=== PATIENT | male | born 1930 | race Caucasian/White ===

== ENCOUNTER → 2017-01-17 | Outpatient (REF) | payer MEDICARE, OTHER ==
[~2017-01-17] MED LIST: /FENO48TA OR; ADVIL PO; MULTIVIT PO; OMEP20TA7 OR; PROS5TAB OR; SIMV40TA2 OR; hyomax PO
[2017-01-17 13:28] LABS: MEAN CORPUSCULAR HEMOGLOBIN 34.1 pg (27.0-33.0); MEAN CORPUSCULAR HGB CONC 34.4 g/dl (32.0-36.5); MEAN CORPUSCULAR VOLUME 99.2 fl (80.0-96.0); RED CELL DISTRIBUTION WIDTH 13.1 % (11.5-14.5)
[2017-01-17 13:47] LABS: ALBUMIN 3.3 GM/DL (3.2-5.2); ALBUMIN/GLOBULIN RATIO 1.18 (1.00-1.93); ALKALINE PHOSPHATASE 68 U/L (45-117); ALT/SGPT 25 U/L (12-78); ANION GAP 9 MEQ/L (8-16); AST/SGOT 17 U/L (15-37); BILIRUBIN,TOTAL 0.8 MG/DL (0.2-1.0); BLOOD UREA NITROGEN 12 MG/DL (7-18); CALCIUM LEVEL 8.2 MG/DL (8.8-10.2); CARBON DIOXIDE LEVEL 30 MEQ/L (21-32); CHLORIDE LEVEL 103 MEQ/L (98-107); CHOLESTEROL LEVEL 155 MG/DL (<200); CREATININE FOR GFR 0.88 MG/DL (0.70-1.30); GLOMERULAR FILTRATION RATE > 60.0 (>35); GLUCOSE, FASTING 107 MG/DL (83-110); POTASSIUM SERUM 4.1 MEQ/L (3.5-5.1); SODIUM LEVEL 142 MEQ/L (136-145); TOTAL PROTEIN 6.1 GM/DL (6.4-8.2); TRIGLYCERIDES LEVEL 232 MG/DL (<150)
== END ==
LOC: M SFHCPLAZ 08:35
PROVIDERS: ATTEND Nurse Practitioner Family
DX: D51.9 Vitamin B12 deficiency anemia, unspecified (principal); E78.2 Mixed hyperlipidemia; R73.9 Hyperglycemia, unspecified; E11.9 Type 2 diabetes mellitus without complications; E55.9 Vitamin D deficiency, unspecified

== ENCOUNTER → 2017-02-07 | Outpatient (CLI) | payer MEDICARE, OTHER ==
--- NOTE | 2017-02-13 15:18 | RADONC ---
RADIATION ONCOLOGY DATE OF SERVICE: 02/07/2017 CHART NO: [id number] DIAGNOSIS: Prostate cancer. STAGE: Stage II B, [id number] ECOG PERFORMANCE STATUS: 0 Mr. 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 The patient presents today reporting that he is doing quite well with no complaints at this time related to his radiation therapy or disease. He has no urinary or bowel difficulties and no bone pain. The patient's review of systems noncontributory. He denies standard review of systems. PHYSICAL EXAMINATION: The patient is a well-developed, well-nourished male in no acute distress. HEENT exam is normocephalic, atraumatic. Extraocular movements are intact. There is no palpable cervical, supraclavicular, infraclavicular, axillary, or inguinal lymphadenopathy present. Lungs are clear to auscultation and percussion. Heart has a regular rate and rhythm. Abdomen is benign with no hepatosplenomegaly, masses, or tenderness. Rectal examination reveals a normal anal sphincter tone. His prostate is smooth with no evidence of nodularity. Skeletal examination reveals no tenderness to pressure or percussion of the bony skeleton. Extremities reveal no clubbing, cyanosis, or edema. Neurologic exam is grossly intact, as is the remainder of the physical examination. ASSESSMENT: The patient is clinically ADELE at this time and will be seen by us again in 1 year for further followup. He will also continue to be followed by his other physicians as well. cc: MD Jayjay Kemp MD
== END ==
LOC: M ONCR 14:05
PROVIDERS: ATTEND Radiology Radiation Oncology
DX: C61 Malignant neoplasm of prostate (principal)
CPT/HCPCS: 36415; 84153; G0463

== ENCOUNTER → 2017-07-19 | Outpatient (REF) | payer MEDICARE, OTHER ==
[2017-07-19 13:56] LABS: ALBUMIN 3.3 GM/DL (3.2-5.2); ALBUMIN/GLOBULIN RATIO 1.06 (1.00-1.93); ALKALINE PHOSPHATASE 66 U/L (45-117); ALT/SGPT 27 U/L (12-78); ANION GAP 9 MEQ/L (8-16); AST/SGOT 14 U/L (15-37); BILIRUBIN,TOTAL 0.9 MG/DL (0.2-1.0); BLOOD UREA NITROGEN 9 MG/DL (7-18); CALCIUM LEVEL 8.3 MG/DL (8.8-10.2); CARBON DIOXIDE LEVEL 28 MEQ/L (21-32); CHLORIDE LEVEL 105 MEQ/L (98-107); CREATININE FOR GFR 0.78 MG/DL (0.70-1.30); GLOMERULAR FILTRATION RATE > 60.0 (>35); GLUCOSE, FASTING 114 MG/DL (83-110); POTASSIUM SERUM 4.1 MEQ/L (3.5-5.1); SODIUM LEVEL 142 MEQ/L (136-145); TOTAL PROTEIN 6.4 GM/DL (6.4-8.2)
== END ==
LOC: M SFHCPLAZ 08:28
PROVIDERS: ATTEND Nurse Practitioner Family
DX: E78.2 Mixed hyperlipidemia (principal); E11.9 Type 2 diabetes mellitus without complications

== ENCOUNTER → 2017-08-16 | Outpatient (REF) | payer MEDICARE, OTHER | LOC: M SFHCPLAZ 17:21 | PROVIDERS: ATTEND Physician Assistant | DX: J02.9 Acute pharyngitis, unspecified (principal) ==

== ENCOUNTER → 2017-10-08 | Outpatient (REF) | payer MEDICARE, OTHER | LOC: M LABDRAWP 12:40 | PROVIDERS: ATTEND Radiology Radiation Oncology | DX: C61 Malignant neoplasm of prostate (principal); E11.9 Type 2 diabetes mellitus without complications; E78.2 Mixed hyperlipidemia ==

== ENCOUNTER → 2017-10-08 | Outpatient (REF) | payer MEDICARE, OTHER ==
[2017-10-08 13:35] LABS: ALBUMIN 3.4 GM/DL (3.2-5.2); ALKALINE PHOSPHATASE 64 U/L (45-117); ALT/SGPT 24 U/L (12-78); ANION GAP 10 MEQ/L (8-16); AST/SGOT 19 U/L (7-37); BILIRUBIN,TOTAL 0.6 MG/DL (0.2-1.0); BLOOD UREA NITROGEN 14 MG/DL (7-18); CALCIUM LEVEL 8.8 MG/DL (8.8-10.2); CARBON DIOXIDE LEVEL 28 MEQ/L (21-32); CHLORIDE LEVEL 103 MEQ/L (98-107); CREATININE FOR GFR 0.94 MG/DL (0.70-1.30); GLOMERULAR FILTRATION RATE > 60.0 (>35); GLUCOSE, FASTING 108 MG/DL (83-110); POTASSIUM SERUM 4.2 MEQ/L (3.5-5.1); SODIUM LEVEL 141 MEQ/L (136-145); TOTAL PROTEIN 6.5 GM/DL (6.4-8.2)
== END ==
LOC: M SFHCPLAZ 10:05
PROVIDERS: ATTEND Family Medicine
DX: C61 Malignant neoplasm of prostate (principal); E11.9 Type 2 diabetes mellitus without complications; E78.2 Mixed hyperlipidemia

== ENCOUNTER → 2018-03-13 | Outpatient (REF) | payer MEDICARE, OTHER ==
[2018-03-13 12:36] LABS: TOTAL 25(OH) VITAMIN D 25.8 NG/ML (30.0-100.0)
[2018-03-13 12:52] LABS: ALBUMIN 3.7 GM/DL (3.2-5.2); ALBUMIN/GLOBULIN RATIO 1.09 (1.00-1.93); ALKALINE PHOSPHATASE 77 U/L (45-117); ALT/SGPT 25 U/L (12-78); ANION GAP 8 MEQ/L (8-16); AST/SGOT 15 U/L (7-37); BILIRUBIN,TOTAL 0.9 MG/DL (0.2-1.0); BLOOD UREA NITROGEN 16 MG/DL (7-18); CALCIUM LEVEL 8.8 MG/DL (8.8-10.2); CARBON DIOXIDE LEVEL 27 MEQ/L (21-32); CHLORIDE LEVEL 108 MEQ/L (98-107); CREATININE FOR GFR 0.91 MG/DL (0.70-1.30); GLOMERULAR FILTRATION RATE > 60.0 (>35); GLUCOSE, FASTING 95 MG/DL (70-100); POTASSIUM SERUM 4.7 MEQ/L (3.5-5.1); SODIUM LEVEL 143 MEQ/L (136-145); TOTAL PROTEIN 7.1 GM/DL (6.4-8.2)
== END ==
LOC: M SFHCPLAZ 10:00
DX: E55.9 Vitamin D deficiency, unspecified (principal); M48.061 Spinal stenosis, lumbar region without neurogenic claudication; X19.XXXA Contact with other heat and hot substances, initial encounter; Y92.9 Unspecified place or not applicable; Y93.9 Activity, unspecified
CPT/HCPCS: 80053

== ENCOUNTER → 2018-04-03 | Outpatient (CLI) | payer MEDICARE, OTHER | LOC: M ONCR 14:28 | DX: C61 Malignant neoplasm of prostate (principal) | CPT/HCPCS: 84153 ==

== ENCOUNTER → 2018-04-03 | Outpatient (CLI) | payer MEDICARE, BC, OTHER ==
[2018-04-03 14:26] LABS: PROSTATIC SPECIFIC AG MONITOR 0.03 NG/ML (< 4.0)
== END ==
LOC: M SMT 08:49
DX: C61 Malignant neoplasm of prostate (principal)

== ENCOUNTER → 2018-04-16 | Outpatient (CLI) | payer MEDICARE, BC, OTHER ==
[2018-04-16 13:14] LABS: HEMATOCRIT 40.2 % (42.0-52.0); HEMOGLOBIN 13.8 g/dl (13.5-17.5); MEAN CORPUSCULAR HEMOGLOBIN 33.6 pg (27.0-33.0); MEAN CORPUSCULAR HGB CONC 34.3 g/dl (32.0-36.5); MEAN CORPUSCULAR VOLUME 97.8 fl (80.0-96.0); PLATELET COUNT, AUTOMATED 200 10^3/uL (150-450); RED BLOOD COUNT 4.11 10^6/uL (4.30-6.10); RED CELL DISTRIBUTION WIDTH 13.2 % (11.5-14.5); WHITE BLOOD COUNT 7.4 10^3/uL (4.0-10.0)
[2018-04-16 13:39] LABS: VITAMIN B12 LEVEL 436 PG/ML (247-911)
[2018-04-16 13:53] LABS: ALBUMIN 3.4 GM/DL (3.2-5.2); ALBUMIN/GLOBULIN RATIO 1.06 (1.00-1.93); ALKALINE PHOSPHATASE 69 U/L (45-117); ALT/SGPT 25 U/L (12-78); ANION GAP 8 MEQ/L (8-16); AST/SGOT 15 U/L (7-37); BILIRUBIN,TOTAL 0.6 MG/DL (0.2-1.0); BLOOD UREA NITROGEN 17 MG/DL (7-18); CALCIUM LEVEL 8.8 MG/DL (8.8-10.2); CARBON DIOXIDE LEVEL 28 MEQ/L (21-32); CHLORIDE LEVEL 106 MEQ/L (98-107); CHOLESTEROL LEVEL 154 MG/DL (<200); CHOLESTEROL RISK RATIO 2.655 (<5); CREATININE FOR GFR 0.91 MG/DL (0.70-1.30); GLOMERULAR FILTRATION RATE > 60.0 (>35); GLUCOSE, FASTING 107 MG/DL (70-100); HDL CHOLESTEROL 58 MG/DL (>40); LDL CHOLESTEROL 40.8 MG/DL (<100); NON-HDL-C 96 MG/DL; POTASSIUM SERUM 4.3 MEQ/L (3.5-5.1); SODIUM LEVEL 142 MEQ/L (136-145); TOTAL PROTEIN 6.6 GM/DL (6.4-8.2); TRIGLYCERIDES LEVEL 276 MG/DL (<150)
== END ==
LOC: M SMT 08:55
DX: K22.70 Barrett's esophagus without dysplasia (principal); E78.2 Mixed hyperlipidemia; D51.9 Vitamin B12 deficiency anemia, unspecified
CPT/HCPCS: 82607

== ENCOUNTER → 2018-05-09 | Outpatient (CLI) | payer MEDICARE, BC, OTHER ==
[~2018-05-09] MED LIST changes: -/FENO48TA OR; -ADVIL PO; -MULTIVIT PO; -OMEP20TA7 OR; +PROHANCE 279.3MG/ML 15ML VIAL (A9576) As Ordered; +PROHANCE 279.3MG/ML 5ML VIAL (A9576) As Ordered; -PROS5TAB OR; -SIMV40TA2 OR; -hyomax PO
== END ==
LOC: M RAD 09:37
DX: M48.062 Spinal stenosis, lumbar region with neurogenic claudication (principal); M51.26 Other intervertebral disc displacement, lumbar region
CPT/HCPCS: A9576

== ENCOUNTER → 2018-07-22 | Outpatient (REF) | payer MEDICARE, OTHER | LOC: M LAB REF 07-23 11:05 | DX: L82.1 Other seborrheic keratosis (principal); C44.622 Squamous cell carcinoma of skin of right upper limb, including shoulder; D23.62 Other benign neoplasm of skin of left upper limb, including shoulder | CPT/HCPCS: 88305 ==

== ENCOUNTER → 2018-08-20 | Outpatient (REF) | payer MEDICARE, OTHER | LOC: M LAB REF 17:25 | DX: C44.622 Squamous cell carcinoma of skin of right upper limb, including shoulder (principal) | CPT/HCPCS: 88305 ==

== ENCOUNTER 2018-09-12 15:47 | Emergency (ER) | payer MEDICARE, OTHER ==
[2018-09-12 18:04] LABS: HEMATOCRIT 42.9 % (42.0-52.0); HEMOGLOBIN 14.7 g/dl (13.5-17.5); MEAN CORPUSCULAR HEMOGLOBIN 33.7 pg (27.0-33.0); MEAN CORPUSCULAR HGB CONC 34.3 g/dl (32.0-36.5); MEAN CORPUSCULAR VOLUME 98.4 fl (80.0-96.0); PLATELET COUNT, AUTOMATED 177 10^3/uL (150-450); RED BLOOD COUNT 4.36 10^6/uL (4.30-6.10); RED CELL DISTRIBUTION WIDTH 12.8 % (11.5-14.5); WHITE BLOOD COUNT 7.1 10^3/uL (4.0-10.0)
[2018-09-12 18:13] LABS: INR 0.89; PROTHROMBIN TIME 12.1 SECONDS (12.1-14.4)
[2018-09-12 18:23] LABS: ANION GAP 12 MEQ/L (8-16); BLOOD UREA NITROGEN 24 MG/DL (7-18); CALCIUM LEVEL 8.5 MG/DL (8.8-10.2); CARBON DIOXIDE LEVEL 24 MEQ/L (21-32); CHLORIDE LEVEL 106 MEQ/L (98-107); CREATININE FOR GFR 1.03 MG/DL (0.70-1.30); GLOMERULAR FILTRATION RATE > 60.0 (>35); GLUCOSE, FASTING 123 MG/DL (70-100); POTASSIUM SERUM 4.7 MEQ/L (3.5-5.1); SODIUM LEVEL 142 MEQ/L (136-145)
== END 2018-09-12 19:21 | disposition home or self-care (01) ==
LOC: M ED 15:47
DX: R29.6 Repeated falls (principal)
CPT/HCPCS: 70450

== ENCOUNTER 2018-09-23 22:19 | Emergency (ER) | payer MEDICARE, OTHER ==
[2018-09-23] MEDS: ACETAMINOPHEN TAB 650MG DOSE (2X325MG) PO (23:00)
== END 2018-09-24 01:21 | disposition home or self-care (01) ==
LOC: M ED 09-24 01:21
DX: S09.90XA Unspecified injury of head, initial encounter (principal); W19.XXXA Unspecified fall, initial encounter; Y92.099 Unspecified place in other non-institutional residence as the place of occurrence of the external cause; Y93.9 Activity, unspecified; Y99.9 Unspecified external cause status; F41.9 Anxiety disorder, unspecified; G43.909 Migraine, unspecified, not intractable, without status migrainosus; K21.9 Gastro-esophageal reflux disease without esophagitis; N40.0 Benign prostatic hyperplasia without lower urinary tract symptoms; G89.29 Other chronic pain; M54.9 Dorsalgia, unspecified; Z79.899 Other long term (current) drug therapy; Z88.0 Allergy status to penicillin
CPT/HCPCS: 70450

== ENCOUNTER → 2018-10-30 | Outpatient (REF) | payer MEDICARE, OTHER ==
[2018-10-30 17:54] LABS: ALBUMIN 3.4 GM/DL (3.2-5.2); ALBUMIN/GLOBULIN RATIO 1.06 (1.00-1.93); ALKALINE PHOSPHATASE 69 U/L (45-117); ALT/SGPT 21 U/L (12-78); ANION GAP 9 MEQ/L (8-16); AST/SGOT 19 U/L (7-37); BILIRUBIN,TOTAL 0.7 MG/DL (0.2-1.0); BLOOD UREA NITROGEN 13 MG/DL (7-18); CALCIUM LEVEL 8.6 MG/DL (8.8-10.2); CARBON DIOXIDE LEVEL 27 MEQ/L (21-32); CHLORIDE LEVEL 104 MEQ/L (98-107); CHOLESTEROL LEVEL 182 MG/DL (<200); CHOLESTEROL RISK RATIO 3.791 (<5); CREATININE FOR GFR 0.89 MG/DL (0.70-1.30); GLOMERULAR FILTRATION RATE > 60.0 (>35); GLUCOSE, FASTING 98 MG/DL (70-100); HDL CHOLESTEROL 48 MG/DL (>40); NON-HDL-C 134 MG/DL; POTASSIUM SERUM 4.3 MEQ/L (3.5-5.1); SODIUM LEVEL 140 MEQ/L (136-145); TOTAL PROTEIN 6.6 GM/DL (6.4-8.2); TRIGLYCERIDES LEVEL 439 MG/DL (<150)
[2018-10-30 18:01] LABS: HEMATOCRIT 39.5 % (42.0-52.0); HEMOGLOBIN 13.6 g/dl (13.5-17.5); MEAN CORPUSCULAR HEMOGLOBIN 33.2 pg (27.0-33.0); MEAN CORPUSCULAR HGB CONC 34.4 g/dl (32.0-36.5); MEAN CORPUSCULAR VOLUME 96.3 fl (80.0-96.0); PLATELET COUNT, AUTOMATED 222 10^3/uL (150-450); RED CELL DISTRIBUTION WIDTH 12.9 % (11.5-14.5); WHITE BLOOD COUNT 8.1 10^3/uL (4.0-10.0)
[2018-10-30 18:04] LABS: VITAMIN B12 LEVEL 447 PG/ML (247-911)
[2018-10-31 16:24] LABS: ESTIMATED AVERAGE GLUCOSE 114 MG/DL (60-110); HEMOGLOBIN A1c 5.6 %
== END ==
LOC: M SFHCPLAZ 14:52
DX: K22.70 Barrett's esophagus without dysplasia (principal); E78.2 Mixed hyperlipidemia; D51.9 Vitamin B12 deficiency anemia, unspecified
CPT/HCPCS: 82607

== ENCOUNTER → 2018-12-10 | Outpatient (REF) | payer MEDICARE, OTHER ==
[~2018-12-10] MED LIST changes: +/FENO48TA OR; +ADVIL PO; +MULTIVIT PO; +OMEP20TA7 OR; -PROHANCE 279.3MG/ML 15ML VIAL (A9576) As Ordered; -PROHANCE 279.3MG/ML 5ML VIAL (A9576) As Ordered; +PROS5TAB OR; +SIMV40TA2 OR; +hyomax PO
[2018-12-10 16:30] LABS: APPEARANCE, URINE HAZY (CLEAR); BACTERIA, URINE AUTO NEGATIVE (NEGATIVE); BILIRUBIN, URINE AUTO NEGATIVE (NEGATIVE); BLOOD, URINE BLOOD NEGATIVE (NEGATIVE); COLOR, URINE AMBER (YELLOW); GLUCOSE, URINE (UA) AUTO NEGATIVE (NEGATIVE); KETONE, URINE AUTO TRACE mg/dL (NEGATIVE); LEUKOCYTE ESTERASE, URINE AUTO NEGATIVE (NEGATIVE); MUCUS, URINE SMALL (NEGATIVE); NITRITE, URINE AUTO NEGATIVE (NEGATIVE); PROTEIN, URINE AUTO 1+ mg/dL (NEGATIVE); RBC, URINE AUTO 2 /HPF (0-3); SPECIFIC GRAVITY URINE AUTO 1.028 (1.002-1.035); SQUAMOUS EPITHELIAL CELL UR AU 0 /HPF (0-6); UROBILINOGEN, URINE AUTO 0.2 mg/dL (0.0-2.0); WBC, URINE AUTO 3 /HPF (0-3)
== END ==
LOC: M SFHCPLAZ 15:36
PROVIDERS: ATTEND Nurse Practitioner Family
DX: F03.91 Unspecified dementia, unspecified severity, with behavioral disturbance (principal)
CPT/HCPCS: 81001; 81002; G0463

== ENCOUNTER 2019-03-24 20:39 | Emergency (ER) | payer MEDICARE, BC, OTHER ==
[~2019-03-24] VITALS: Ht 167.6 cm; Wt 82.4 kg
[~2019-03-24 20:39] MED LIST changes: -/FENO48TA OR; -PROS5TAB OR; +PROS5TAB PO; +TRIC1TAB OR
[2019-03-24 21:29] LABS: BASO % 0.3 % (0.0-1.0); EOS % 0.3 % (0.0-3.0); HEMATOCRIT 38.8 % (42.0-52.0); HEMOGLOBIN 13.3 g/dl (13.5-17.5); MEAN CORPUSCULAR HEMOGLOBIN 32.8 pg (27.0-33.0); MEAN CORPUSCULAR HGB CONC 34.3 g/dl (32.0-36.5); MEAN CORPUSCULAR VOLUME 95.8 fl (80.0-96.0); MONO # 0.7 10^3/uL (0.0-0.8); MONO % 5.2 % (0.0-5.0); NEUTROPHILS # 10.7 10^3/uL (1.8-7.7); NEUTROPHILS % 85.7 % (36.0-66.0); PLATELET COUNT, AUTOMATED 163 10^3/uL (150-450); RED BLOOD COUNT 4.05 10^6/uL (4.30-6.10); WHITE BLOOD COUNT 12.4 10^3/uL (4.0-10.0)
[2019-03-24 21:40] LABS: BLOOD UREA NITROGEN 11 MG/DL (7-18); CALCIUM LEVEL 8.2 MG/DL (8.8-10.2); CARBON DIOXIDE LEVEL 25 MEQ/L (21-32); CHLORIDE LEVEL 104 MEQ/L (98-107); CREATININE FOR GFR 0.93 MG/DL (0.70-1.30); GLOMERULAR FILTRATION RATE > 60.0 (>35); GLUCOSE, FASTING 143 MG/DL (70-100); SODIUM LEVEL 139 MEQ/L (136-145)
[2019-03-24] MEDS ORDERED: IPRATROPIUM 0.5MG/ALBUTEROL 2.5MG INH SOL UD 3ML (DUONEB)(J7620) NEB ONE ×2 (22:30→23:15)
[2019-03-24 22:49] LABS: CK-MB VALUE MASS < 1.0 NG/ML (<3.6); CPK CREATINE PHOSPHOKINASE 107 U/L (39-308); FREE T4 1.05 NG/DL (0.76-1.46); MB/CK RELATIVE INDEX 0.93 (< OR =4); TROPONIN I < 0.02 NG/ML (< 0.10)
--- NOTE | 2019-03-24 23:01 | REPVR ---
EXAM: XR Chest, 2 Views EXAM DATE/TIME: 03/24/2019 10:05 PM CLINICAL HISTORY: 88 years old, male; Signs and symptoms; Cough and dyspnea; Additional info: Dyspnea/cough TECHNIQUE: Imaging protocol: XR of the chest, 2 views. COMPARISON: CR Chest, 2 view PA, Lat 10/08/2012 1:38 PM FINDINGS: Lungs: No interval infiltrates. Pleural space: Unremarkable. No pleural effusion. No pneumothorax. Heart/Mediastinum: The heart and mediastinum are unchanged. Vasculature: Tortuous thoracic aorta. Bones/joints: Unremarkable. IMPRESSION: Stable essentially negative chest since 10/08/2012. Electronically signed by: gK Fernández On 03/24/2019 23:01:22 PM
[2019-03-24] MEDS ORDERED: methylPREDNISolone INJ 125 MG/2 ML VIAL (J2930) IV ONE (23:15)
[2019-03-24 23:59] VITALS: O2SAT 94
[2019-03-25] VITALS: BP 123/67
[2019-03-25] MEDS ORDERED: PRED20TA PO (00:11)
[2019-03-25] MEDS ORDERED: AZIT-12 PO (00:12)
[2019-03-25] MEDS ORDERED: AZITHROMYCIN 250 MG TAB PO ONE (00:15)
[2019-03-25] MEDS ORDERED: ATOR40TA75 PO (01:33)
--- NOTE | 2019-03-25 07:24 | ECGEPIP ---
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
== END 2019-03-25 01:09 | disposition home or self-care (01) ==
LOC: M ED 20:39
DX: J40 Bronchitis, not specified as acute or chronic (principal); R53.1 Weakness; R26.9 Unspecified abnormalities of gait and mobility; E11.9 Type 2 diabetes mellitus without complications; E78.9 Disorder of lipoprotein metabolism, unspecified; G43.909 Migraine, unspecified, not intractable, without status migrainosus; K22.70 Barrett's esophagus without dysplasia; N40.0 Benign prostatic hyperplasia without lower urinary tract symptoms; F41.9 Anxiety disorder, unspecified; F32.9 Major depressive disorder, single episode, unspecified; Z87.09 Personal history of other diseases of the respiratory system; Z87.891 Personal history of nicotine dependence; Z88.0 Allergy status to penicillin; Z88.8 Allergy status to other drugs, medicaments and biological substances; Z79.899 Other long term (current) drug therapy
CPT/HCPCS: 36415; 71046; 80048; 81001; 82550; 82553; 84439; 84443; 84484; 85025; 93005; 93041; 94640; 94760; 96374; 99285; G0463; J2930

== ENCOUNTER → 2019-04-09 | Outpatient (CLI) | payer MEDICARE, BC, OTHER ==
[~2019-04-09] MED LIST changes: +ATOR40TA75 PO; +AZIT-12 PO; +PRED20TA PO
--- NOTE | 2019-04-10 07:10 | RADONC ---
RADIATION ONCOLOGY FOLLOWUP NOTE DATE: 04/09/2019 CHART #: [id number] DIAGNOSIS: Prostate cancer. STAGE: II B, [id number]. ECOG PERFORMANCE STATUS: 1. FOLLOWUP NOTE: Mr. 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 The patient presents today reporting that he is doing quite well with no complaints at this time related to his radiation therapy or disease. He is having no urinary bowel difficulties. No bone pain. REVIEW OF SYSTEMS: The patient's review of systems is positive for some physical limitations secondary to his age. Denies nausea, vomiting, fevers, chills, night sweats, diplopia, headaches, anxiety or depression, anorexia, weight loss, visual disturbances, chest pain, urinary or bowel difficulties, bone pain, or neurological problems. PHYSICAL EXAMINATION: The patient is a well-developed, well-nourished, 88-year-old male in no acute distress. HEENT exam is normocephalic, atraumatic. Extraocular movements are intact. There is no palpable cervical, supraclavicular, infraclavicular, axillary, or inguinal lymphadenopathy present. Lungs are clear to auscultation and percussion. Heart has a regular rate and rhythm. Abdomen is benign with no hepatosplenomegaly, masses, or tenderness. Breast examination reveals no masses or discharge bilaterally. Skeletal examination reveals no tenderness to pressure or percussion of the bony skeleton. Extremities reveal no clubbing, cyanosis, or edema. Neurologic exam is grossly intact, as is the remainder of the physical examination. ASSESSMENT: The patient is clinically ADELE at this time and will be seen by us again in 1 year for further followup.
== END ==
LOC: M ONCR 13:41
PROVIDERS: ATTEND Radiology Radiation Oncology
DX: C61 Malignant neoplasm of prostate (principal)
CPT/HCPCS: 36415; 84153; G0463

== ENCOUNTER → 2019-06-02 | Outpatient (REF) | payer MEDICARE, OTHER ==
[~2019-06-02] MED LIST changes: +ARIC1TAB2 PO; +ASPI81CH33 PO; +CVS2500C PO; +GNP1000T11 PO; +LEXA1TAB PO; +META0.522 PO; +NAME10TA PO
== END ==
LOC: M SFHCPLAZ 17:22
PROVIDERS: ATTEND Dermatology
DX: B07.9 Viral wart, unspecified (principal)

== ENCOUNTER → 2019-06-04 | Outpatient (CLI) | payer MEDICARE, BC, OTHER ==
--- NOTE | 2019-06-04 15:57 | REP ---
HISTORY: Right flank pain. COMPARISON: Abdominal series 10/04/2012. FINDINGS: KUB shows the intestinal gas pattern to be nonspecific. The organ silhouettes insofar as delineated are unremarkable. There is no evidence of free intraperitoneal air. IMPRESSION: Nonspecific. No significant change from the prior exam. Electronically Signed by Jason Faria DO 06/04/2019 04:22 P
== END ==
LOC: M SMT 14:30
PROVIDERS: ATTEND Nurse Practitioner Family
DX: R10.9 Unspecified abdominal pain (principal)
CPT/HCPCS: 74018; G0463

== ENCOUNTER 2019-06-12 12:06 | Emergency (ER) | payer MEDICARE, BC, OTHER ==
[~2019-06-12 12:06] MED LIST changes: -ARIC1TAB2 PO; -ASPI81CH33 PO; -CVS2500C PO; -GNP1000T11 PO; -LEXA1TAB PO; -META0.522 PO; -NAME10TA PO
--- NOTE | 2019-06-12 13:52 | REP ---
RIGHT RIB SERIES: Five views player. HISTORY: Right lateral chest wall injury after a fall. FINDINGS: PA chest radiograph shows no evidence of pneumothorax or hydrothorax. The thoracic aorta is rather tortuous and somewhat calcific. This is unchanged from comparison radiograph March 24, 2019 and October 08, 2012. There is no evidence of mediastinal hematoma. The pleural angles are sharp. Heart is not enlarged. Lung [place] are clear. Multiple views of the right rib cage demonstrate no visible rib fracture or bony destructive lesion. IMPRESSION: Negative right rib radiographs. Electronically Signed by George Levine MD 06/12/2019 02:21 P
[2019-06-12 14:58] VITALS: BP 144/81
== END 2019-06-12 15:00 | disposition home or self-care (01) ==
LOC: M ED 12:06 → EDBD 12:06 → M ED 15:00
DX: S20.211A Contusion of right front wall of thorax, initial encounter (principal); S51.802A Unspecified open wound of left forearm, initial encounter; W19.XXXA Unspecified fall, initial encounter; Y92.89 Other specified places as the place of occurrence of the external cause; Z79.899 Other long term (current) drug therapy; Z79.82 Long term (current) use of aspirin; Z88.0 Allergy status to penicillin; Z88.8 Allergy status to other drugs, medicaments and biological substances

== ENCOUNTER 2019-06-18 13:58 | Emergency (ER) | payer MEDICARE, BC, OTHER ==
[~2019-06-18] VITALS: Ht 167.6 cm; Wt 77.3 kg
[2019-06-18] MEDS ORDERED: NAME10TA PO (14:30)
[2019-06-18] MEDS ORDERED: ARIC1TAB2 PO (14:30)
[2019-06-18] MEDS ORDERED: ASPI81CH33 PO (14:30)
[2019-06-18] MEDS ORDERED: LEXA1TAB PO (14:30)
[2019-06-18] MEDS ORDERED: CVS2500C PO (14:30)
[2019-06-18] MEDS ORDERED: GNP1000T11 PO (14:30)
[2019-06-18] MEDS ORDERED: META0.522 PO (14:31)
[2019-06-18 15:32] VITALS: BP 139/63
--- NOTE | 2019-06-18 19:38 | REP ---
PELVIS AND RIGHT HIP: AP view of the pelvis and AP and frog leg views of the right hip are performed. I see no acute fracture or dislocation. There are mild degenerative changes of the hips and sacroiliac joints. There are degenerative changes of the lower lumbar spine. Metallic clips are seen in the midline of the inferior pelvis. IMPRESSION: Degenerative changes without fracture or dislocation. Electronically Signed by Frederick Calderon MD 06/19/2019 10:07 A
== END 2019-06-18 16:03 | disposition home or self-care (01) ==
LOC: EDBD 13:58 → M ED 13:58
DX: S70.01XA Contusion of right hip, initial encounter (principal); X58.XXXA Exposure to other specified factors, initial encounter; Y92.89 Other specified places as the place of occurrence of the external cause; Z91.81 History of falling; I51.9 Heart disease, unspecified; E78.5 Hyperlipidemia, unspecified; G43.909 Migraine, unspecified, not intractable, without status migrainosus; Z88.0 Allergy status to penicillin; Z88.8 Allergy status to other drugs, medicaments and biological substances; Z79.899 Other long term (current) drug therapy; Z79.82 Long term (current) use of aspirin

== ENCOUNTER → 2019-08-04 | Outpatient (CLI) | payer MEDICARE, BC, OTHER ==
[~2019-08-04] MED LIST changes: +ARIC1TAB2 PO; +ASPI81CH33 PO; +CVS2500C PO; +GNP1000T11 PO; +LEXA1TAB PO; +META0.522 PO; +NAME10TA PO
[2019-08-04 13:33] LABS: HEMATOCRIT 40.8 % (42.0-52.0); HEMOGLOBIN 13.9 g/dl (13.5-17.5); MEAN CORPUSCULAR HEMOGLOBIN 32.9 pg (27.0-33.0); MEAN CORPUSCULAR HGB CONC 34.1 g/dl (32.0-36.5); MEAN CORPUSCULAR VOLUME 96.7 fl (80.0-96.0); PLATELET COUNT, AUTOMATED 183 10^3/uL (150-450); RED BLOOD COUNT 4.22 10^6/uL (4.30-6.10); WHITE BLOOD COUNT 5.4 10^3/uL (4.0-10.0)
[2019-08-04 13:41] LABS: ALBUMIN 3.3 GM/DL (3.2-5.2); ALT/SGPT 20 U/L (12-78); BILIRUBIN,TOTAL 0.7 MG/DL (0.2-1.0); BLOOD UREA NITROGEN 16 MG/DL (7-18); CALCIUM LEVEL 9.2 MG/DL (8.8-10.2); CARBON DIOXIDE LEVEL 27 MEQ/L (21-32); CHLORIDE LEVEL 105 MEQ/L (98-107); CHOLESTEROL LEVEL 167 MG/DL (<200); CHOLESTEROL RISK RATIO 2.783 (<5); GLOMERULAR FILTRATION RATE > 60.0 (>35); GLUCOSE, FASTING 105 MG/DL (70-100); HDL CHOLESTEROL 60 MG/DL (>40); LDL CHOLESTEROL 71 MG/DL (<100); NON-HDL-C 107 MG/DL; POTASSIUM SERUM 4.2 MEQ/L (3.5-5.1); SODIUM LEVEL 141 MEQ/L (136-145); TOTAL PROTEIN 6.7 GM/DL (6.4-8.2); TRIGLYCERIDES LEVEL 180 MG/DL (<150)
[2019-08-04 13:49] LABS: VITAMIN B12 LEVEL 883 PG/ML (247-911)
[2019-08-04 13:54] LABS: HEMOGLOBIN A1c 5.7 %
== END ==
LOC: M SMT 09:53
PROVIDERS: ATTEND Nurse Practitioner Family
DX: Z00.00 Encounter for general adult medical examination without abnormal findings (principal); K22.70 Barrett's esophagus without dysplasia; E78.2 Mixed hyperlipidemia; R73.03 Prediabetes; D51.9 Vitamin B12 deficiency anemia, unspecified

== ENCOUNTER 2020-01-13 16:06 | Emergency (ER) | payer MEDICARE, BC, OTHER ==
[~2020-01-13] VITALS: Ht 167.6 cm; Wt 81.8 kg
[2020-01-13 16:58] LABS: BASO % 0.3 % (0.0-1.0); EOS # 0.1 10^3/uL (0.0-0.5); EOS % 0.6 % (0.0-3.0); HEMATOCRIT 38.7 % (42.0-52.0); HEMOGLOBIN 13.6 g/dl (13.5-17.5); LYMPH # 1.2 10^3/uL (1.5-5.0); LYMPH % 13.9 % (24.0-44.0); MEAN CORPUSCULAR HEMOGLOBIN 33.6 pg (27.0-33.0); MEAN CORPUSCULAR HGB CONC 35.1 g/dl (32.0-36.5); MEAN CORPUSCULAR VOLUME 95.6 fl (80.0-96.0); MONO # 0.6 10^3/uL (0.0-0.8); MONO % 7.4 % (0.0-5.0); NEUTROPHILS # 6.7 10^3/uL (1.5-8.5); NEUTROPHILS % 77.5 % (36.0-66.0); PLATELET COUNT, AUTOMATED 184 10^3/uL (150-450); RED BLOOD COUNT 4.05 10^6/uL (4.30-6.10); WHITE BLOOD COUNT 8.6 10^3/uL (4.0-10.0)
[2020-01-13 17:20] LABS: ALBUMIN 3.3 GM/DL (3.2-5.2); ALT/SGPT 29 U/L (12-78); BILIRUBIN,DIRECT 0.2 MG/DL (0.0-0.2); BLOOD UREA NITROGEN 11 MG/DL (7-18); CALCIUM LEVEL 8.7 MG/DL (8.8-10.2); CARBON DIOXIDE LEVEL 29 MEQ/L (21-32); CHLORIDE LEVEL 103 MEQ/L (98-107); CREATININE FOR GFR 0.92 MG/DL (0.70-1.30); GLOMERULAR FILTRATION RATE > 60.0 (>35); GLUCOSE, FASTING 113 MG/DL (70-100); LIPASE 80 U/L (73-393); POTASSIUM SERUM 3.9 MEQ/L (3.5-5.1); SODIUM LEVEL 137 MEQ/L (136-145); TOTAL PROTEIN 6.8 GM/DL (6.4-8.2)
--- NOTE | 2020-01-13 17:41 | REPVR ---
PROCEDURE INFORMATION: Exam: CT Chest Without Contrast Exam date and time: 01/13/2020 5:15 PM Age: 89 years old Clinical indication: Pain; Other: Back; Additional info: Trauma TECHNIQUE: Imaging protocol: Computed tomography of the chest without contrast. Radiation optimization: All CT scans at this facility use at least one of these dose optimization techniques: automated exposure control; mA and/or kV adjustment per patient size (includes targeted exams where dose is matched to clinical indication); or iterative reconstruction. COMPARISON: CR Ribs uni W-PA CHEST ONLY RIGHT 06/12/2019 12:46 PM FINDINGS: Lungs: Calcified granulomas superior segment right lower lobe and left lung base. Bibasilar atelectasis. Lungs otherwise clear. Pleural space: Unremarkable. No pneumothorax. No pleural effusion. Heart: There is severe atherosclerotic calcification of the coronary arteries. Aorta: Ectatic thoracic aorta. The aorta demonstrates mild atherosclerotic calcification. 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 maximally. There is no saccular component. Lymph nodes: Calcified mediastinal lymphadenopathy. 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 Bones/joints: The spine demonstrates mild degenerative changes. Osteoporosis. Soft tissues: Lipoma supraspinatus muscle measures 6.9 x 2.6 cm. Other findings: Minimal parenchymal scarring right apex. IMPRESSION: 1. 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 maximally. There is no saccular component. 2. Findings consistent with remote intrathoracic granulomatous infection. Electronically signed by: Felipe Denise On 01/13/2020 17:40:46 PM
--- NOTE | 2020-01-13 17:46 | REPVR ---
PROCEDURE INFORMATION: Exam: CT Abdomen And Pelvis Without Contrast Exam date and time: 01/13/2020 5:15 PM Age: 89 years old Clinical indication: Abdominal pain; Flank; Right; Additional info: R flank pain TECHNIQUE: Imaging protocol: Computed tomography of the abdomen and pelvis without contrast. Radiation optimization: All CT scans at this facility use at least one of these dose optimization techniques: automated exposure control; mA and/or kV adjustment per patient size (includes targeted exams where dose is matched to clinical indication); or iterative reconstruction. COMPARISON: CR Hip,AP,LAT to include Pelvis 06/18/2019 2:39 PM FINDINGS: Liver: Normal. No mass. 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 No gallbladder wall thickening or calculi demonstrated. Pancreas: Normal. No ductal dilation. Spleen: The spleen demonstrates punctate calcifications, consistent with remote granulomatous organism exposure. Adrenals: There is bilateral adrenal hyperplasia. Kidneys and ureters: Punctate nonobstructive renal calculi demonstrated bilaterally. No obstructive ureteral calculi demonstrated. Stomach and bowel: Mild diverticulosis is present in the distal left colon. No diverticulitis. Appendix: No evidence of appendicitis. Intraperitoneal space: Unremarkable. No free air. No significant fluid collection. Vasculature: The aorta demonstrates moderate atherosclerotic calcification. Lymph nodes: Unremarkable. No enlarged lymph nodes. Bladder: Diffuse thickening of the bladder wall likely related to incomplete distention. Clinical correlation to exclude post radiation changes or cystitis of other etiology as well as bladder carcinoma suggested. Reproductive: Fiducials demonstrated in the prostate gland. Bones/joints: Osteoporosis. Mild central spinal stenosis L2-L3, moderate to severe central spinal stenosis L3-L4, severe central spinal stenosis L4-L5 and L5-S1. Soft tissues: Unremarkable. IMPRESSION: 1. 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 No gallbladder wall thickening or calculi demonstrated. 2. There is bilateral adrenal hyperplasia. 3. Diffuse thickening of the bladder wall likely related to incomplete distention. Clinical correlation to exclude post radiation changes or cystitis of other etiology as well as bladder carcinoma suggested. 4. Mild diverticulosis is present in the distal left colon. No diverticulitis. 5. Punctate nonobstructive renal calculi demonstrated bilaterally. No obstructive ureteral calculi demonstrated. Electronically signed by: Felipe Denise On 01/13/2020 17:46:14 PM
[2020-01-13 19:42] VITALS: BP 174/109
--- NOTE | 2020-01-14 10:47 | ED PDOC ---
Post-Departure Follow-Up dr cedillo faxed formal report of ct chest for fu Umm Jacques MD Jan 14, 2020 10:47
== END 2020-01-13 19:43 | disposition home or self-care (01) ==
LOC: M ED 16:06 → EDBD 16:06 → M ED 19:43
DX: R07.81 Pleurodynia (principal); E78.5 Hyperlipidemia, unspecified; F03.90 Unspecified dementia, unspecified severity, without behavioral disturbance, psychotic disturbance, mood disturbance, and anxiety; M19.90 Unspecified osteoarthritis, unspecified site; N40.0 Benign prostatic hyperplasia without lower urinary tract symptoms; Z85.46 Personal history of malignant neoplasm of prostate; Z66 Do not resuscitate; Z87.891 Personal history of nicotine dependence; E27.8 Other specified disorders of adrenal gland; N20.0 Calculus of kidney; Z79.82 Long term (current) use of aspirin; Z79.899 Other long term (current) drug therapy; Z88.0 Allergy status to penicillin; Z88.8 Allergy status to other drugs, medicaments and biological substances

== ENCOUNTER 2020-01-15 05:58 | Emergency (ER) | payer MEDICARE, BC, OTHER ==
[2020-01-15] MEDS ORDERED: NS 500 ML IV ONE (06:30)
--- NOTE | 2020-01-15 07:16 | ECGEPIP ---
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 Order Number: [id number] Reading MD: Jes Nixon Measurements Intervals [place] Rate: 60 P: 35 NC: 183 QRS: -11 QRSD: 106 T: 3 QT: 412 QTc: 412 Interpretive Statements SINUS RHYTHM WITH SINUS ARRHYTHMIA LOW QRS VOLTAGE IN PRECORDIAL LEADS MODERATE VOLTAGE CRITERIA FOR LVH, CONSIDER NORMAL VARIANT DECREASED RATE 03/24/19 Electronically Signed on 01-15-2020 7:15:44 EST by Jes Nixon
[2020-01-15 07:20] LABS: BASO % 0.7 % (0.0-1.0); EOS # 0.2 10^3/uL (0.0-0.5); EOS % 2.8 % (0.0-3.0); HEMATOCRIT 40.1 % (42.0-52.0); HEMOGLOBIN 13.6 g/dl (13.5-17.5); LYMPH # 1.2 10^3/uL (1.5-5.0); LYMPH % 19.8 % (24.0-44.0); MEAN CORPUSCULAR HEMOGLOBIN 33.3 pg (27.0-33.0); MEAN CORPUSCULAR HGB CONC 33.9 g/dl (32.0-36.5); MONO # 0.4 10^3/uL (0.0-0.8); MONO % 7.1 % (0.0-5.0); NEUTROPHILS # 4.2 10^3/uL (1.5-8.5); NEUTROPHILS % 69.1 % (36.0-66.0); PLATELET COUNT, AUTOMATED 169 10^3/uL (150-450); RED BLOOD COUNT 4.09 10^6/uL (4.30-6.10); WHITE BLOOD COUNT 6.1 10^3/uL (4.0-10.0)
[2020-01-15 07:29] LABS: INR 1.01
[2020-01-15 07:30] LABS: PARTIAL THROMBOPLASTIN TIME 33.5 SECONDS (25.0-38.4)
[2020-01-15] MEDS ORDERED: ISOVUE-370 76% 100ML VIAL (Q9967) As Ordered ONE (07:38)
[2020-01-15] MEDS ORDERED: LIDOCAINE 5% (LIDODERM) PATCH TD ONE (07:45)
[2020-01-15 07:50] LABS: ALBUMIN 3.2 GM/DL (3.2-5.2); BILIRUBIN,DIRECT 0.2 MG/DL (0.0-0.2); BILIRUBIN,TOTAL 0.9 MG/DL (0.2-1.0); TOTAL PROTEIN 6.6 GM/DL (6.4-8.2)
--- NOTE | 2020-01-15 07:58 | REP ---
Right rib series: Four views including PA chest. History: Right posterior chest trauma. Comparison rib radiographs June 12, 2019. Findings: PA chest radiograph shows tortuosity and calcification in the thoracic aorta which is unchanged. Mediastinum is not widened compared to the prior study. Heart is not enlarged. There is no evidence of pneumothorax or hydrothorax. Multiple views of the right ribcage demonstrate intact right ribs without evidence of rib fracture or bony destructive lesion. There are mild degenerative changes in the thoracic spine. Impression: No visible rib fracture or bony destructive lesion. Electronically Signed by George Levine MD 01/15/2020 07:58 P
--- NOTE | 2020-01-15 08:27 | REPVR ---
PROCEDURE INFORMATION: Exam: CT Abdomen And Pelvis With Contrast Exam date and time: 01/15/2020 7:54 AM Age: 89 years old Clinical indication: Abdominal pain; Flank; Right; Additional info: Trauma right flank TECHNIQUE: Imaging protocol: Computed tomography of the abdomen and pelvis with intravenous contrast. Radiation optimization: All CT scans at this facility use at least one of these dose optimization techniques: automated exposure control; mA and/or kV adjustment per patient size (includes targeted exams where dose is matched to clinical indication); or iterative reconstruction. Contrast material: ISOVUE 370; Contrast volume: 100 ml; Contrast route: IV; COMPARISON: CT ABD PELVIS W/O CONTRAST 01/13/2020 5:09 PM FINDINGS: Lungs: Bibasilar dependent and linear atelectasis. Calcified granuloma in the left lower lobe. Liver: Indeterminate 4 mm low-attenuation left hepatic lobe lesion, too small to characterize. Gallbladder and bile ducts: Normal. No calcified stones. No ductal dilation. Pancreas: Normal. No ductal dilation. Spleen: Calcified granuloma in the spleen. Adrenals: Normal. No mass. Kidneys and ureters: Nonobstructive bilateral nephrolithiasis. No hydronephrosis. Stomach and bowel: Diverticulosis of the colon. No evidence of acute diverticulitis. Appendix: No evidence of appendicitis. Intraperitoneal space: Unremarkable. No free air. No significant fluid collection. Vasculature: Atherosclerotic disease of the coronary arteries. Atherosclerotic disease of the abdominal aorta. Lymph nodes: Unremarkable. No enlarged lymph nodes. Bladder: Unremarkable as visualized. Reproductive: Prostate brachytherapy seeds. Bones/joints: Age-indeterminate possibly acute fractures of the right anterolateral 10th and 11th ribs Severe multilevel degenerative disease and facet hypertrophy of the lumbar spine. Stenosis of the spinal canal and neural foramina at several levels. Soft tissues: Small fat containing umbilical hernia. Other findings: Coarsely calcified aortic valve leaflets. IMPRESSION: Age-indeterminate possibly acute fractures of the right anterolateral 10th and 11th ribs Electronically signed by: Max Larkin On 01/15/2020 08:27:11 AM
[2020-01-15] MEDS ORDERED: LIDO5DIS41 TD ×2 (08:48→10:26)
[2020-01-15 08:57] VITALS: BP 139/64
[2020-01-15 09:10] LABS: APPEARANCE, URINE CLEAR (CLEAR); BACTERIA, URINE AUTO NEGATIVE (NEGATIVE); BILIRUBIN, URINE AUTO NEGATIVE (NEGATIVE); BLOOD, URINE BLOOD NEGATIVE (NEGATIVE); COLOR, URINE YELLOW (YELLOW); GLUCOSE, URINE (UA) AUTO NEGATIVE (NEGATIVE); KETONE, URINE AUTO NEGATIVE (NEGATIVE); LEUKOCYTE ESTERASE, URINE AUTO NEGATIVE (NEGATIVE); NITRITE, URINE AUTO NEGATIVE (NEGATIVE); PROTEIN, URINE AUTO NEGATIVE (NEGATIVE); RBC, URINE AUTO 2 /HPF (0-3); SQUAMOUS EPITHELIAL CELL UR AU 0 /HPF (0-6); UROBILINOGEN, URINE AUTO 0.2 mg/dL (0.0-2.0); WBC, URINE AUTO 1 /HPF (0-3)
[2020-01-15] MEDS ORDERED: **NOTE PATIENT COMMENT** MISC XX SCH (21:00)
== END 2020-01-15 09:39 | disposition home or self-care (01) ==
LOC: M ED 05:58
DX: S22.41XA Multiple fractures of ribs, right side, initial encounter for closed fracture (principal); S20.211A Contusion of right front wall of thorax, initial encounter; W18.39XA Other fall on same level, initial encounter; Y92.128 Other place in nursing home as the place of occurrence of the external cause; E11.9 Type 2 diabetes mellitus without complications; F03.90 Unspecified dementia, unspecified severity, without behavioral disturbance, psychotic disturbance, mood disturbance, and anxiety; F33.9 Major depressive disorder, recurrent, unspecified; F41.9 Anxiety disorder, unspecified; E78.00 Pure hypercholesterolemia, unspecified; K21.9 Gastro-esophageal reflux disease without esophagitis; Z79.899 Other long term (current) drug therapy; Z79.82 Long term (current) use of aspirin; Z88.0 Allergy status to penicillin; Z88.8 Allergy status to other drugs, medicaments and biological substances
CPT/HCPCS: 71101; 74177; 80047; 80076; 81001; 82150; 83605; 83690; 85025; 85610; 85730; 86850; 86900; 86901; 93005; 93041; 94760; 96360; 99285; Q9967

== ENCOUNTER 2020-03-19 12:44 | Emergency (ER) | payer MEDICARE, BC, OTHER ==
[~2020-03-19] VITALS: Ht 167.6 cm; Wt 81.8 kg
[~2020-03-19 12:44] MED LIST changes: +LIDO5DIS41 TD
[2020-03-19 12:56] VITALS: BP 164/87
[2020-03-19] MEDS ORDERED: BOOSTRIX/ADACEL VACCINE (DIPHTH/PERTUSS/ACELL/TETANUS) 0.5ML SYR IM ONE (13:00)
--- NOTE | 2020-03-19 13:35 | REP ---
CT study of the cervical spine without contrast: History: Injury in a fall. Comparison CT study of the cervical spine is from September 12, 2018. Technique: Helical scanning is acquired and overlapping 2 mm high resolution axial images were generated and reviewed at bone and soft tissue window settings. Coronal and sagittal multiplanar re-formations images are generated. CT findings: There is no evidence of cervical spine element fracture. No skull base fracture is seen. Cervical vertebral body heights are preserved. Alignment is normal. Facet joints are normally aligned bilaterally at each cervical level on multiplanar re-formations images. There is no evidence of intraspinal or paraspinal hematoma. No extra vertebral abnormality is seen. There are mild to moderate degenerative disc and osteoarthritic facet changes again noted. Degenerative disc disease changes are most pronounced at C5-6 and C6-7. Right maxillary sinus is completely opacified question mucocele. Impression: Degenerative spondylosis changes stable from September 12, 2018. Complete opacification right maxillary sinus noted incidentally, question mucocele. Otherwise negative CT study of the cervical spine without contrast. No fracture seen. Electronically Signed by George Leivne MD 03/19/2020 01:25 P
--- NOTE | 2020-03-19 15:23 | REP ---
CT BRAIN WITHOUT CONTRAST: HISTORY: Injury in a fall. Comparison CT study is from September 23, 2018. CT FINDINGS: Preliminary digital lime burner radiograph shows skin sue over the occiput on the left. The bony calvarium is intact. No skull fracture is seen. No skull base fracture is noted. There is vascular calcification in the distal internal carotid arteries. There is complete opacification in the visualized portion of the right maxillary sinus. This is a new finding compared to prior study. Question mucocele. No intraorbital abnormality is appreciated. On soft tissue window settings, lateral, third, fourth ventricles are normal in size and position. Scattered small vessel atherosclerotic changes are seen in the periventricular white matter bilaterally. There is no evidence of intracranial hemorrhage, new extra-axial fluid collection, mass or midline shift. IMPRESSION: Vascular calcification generalized atrophy and small vessel changes. No acute intracranial abnormality. No skull fracture or intracranial injury seen. Electronically Signed by George Levine MD 03/19/2020 03:53 P
--- NOTE | 2020-03-22 11:45 | ED PDOC ---
Post-Departure Follow-Up fran briceno faxed formal report of ct c spine fo rfu Umm Jacques MD March 22, 2020 11:45
== END 2020-03-19 14:33 | disposition home or self-care (01) ==
LOC: M ED 12:44 → EDBD 12:44 → M ED 14:33
DX: S01.01XA Laceration without foreign body of scalp, initial encounter (principal); S09.90XA Unspecified injury of head, initial encounter; W06.XXXA Fall from bed, initial encounter; Y92.003 Bedroom of unspecified non-institutional (private) residence as the place of occurrence of the external cause; M47.812 Spondylosis without myelopathy or radiculopathy, cervical region; E11.9 Type 2 diabetes mellitus without complications; I10 Essential (primary) hypertension; F03.90 Unspecified dementia, unspecified severity, without behavioral disturbance, psychotic disturbance, mood disturbance, and anxiety; K21.9 Gastro-esophageal reflux disease without esophagitis; Z88.0 Allergy status to penicillin; Z79.899 Other long term (current) drug therapy

== ENCOUNTER 2020-03-27 05:56 | Emergency (ER) | payer MEDICARE, BC, OTHER ==
[~2020-03-27] VITALS: Ht 167.6 cm; Wt 180.0 kg
[2020-03-27] MEDS ORDERED: TETANUS/DIPHTHERIA TOX ADSORB ADULT 0.5ML SYR/VIAL (90714) IM ONE (06:45)
[2020-03-27 07:32] VITALS: BP 146/84
--- NOTE | 2020-03-29 10:13 | REP ---
REASON: Pain after fall. COMPARISON: 03/10/2009 Partial syndesmophyte formation is again seen bilaterally at every level, increased somewhat from the prior exam. There is an unchanged mild levoconvex lumbar curve. Vertebral body height and alignment is unchanged. There is advanced disc space narrowing at every level posteriorly and universally at L1-2 with endplate sclerosis, all increased somewhat from the prior exam. Air densities are seen in the L4-5 and L5-S1 disc spaces, consistent with vacuum phenomenon from degenerative disc disease. There are degenerative changes seen involving the facet joints bilaterally. No oblique views were obtained on this limited exam. IMPRESSION: Chronic changes as described above, possibly slightly advanced compared to the latest prior, 03/10/2009. Preliminary report was given by Dr. Alicea at the time the examination was performed. Electronically Signed by Jason Faria DO 03/29/2020 11:53 A
== END 2020-03-27 07:35 | disposition home or self-care (01) ==
LOC: EDBD 05:56 → M ED 05:56
DX: S50.311A Abrasion of right elbow, initial encounter (principal); W01.118A Fall on same level from slipping, tripping and stumbling with subsequent striking against other sharp object, initial encounter; Y92.018 Other place in single-family (private) house as the place of occurrence of the external cause; M51.9 Unspecified thoracic, thoracolumbar and lumbosacral intervertebral disc disorder; E78.5 Hyperlipidemia, unspecified; F03.90 Unspecified dementia, unspecified severity, without behavioral disturbance, psychotic disturbance, mood disturbance, and anxiety; K21.9 Gastro-esophageal reflux disease without esophagitis; M19.90 Unspecified osteoarthritis, unspecified site; Z79.899 Other long term (current) drug therapy; Z79.82 Long term (current) use of aspirin; Z88.0 Allergy status to penicillin; Z88.8 Allergy status to other drugs, medicaments and biological substances

== ENCOUNTER → 2020-08-16 | Outpatient (REF) | payer MEDICARE, OTHER | LOC: M LAB REF 19:11 | PROVIDERS: ATTEND Dermatology | DX: L82.1 Other seborrheic keratosis (principal) ==

== ENCOUNTER → 2020-09-29 | Outpatient (REF) | payer MEDICARE, OTHER ==
[2020-09-29 13:49] LABS: HEMATOCRIT 42.1 % (42.0-52.0); HEMOGLOBIN 13.8 g/dl (13.5-17.5); MEAN CORPUSCULAR HEMOGLOBIN 32.4 pg (27.0-33.0); MEAN CORPUSCULAR HGB CONC 32.8 g/dl (32.0-36.5); MEAN CORPUSCULAR VOLUME 98.8 fl (80.0-96.0); PLATELET COUNT, AUTOMATED 206 10^3/uL (150-450); RED BLOOD COUNT 4.26 10^6/uL (4.30-6.10); WHITE BLOOD COUNT 7.2 10^3/uL (4.0-10.0)
[2020-09-29 14:32] LABS: ALBUMIN 3.3 GM/DL (3.2-5.2); ALT/SGPT 29 U/L (12-78); BILIRUBIN,TOTAL 0.6 MG/DL (0.2-1.0); BLOOD UREA NITROGEN 18 MG/DL (7-18); CALCIUM LEVEL 8.7 MG/DL (8.8-10.2); CARBON DIOXIDE LEVEL 30 MEQ/L (21-32); CHLORIDE LEVEL 105 MEQ/L (98-107); CHOLESTEROL LEVEL 177 MG/DL (<200); CREATININE FOR GFR 1.08 MG/DL (0.70-1.30); FOLATE 21.1 NG/ML (>5.4); FREE T4 0.95 NG/DL (0.76-1.46); GLOMERULAR FILTRATION RATE > 60.0 (>35); GLUCOSE, FASTING 103 MG/DL (70-100); HDL CHOLESTEROL 56 MG/DL (>40); NON-HDL-C 121 MG/DL; POTASSIUM SERUM 4.3 MEQ/L (3.5-5.1); SODIUM LEVEL 141 MEQ/L (136-145); TRIGLYCERIDES LEVEL 443 MG/DL (<150); VITAMIN B12 LEVEL 914 PG/ML (247-911)
== END ==
LOC: M SFHCPLAZ 10:11
PROVIDERS: ATTEND Nurse Practitioner Adult Health
DX: K22.70 Barrett's esophagus without dysplasia (principal); D51.9 Vitamin B12 deficiency anemia, unspecified; R73.03 Prediabetes; F03.90 Unspecified dementia, unspecified severity, without behavioral disturbance, psychotic disturbance, mood disturbance, and anxiety; E78.2 Mixed hyperlipidemia
CPT/HCPCS: 36415; 80053; 80061; 82607; 82746; 83036; 84439; 84443; 85027; G0463

== ENCOUNTER 2021-01-12 20:53 | Emergency (ER) | payer MEDICARE, BC, OTHER ==
[~2021-01-12] VITALS: Ht 162.6 cm; Wt 81.8 kg
--- NOTE | 2021-01-12 21:52 | REPVR ---
PROCEDURE INFORMATION: Exam: XR Thoracic Spine Exam date and time: 01/12/2021 9:48 PM Age: 89 years old Clinical indication: Other: Trauma TECHNIQUE: Imaging protocol: XR of the thoracic spine. Views: 3 views. COMPARISON: No relevant prior studies available. FINDINGS: Bones/joints: The spine demonstrates mild degenerative changes. Shallow dextroscoliosis at the thoracolumbar junction. Soft tissues: Unremarkable. IMPRESSION: No acute findings. Electronically signed by: Felipe Denise On 01/12/2021 21:53:09 PM
--- NOTE | 2021-01-12 22:01 | REPVR ---
PROCEDURE INFORMATION: Exam: CT Cervical Spine Without Contrast Exam date and time: 01/12/2021 9:54 PM Age: 89 years old Clinical indication: Injury or trauma; Fall; Blunt trauma TECHNIQUE: Imaging protocol: Computed tomography images of the cervical spine without contrast. Radiation optimization: All CT scans at this facility use at least one of these dose optimization techniques: automated exposure control; mA and/or kV adjustment per patient size (includes targeted exams where dose is matched to clinical indication); or iterative reconstruction. COMPARISON: CT Spine,cervical w/o contrast 03/19/2020 1:07 PM FINDINGS: Bones/joints: Minimal anterior subluxation of C4 on C5 likely degenerative. Discs/Spinal canal/Neural foramina: There are degenerative changes demonstrated in the atlantoaxial joint at C1-C2 with osteophytes and joint space narrowing. The transverse ligament is unremarkable. Disc space narrowing at C5-C6 and C6-C7 with small intervertebral osteophytes. Moderate foraminal narrowing on the right at C3, moderate to severe foraminal narrowing on the left at C4 severe bilateral foraminal narrowing at C5 and moderate to severe bilateral foraminal narrowing at C6 secondary to uncinate joint hypertrophic changes. Lungs: Lung apices are normal. Soft tissues: See "Discs/Spinal canal/Neural foramina" finding. IMPRESSION: Degenerative spondylosis. No acute findings. Electronically signed by: Felipe Denise On 01/12/2021 22:02:20 PM
[2021-01-12 22:29] VITALS: BP 151/78
== END 2021-01-12 22:43 | disposition home or self-care (01) ==
LOC: M ED 20:53
DX: S29.012A Strain of muscle and tendon of back wall of thorax, initial encounter (principal); S23.3XXA Sprain of ligaments of thoracic spine, initial encounter; W01.0XXA Fall on same level from slipping, tripping and stumbling without subsequent striking against object, initial encounter; Y92.9 Unspecified place or not applicable; Y93.9 Activity, unspecified; Y99.9 Unspecified external cause status; C61 Malignant neoplasm of prostate; Z79.899 Other long term (current) drug therapy; Z88.0 Allergy status to penicillin; Z88.8 Allergy status to other drugs, medicaments and biological substances

== ENCOUNTER → 2021-03-30 | Outpatient (REF) | payer MEDICARE, OTHER ==
[2021-03-30 13:36] LABS: ALBUMIN 3.3 GM/DL (3.2-5.2); ALT/SGPT 31 U/L (12-78); BILIRUBIN,TOTAL 0.8 MG/DL (0.2-1.0); BLOOD UREA NITROGEN 17 MG/DL (7-18); CALCIUM LEVEL 8.8 MG/DL (8.8-10.2); CARBON DIOXIDE LEVEL 30 MEQ/L (21-32); CHLORIDE LEVEL 104 MEQ/L (98-107); CHOLESTEROL LEVEL 198 MG/DL (<200); CHOLESTEROL RISK RATIO 3.473 (<5); CREATININE FOR GFR 0.95 MG/DL (0.70-1.30); GLOMERULAR FILTRATION RATE > 60.0 (>35); GLUCOSE, FASTING 139 MG/DL (70-100); HDL CHOLESTEROL 57 MG/DL (>40); NON-HDL-C 141 MG/DL; POTASSIUM SERUM 4.2 MEQ/L (3.5-5.1); SODIUM LEVEL 139 MEQ/L (136-145); TRIGLYCERIDES LEVEL 513 MG/DL (<150)
[2021-03-30 13:41] LABS: HEMOGLOBIN A1c 5.9 %
== END ==
LOC: M SFHCPLAZ 11:30
PROVIDERS: ATTEND Nurse Practitioner Adult Health
DX: R73.03 Prediabetes (principal); E78.2 Mixed hyperlipidemia
CPT/HCPCS: 36415; 80053; 80061; 83036; G0463

== ENCOUNTER 2021-05-03 17:20 | Emergency (ER) | payer MEDICARE, BC, OTHER ==
[~2021-05-03] VITALS: Ht 167.6 cm; Wt 81.8 kg
--- NOTE | 2021-05-03 18:19 | REPVR ---
PROCEDURE INFORMATION: Exam: CT Head Without Contrast Exam date and time: 05/03/2021 5:54 PM Age: 89 years old Clinical indication: Injury or trauma; Fall; Blunt trauma (contusions or hematomas); Consciousness not specified TECHNIQUE: Imaging protocol: Computed tomography of the head without contrast. Radiation optimization: All CT scans at this facility use at least one of these dose optimization techniques: automated exposure control; mA and/or kV adjustment per patient size (includes targeted exams where dose is matched to clinical indication); or iterative reconstruction. COMPARISON: 1. CT Head without contrast 03/19/2020 1:[address] Head without contrast 09/23/2018 11:11 PM FINDINGS: Brain: There is moderate diffuse cerebellar atrophy. Marked atrophic changes demonstrated in the frontal lobes with symmetric increase in the size of the extra-axial spaces, a stable finding. Notably, the finding can also be demonstrated with balanced subdural hygromas in the appropriate clinical setting. Clinical correlation suggested. There is moderate parenchymal volume loss. White matter changes are demonstrated in the subcortical, centrum semiovale and periventricular white matter consistent with chronic age related small vessel ischemic changes. Cerebral ventricles: The degree of ventricular dilatation is normal for age and/or degree of atrophy present. Paranasal sinuses: Redemonstration of complete opacification of the right maxillary sinus with protrusion of soft tissue into the nasal cavity and destruction of the medial wall of the right maxillary sinus, stable in comparison to the prior study. Findings may indicate the presence of an antral choanal polyp or malignancy considering patient age. Opacified right ethmoid sinuses. Mastoid air cells: Visualized mastoid air cells are well aerated. Bones/joints: Unremarkable. No acute fracture. Soft tissues: Unremarkable. IMPRESSION: 1. Redemonstration of complete opacification of the right maxillary sinus with protrusion of soft tissue into the nasal cavity and destruction of the medial wall of the right maxillary sinus, stable in comparison to the prior study. Findings may indicate the presence of an antral choanal polyp or malignancy considering patient age. 2. There is moderate diffuse cerebellar atrophy. 3. Marked atrophic changes demonstrated in the frontal lobes with symmetric increase in the size of the extra-axial spaces, a stable finding. Balanced subdural hygromas to be excluded clinically. 4. There is moderate parenchymal volume loss. White matter changes are demonstrated in the subcortical, centrum semiovale and periventricular white matter consistent with chronic age related small vessel ischemic changes. 5. The degree of ventricular dilatation is normal for age and/or degree of atrophy present. 6. No acute intracranial findings. Electronically signed by: Felipe Denise On 05/03/2021 18:18:41 PM
--- NOTE | 2021-05-03 18:23 | REPVR ---
PROCEDURE INFORMATION: Exam: CT Cervical Spine Without Contrast Exam date and time: 05/03/2021 5:54 PM Age: 89 years old Clinical indication: Injury or trauma; Fall; Blunt trauma TECHNIQUE: Imaging protocol: Computed tomography images of the cervical spine without contrast. Radiation optimization: All CT scans at this facility use at least one of these dose optimization techniques: automated exposure control; mA and/or kV adjustment per patient size (includes targeted exams where dose is matched to clinical indication); or iterative reconstruction. COMPARISON: 1. CT Spine,cervical w/o contrast 01/12/2021 9:[address] Spine,cervical w/o contrast 03/19/2020 1:07 PM FINDINGS: Bones/joints: Stable minimal anterior subluxation of C4 on C5. Osteoporosis. Discs/Spinal canal/Neural foramina: There are degenerative changes demonstrated in the atlantoaxial joint at C1-C2 with osteophytes and joint space narrowing. The transverse ligament is mildly thickened. Stable disc space narrowing at C5-C6 and C6-C7 with small intervertebral osteophytes. Mild foraminal narrowing on the right and moderate foraminal narrowing on the left at C4, moderate to severe bilateral foraminal narrowing at C5, moderate bilateral foraminal narrowing at C6 secondary to osteophytic encroachment. Sinuses: Inflammatory changes demonstrated in the visualized right ethmoid sinuses as well as minimally in the right sphenoid sinus. Lungs: Pleuroparenchymal scarring both lung apices. Soft tissues: See "Discs/Spinal canal/Neural foramina" finding. IMPRESSION: 1. Degenerative spondylosis. Findings are stable in comparison to the prior study of 01/12/2021. 2. No acute findings. Electronically signed by: Felipe Denise On 05/03/2021 18:23:03 PM
[2021-05-03 19:26] VITALS: BP 159/88
--- NOTE | 2021-05-06 14:05 | ED PDOC ---
Post-Departure Follow-Up radiology report faxed to Jes Thomas MD May 06, 2021 14:05
== END 2021-05-03 19:28 | disposition home or self-care (01) ==
LOC: M ED 17:20 → EDBD 17:20 → M ED 19:28
DX: S00.03XA Contusion of scalp, initial encounter (principal); W19.XXXA Unspecified fall, initial encounter; Y92.009 Unspecified place in unspecified non-institutional (private) residence as the place of occurrence of the external cause; Y93.9 Activity, unspecified; Y99.9 Unspecified external cause status; M47.812 Spondylosis without myelopathy or radiculopathy, cervical region; F03.90 Unspecified dementia, unspecified severity, without behavioral disturbance, psychotic disturbance, mood disturbance, and anxiety; E78.5 Hyperlipidemia, unspecified; Z85.46 Personal history of malignant neoplasm of prostate; Z66 Do not resuscitate; K22.70 Barrett's esophagus without dysplasia; M48.061 Spinal stenosis, lumbar region without neurogenic claudication; J34.89 Other specified disorders of nose and nasal sinuses; Z79.82 Long term (current) use of aspirin; Z79.899 Other long term (current) drug therapy; Z88.0 Allergy status to penicillin; Z88.8 Allergy status to other drugs, medicaments and biological substances

== ENCOUNTER → 2021-05-17 | Outpatient (CLI) | payer MEDICARE, BC, OTHER ==
--- NOTE | 2021-05-17 13:30 | REP ---
INDICATION: CHRONIC SINUSITIS. COMPARISON: Comparison CT study May 03, 2021.. TECHNIQUE: Helical scanning is acquired and 2 mm axial images re-formatted. Coronal MPR images are generated and reviewed. FINDINGS: The right maxillary sinus is seen to be completely opacified. There is a periodontal radiolucency around 1 of the posterior maxillary molars on the right. There is bulging of the medial wall of the right maxillary sinus along its superior aspect. This bulges into the right nasal airway way. It abuts the septum which is deviated to the right at this level. The medial wall of the maxillary sinus at this level is eroded and attenuated. There is extensive opacification of the anterior ethmoid air cells on the right. Aeration is seen in the posterior ethmoid air cells. The left ethmoid sinus shows minimal mucosal thickening. There is mucosal thickening in the right sphenoid sinus. The left maxillary sinus is essentially clear with minimal mucosal thickening. The frontal sinuses are not well developed with right-sided frontal sinus air cells being opacified. No intraorbital mass is seen. Study is otherwise unremarkable. There is vascular calcification in the distal internal carotid arteries. There is some generalized volume loss intracranially. IMPRESSION: Complete opacification right maxillary sinus with bowing attenuation and erosion of the medial wall of the maxillary sinus protruding into the right nasal airway. Poly sinusitis changes. Differential possibilities include antral choanal polyp or malignancy. There is a periodontal radiolucency associated with 1 of the right maxillary molars as well. <Electronically signed by Rupert Levine > 05/17/21 [id number]
== END ==
LOC: M PLAIMG 11:21
PROVIDERS: ATTEND Otolaryngology
DX: J32.0 Chronic maxillary sinusitis (principal)

== ENCOUNTER 2021-06-22 00:17 | Emergency (ER) | payer MEDICARE, BC, OTHER ==
[~2021-06-22] VITALS: Ht 170.2 cm; Wt 81.8 kg
--- NOTE | 2021-06-22 01:18 | REPVR ---
PROCEDURE INFORMATION: Exam: CT Head Without Contrast Exam date and time: 06/22/2021 12:22 AM Age: 89 years old Clinical indication: Injury or trauma; Fall; Concussion/head injury TECHNIQUE: Imaging protocol: Computed tomography of the head without contrast. Radiation optimization: All CT scans at this facility use at least one of these dose optimization techniques: automated exposure control; mA and/or kV adjustment per patient size (includes targeted exams where dose is matched to clinical indication); or iterative reconstruction. COMPARISON: CT BRAIN LAB SINUSES 05/17/2021 11:[address] brain May 03, 2021. FINDINGS: There is a punctate rounded focus of slightly elevated density (44 Hounsfield units) (image 23, series 201) which is new compared to the prior exam of April 2021 (image 23, series 201), consistent with trace amount of acute intracranial hemorrhage. This is too small to further characterize but may be subarachnoid hemorrhage or a cortical hemorrhagic contusion. There may be a 2nd smaller punctate focus just posterosuperior to the right caudate nucleus head (image 18, series 201), also new compared to the prior study. No other evidence of acute intracranial hemorrhage is seen. Differential could include hemorrhagic neoplasia/metastatic disease if the patient has a history of malignancy. No other suspicious lesions are seen. If necessary, consider follow-up to confirm resolution. There is at least moderately severe parenchymal volume loss with prominence of extra-axial CSF attenuation spaces, greatest frontotemporal. This is similar to the prior exam. There is no midline shift or herniation. The ventricles are not dilated. No evidence of pneumocephalus. There is intracranial atherosclerosis. Mild periventricular and deep white matter regions of hypoattenuation again noted which may be related to microvascular ischemic change and or white matter disease. No CT findings are seen at the current time to suggest changes of acute territorial vascular infarction. Note is made however, that CT changes, may lag clinical findings in acute CVA. If clinically indicated, consideration could be given to MRI with diffusion weighted imaging, due to its greater sensitivity, for early detection of acute ischemic change. The entire occipital scalp is not included. No visible scalp hematoma is seen otherwise. No acute cranial vault fracture is seen. Again noted is heterogeneous slightly expansile complete opacification of the right maxillary sinus extending below the level of imaging. Soft tissue density extends into the right nasal cavity. There is loss of the medial wall of the right maxillary sinus. There are opacified right anterior ethmoid air cells. This may represent mucocele, however malignancy cannot be excluded. ENT consultation/follow-up is advised, if not already done. No fluid is seen within the visualized mastoid air cells. The visualized middle ear cavities are not opacified. Ocular postoperative changes are noted. IMPRESSION: There are suspected punctate foci of right upper frontal acute intracranial hemorrhage. These may be subarachnoid or cortical hemorrhagic contusions. Findings and differential and recommendations discussed above. No other acute intracranial hemorrhage is seen. There is no mass effect, midline shift or herniation. Parenchymal volume loss, intracranial atherosclerosis and white matter changes are similar to the prior study. No acute calvarial fracture. Again noted is a complex expansile soft tissue opacification of the visualized right maxillary sinus. Findings and recommendations discussed above. Other incidental findings discussed above. Electronically signed by: Ankur Jones On 06/22/2021 01:17:42 AM
[2021-06-22] MEDS ORDERED: NAME10TA PO (01:21)
[2021-06-22] MEDS ORDERED: FINA5TAB2 PO (01:21)
[2021-06-22] MEDS ORDERED: AQUAOIN12 TOP (01:21)
[2021-06-22] MEDS ORDERED: LOPE-27 PO (01:21)
[2021-06-22] MEDS ORDERED: DONE10TA90 PO (01:21)
[2021-06-22] MEDS ORDERED: CYAN100050 PO (01:21)
[2021-06-22] MEDS ORDERED: ACET-907 PO (01:21)
[2021-06-22] MEDS ORDERED: ASPI-161 PO (01:21)
[2021-06-22] MEDS ORDERED: OMEP-221 PO (01:21)
[2021-06-22] MEDS ORDERED: ATOR40TA75 PO (01:21)
[2021-06-22] MEDS ORDERED: COUG1LOZ8 MT (01:21)
[2021-06-22] MEDS ORDERED: LEXA1TAB PO (01:21)
[2021-06-22] MEDS ORDERED: TUMS500C PO (01:21)
[2021-06-22] MEDS ORDERED: GLUC500T53 PO (01:21)
[2021-06-22] MEDS ORDERED: BUSP-29 PO (01:21)
[2021-06-22] MEDS ORDERED: VITMTA PO (01:21)
--- NOTE | 2021-06-22 01:24 | REPVR ---
PROCEDURE INFORMATION: Exam: CT Cervical Spine Without Contrast Exam date and time: 06/22/2021 12:22 AM Age: 89 years old Clinical indication: Neck pain; Additional info: Fall TECHNIQUE: Imaging protocol: Computed tomography images of the cervical spine without contrast. Radiation optimization: All CT scans at this facility use at least one of these dose optimization techniques: automated exposure control; mA and/or kV adjustment per patient size (includes targeted exams where dose is matched to clinical indication); or iterative reconstruction. COMPARISON: CT Spine,cervical w/o contrast 05/03/2021 5:52 PM FINDINGS: Cervical vertebral body heights, posterior cervical alignment and prevertebral soft tissues are within normal limits. The atlantodental interval is maintained. The facet joints are not subluxed or dislocated. No acute fracture of the cervical spine is seen. There is some calcification along the nuchal ligament, similar to the prior exam which may be related to old injury or dystrophic soft tissue calcification. Degenerative changes of the cervical spine are noted with mild to moderate disc space loss, bony sclerosis, anterior osteophytes, posterior bony ridging and facet arthropathy. Degenerative changes appear similar to the prior exam. If there are neurologic symptoms, consider further evaluation by MRI. Pleural thickening and parenchymal scarring again noted at the visualized lung apices. Vascular calcifications noted. IMPRESSION: No acute fracture or malalignment of the cervical spine. Other findings discussed above. Electronically signed by: Ankur Jones On 06/22/2021 01:23:58 AM
[2021-06-22] MEDS ORDERED: HOME MED LIST COMPLETE! XX SCH (01:25)
[2021-06-22 02:45] VITALS: BP 144/93
== END 2021-06-22 02:50 | disposition left against medical advice (07) ==
LOC: M ED 00:17
DX: S06.330A Contusion and laceration of cerebrum, unspecified, without loss of consciousness, initial encounter (principal); X58.XXXA Exposure to other specified factors, initial encounter; Y92.099 Unspecified place in other non-institutional residence as the place of occurrence of the external cause; Y93.89 Activity, other specified; Y99.9 Unspecified external cause status; R93.0 Abnormal findings on diagnostic imaging of skull and head, not elsewhere classified; Z53.9 Procedure and treatment not carried out, unspecified reason; E11.9 Type 2 diabetes mellitus without complications; Z79.82 Long term (current) use of aspirin; Z79.84 Long term (current) use of oral hypoglycemic drugs; Z88.0 Allergy status to penicillin; Z88.8 Allergy status to other drugs, medicaments and biological substances

== ENCOUNTER 2021-06-22 09:27 | Emergency (ER) | payer MEDICARE, BC, OTHER ==
[~2021-06-22] VITALS: Ht 167.6 cm; Wt 81.8 kg
[~2021-06-22 09:27] MED LIST changes: +ACET-907 PO; +AQUAOIN12 TOP; +ASPI-161 PO; +BUSP-29 PO; +COUG1LOZ8 MT; +CYAN100050 PO; +DONE10TA90 PO; +FINA5TAB2 PO; +GLUC500T53 PO; +LOPE-27 PO; +OMEP-221 PO; +TUMS500C PO; +VITMTA PO
--- NOTE | 2021-06-22 10:17 | REP ---
INDICATION: trauma CT yesterday. COMPARISON: The latest which was obtained same day at 12:30 a.m. multiple older exams were also reviewed at this time. TECHNIQUE: 5 x 5 mm contiguous helical scanning through the head was utilized from vertex to skull base. 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 They may have increased minimally compared to the 09/23/2018 exam. The tiny punctate focus of increased brain parenchymal density seen in the right frontal lobe on the latest prior exam is again identified but has not increased in size possibly minimally decreased with slice selection taken into consideration. The brain parenchyma is otherwise unchanged when compared to multiple priors. The ventricles and sulci are unchanged. The posterior fossa is unchanged. The skull is unchanged. The marked right maxillary sinus opacification with suspected medial wall bony erosion has remained stable in appearance since the 03/19/2020 exam IMPRESSION: Findings as described above. <Electronically signed by Jason Faria > 06/22/21 [id number]
--- NOTE | 2021-06-22 12:57 | REPVR ---
PROCEDURE INFORMATION: Exam: MR Head Without Contrast Exam date and time: 06/22/2021 12:06 PM Age: 89 years old Clinical indication: Headache TECHNIQUE: Imaging protocol: MR of the head without contrast. COMPARISON: CT Head without contrast 06/22/2021 9:44 AM FINDINGS: Brain: There is high signal abnormality within the umair and bilateral thalami. Differential diagnosis includes osmotic myelinolysis as well as other possibilities. There is high signal abnormality in the periventricular white matter and centrum semiovale, best seen on the flair images. These changes are nonspecific but consistent with chronic small vessel ischemic disease which is common in older patients. Foci of gliosis, chronic infarcts, and/or demyelination cannot be excluded. There is moderate cerebral atrophy. Cerebral ventricles: Normal. No ventriculomegaly. Bones/joints: Unremarkable. Paranasal sinuses: There is opacification of the right maxillary sinus. Mastoid air cells: Normal as visualized. No mastoid effusion. Orbital cavity: Unremarkable. Soft tissues: Unremarkable. IMPRESSION: 1. There is high signal abnormality within the umair and bilateral thalami. Differential diagnosis includes osmotic myelinolysis as well as other possibilities. Please correlate clinically. 2. There is high signal abnormality in the periventricular white matter and centrum semiovale, best seen on the flair images. These changes are nonspecific but consistent with chronic small vessel ischemic disease which is common in older patients. Foci of gliosis, chronic infarcts, and/or demyelination cannot be excluded. No acute infarct is identified. 3. There is moderate cerebral atrophy. Electronically signed by: Trell Burns On 06/22/2021 12:57:14 PM
[2021-06-22 14:22] VITALS: BP 133/73
--- NOTE | 2021-06-24 13:37 | ED PDOC ---
Post-Departure Follow-Up radiology report faxed to Jes Thomas MD Jun 24, 2021 13:37
== END 2021-06-22 14:23 | disposition home or self-care (01) ==
LOC: EDBD 09:27 → M ED 09:27
DX: I67.82 Cerebral ischemia (principal); G31.9 Degenerative disease of nervous system, unspecified; S06.330A Contusion and laceration of cerebrum, unspecified, without loss of consciousness, initial encounter; W01.190A Fall on same level from slipping, tripping and stumbling with subsequent striking against furniture, initial encounter; Y92.099 Unspecified place in other non-institutional residence as the place of occurrence of the external cause; Y93.89 Activity, other specified; Y99.9 Unspecified external cause status; F03.90 Unspecified dementia, unspecified severity, without behavioral disturbance, psychotic disturbance, mood disturbance, and anxiety; Z85.46 Personal history of malignant neoplasm of prostate; Z85.828 Personal history of other malignant neoplasm of skin; Z92.3 Personal history of irradiation; Z66 Do not resuscitate; R93.0 Abnormal findings on diagnostic imaging of skull and head, not elsewhere classified; Z79.82 Long term (current) use of aspirin; Z79.899 Other long term (current) drug therapy; Z88.0 Allergy status to penicillin; Z88.8 Allergy status to other drugs, medicaments and biological substances

== ENCOUNTER 2021-08-30 14:50 | Emergency (ER) | payer MEDICARE, BC, OTHER ==
--- NOTE | 2021-08-30 15:36 | REP ---
INDICATION: DYSPNEA/COUGH. COMPARISON: 01/15/2020 frontal view of the chest TECHNIQUE: Portable FINDINGS: The technique utilized in obtaining the radiograph has magnified the cardiac silhouette and accentuated the interstitial markings. Cardiomediastinal silhouette lung [place] appear stable. There is thoracic aortic tortuosity status quo. The heart is not enlarged. Lung [place] are clear and stable. No acute patchy parenchymal opacities or pleural effusions have developed. IMPRESSION: There is no acute cardiopulmonary disease. <Electronically signed by Jason Faria > 08/30/21 [id number]
[2021-08-30 15:54] LABS: BASO % 0.4 % (0.0-1.0); EOS # 0.1 10^3/uL (0.0-0.5); HEMATOCRIT 42.1 % (42.0-52.0); HEMOGLOBIN 14.4 g/dl (13.5-17.5); LYMPH # 1.3 10^3/uL (1.5-5.0); LYMPH % 16.4 % (24.0-44.0); MEAN CORPUSCULAR HEMOGLOBIN 33.6 pg (27.0-33.0); MEAN CORPUSCULAR HGB CONC 34.2 g/dl (32.0-36.5); MEAN CORPUSCULAR VOLUME 98.1 fl (80.0-96.0); MONO # 0.5 10^3/uL (0.0-0.8); MONO % 6.4 % (2.0-8.0); NEUTROPHILS # 5.9 10^3/uL (1.5-8.5); NEUTROPHILS % 75.4 % (36.0-66.0); PLATELET COUNT, AUTOMATED 184 10^3/uL (150-450); RED BLOOD COUNT 4.29 10^6/uL (4.30-6.10); WHITE BLOOD COUNT 7.9 10^3/uL (4.0-10.0)
[2021-08-30 15:57] LABS: VENOUS BASE EXCESS -1.5 (-2.0-2.0); VENOUS HCO3 23.1 MEQ/L (23.0-27.0); VENOUS O2 SATURATION 95.8 % (60.0-80.0); VENOUS PARTIAL PRESSURE CO2 38.9 mmHg (38.0-50.0); VENOUS PARTIAL PRESSURE O2 84.8 mmHg (30.0-50.0); VENOUS PH 7.392 UNITS (7.330-7.430); VENOUS STANDARD HCO3 23.2 MEQ/L; VENOUS TOTAL CO2 24.3 MEQ/L (24.0-28.0)
[2021-08-30 16:26] LABS: ALBUMIN 3.3 GM/DL (3.2-5.2); ALT/SGPT 27 U/L (12-78); BILIRUBIN,DIRECT 0.1 MG/DL (0.0-0.2); BILIRUBIN,TOTAL 0.5 MG/DL (0.2-1.0); BLOOD UREA NITROGEN 22 MG/DL (7-18); CALCIUM LEVEL 8.8 MG/DL (8.8-10.2); CARBON DIOXIDE LEVEL 26 MEQ/L (21-32); CHLORIDE LEVEL 109 MEQ/L (98-107); CK-MB VALUE MASS 1.2 NG/ML (<3.6); CPK CREATINE PHOSPHOKINASE 95 U/L (39-308); GLOMERULAR FILTRATION RATE > 60.0 (>35); GLUCOSE, FASTING 147 MG/DL (70-100); MB/CK RELATIVE INDEX 1.26 (< OR =4); NT-PRO BNP 173 PG/ML (<450); POTASSIUM SERUM 4.7 MEQ/L (3.5-5.1); SODIUM LEVEL 141 MEQ/L (136-145); THYROXINE (T4) 8.5 UG/DL (4.5-12.0); TOTAL PROTEIN 7.1 GM/DL (6.4-8.2); TROPONIN I < 0.02 NG/ML (< 0.10)
[2021-08-30 17:00] VITALS: BP 176/83
--- OUTSIDE RECORDS SUMMARY | 2021-08-30 17:00 | CCD | Continuity of Care Document ---
Author Author Estela ANGELES MD [facility] Organization Unknown Address [address] [place] [address] Phone [phone] Care Team Providers Care Auto Damage Insurance Appraiser Name Role Phone Jayjay Burnette M.D. AUTM [phone] Jani Davis DDS AUTM [phone] Na Collier R.N. AUTM [phone] Problems Description No Active Problems Social History Type Date Description Comments Sex Unknown ETOH Use Rarely Tobacco Use Start: Unknown No Recreational Drug Use Denies Drug Use Allergies, Adverse Reactions, Alerts Active Allergies Criticality Reaction | Severity Comments Date Penicillins Unable to assess criticality 08/10/2009 Potassium Unable to assess criticality 07/09/2018 Medications Active Medications SIG Qnty Indications Ordering Provide r Date Glucosamine/Chondroitin Capsules Unknown Tylenol Arthritis Pain 650mg Tablets ER Unknown Centrum Silver Tablets Unknown Vitamin B-12 1000mcg Tablets Unknown Finasteride 5mg Tablets daily Unknown Lexapro 10mg Tablets 1 by mouth every day 30tabs Unknown Aspir-[address] Unknown Aricept 10mg Tablets Unknown Namenda 10mg Tablets Unknown Tums 500mg Chewtabs Unknown Omeprazole 40mg Capsules DR 1 by mouth every day Unknown Atorvastatin Calcium 40mg Tablets 1 by mouth every night at bedtime Unknown Buspirone HCL 10mg Tablets Na Collier A.NMeekPMeek Loperamide HCL 2mg Capsules Jayjay Burnette M.D. Immunizations Description No Information Available Vital Signs Date Vital Result Comment 06/01/2021 1:16pm Height 64 inches 5'4" Weight 180.00 lb BMI (Body Mass Index) 30.9 kg/m2 [place] Body Weight 130 lb Weight 81.648 kg BSA (Body Surface Area) 1.87 m2 05/10/2021 10:48am Height 64 inches 5'4" Weight 180.00 lb BMI (Body Mass Index) 30.9 kg/m2 [place] Body Weight 130 lb Weight 81.648 kg BSA (Body Surface Area) 1.87 m2 Results Description No Information Available Procedures Date Code Description Status 06/01/2021 16113 Office/Outpatient Established Lo w MDM 20-29 Min Completed 05/10/2021 85872 Office/Outpatient New Moderate M DM 45-59 Minutes Completed 05/10/2021 85967 Endoscopy Nasal Diagnostic Compl eted Medical Devices Description No Information Available Encounters Type Date Location Provider Dx Diagnosis Office Visit 06/01/2021 1:15p [facility] Fabricio Angeles MD J32.0 Chronic maxillary sinusitis J31.0 Chronic rhinitis J34.2 Deviated nasal septum 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, unspeci fied Office Visit 05/10/2021 10:30a [facility] Fabricio Angeles MD J32.0 Chronic maxillary sinusitis J31.0 Chronic rhinitis J34.2 Deviated nasal septum Assessments Date Code Description Provider 06/01/2021 J32.0 Chronic maxillary sinusitis Fabricio Angeles MD 06/01/2021 J31.0 Chronic rhinitis Fabricio Angeles MD 06/01/2021 J34.2 Deviated nasal septum Fabricio zamarripa MD 06/01/2021 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, unspecified Fabricio Angeles MD 05/10/2021 J32.0 Chronic maxillary sinusitis Fabricio Angeles MD 05/10/2021 J31.0 Chronic rhinitis Fabricio Angeles MD 05/10/2021 J34.2 Deviated nasal septum Fabricio zamarripa MD Plan of Treatment Future Appointment(s):* 08/02/2021 1:15 pm - Fabricio Angeles MD at [facility] 06/01/2021 - Fabricio Angeles MD* J32.0 Chronic maxillary sinusitis* Follow up:* 2 m * J31.0 Chronic rhinitis * J34.2 Deviated nasal septum * 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
--- OUTSIDE RECORDS SUMMARY | 2021-08-30 17:00 | CCD ---
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 Ac tive confirmed 941311084 Problem Mixed hyperlipidemia E78.2 Active confirmed 459626746 Problem Unspecified dementia without behavioral disturbance F03.90 Active confirmed 43298418 Problem Vitamin B12 deficiency anemia, 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 Active confirmed 99611206 Problem Vitamin D deficiency, unspecified E55.9 Active con firmed 87686586 Problem 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 Active confirmed 81358 01 Problem History of prostate cancer Z85.46 Active confirmed 903433241 Problem Unspecified osteoarthritis, unspecified site M19.9 0 Active confirmed 506345492 Problem Spinal stenosis, lumbar region M48.06 Active confir med 81533510 Problem Full incontinence of feces R15.9 Active confirmed 57759713 Problem Prediabetes R73.03 Active confirmed 25285467 2 Problem Seborrheic keratoses L82.1 Active confirmed 432502816 Problem Xerosis cutis L85.3 Active confirmed 585159 00 Problem Dementia with behavioral disturbance, unspecifie d dementia type F03.91 Active confirmed 7882035760706 Problem History of nonmelanoma skin cancer Z85.828 Activ e confirmed 675292693 Problem Sebaceous hyperplasia of face L73.8 Active confirm ed 181469016 Problem Skin tag L91.8 Active confirmed 282098361 Problem Lentigines L81.4 Active confirmed 166026881 Problem 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 Act lidia confirmed 089148115 Problem Enlarged prostate without lower urinary tract symptoms N40.0 Active confirmed 252950364 Problem DM II (diabetes mellitus, type II), controlled E11 .9 Active confirmed 725269641 Problem Malignant neoplasm of prostate C61 Active confir med 669709257 Problem Low back pain M54.5 Active confirmed 576917 007 Problem Actinic keratoses L57.0 Active confirmed 40 6395070 Problem Physical deconditioning R53.81 Active confirmed 54991214487110 Problem Anxiety attack F41.0 Active confirmed 76663 5004 Problem Degenerative spondylolisthesis M43.10 Active confir med 0761275 ALLERGIES Allergen (clinical drug ingredient) Drug/Non Drug Allergy do cumented on EMR Reaction Allergy Type Onset Date Status penicillin V Penicillin V Potassium([facility] Code:[address]-24) Hives Drug Allergy Active ENCOUNTERS from 1932 to 2021-07-07 Encounter Location Date Provider Diagnosis [address] [phone] [place] [address] Jun, Na Servage Unspecified dementia without behavioral disturbance F03.90 ; DM II (diabetes mellitus, type II), controlled E11.9 and Spinal stenosis, lumbar region M48.06 IMMUNIZATIONS Vaccine Route Administration Date Status Influenza Pharmacy Given Unknown Aug 16, 2020 Adminis tered Influenza (High Dose 65 & up) Unknown Aug 17, 2017 Ad ministered Influenza (High Dose 65 & up) Unknown Aug 12, 2015 Ad ministered Influenza (High Dose 65 & up) Unknown Aug 17, 2014 Ad ministered Pneumococcal Adult 0.5mL Pneumovax 23 IM Intramuscular Oct 12 017 Administered Pneumococcal 0.5mL Prevnar 13 IM Intramuscular April 21, 2015 A dministered SOCIAL HISTORY Tobacco Use: Social History Observation Description Date Details (start date - stop date) Former Smoker Sex Assigned At : Social History Observation Description Sex Assigned At Unknown Education: Question Answer Notes Level of Education: Finished [employer] Audit Question Answer Notes Total Score: 0 Interpretation: Alcohol Education Drug and Alcohol Question Answer Notes Total Score: 0 Interpretation: No problems reported BMI Care Goal Follow-Up Question Answer Notes Above Normal BMI Follow-Up Dietary management educatio n, guidance, and counseling Tobacco Use: Question Answer Notes Are you a: former smoker How long has it been since you last smoked? > 10 years REASON FOR REFERRAL from 1932 to 2021-07-07 Reason pt [facility] at [facility] because he needs a higher level of care.p per [facility] Diagnosis 1 Unspecified dementia without behavioral disturbance (F03.90) Referral Organization [facility] Lawtey Referring Provider First Name Na Referring Provider Last Name Peeage Referring Provider Specialty Family Medicine Referred Provider Oscar Strong,Public Health Referred Provider Specialty Public Health or Welfare [facility] Priority Urgent General Notes Queenie Camarillo 07/06/2021 4:2 6:09 PM > referral faxed VITAL SIGNS No information MEDICATIONS Medication SIG (Take, Route, Frequency, Duration) Notes Start Da te End Date Status SM Fiber 400 MG 2 caps Orally twice daily for 30 days Active Omeprazole 40 MG 1 cap orally once daily at 12p for 30 Active May Have - as directed four wheeled wal ker with seat and brakes weight 174lbs, height 64 inches, diagnosis M48.061 for 99 days Apr, Active Aricept 10 MG 1 tablet Orally Once a day at 8p Active Aspercreme 10 % as directed Externally bid prn to knees and back Jan, Active Multivitamins otc w/minerals 1 tab(s) Orally once a day at 12p for 30 Days Active Walker - as directed _ Daily DX: M48.06 Active Lexapro 10 MG 2 tablets Orally Once a day Active Tylenol 325 MG 2 tabs Orally every 6 hrs as needed for pain or fever MDD=8 for 30 Days Active Aquaphor - arms and legs Externally Twice a day *MSAMKB* for 30 Days Active Metamucil 0.52 GM 2 capsules with 8 ounces of liquid Orally twice daily at 12p and 8p for 30 Days Active Finasteride 5 MG 1 tablet Orally Once a day at 12p for 30 Days Active Vitamin B-12 1000 MCG 1 tablet Orally Once a day at 12p for 30 Days Active Atorvastatin Calcium 40 mg 1 tablet Orally Once a day Active Loperamide HCl 2 MG 2 caps Orally as needed afte r 1st loose stool then 1 cap at time of each following loose stool for diarrhea MDD=6 for 30 Days Nov, Active Namenda 10 MG 1 tablet Orally Twice a day at 12p and 8p Active Glucosamine 500 MG 4 capsules Orally Once a day at 5p for 30 Days Active Escitalopram Oxalate 10 MG Take 2 tablet by mouth once a day for 30 Active Aspir-81 81 MG 1 tablet Orally Once a day at 12p for 30 Days Active Tums 500 MG 2tablet Orally Twice a day a s needed for indigestion MDD=4 *MSAMKB* for 30 Days Active [place] Cough Drops 5.8 MG 1 lozenge Mouth/Throat every 6 hrs as needed for cough MDD=4 *MSAMKB* for 30 Days Activ e busPIRone HCl 10 MG 1 tablet Orally 11 am and 5 pm for anxiety f or 30 days May, Active Glucosamine Sulfate 500 MG TAKE 4 CAPS (2000 MG) DAILY @5PM Active PROCEDURES No Information RESULTS No Results REASON FOR VISIT [facility]? MEDICAL (GENERAL) HISTORY Type Description Date Medical History DNR, DNI--MOLST on file 07/31 Medical History Hyperlipidemia Medical History BPH Medical History Arthritis hands, knees, hips, spine Medical History IFG/Metabolic Syndrome Medical History Colon Polyps 05/13 Medical History Aldrich''s esophagus: EGD 2013, no dyspl marychuy Medical History prostate ca: Prostate biopsy 11/16, 05/18, 10/19 benign (Dr. Rivera) 11/2011 1 out of 9 biopsies + for adenocarcinoma Rito 3 + 4 = 7. 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 Medical History Actinic keratoses Surgical History TRUS BX Surgical History Appendectomy 1954 Surgical History bilat IH Surgical History colonoscopy, repeat 3-5 years 05/13, 06/15 , 08/20, 09/25 Surgical History EGD 08/20, 09/25 Surgical History EGD - Aldrich's 04/2012, 09/25 Hospitalization History surgery related Goals Section No Information Health Concerns No Information MEDICAL EQUIPMENT No Information MENTAL STATUS No Information FUNCTIONAL STATUS No Information ASSESSMENTS Encounter Date Diagnosis Assessment Notes Treatment Notes Treatm ent Clinical Notes Jun, Unspecified dementia without behavioral disturbance (ICD-10 - F03.90) Jun, DM II (diabetes mellitus, type II), controlled ( ICD-10 - E11.9) Jun, Spinal stenosis, lumbar region (ICD-10 - M48.06) PLAN OF TREATMENT Medication Medication Name Sig Start Date Stop Date Lexapro 10 MG 2 tablets Orally Once a day busPIRone HCl 10 MG 1 tablet Orally 11 am and 5 pm for anxie ty for 30 days May, Referrals Referral Date Details pt lives at [facility] Needs a [facility] because he needs a higher level of care.p per [facility], [facility] Next Appt Details Provider Name:Na Filiberto Collier, 10:30:00 AM, [address] [facility], , [place], [address], Insurance Providers Payer Name Payer Address Payer Phone Insured Name Patient Relati onship to Insured Coverage Start Date Coverage End Date [facility] [address] [facility] [id number] Estela LAROSE MEDICARE Part A and B [address] [facility] [address] [phone] Estela CARMONA
--- OUTSIDE RECORDS SUMMARY | 2021-08-30 17:00 | CCD ---
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 Ac tive confirmed 659558793 Problem Mixed hyperlipidemia E78.2 Active confirmed 199097149 Problem Unspecified dementia without behavioral disturbance F03.90 Active confirmed 21588196 Problem Vitamin B12 deficiency anemia, 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 Active confirmed 95437349 Problem Vitamin D deficiency, unspecified E55.9 Active con firmed 76842523 Problem 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 Active confirmed 95121 01 Problem History of prostate cancer Z85.46 Active confirmed 804824283 Problem Unspecified osteoarthritis, unspecified site M19.9 0 Active confirmed 073095999 Problem Spinal stenosis, lumbar region M48.06 Active confir med 91447978 Problem Full incontinence of feces R15.9 Active confirmed 73753902 Problem Prediabetes R73.03 Active confirmed 45121899 2 Problem Seborrheic keratoses L82.1 Active confirmed 357164216 Problem Xerosis cutis L85.3 Active confirmed 280062 00 Problem Dementia with behavioral disturbance, unspecifie d dementia type F03.91 Active confirmed 5183990964537 Problem History of nonmelanoma skin cancer Z85.828 Activ e confirmed 010453133 Problem Sebaceous hyperplasia of face L73.8 Active confirm ed 056287430 Problem Skin tag L91.8 Active confirmed 214175698 Problem Lentigines L81.4 Active confirmed 012509173 Problem 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 Act lidia confirmed 460024771 Problem Enlarged prostate without lower urinary tract symptoms N40.0 Active confirmed 298570201 Problem DM II (diabetes mellitus, type II), controlled E11 .9 Active confirmed 308832102 Problem Malignant neoplasm of prostate C61 Active confir med 646408821 Problem Low back pain M54.5 Active confirmed 318109 007 Problem Actinic keratoses L57.0 Active confirmed 40 8189766 Problem Physical deconditioning R53.81 Active confirmed 17704716001439 Problem Anxiety attack F41.0 Active confirmed 55893 5004 Problem Degenerative spondylolisthesis M43.10 Active confir med 9690377 ALLERGIES Allergen (clinical drug ingredient) Drug/Non Drug Allergy do cumented on EMR Reaction Allergy Type Onset Date Status penicillin V Penicillin V Potassium([facility] Code:[address]-39) Hives Drug Allergy Active ENCOUNTERS from 1932 to 2021-08-17 Encounter Location Date Provider Diagnosis [place] [id number] [facility] [phone] [place] [address] 04 Aug, 2021 Na Collier Major depressive disorder, s barrett episode, unspecified F32.9 and Mixed hyperlipidemia E78.2 IMMUNIZATIONS Vaccine Route Administration Date Status Influenza [...] smoked? > 10 years REASON FOR REFERRAL No Information VITAL SIGNS No information MEDICATIONS Medication SIG (Take, Route, Frequency, Duration) Notes Start Da te End Date Status Omeprazole 40 MG 1 cap orally once daily at 12p for 30 Active May Have - as directed four wheeled mirza negron with seat and brakes weight 174lbs, height 64 inches, diagnosis M48.061 for 99 days Apr, Active Glucosamine Sulfate 500 MG TAKE 4 CAPS (2000 MG) DAILY @5PM Active Tums 500 MG 2tablet Orally Twice a day a s needed for indigestion MDD=4 *MSAMKB* for 30 Days Active Multivitamins otc w/minerals 1 tab(s) Orally once a day at 12p for 30 Days Active Finasteride 5 MG TAKE ONE TABLET BY MOUTH DAILY for 90 Active SM Fiber 400 MG 2 caps Orally twice daily for 30 days Active Aquaphor - arms and legs Externally Twice a day *MSAMKB* for 30 Days Active Aricept 10 MG 1 tablet Orally Once a day at 8p Active Metamucil 0.52 GM 2 capsules with 8 ounces of liquid Orally twice daily at 12p and 8p for 30 Days Active Tylenol 325 MG 2 tabs Orally every 6 hrs as needed for pain or fever MDD=8 for 30 Days Active [place] Cough Drops 5.8 MG 1 lozenge Mouth/Throat every 6 hrs as needed for cough MDD=4 *MSAMKB* for 30 Days Activ e Glucosamine 500 MG 4 capsules Orally Once a day at 5p for 30 Days Active Memantine HCl 10 MG TAKE ONE TABLET BY MOUTH 2 TIMES A DAY for 90 Active Walker - as directed _ Daily DX: M48.06 Active Escitalopram Oxalate 10 MG Take 2 tablet by mouth once a day for 30 Active Namenda 10 MG 1 tablet Orally Twice a day at 12p and 8p Active busPIRone HCl 10 MG 1 tablet Orally 11 am and 5 pm for anxiety f or 30 days May, Active Aspercreme 10 % as directed Externally bid prn to knees and back Jan, Active Aspir-81 81 MG 1 tablet Orally Once a day at 12p for 30 Days Active Atorvastatin Calcium 40 MG TAKE ONE TABLET BY MOUTH EVERY NIGHT for 9 0 Active Vitamin B-12 1000 MCG 1 tablet Orally Once a day at 12p for 30 Days Active Lexapro 10 MG 2 tablets Orally Once a day for 30 days Active Loperamide HCl 2 MG 2 caps Orally as needed afte r 1st loose stool then 1 cap at time of each following loose stool for diarrhea MDD=6 for 30 Days Nov, Active PROCEDURES No Information RESULTS No Results REASON FOR VISIT refill MEDICAL (GENERAL) HISTORY Type Description Date Medical [...] out of 9 biopsies + for adenocarcinoma Elora 3 + 4 = 7. Radiation tx [...] Notes Treatment Notes Treatm ent Clinical Notes Aug, Major depressive disorder, s barrett episode, unspecified (ICD-10 - F32.9) Aug, Mixed hyperlipidemia (ICD-10 - E78.2) PLAN OF TREATMENT Medication Medication Name Sig Start Date Stop Date Lexapro 10 MG 2 tablets Orally Once a day for 30 days Vitamin B-12 1000 MCG 1 tablet Orally Once a day at 12p for 30 D ays Finasteride 5 MG TAKE ONE TABLET BY MOUTH DAILY for 90 busPIRone HCl 10 MG 1 tablet Orally 11 am and 5 pm for anxie ty for 30 days May, Atorvastatin Calcium 40 MG TAKE ONE TABLET BY MOUTH EVERY NIGHT for 90 Memantine HCl 10 MG TAKE ONE TABLET BY MOUTH 2 TIMES A DAY for 9 0 Next Appt Details Provider Name:Na Collier, 10:30:00 AM, [address] [facility], , [place], [address], Insurance Providers Payer Name Payer Address Payer Phone Insured Name Patient Relati onship to Insured Coverage Start Date Coverage End Date [facility] [address] [facility] [id number] Estela LAROSE MEDICARE Part A and B [address] [facility] [address] [phone] Estela CARMONA self
--- OUTSIDE RECORDS SUMMARY | 2021-08-30 17:00 | CCD ---
Author Author [facility] Organization 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 Ac tive confirmed 612413692 Problem Mixed hyperlipidemia E78.2 Active confirmed 801553390 Problem Unspecified dementia without behavioral disturbance F03.90 Active confirmed 50119562 Problem Vitamin B12 deficiency anemia, 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 Active confirmed 58287093 Problem Vitamin D deficiency, unspecified E55.9 Active con firmed 78192590 Problem 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 Active confirmed 94496 01 Problem History of prostate cancer Z85.46 Active confirmed 179053544 Problem Unspecified osteoarthritis, unspecified site M19.9 0 Active confirmed 056431683 Problem Spinal stenosis, lumbar region M48.06 Active confir med 42477289 Problem Full incontinence of feces R15.9 Active confirmed 68618663 Problem Prediabetes R73.03 Active confirmed 60190781 2 Problem Seborrheic keratoses L82.1 Active confirmed 145630125 Problem Xerosis cutis L85.3 Active confirmed 524533 00 Problem Dementia with behavioral disturbance, unspecifie d dementia type F03.91 Active confirmed 7094389967425 Problem History of nonmelanoma skin cancer Z85.828 Activ e confirmed 374174503 Problem Sebaceous hyperplasia of face L73.8 Active confirm ed 373996449 Problem Skin tag L91.8 Active confirmed 983586297 Problem Lentigines L81.4 Active confirmed 477980500 Problem 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 Act lidia confirmed 677252581 Problem Enlarged prostate without lower urinary tract symptoms N40.0 Active confirmed 470894345 Problem DM II (diabetes mellitus, type II), controlled E11 .9 Active confirmed 021298833 Problem Malignant neoplasm of prostate C61 Active confir med 180023907 Problem Low back pain M54.5 Active confirmed 277209 007 Problem Actinic keratoses L57.0 Active confirmed 40 4300692 Problem Physical deconditioning R53.81 Active confirmed 06267089056076 Problem Anxiety attack F41.0 Active confirmed 02190 5004 Problem Degenerative spondylolisthesis M43.10 Active confir med 2207145 ALLERGIES Allergen (clinical drug ingredient) Drug/Non Drug Allergy do cumented on EMR Reaction Allergy Type Onset Date Status penicillin V Penicillin V Potassium([facility] Code:[address]-10) Hives Drug Allergy Active ENCOUNTERS from 1932 to 2021-07-19 Encounter Location Date Provider Diagnosis [place] [address] [facility] [phone] [place] [address] 07 Jul, 2021 Na Servage IMMUNIZATIONS Vaccine Route Administration Date Status Influenza [...] Orally Once a day at 8p Active Finasteride 5 MG TAKE ONE TABLET BY MOUTH DAILY for 90 Active Multivitamins otc w/minerals 1 tab(s) Orally once a day at 12p for 30 Days Active Aquaphor - arms and legs Externally Twice a day *MSAMKB* for 30 Days Active Lexapro 10 MG 2 tablets Orally Once a day Active Metamucil 0.52 GM 2 capsules with 8 ounces of liquid Orally twice daily at 12p and 8p for 30 Days Active Tylenol 325 MG 2 tabs Orally every 6 hrs as needed for pain or fever MDD=8 for 30 Days Active [place] Cough Drops 5.8 MG 1 lozenge Mouth/Throat every 6 hrs as needed for cough MDD=4 *MSAMKB* for 30 Days Activ e Aspercreme 10 % as directed Externally bid prn to knees and back Jan, Active Glucosamine 500 MG 4 capsules Orally Once a day at 5p for 30 Days Active Walker - as directed _ Daily DX: M48.06 Active Loperamide HCl 2 MG 2 caps [...] anxiety f or 30 days May, Active Escitalopram Oxalate 10 MG Take 2 tablet by mouth once a day for 30 Active Aspir-81 81 MG 1 tablet Orally Once a day at 12p for 30 Days Active Tums 500 MG 2tablet Orally Twice a day a s needed for indigestion MDD=4 *MSAMKB* for 30 Days Active Vitamin B-12 1000 MCG 1 tablet Orally Once a day at 12p for 30 Days Active Atorvastatin Calcium 40 mg 1 tablet Orally Once a day Active Glucosamine Sulfate 500 MG TAKE 4 [...] out of 9 biopsies + for adenocarcinoma Moneta 3 + 4 = 7. Radiation tx [...] No Information FUNCTIONAL STATUS No Information ASSESSMENTS No Information PLAN OF TREATMENT Medication Medication Name Sig Start Date Stop Date busPIRone HCl 10 MG 1 tablet Orally 11 am and 5 pm for anxie ty for 30 days May, Vitamin B-12 1000 MCG 1 tablet Orally Once a day at 12p for 30 D ays Lexapro 10 MG 2 tablets Orally Once a day Finasteride 5 MG TAKE ONE TABLET BY MOUTH DAILY for 90 Next Appt Details Provider Name:Na Collier, 10:30:00 AM, [address] [facility], , [place], [address], Insurance Providers Payer Name Payer Address Payer Phone Insured Name Patient Relati onship to Insured Coverage Start Date Coverage End Date MEDICARE Part A and B [address] [facility] [id number] [phone] Estela CARMONA [facility] [address] [facility] [id number] C Estela BATISTA
--- OUTSIDE RECORDS SUMMARY | 2021-08-30 17:00 | CCD ---
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 Ac tive confirmed 986225968 Problem Unspecified dementia without behavioral disturbance F03.90 Active confirmed 11230925 Problem Major depressive disorder, single episode, unspecified F32.9 Active confirmed 53122511 Problem Vitamin D deficiency, unspecified E55.9 Active con firmed 99113499 Problem Mixed hyperlipidemia E78.2 Active confirmed 827207586 Problem History of prostate cancer Z85.46 Active confirmed 028885983 Problem Dementia with behavioral disturbance, unspecifie d dementia type F03.91 Active confirmed 3931997394352 Problem Spinal stenosis, lumbar region M48.06 Active confir med 15013888 Problem Low back pain M54.5 Active confirmed 090626 007 Problem Prediabetes R73.03 Active confirmed 64512052 2 Problem Unspecified osteoarthritis, unspecified site M19.9 0 Active confirmed 252797808 Problem Xerosis cutis L85.3 Active confirmed 388996 00 Problem Full incontinence of feces R15.9 Active confirmed 10636542 Problem History of nonmelanoma skin cancer Z85.828 Activ e confirmed 456267062 Problem Seborrheic keratoses L82.1 Active confirmed 432262400 Problem 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 Active confirmed 75168 01 Problem Sebaceous hyperplasia of face L73.8 Active confirm ed 373608503 Problem Skin tag L91.8 Active confirmed 524872148 Problem Degenerative spondylolisthesis M43.10 Active confir med 1032825 Problem Malignant neoplasm of prostate C61 Active confir med 509511582 Problem 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 Act lidia confirmed 324618567 Problem Vitamin B12 deficiency anemia, 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 Active confirmed 16487543 Problem Enlarged prostate without lower urinary tract symptoms N40.0 Active confirmed 869084550 Problem Lentigines L81.4 Active confirmed 973075093 Problem Actinic keratoses L57.0 Active confirmed 40 9371307 Problem Physical deconditioning R53.81 Active confirmed 96258188451625 Problem Anxiety attack F41.0 Active confirmed 86243 5004 ALLERGIES Allergen (clinical drug ingredient) Drug/Non Drug Allergy do cumented on EMR Reaction Allergy Type Onset Date Status penicillin V Penicillin V Potassium([facility] [place]NOTE 2] Code:[address]-25) Hives Drug Allergy Active ENCOUNTERS from 1932 to 2021-06-28 Encounter Location Date Provider Diagnosis [place] [address] [facility] [phone] [place] [address] Jun, Na Servage 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 MRI head without contrast, on file at [facility] thank you, patient lives at [place] Diagnosis 1 Cerebrovascular small vessel disease (I67.9) Referral Organization [facility] Nichol Referring Provider First Name Na Referring Provider Last Name Amira Referring Provider Specialty Family Medicine Referred Provider Rolly Garcia Referred Provider Specialty Neurology Referral Priority Routine General Notes MarquiseSandraQueenie 06/28/2021 1:4 6:13 PM > referral faxed VITAL SIGNS No [...] indigestion MDD=4 *MSAMKB* for 30 Days Active [place] Cough Drops 5.8 MG 1 lozenge Mouth/Throat every 6 hrs as needed for cough MDD=4 *MSAMKB* for 30 Days Activ e busPIRone HCl 10 MG 1 tablet Orally 11 am and 5 pm for anxiety f or 30 days May, Active Glucosamine Sulfate 500 MG TAKE 4 CAPS (2000 MG) DAILY @5PM Active PROCEDURES No Information RESULTS No Results REASON FOR VISIT would like to speak to Na MEDICAL (GENERAL) HISTORY Type Description Date Medical [...] out of 9 biopsies + for adenocarcinoma [place] 3 + 4 = 7. Radiation tx [...] Treatment Notes Treatm ent Clinical Notes Jun, Cerebrovascular small vessel disease (ICD-10 - I 67.9) PLAN OF TREATMENT Medication Medication Name Sig Start Date Stop Date Lexapro 10 MG 2 tablets Orally Once a day busPIRone HCl 10 MG 1 tablet Orally 11 am and 5 pm for anxie ty for 30 days 14 May, 2021 Referrals Referral Date Details Patient seen in the emergenc y room 06/22/2021, referral for evaluation of cerebrovascular small vessel disease. MRI head without contrast, on file at [facility] thank you, patient lives at [facility], Rolly Garcia Next Appt Details Provider Name:Na Collier, 10:30:00 AM, [address] [facility], , [place], [address], Insurance Providers Payer Name Payer Address Payer Phone Insured Name Patient Relati onship to Insured Coverage Start Date Coverage End Date MEDICARE Part A and B [address] [facility] [address] [phone] Estela CARMONA [facility] [address] [facility] [id number] Estela LAROSE
--- OUTSIDE RECORDS SUMMARY | 2021-08-30 17:01 | CCD ---
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 Ac tive confirmed 415353656 Problem Mixed hyperlipidemia E78.2 Active confirmed 213391313 Problem Unspecified dementia without behavioral disturbance F03.90 Active confirmed 72955491 Problem Dementia with behavioral disturbance, unspecifie d dementia type F03.91 Active confirmed 5560154908715 Problem History of nonmelanoma skin cancer Z85.828 Activ e confirmed 885063046 Problem Low back pain M54.5 Active confirmed 557106 007 Problem Enlarged prostate without lower urinary tract symptoms N40.0 Active confirmed 151531343 Problem Unspecified osteoarthritis, unspecified site M19.9 0 Active confirmed 309175818 Problem Spinal stenosis, lumbar region M48.06 Active confir med 66541486 Problem Full incontinence of feces R15.9 Active confirmed 51253502 Problem Prediabetes R73.03 Active confirmed 44223603 2 Problem Seborrheic keratoses L82.1 Active confirmed 013208606 Problem Xerosis cutis L85.3 Active confirmed 738097 00 Problem History of prostate cancer Z85.46 Active confirmed 550540472 Problem 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 Active confirmed 98081 01 Problem Sebaceous hyperplasia of face L73.8 Active confirm ed 139188426 Problem Anxiety attack F41.0 Active confirmed 61060 5004 Problem Vitamin B12 deficiency anemia, 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 Active confirmed 73614280 Problem Degenerative spondylolisthesis M43.10 Active confir med 5229782 Problem Vitamin D deficiency, unspecified E55.9 Active con firmed 88756877 Problem Malignant neoplasm of prostate C61 Active confir med 921398640 Problem Skin tag L91.8 Active confirmed 098396866 Problem Lentigines L81.4 Active confirmed 953184487 Problem Actinic keratoses L57.0 Active confirmed 40 5935891 Problem Physical deconditioning R53.81 Active confirmed 27680154641167 ALLERGIES Allergen (clinical drug ingredient) Drug/Non Drug Allergy do cumented on EMR Reaction Allergy Type Onset Date Status penicillin V Penicillin V Potassium([facility] Code:[address]-19) Hives Drug Allergy Active ENCOUNTERS from 1932 to 2021-06-14 Encounter Location Date Provider Diagnosis [place] [address] [facility] [phone] [place] [address] Jun, Na Servage IMMUNIZATIONS Vaccine Route Administration Date [...] Notes Level of Education: Finished College [employer] nagement Audit Question Answer Notes Interpretation: Alcohol Education Total Score: 0 Drug and Alcohol Question Answer Notes Interpretation: No problems reported Total Score: 0 BMI Care Goal Follow-Up Question Answer Notes [...] indigestion MDD=4 *MSAMKB* for 30 Days Active [place] Cough Drops 5.8 MG 1 lozenge Mouth/Throat every 6 hrs as needed for cough MDD=4 *MSAMKB* for 30 Days Activ e busPIRone HCl 10 MG 1 tablet Orally 11 am and 5 pm for anxiety f or 30 days May, Active Glucosamine Sulfate 500 MG TAKE 4 CAPS (2000 MG) DAILY @5PM Active PROCEDURES No Information RESULTS No Results REASON FOR VISIT referral for oral sugery MEDICAL (GENERAL) HISTORY Type Description Date Medical [...] for anxie ty for 30 days May, Next Appt Details Provider Name:Na Collier, 10:30:00 AM, [address] [facility], , [place], [address], Insurance Providers Payer Name Payer Address Payer Phone Insured Name Patient Relati onship to Insured Coverage Start Date Coverage End Date MEDICARE Part A and B [address] [facility] [id number] Estela CARMONA [facility] [address] [facility] [id number] Estela LAROSE
--- OUTSIDE RECORDS SUMMARY | 2021-08-30 17:01 | CCD | Continuity of Care Document ---
Author Author Estela ANGELES MD [facility] Organization Unknown Address [address] [facility] [address] [place] [address] Phone [phone] Care Team Providers Care Salon Leader Name Role Phone Jayjay Burnette M.D. AUTM [phone] Problems Description No Active Problems Social History Type Date Description Comments Sex Unknown ETOH Use Rarely Tobacco Use Start: Unknown No Recreational Drug Use Denies Drug Use Allergies, Adverse Reactions, Alerts Active Allergies Reaction Severity Comments Date Penicillins 08/10/2009 Potassium 07/09/2018 Medications Active Medications SIG Qnty Indications [...] Unknown Buspirone HCL 10mg Tablets Na Collier A.N.P. Loperamide HCL 2mg Capsules Jayjay Burnette M.D. Immunizations Description No Information Available Vital Signs Date Vital Result Comment 06/01/2021 1:16pm Height 64 inches 5'4" Weight 180.00 lb BMI (Body Mass Index) 30.9 kg/m2 [place] Body Weight 130 lb Weight 81.648 kg BSA (Body Surface Area) 1.87 m2 05/10/2021 10:48am Height 64 inches 5'4" Weight 180.00 lb BMI (Body Mass Index) 30.9 kg/m2 [place] Body Weight 130 lb Weight 81.648 kg BSA (Body Surface Area) 1.87 m2 Results Description No Information Available Procedures Date Code Description Status 05/10/2021 20825 Office/Outpatient New Moderate M DM 45-59 Minutes Completed 05/10/2021 10488 Endoscopy Nasal Diagnostic Compl eted Medical Devices Description No Information Available Encounters Type Date Location Provider Dx Diagnosis Office Visit 05/10/2021 10:30a [facility] Fabricio Angeles MD J32.0 Chronic [...] septum Fabricio zamarripa MD Plan of Treatment No Information Available Functional Status Description No Information Available Mental Status Description No Information Available Referrals Description No Information Available
--- OUTSIDE RECORDS SUMMARY | 2021-08-30 17:01 | CCD ---
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 Ac tive confirmed 539037351 Problem Mixed hyperlipidemia E78.2 Active confirmed 218661780 Problem Unspecified dementia without behavioral disturbance F03.90 Active confirmed 06675351 Problem Dementia with behavioral disturbance, unspecifie d dementia type F03.91 Active confirmed 7728467884509 Problem History of nonmelanoma skin cancer Z85.828 Activ e confirmed 224924502 Problem Low back pain M54.5 Active confirmed 928968 007 Problem Enlarged prostate without lower urinary tract symptoms N40.0 Active confirmed 043500694 Problem Unspecified osteoarthritis, unspecified site M19.9 0 Active confirmed 157267099 Problem Spinal stenosis, lumbar region M48.06 Active confir med 18050100 Problem Full incontinence of feces R15.9 Active confirmed 82029914 Problem Prediabetes R73.03 Active confirmed 19711848 2 Problem Seborrheic keratoses L82.1 Active confirmed 719264734 Problem Xerosis cutis L85.3 Active confirmed 285835 00 Problem History of prostate cancer Z85.46 Active confirmed 564497488 Problem 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 Active confirmed 86096 01 Problem Sebaceous hyperplasia of face L73.8 Active confirm ed 514236919 Problem Anxiety attack F41.0 Active confirmed 03484 5004 Problem Vitamin B12 deficiency anemia, 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 Active confirmed 20048620 Problem Degenerative spondylolisthesis M43.10 Active confir med 9091790 Problem Vitamin D deficiency, unspecified E55.9 Active con firmed 78730287 Problem Malignant neoplasm of prostate C61 Active confir med 475367194 Problem Skin tag L91.8 Active confirmed 421246944 Problem Lentigines L81.4 Active confirmed 283739108 Problem Actinic keratoses L57.0 Active confirmed 40 6991173 Problem Physical deconditioning R53.81 Active confirmed 75490672563883 ALLERGIES Allergen (clinical drug ingredient) Drug/Non Drug Allergy do cumented on EMR Reaction Allergy Type Onset Date Status penicillin V Penicillin V Potassium([facility] Code:[address]-96) Hives Drug Allergy Active ENCOUNTERS from 1932 to 2021-06-23 Encounter Location Date Provider Diagnosis [place] [address] [facility] [phone] [place] [address] Jun, Na Servage IMMUNIZATIONS Vaccine Route Administration [...] Notes Level of Education: Finished College [email or web address] nagement Audit Question Answer Notes Total Score: [...] indigestion MDD=4 *MSAMKB* for 30 Days Active [place] Cough Drops 5.8 MG 1 lozenge Mouth/Throat every 6 hrs as needed for cough MDD=4 *MSAMKB* for 30 Days Activ e busPIRone HCl 10 MG 1 tablet Orally 11 am and 5 pm for anxiety f or 30 days May, Active Glucosamine Sulfate 500 MG TAKE 4 CAPS (2000 MG) DAILY @5PM Active PROCEDURES No Information RESULTS No Results REASON FOR VISIT subarachnoid hemmorragic stroke/ AMA MEDICAL (GENERAL) HISTORY Type Description Date Medical History DNR, DNI--MOLST on file 9/19 Medical History Hyperlipidemia Medical History BPH Medical History Arthritis hands, knees, hips, spine Medical History IFG/Metabolic Syndrome Medical History Colon Polyps 05/13 Medical History Aldrich''s esophagus: EGD 2013, no dyspl [place] Medical History prostate ca: Prostate biopsy 11/16, 05/18, 10/19 benign (Dr. 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 Radiation tx [...] Details Provider Name:Na Collier, 10:30:00 AM, [address] [facility], , [place], [address], Insurance Providers Payer Name Payer Address Payer Phone Insured Name Patient Relati onship to Insured Coverage Start Date Coverage End Date [facility] [address] [facility] [id number] Estela LAROSE MEDICARE Part A and B [address] [facility] [address] [phone] Estela CARMONA
--- OUTSIDE RECORDS SUMMARY | 2021-08-30 17:01 | CCD ---
Author Author [facility] Organization [facility] Address Unknown Phone Unavailable Care Team Providers Care Options Trader Name Role Phone Danica ANGELES MD Unavailable Unavailable Danica ANGELES MD Unavailable Unavailable Danica ANGELES MD Unavailable Unavailable Danica ANGELES MD Unavailable Unavailable Danica ANGELES MD Unavailable Unavailable Danica ANGELES MD Unavailable Unavailable Danica ANGELES MD Unavailable Unavailable Danica ANGELES MD Unavailable Unavailable Danica ANGELES MD Unavailable Unavailable Danica ANGELES MD Unavailable Unavailable Danica ANGELES MD Unavailable Unavailable Danica ANGELES MD Unavailable Unavailable Danica ANGELES MD Unavailable Unavailable Danica ANGELES MD Unavailable Unavailable Danica ANGELES MD Unavailable Unavailable Danica ANGELES MD Unavailable Unavailable Danica ANGELES MD Unavailable Unavailable ESTHER, C LOKI MD Unavailable Unavailable ESTHER, C LOKI MD Unavailable Unavailable ESTHER, C LOKI MD Unavailable Unavailable ESTHER, C LOKI MD Unavailable Unavailable ESTHER, C LOKI MD Unavailable Unavailable ESTHER, C LOKI MD Unavailable Unavailable ESTHER, C LOKI MD Unavailable Unavailable ESTHER, C LOKI MD Unavailable Unavailable ESTHER, C LOKI MD Unavailable Unavailable ESTHER, C LOKI MD Unavailable Unavailable ESTHER, C LOKI MD Unavailable Unavailable ESTHER, C LOKI MD Unavailable Unavailable ESTHER, C LOKI MD Unavailable Unavailable ESTHER, C LOKI MD Unavailable Unavailable ESTHER, C LOKI MD Unavailable Unavailable ESTHER, C LOKI MD Unavailable Unavailable ESTHER, C LOKI MD Unavailable Unavailable Re-disclosure Warning The records that you are about to access may contain information from federally-assisted alcohol or drug abuse programs. If such information is present, then the following federally mandated warning applies: This information has been disclosed to you from records protected by federal confidentiality rules (42 CFR part 2). The federal rules prohibit you from making any further disclosure of this information unless further disclosure is expressly permitted by the written consent of the person to whom it pertains or as otherwise permitted by 42 CFR part 2. A general authorization for the release of medical or other information is NOT sufficient for this purpose. The Federal rules restrict any use of the information to criminally investigate or prosecute any alcohol or drug abuse patient.The records that you are about to access may contain highly sensitive health information, the redisclosure of which is protected by Article 27-F of the [facility] Public Health law. If you continue you may have access to information: Regarding HIV / AIDS; Provided by facilities licensed or operated by the [facility] Office of Mental Health; or Provided by the [facility] Office for People With Developmental Disabilities. If such information is present, then the following [facility] mandated warning applies: This information has been disclosed to you from confidential records which are protected by state law. State law prohibits you from making any further disclosure of this information without the specific written consent of the person to whom it pertains, or as otherwise permitted by law. Any unauthorized further disclosure in violation of state law may result in a fine or mcfp sentence or both. A general authorization for the release of medical or other information is NOT sufficient authorization for further disc losure. Family History Family Member Name Family Member Gender Family Member Status Date o f Status Description Data Source(s) Unknown Unknown Problem MEDENT ([facility], ) Encounters Encounter Providers Location Date Indications Data Source(s ) Unknown [address] [facility] [address] 08/15/2021 12:00:00 AM EDT [facility]CW[facility] [place] [address] [facility] [address] 07/19/2021 12:00:00 AM EDT eCW1 ([facility]) [place] [address] [facility] [address] 07/05/2021 12:00:00 AM EDT eCW1 ([facility]) Unknown [address] [facility] [address] 06/23/2021 12:00:00 AM EDT eCW1 ([facility]) Unknown [address] [facility] [address] 06/22/2021 12:00:00 AM EDT [facility] [place] [address] [facility] [address] 06/14/2021 12:00:00 AM EDT eCW1 ([facility]) Outpatient Attender: LOKI Angeles/Lanie/Darien/Reind l 06/01/2021 01:15:00 PM EDT MEDENT ([facility] actjonna, ) [place] [address] [facility] [address] 05/25/2021 12:00:00 AM EDT [facility]CW1 [facility]) Outpatient Attender: LOKI Angeles/Lanie/Darien/Reind l 05/10/2021 10:30:00 AM EDT MEDENT ([facility] actice, ) [place] [address] [facility] [address] 05/02/2021 12:00:00 AM EDT eCW1 ([facility]) Unknown [address] [facility] [address] 04/18/2021 12:00:00 AM EDT eCW1 ([facility] [place] [address] [facility] [address] 04/07/2021 12:00:00 AM EDT [facility] [place] [address] [facility] [address] 04/05/2021 12:00:00 AM EDT [facility] Office Visit, Est Pt., Level 2 FC [address] [place] [address] 03/30/2021 12:00:00 AM EDT eCW1 ([facility]) [place] [address] [facility] [address] 03/01/2021 12:00:00 AM EDT [facility]CW[facility] [place] [address] [facility] [address] 02/01/2021 12:00:00 AM EDT eCW1 [facility] [address] [facility] [address] 01/20/2021 12:00:00 AM EST [facility]CW1 [facility] [place] [address] [facility] [address] 01/13/2021 12:00:00 AM EST [facility]CW1 [facility] [place] [address] [facility] [address] 11/24/2020 12:00:00 AM EST eCW1 ([facility]) [place] [address] [facility] [address] 11/03/2020 12:00:00 AM EST eCW1 ([facility]) Unknown [address] [facility] [address] 10/05/2020 12:00:00 AM EST [facility]CW1 [facility] [place] [address] [facility] [place] [address] 09/29/2020 12:00:00 AM EST eCW1 ([facility]) Unknown [address] [facility] [address] 09/03/2020 12:00:00 AM EDT eCW1 ([facility]) Office Visit, Est Pt., Level 4 PC [address] [place] [address] 08/16/2020 12:00:00 AM EDT eCW1 ([facility]) Immunizations Vaccine Date Status Description Data Source(s) COVID-19 VACCINE Pfizer 12/08/2020 12:00:00 AM EST completed [facility] Vaccine Series Complete: YESThis Data wa s Submitted to [facility] Via [employer]. COVID-19 VACCINE Pfizer 11/26/2020 12:00:00 AM EST completed [facility] Vaccine Series Complete: NOThis Data was Submitted to [facility] Via [employer]. INFLUENZA VACCINE QUADRIVALENT (65 YR UP)/MF59 C.1/PF 08/27/2020 12:00:00 AM EDT completed [facility] IIV3. This is one of two codes replacing CVX 15, which is being retired. 08/16/2020 12:06:00 PM EDT completed eCW1 ([facility]) IIV3. This is one of two codes replacing CVX 15, which is being retired. 08/16/2020 12:06:00 PM EDT completed eCW1 ([facility]) IIV3. This is one of two codes replacing CVX 15, which is being retired. 08/16/2020 12:06:00 PM EDT completed eCW1 ([facility]) IIV3. This is one of two codes replacing CVX 15, which is being retired. 08/16/2020 12:06:00 PM EDT completed eCW1 ([facility]) IIV3. This is one of two codes replacing CVX 15, which is being retired. 08/16/2020 12:06:00 PM EDT completed eCW1 ([facility]) IIV3. This is one of two codes replacing CVX 15, which is being retired. 08/16/2020 12:06:00 PM EDT completed eCW1 ([facility]) IIV3. This is one of two codes replacing CVX 15, which is being retired. 08/16/2020 12:06:00 PM EDT completed eCW1 ([facility]) IIV3. This is one of two codes replacing CVX 15, which is being retired. 08/16/2020 12:06:00 PM EDT completed eCW1 ([facility]) IIV3. This is one of two codes replacing CVX 15, which is being retired. 08/16/2020 12:06:00 PM EDT completed eCW1 ([facility]) IIV3. This is one of two codes replacing CVX 15, which is being retired. 08/16/2020 12:06:00 PM EDT completed eCW1 ([facility]) IIV3. This is one of two codes replacing CVX 15, which is being retired. 08/16/2020 12:06:00 PM EDT completed eCW1 ([facility]) IIV3. This is one of two codes replacing CVX 15, which is being retired. 08/16/2020 12:06:00 PM EDT completed eCW1 ([facility]) IIV3. This is one of two codes replacing CVX 15, which is being retired. 08/16/2020 12:06:00 PM EDT completed eCW1 ([facility]) IIV3. This is one of two codes replacing CVX 15, which is being retired. 08/16/2020 12:06:00 PM EDT completed eCW1 ([facility]) IIV3. This is one of two codes replacing CVX 15, which is being retired. 08/16/2020 12:06:00 PM EDT completed eCW1 ([facility]) IIV3. This is one of two codes replacing CVX 15, which is being retired. 08/16/2020 12:06:00 PM EDT completed eCW1 ([facility]) IIV3. This is one of two codes replacing CVX 15, which is being retired. 08/16/2020 12:06:00 PM EDT completed eCW1 ([facility]) IIV3. This is one of two codes replacing CVX 15, which is being retired. 08/16/2020 12:06:00 PM EDT completed eCW1 ([facility]) IIV3. This is one of two codes replacing CVX 15, which is being retired. 08/16/2020 12:06:00 PM EDT completed eCW1 ([facility]) IIV3. This is one of two codes replacing CVX 15, which is being retired. 08/16/2020 12:06:00 PM EDT completed eCW1 ([facility]) Medications Medication Brand Name Start Date Product Form Dose Route Admi nistrative Instructions Pharmacy Instructions Status Indications Reaction Description Data Source(s) 240 mcg/0.7 mL 08/24/2021 12:00:00 AM EDT syringe 0 INJECT DIRECTED INJECT DIRECTED SOLD: 08/24/2021 [facility] buspirone hydrochloride 10 MG Oral Tablet busPIRone HC l 10 MG busPIRone HCl 10 MG 05/25/2021 12:00:00 AM EDT 1.0 {tablet} activ e busPIRone HCl 10 MG eCW1 ([facility]) buspirone hydrochloride 10 MG Oral Tablet busPIRone HC l 10 MG busPIRone HCl 10 MG 05/25/2021 12:00:00 AM EDT 1.0 {tablet} activ e busPIRone HCl 10 MG eCW1 ([facility]) buspirone hydrochloride 10 MG Oral Tablet busPIRone HC l 10 MG busPIRone HCl 10 MG 05/25/2021 12:00:00 AM EDT 1.0 {tablet} activ e busPIRone HCl 10 MG eCW1 ([facility]) buspirone hydrochloride 10 MG Oral Tablet busPIRone HC l 10 MG busPIRone HCl 10 MG 05/25/2021 12:00:00 AM EDT 1.0 {tablet} activ e busPIRone HCl 10 MG eCW1 ([facility]) buspirone hydrochloride 10 MG Oral Tablet busPIRone HC l 10 MG busPIRone HCl 10 MG 05/25/2021 12:00:00 AM EDT 1.0 {tablet} activ e busPIRone HCl 10 MG eCW1 ([facility]) buspirone hydrochloride 10 MG Oral Tablet busPIRone HC l 10 MG busPIRone HCl 10 MG 05/25/2021 12:00:00 AM EDT 1.0 {tablet} activ e busPIRone HCl 10 MG eCW1 ([facility]) buspirone hydrochloride 10 MG Oral Tablet busPIRone HC l 10 MG busPIRone HCl 10 MG 05/25/2021 12:00:00 AM EDT 1.0 {tablet} activ e busPIRone HCl 10 MG eCW1 ([facility]) buspirone hydrochloride 10 MG Oral Tablet busPIRone HC l 10 MG busPIRone HCl 10 MG 05/04/2021 12:00:00 AM EDT 1.0 {tablet} activ e busPIRone HCl 10 MG eCW1 ([facility]) Insurance Providers Payer name Policy type / Coverage type Policy ID Covered libertarian ID Covered libertarian's relationship to mendez Policy Mendez Plan Information MEDICARE [id number] SP [id number] A MEDICARE [id number] SP [id number] A [id number] A [employer] [place] [place] [id number] SP [id number] [facility] [id number] SP [id number] [employer] [place] [place] [id number] SP [id number] [facility] [id number] SP [id number] [employer] [place] [place] UNAVAILABLE UNAVAILABLE [place] PPO 302/307 [id number] SP [id number] MEDICARE C [id number] S [id number] [facility] O [id number] S [id number] MEDICARE C [id number] S [id number] A [employer] [place] [place] [id number] SP [id number] [facility]-Medicare Part B [id number] ANSI-Commercial [id number] ANSI-Medicare Part B [id number] ANSI-Commercial [id number] ANSI-Medicare Part B [id number] ANSI-Commercial [id number] MEDICARE [id number] SP [id number] ANSI-Commercial [id number] ANSI-Medicare Part B [id number] ANSI-Commercial [id number]-[id number]-[id number] ANSI-Medicare Part B [id number] ANSI-Commercial btg4bgf7-fsyp-891b-[id number] vpt7fce6-mhpz-090t-ky79-xn380srqkh50 ANSI-Medicare Part B [id number] ANSI-Medicare Part B [id number] ANSI-Commercial [id number]-b9t9-9qnb-[id number]-w8i4-0rno-[id number] ANSI-Commercial [id number]-k556-1evg-81sc-871by4x4o212 [id number]-[id number]-02gn-[id number] ANSI-Medicare Part B [id number] ANSI-Commercial [id number]-[id number]-k3qf-208o-[id number] ANSI-Medicare Part B [id number]-[id number] ANSI-Medicare Part B [id number] ANSI-Commercial [id number]-[id number] [id number]-[id number] ANSI-Medicare Part B [id number]-[id number] ANSI-Commercial [id number]-[id number]-6b37-p7j5-[id number] 835zqs2p-073t-6k12-f5v5-[id number] ANSI-Medicare Part B [id number] ANSI-Commercial [id number]-[id number] [id number]-[id number] ANSI-Commercial [id number]-s8a4-[id number] [id number]-v3g2-w7vtk97i2292 ANSI-Medicare Part B [id number] ANSI-Medicare Part B [id number] ANSI-Commercial [id number]-r6z5-9i0y-ge9f-[id number] [id number]-r8i3-7h9f-ye0z-32qk3j748re6 ANSI-Medicare Part B [id number]-[id number]-i4mv9u8i22zg ANSI-Commercial [id number]-zci1-8q79-09jo-6g12s62518iv 3f4wk57v-dml0-9r93-22vc-[id number] ANSI-Medicare Part B [id number] e3i0t5u9-zw4s-30ez-[id number] ANSI-Commercial [id number]-n23i-7788-fjxl-606789z0dfco [id number]-u66t-6001-grps-681468z6jloa ANSI-Commercial s23f2gw5-7708-5670-ya44-f34y291a35v9 o73c7he1-0701-1615-vw30-c52i186g54h3 ANSI-Medicare Part B [id number] ANSI-Medicare Part B [id number]-0hbl-[id number] ANSI-Commercial 32p1ri4m-x11p-[id number]-n53e-7fu0-099g-6576ig908009 ANSI-Commercial [id number]-w140-50ej-h9t4-d8m56dw7v879 9u970a56-o586-13eh-p6k1-f3s67or1o173 ANSI-Medicare Part B [id number]-754o-9n5k-4h1l-id40fp7v3344 ANSI-Medicare Part B [id number] ANSI-Commercial [id number]-x70d-5t8z-g2ml-3kdvx2s1vqq2 h14s39at-c27b-6f7q-v5ej-7ldby5w0tku2 ANSI-Commercial 31ah0r48-9h2v-50vc-u3x4-[id number] 91vs1s36-0d9u-32pz-i8o0-ad771lq495li ANSI-Medicare Part B [id number] ANSI-Medicare Part B [id number] ANSI-Commercial f3gs6egq-9m9c-525w-iw6s-[id number] [id number]-5v3t-424z-wr7a-[id number] ANSI-Medicare Part B [id number]-[id number] ANSI-Commercial [id number] [id number] ANSI-Medicare Part B [id number] ANSI-Commercial ccmb4u76-[id number]-[id number]-[id number]-[id number] ANSI-Commercial [id number]-1s[id number] ANSI-Medicare Part B [id number]-[id number] ANSI-Medicare Part B [id number] ANSI-Commercial [id number]-l8gl-3ki2-q3l4-[id number]-8wt9-i0m7-[id number] [facility] Medigap Part B [id number] Self [id number] Medicare [facility] Medicare Primary [id number] Self 2 [id number] MEDICARE [id number] SP [id number] A [employer] [place] [id number] SP [id number] [employer] [place] [id number] SP [id number] [facility] [id number] SP [id number] [employer] [place] [place] [id number] SP [id number] MEDICARE [id number] SP [id number] A [facility] [id number] SP [id number] [facility] [id number] SP [id number] [employer] [place] [id number] SP [id number] [facility] [id number] SP [id number] MEDICARE [id number] SP [id number] [employer] [id number] SP [id number] [facility] [id number] SP [id number] MEDICARE [id number] SP [id number] A [employer] [place] [id number] SP [id number] Problems, Conditions, and Diagnoses Code Display Name Description Problem Type Effective Dates Data Source(s) E11.9 Type II diabetes mellitus well controlle d DM II (diabetes mellitus, type II), controlled Problem 07/06/2021 12:00:00 AM EDT eCW1 ([facility]) I67.9 [id number] Cerebrovascular small vessel disease Prob cathi 06/28/2021 12:00:00 AM EDT eCW1 ([facility]) 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 Problem 05/27/2021 12:00:00 AM EDT eCW1 ([facility]) F41.0 [id number] Anxiety attack Problem 05/25/2021 12:00:00 A M EDT eCW1 ([facility]) R53.81 [id number] Physical deconditioning Problem 12:00:00 AM EST eCW1 ([facility]) L57.0 [id number] Actinic keratoses Problem 08/16/2020 12:00:0 0 AM EDT eCW1 ([facility]) L81.4 [id number] Lentigines Problem 08/16/2020 12:00:00 AM ED T eCW1 ([facility]) L91.8 [id number] Skin tag Problem 08/16/2020 12:00:00 AM ED T eCW1 ([facility]) L73.8 [id number] Sebaceous hyperplasia of face Problem 08/16/2020 12:00:00 AM EDT eCW1 ([facility]) D18.01 [id number] Nicole angioma Problem 08/16/2020 12:00:00 A M EDT eCW1 ([facility]) Surgeries/Procedures Procedure Description Date Indications Data Source(s) OFFICE OUTPATIENT VISIT 15 MINUTES 06/01/2021 12:00:00 AM EDT [facility] ([facility], ) Endoscopy Nasal Diagnostic 05/10/2021 12:[facility] OFF[facility] OUTPATIENT NEW 45 MINUTES 05/10/2021 12:00:00 A M [facility] Results ID Date Data Source LIPID PANEL (CARDIAC RISK) 03/30/2021 12:00:00 AM EDT eCW1 ( [facility]) Name Value Range Interpretation Code Description Data Yanira rce(s) Supporting Document(s) Triglyceride [Mass/volume] in Serum or Plasma by calculation 513 <150 TRIGLYCERIDES LEVEL eCW1 ([facility]) 141 NON-HDL-C eCW1 ([facility]) Cholesterol in HDL [Moles/volume] in Serum or Plasma 57 >40 HDL CHOLESTEROL eCW1 ([facility]) Cholesterol [Moles/volume] in Serum or Plasma 198 <200 CHOLESTEROL LEVEL [facility] ([facility]) 3.473 <5 CHOLESTEROL RISK RATIO eCW1 ([facility]) ID Date Data Source [id number] 03/30/2021 12:00:00 AM EDT eCW1 ([facility]) Name Value Range Interpretation Code Description Data Yanira rce(s) Supporting Document(s) Hemoglobin A1c/Hemoglobin.total in Blood 5.9 HEMOGLOBIN A1c eCW1 ([facility]) ID Date Data Source Comprehensive Metabolic Profile (CMP) 03/30/2021 12:00:00 AM EDT eCW1 ([facility]) Name Value Range Interpretation Code Description Data Yanira rce(s) Supporting Document(s) 139 70-100 GLUCOSE, FASTING eCW1 ([facility]) 17 7-18 BLOOD UREA NITROGEN eCW1 ([facility]) 0.95 0.70-1.30 CREATININE FOR GFR eCW1 ([facility]) > 60.0 >35 GLOMERULAR FILTRATION RATE eCW 1 ([facility]) 30 21-32 CARBON DIOXIDE LEVEL eCW1 (Critical access hospital) 139 136-145 SODIUM LEVEL eCW1 ([facility]) 104 98-107 CHLORIDE LEVEL eCW1 ([facility]) 4.2 3.5-5.1 POTASSIUM SERUM eCW1 (Critical access hospital) 21 7-37 AST/SGOT eCW1 (Critical access hospital) 8.8 8.8-10.2 CALCIUM LEVEL eCW1 ([facility]) 89 45-117 ALKALINE PHOSPHATASE eCW1 (Critical access hospital) 31 12-78 ALT/SGPT eCW1 ([facility] hospital) 3.3 3.2-5.2 ALBUMIN eCW1 (Critical [facility] hospital) 0.8 0.2-1.0 BILIRUBIN,TOTAL eCW1 (Critical access hospital) 7.0 6.4-8.2 TOTAL PROTEIN eCW1 ([facility]) 0.9 ALBUMIN/GLOBULIN RATIO eCW1 ([facility]) ID Date Data Source VITAMIN B12 LEVEL 09/29/2020 12:00:00 AM EST eCW1 ([facility]) Name Value Range Interpretation Code Description Data Yanira rce(s) Supporting Document(s) [phone] VITAMIN B12 LEVEL eCW1 ([facility]) ID Date Data Source FREE T4 & TSH PANEL 09/29/2020 12:00:00 AM EST eCW1 ([facility]) Name Value Range Interpretation Code Description Data Yanira rce(s) Supporting Document(s) 0.95 0.76-1.46 eCW1 (Critical access hospital) 3.600 0.358-3.740 eCW1 ([facility]) ID Date Data Source FOLATE 09/29/2020 12:00:00 AM EST eCW1 ([facility]) Name Value Range Interpretation Code Description Data Yanira rce(s) Supporting Document(s) 21.1 >5.4 eCW1 (Critical access hospital) ID Date Data Source CBC - Complete Blood Count 09/29/2020 12:00:00 AM EST eCW1 ( [facility]) Name Value Range Interpretation Code Description Data Yanira rce(s) Supporting Document(s) 4.26 4.30-6.10 eCW1 (Critical access hospital) 7.2 4.0-10.0 eCW1 (Critical access hospital) 13.8 13.5-17.5 eCW1 (Critical access hospital) 32.8 32.0-36.5 eCW1 (Critical access hospital) 42.1 42.0-52.0 eCW1 (Critical access hospital) 98.8 80.0-96.0 eCW1 (Critical access hospital) 32.4 27.0-33.0 eCW1 (Critical access hospital) 206 150-450 eCW1 (Critical access hospital) 13.2 11.5-14.5 eCW1 (Critical access hospital) Procedure Social History Code Duration Value Status Description Data Source(s ) Smoking 05/25/2021 12:00:00 AM EDT Former Smoker completed Former Smoker eCW1 ([facility]) Smoking 05/25/2021 12:00:00 AM EDT Former Smoker completed Former Smoker eCW1 ([facility]) Smoking 05/25/2021 12:00:00 AM EDT Former Smoker completed Former Smoker eCW1 ([facility]) Smoking 05/25/2021 12:00:00 AM EDT Former Smoker completed Former Smoker eCW1 ([facility]) Smoking 05/25/2021 12:00:00 AM EDT Former Smoker completed Former Smoker eCW1 ([facility]) Smoking 05/25/2021 12:00:00 AM EDT Former Smoker completed Former Smoker eCW1 ([facility]) Smoking 05/25/2021 12:00:00 AM EDT Former Smoker completed Former Smoker eCW1 ([facility]) Smoking 03/30/2021 12:00:00 AM EDT Former Smoker completed Former Smoker eCW1 ([facility]) Smoking 03/30/2021 12:00:00 AM EDT Former Smoker completed Former Smoker eCW1 ([facility]) Smoking 03/30/2021 12:00:00 AM EDT Former Smoker completed Former Smoker eCW1 ([facility]) Smoking 03/30/2021 12:00:00 AM EDT Former Smoker completed Former Smoker eCW1 ([facility]) Smoking 03/30/2021 12:00:00 AM EDT Former Smoker completed Former Smoker eCW1 ([facility]) Smoking 01/20/2021 12:00:00 AM EST Former Smoker completed Former Smoker eCW1 ([facility]) Smoking 01/20/2021 12:00:00 AM EST Former Smoker completed Former Smoker eCW1 ([facility]) Smoking 01/20/2021 12:00:00 AM EST Former Smoker completed Former Smoker eCW1 ([facility]) Smoking 09/29/2020 12:00:00 AM EST Former Smoker completed Former Smoker eCW1 ([facility]) Smoking 09/29/2020 12:00:00 AM EST Former Smoker completed Former Smoker eCW1 ([facility]) Smoking 09/29/2020 12:00:00 AM EST Former Smoker completed Former Smoker eCW1 ([facility]) Smoking 09/29/2020 12:00:00 AM EST Former Smoker completed Former Smoker eCW1 ([facility]) Smoking 09/29/2020 12:00:00 AM EST Former Smoker completed Former Smoker eCW1 ([facility]) Smoking 08/16/2020 12:00:00 AM EDT Former Smoker completed Former Smoker eCW1 ([facility]) Smoking 08/16/2020 12:00:00 AM EDT Former Smoker completed Former Smoker eCW1 ([facility]) Vital Signs ID Date Data Source UNK Name Value Range Interpretation Code Description Data Source(s) Body weight 180.00 [lb_av] 180.00 [lb_av] MEDEN T ([facility]) Body mass index (BMI) [Ratio] 30.9 kg/m2 30.9 k g/m2 [facility] ([facility]) Body surface area Derived from formula 1.87 m2 1.87 m2 [facility] ([facility]) Body height 64 [in_i] 64 [in_i] [facility] ([facility]) 5'4" [place] body weight 130 [lb_av] 130 [lb_av] MEDEN T ([facility]) Body weight 81.648 kg 81.648 kg [facility] ([facility]) Body temperature 98 [degF] 98 [degF] eCW1 ([facility]) Body weight 186.6 [lb_av] 186.6 [lb_av] eCW1 ([facility]) Body height 64 [in_i] 64 [in_i] eCW1 ([facility]) Body mass index (BMI) [Ratio] 32.03 kg/m2 32.03 kg/m2 W1 ([facility]) Heart rate 69 /min 69 /min eCW1 (Critical access hospital) Respiratory rate 18 /min 18 /min eCW1 ([facility]) Systolic blood pressure 120 mm[Hg] 120 mm[Hg] e CW1 ([facility]) Diastolic blood pressure 80 mm[Hg] 80 mm[Hg] eCW1 ([facility]) [place] body weight 130 [lb_av] 130 [lb_av] MEDEN T ([facility]) Body surface area Derived from formula 1.87 m2 1.87 m2 [facility] ([facility]) Body weight 180.00 [lb_av] 180.00 [lb_av] MEDEN T ([facility]) Body mass index (BMI) [Ratio] 30.9 kg/m2 30.9 k g/m2 [facility] ([facility]) Body weight 81.648 kg 81.648 kg [facility] ([facility]) Body height 64 [in_i] 64 [in_i] [facility] ([facility]) 5'4" Body temperature 97.8 [degF] 97.8 [degF] eCW1 ( [facility]) Body weight 184.2 [lb_av] 184.2 [lb_av] eCW1 ([facility]) Body height 64 [in_i] 64 [in_i] eCW1 ([facility]) Body mass index (BMI) [Ratio] 31.61 kg/m2 31.61 kg/m2 W1 ([facility]) Heart rate 88 /min 88 /min eCW1 (Critical access hospital) Respiratory rate 18 /min 18 /min eCW1 ([facility]) Systolic blood pressure 120 mm[Hg] 120 mm[Hg] e CW1 ([facility]) Diastolic blood pressure 70 mm[Hg] 70 mm[Hg] eCW1 ([facility]) Body weight 186.4 [lb_av] 186.4 [lb_av] eCW1 ([facility]) Body height 64 [in_i] 64 [in_i] eCW1 ([facility]) Body mass index (BMI) [Ratio] 31.99 kg/m2 31.99 kg/m2 eCW1 ([facility]) Heart rate 86 /min 86 /min eCW1 (Critical access hospital) Respiratory rate 18 /min 18 /min eCW1 ([facility]) Body temperature 97.8 [degF] 97.8 [degF] eCW1 ( [facility]) Systolic blood pressure 130 mm[Hg] 130 mm[Hg] e CW1 ([facility]) Diastolic blood pressure 74 mm[Hg] 74 mm[Hg] eCW1 ([facility]) Body weight 186.6 [lb_av] 186.6 [lb_av] eCW1 ([facility]) Body height 64 [in_i] 64 [in_i] eCW1 ([facility]) Body mass index (BMI) [Ratio] 32.03 kg/m2 32.03 kg/m2 W1 ([facility]) Heart rate 88 /min 88 /min eCW1 (Critical access hospital) Respiratory rate 18 /min 18 /min eCW1 ([facility]) Body temperature 97.7 [degF] 97.7 [degF] eCW1 ( [facility]) Systolic blood pressure 110 mm[Hg] 110 mm[Hg] e CW1 ([facility]) Diastolic blood pressure 70 mm[Hg] 70 mm[Hg] eCW1 ([facility]) Body weight 189.8 [lb_av] 189.8 [lb_av] eCW1 ([facility]) Body height 64 [in_i] 64 [in_i] eCW1 ([facility]) Body mass index (BMI) [Ratio] 32.58 kg/m2 32.58 kg/m2 eCW1 ([facility]) Systolic blood pressure 124 mm[Hg] 124 mm[Hg] e CW1 ([facility]) Diastolic blood pressure 78 mm[Hg] 78 mm[Hg] eCW1 ([facility]) Patient Treatment Plan of Care Planned Activity Planned Date Details Description Data Source (s) buspirone hydrochloride 10 MG Oral Tablet 05/25/2021 12:00:00 AM ED T eCW1 ([facility]) buspirone hydrochloride 10 MG Oral Tablet 05/25/2021 12:00:00 AM ED T eCW1 ([facility]) buspirone hydrochloride 10 MG Oral Tablet 05/25/2021 12:00:00 AM ED T eCW1 ([facility]) buspirone hydrochloride 10 MG Oral Tablet 05/25/2021 12:00:00 AM ED T eCW1 ([facility]) buspirone hydrochloride 10 MG Oral Tablet 05/25/2021 12:00:00 AM ED T eCW1 ([facility]) buspirone hydrochloride 10 MG Oral Tablet 05/25/2021 12:00:00 AM ED T eCW1 ([facility]) buspirone hydrochloride 10 MG Oral Tablet 05/25/2021 12:00:00 AM ED T eCW1 ([facility]) buspirone hydrochloride 10 MG Oral Tablet 05/04/2021 12:00:00 AM ED T eCW1 ([facility])
--- NOTE | 2021-08-31 13:33 | ECGEPIP ---
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
== END 2021-08-30 17:38 | disposition home or self-care (01) ==
LOC: M ED 14:50 → EDBD 14:50 → M ED 17:38
DX: R06.02 Shortness of breath (principal); E11.9 Type 2 diabetes mellitus without complications; E78.5 Hyperlipidemia, unspecified; F03.90 Unspecified dementia, unspecified severity, without behavioral disturbance, psychotic disturbance, mood disturbance, and anxiety; K21.9 Gastro-esophageal reflux disease without esophagitis; F41.9 Anxiety disorder, unspecified; F32.9 Major depressive disorder, single episode, unspecified; Z87.01 Personal history of pneumonia (recurrent); Z79.82 Long term (current) use of aspirin; Z79.899 Other long term (current) drug therapy; Z88.0 Allergy status to penicillin; Z88.8 Allergy status to other drugs, medicaments and biological substances

== ENCOUNTER 2021-09-18 03:39 | Emergency (ER) | payer MEDICARE, BC, OTHER ==
[~2021-09-18] VITALS: Ht 167.6 cm; Wt 81.8 kg
--- OUTSIDE RECORDS SUMMARY | 2021-09-18 03:42 | CCD ---
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 Ac tive confirmed 598749935 Problem Mixed hyperlipidemia E78.2 Active confirmed 559591814 Problem Unspecified dementia without behavioral disturbance F03.90 Active confirmed 48696880 Problem Vitamin B12 deficiency anemia, 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 Active confirmed 23966165 Problem Vitamin D deficiency, unspecified E55.9 Active con firmed 76656192 Problem 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 Active confirmed 73765 01 Problem History of prostate cancer Z85.46 Active confirmed 254968778 Problem Unspecified osteoarthritis, unspecified site M19.9 0 Active confirmed 297189384 Problem Spinal stenosis, lumbar region M48.06 Active confir med 32134157 Problem Full incontinence of feces R15.9 Active confirmed 45056542 Problem Prediabetes R73.03 Active confirmed 04315724 2 Problem Seborrheic keratoses L82.1 Active confirmed 087218260 Problem Xerosis cutis L85.3 Active confirmed 903006 00 Problem Dementia with behavioral disturbance, unspecifie d dementia type F03.91 Active confirmed 3812819766860 Problem History of nonmelanoma skin cancer Z85.828 Activ e confirmed 697208527 Problem Sebaceous hyperplasia of face L73.8 Active confirm ed 532303146 Problem Skin tag L91.8 Active confirmed 433808277 Problem Lentigines L81.4 Active confirmed 190593769 Problem 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 Act lidia confirmed 052397777 Problem Enlarged prostate without lower urinary tract symptoms N40.0 Active confirmed 502496759 Problem DM II (diabetes mellitus, type II), controlled E11 .9 Active confirmed 419655690 Problem Malignant neoplasm of prostate C61 Active confir med 709780909 Problem Low back pain M54.5 Active confirmed 956203 007 Problem Actinic keratoses L57.0 Active confirmed 40 9537602 Problem Physical deconditioning R53.81 Active confirmed 70197302197820 Problem Anxiety attack F41.0 Active confirmed 06777 5004 Problem Degenerative spondylolisthesis M43.10 Active confir med 2728755 ALLERGIES Allergen (clinical drug ingredient) Drug/Non Drug Allergy do cumented on EMR Reaction Allergy Type Onset Date Status penicillin V Penicillin V Potassium([facility] Code:[address]-64) Hives Drug Allergy Active ENCOUNTERS from 1930 to 2021-08-31 Encounter Location Date Provider Diagnosis [address] [phone] [place] [address] Aug, Na Servage IMMUNIZATIONS Vaccine Route Administration Date [...] or fever MDD=8 for 30 Days Active [place] Cough Drops 5.8 MG 1 lozenge Mouth/Throat [...] Information RESULTS No Results REASON FOR VISIT update MEDICAL (GENERAL) HISTORY Type Description Date Medical [...] out of 9 biopsies + for adenocarcinoma [place] 3 + 4 = 7. Radiation tx [...] Details Provider Name:Na Collier, 10:30:00 AM, [address] [facility], , [place], [address], Insurance Providers Payer Name Payer Address Payer Phone Insured Name Patient Relati onship to Insured Coverage Start Date Coverage End Date [facility] [address] [facility] [id number] Estela LAROSE MEDICARE Part A and B [address] [facility] [phone] Estela CARMONA self
--- OUTSIDE RECORDS SUMMARY | 2021-09-18 03:42 | CCD ---
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 Ac tive confirmed 869160220 Problem Mixed hyperlipidemia E78.2 Active confirmed 552522218 Problem Unspecified dementia without behavioral disturbance F03.90 Active confirmed 65409969 Problem Vitamin B12 deficiency anemia, 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 Active confirmed 64278001 Problem Vitamin D deficiency, unspecified E55.9 Active con firmed 23374550 Problem 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 Active confirmed 97411 01 Problem History of prostate cancer Z85.46 Active confirmed 131717540 Problem Unspecified osteoarthritis, unspecified site M19.9 0 Active confirmed 234263455 Problem Spinal stenosis, lumbar region M48.06 Active confir med 31050683 Problem Full incontinence of feces R15.9 Active confirmed 11942162 Problem Prediabetes R73.03 Active confirmed 22709630 2 Problem Seborrheic keratoses L82.1 Active confirmed 687280357 Problem Xerosis cutis L85.3 Active confirmed 954801 00 Problem Dementia with behavioral disturbance, unspecifie d dementia type F03.91 Active confirmed 4121793355460 Problem History of nonmelanoma skin cancer Z85.828 Activ e confirmed 861500159 Problem Sebaceous hyperplasia of face L73.8 Active confirm ed 252929136 Problem Skin tag L91.8 Active confirmed 378114876 Problem Lentigines L81.4 Active confirmed 413989579 Problem 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 Act lidia confirmed 537548314 Problem Enlarged prostate without lower urinary tract symptoms N40.0 Active confirmed 128894604 Problem DM II (diabetes mellitus, type II), controlled E11 .9 Active confirmed 721199495 Problem Malignant neoplasm of prostate C61 Active confir med 069713934 Problem Low back pain M54.5 Active confirmed 194247 007 Problem Actinic keratoses L57.0 Active confirmed 40 6334148 Problem Physical deconditioning R53.81 Active confirmed 20512438443450 Problem Anxiety attack F41.0 Active confirmed 56930 5004 Problem Degenerative spondylolisthesis M43.10 Active confir med 9199152 ALLERGIES Allergen (clinical drug ingredient) Drug/Non Drug Allergy do cumented on EMR Reaction Allergy Type Onset Date Status penicillin V Penicillin V Potassium([facility] Code:[address]-61) Hives Drug Allergy Active ENCOUNTERS from 1930 to 2021-09-01 Encounter Location Date Provider Diagnosis [place] [id number] [facility] [phone] [place] [address] Aug, Na Servage IMMUNIZATIONS Vaccine Route Administration [...] or fever MDD=8 for 30 Days Active [place] Cough Drops 5.8 MG 1 lozenge [...] Information RESULTS No Results REASON FOR VISIT confusion MEDICAL (GENERAL) HISTORY Type Description Date Medical [...] out of 9 biopsies + for adenocarcinoma [place] 3 + 4 = 7. Radiation tx [...] Details Provider Name:Na Collier, 10:30:00 AM, [address] [facility], , [place], [address], Insurance Providers Payer Name Payer Address Payer Phone Insured Name Patient Relati onship to Insured Coverage Start Date Coverage End Date [facility] [address] [facility] [id number] Estela LAROSE MEDICARE Part A and B [address] [facility] [phone] Estela CARMONA self
--- OUTSIDE RECORDS SUMMARY | 2021-09-18 03:42 | CCD ---
Author Author [facility] Organization [facility] Address Unknown Phone Unavailable Care Team Providers Care Plate Roller Name Role Phone NO, PCP Unavailable Unavailable TURRIN, KARTHIKEYAN Unavailable Unavailable TURRIN, KARTHIKEYAN Unavailable Unavailable TURRIN, KARTHIKEYAN Unavailable Unavailable TURRIN, KARTHIKEYAN Unavailable Unavailable Treasure [facility] Unavailable Unavailable Treasure [facility] Unavailable Unavailable Treasure [facility] Unavailable Unavailable Treasure LANDAVERDE DAR[facility] Unavailable Unavailable Treasure LANDAVERDE DARCIE DPM PC Unavailable Unavailable Treasure LANDAVERDE DAR[facility] Unavailable Unavailable Treasure LANDAVERDE DARCIE [facility] Unavailable Unavailable Treasure LANDAVERDE DARCIE [facility] Unavailable Unavailable Treasure LANDAVERDE DARCIE [facility] Unavailable Unavailable Treasure LANDAVERDE DAR[facility] Unavailable Unavailable Treasure LANDA[facility]DE [facility] Unavailable Unavailable Treasure LANDAVERDE [facility] Unavailable Unavailable AKHIL, J DARCIE DPM [facility] Unavailable Unavailable AKHIL, J DARCIE D[facility] Unavailable Unavailable AKHIL, J DARCIE [facility] Unavailable Unavailable AKHIL, J DAR[facility] Unavailable Unavailable AKHIL, J DAR[facility] Unavailable Unavailable AKHIL, J D[facility] Unavailable Unavailable AKHIL, J DAR[facility] Unavailable Unavailable AKHIL, J D[facility] Unavailable Unavailable AKHIL, J [facility] Unavailable Unavailable AKHIL, J [facility] Unavailable Unavailable AHKIL, J D[facility] Unavailable Unavailable AKHIL, J [facility] Unavailable Unavailable AKHIL, [facility] Unavailable Unavailable AKHIL, [facility] Unavailable Unavailable AKHIL, [facility] Unavailable Unavailable AKHIL, [facility] Unavailable Unavailable Danica ANGELES MD Unavailable Unavailable [...] Unavailable Unavailable Danica ANGELES MD Unavailable Unavailable aDnica ANGELES MD Unavailable Unavailable Danica ANGELES MD [...] Unavailable Unavailable Danica ANGELES MD Unavailable Unavailable Re-disclosure Warning The records [...] is protected by Article 27-F of the [facility] Public Health law. If you continue you may have access to information: Regarding HIV / AIDS; Provided by facilities licensed or operated by the [facility] Office of Mental Health; or Provided by the [facility] Office for People With Developmental Disabilities. If such information is present, then the following [facility] mandated warning applies: This information has [...] law may result in a fine or skilled nursing sentence or both. A general authorization for the release of medical or other information is NOT sufficient authorization for further disc losure. Family History Family Member Name Family Member Gender Family Member Status Date o f Status Description Data Source(s) Unknown Unknown Problem MEDENT ([facility]) Encounters Encounter Providers Location Date Indications Data Source(s ) Emergency Attender: KARTHIKEYAN Owensant: PCP NO 08/31/2021 04:48:00 PM EDT - 08/31/2021 11:04:00 PM EDT [facility] Patient discharged. [place] [address] [facility] [address] 08/31/2021 12:00:00 AM EDT eCW1 ([facility]) [place] [address] [facility] [address] 08/30/2021 12:00:00 AM EDT eCW1 ([facility]) [place] [address] [facility] [address] 08/15/2021 12:00:00 AM EDT eCW1 ([facility]) [place] [address] [facility] [address] 07/19/2021 12:00:00 AM EDT eCW1 ([facility]) Outpatient Attender: DARCIE TRIPATHI 07/12/2021 07:47:00 AM EDT - 07/08/2021 07:47:00 AM EDT [facility] Patient discharged. [place] [address] [facility] [address] 07/05/2021 12:00:00 AM EDT eCW1 ([facility] [place] [address] [facility] [address] 06/23/2021 12:00:00 AM EDT eCW1 ([facility] [place] [address] [facility] [address] 06/22/2021 12:00:00 AM EDT eCW1 ([facility]) [place] [address] [facility] [address] 06/14/2021 12:00:00 AM EDT eCW1 ([facility]) Outpatient Attender: LOKI Angeles/Lanie/Darien/Borisd l 06/01/2021 01:15:00 PM EDT [facility] ([facility] [place] [address] [facility] [address] 05/25/2021 12:00:00 AM EDT eCW1 ([facility]) Outpatient Attender: LOKI Angeles/Lanie/Darien/Reind l 05/10/2021 10:30:00 AM EDT [facility] ([facility]) [place] [address] [facility] [address] 05/02/2021 12:00:00 AM EDT eCW1 ([facility] [place] [address] [facility] [address] 04/18/2021 12:00:00 AM EDT eCW1 ([facility]) [place] [address] [facility] [address] 04/07/2021 12:00:00 AM EDT eCW1 ([facility]) [place] [address] [facility] [address] 04/05/2021 12:00:00 AM EDT eCW1 ([facility]) Office Visit, Est Pt., Level 2 FC [address] [place] [address] 03/30/2021 12:00:00 AM EDT eCW1 ([facility]) [place] [address] [facility] [address] 03/01/2021 12:00:00 AM EDT eCW1 ([facility]) [place] [address] [facility] [address] 02/01/2021 12:00:00 AM EDT eCW1 ([facility]) Outpatient [address] [facility] [address] 01/20/2021 12:00:00 AM EST eCW1 ([facility]) [place] [address] [facility] [address] 01/13/2021 12:00:00 AM EST eCW1 ([facility]) [place] [address] [facility] [address] 11/24/2020 12:00:00 AM EST eCW1 ([facility]) [place] [address] [facility] [address] 11/03/2020 12:00:00 AM EST eCW1 ([facility]) [place] [address] [facility] [address] 10/05/2020 12:00:00 AM EST eCW1 ([facility]) Outpatient [address] [facility] [address] 09/29/2020 12:00:00 AM EST eCW1 ([facility]) [place] [address] [facility] [address] 09/03/2020 12:00:00 AM EDT eCW1 ([facility]) Office Visit, Est Pt., Level [address] [place] [address] 08/16/2020 12:00:00 AM EDT eCW1 ([facility]) Immunizations Vaccine Date Status Description Data Source(s) COVID-19 VACC, MRNA(PFIZER)/PF 09/14/2021 12:00:00 AM EDT completed [facility] COVID-19 VACCINE Pfizer 08/25/2021 12:00:00 AM EDT completed [facility] Vaccine Series Complete: YESThis Data wa s Submitted to [facility]. COVID-19 VACCINE Pfizer 12/08/2020 12:00:00 AM EST completed [facility] Vaccine Series Complete: YESThis Data wa s Submitted to [facility]. COVID-19 VACCINE Pfizer 11/26/2020 12:00:00 AM EST completed [facility] Vaccine Series Complete: NOThis Data was Submitted to [facility]. INFLUENZA VACCINE QUADRIVALENT 2019- (65 YR UP)/MF59 C.1/PF 08/27/2020 12:00:00 AM EDT completed [facility] IIV3. This is one of two codes replacing CVX 15, which is being retired. 08/16/2020 12:06:00 PM EDT completed eCW1 ([facility]) IIV3. This is one of two codes replacing CVX 15, which is being retired. 08/16/2020 12:06:00 PM EDT completed eCW1 ([facility]) IIV3. This is one of two codes replacing CVX 15, which is being retired. 08/16/2020 12:06:00 PM EDT completed eCW1 ([facility]) IIV3. This is one of two codes replacing CVX 15, which is being retired. 08/16/2020 12:06:00 PM EDT completed eCW1 ([facility]) IIV3. This is one of two codes replacing CVX 15, which is being retired. 08/16/2020 12:06:00 PM EDT completed eCW1 ([facility]) IIV3. This is one of two codes replacing CVX 15, which is being retired. 08/16/2020 12:06:00 PM EDT completed eCW1 ([facility]) IIV3. This is one of two codes replacing CVX 15, which is being retired. 08/16/2020 12:06:00 PM EDT completed eCW1 ([facility]) IIV3. This is one of two codes replacing CVX 15, which is being retired. 08/16/2020 12:06:00 PM EDT completed eCW1 ([facility]) IIV3. This is one of two codes replacing CVX 15, which is being retired. 08/16/2020 12:06:00 PM EDT completed eCW1 ([facility]) IIV3. This is one of two codes replacing CVX 15, which is being retired. 08/16/2020 12:06:00 PM EDT completed eCW1 ([facility]) IIV3. This is one of two codes replacing CVX 15, which is being retired. 08/16/2020 12:06:00 PM EDT completed eCW1 ([facility]) IIV3. This is one of two codes replacing CVX 15, which is being retired. 08/16/2020 12:06:00 PM EDT completed eCW1 ([facility]) IIV3. This is one of two codes replacing CVX 15, which is being retired. 08/16/2020 12:06:00 PM EDT completed eCW1 ([facility]) IIV3. This is one of two codes replacing CVX 15, which is being retired. 08/16/2020 12:06:00 PM EDT completed eCW1 ([facility]) IIV3. This is one of two codes replacing CVX 15, which is being retired. 08/16/2020 12:06:00 PM EDT completed eCW1 ([facility]) IIV3. This is one of two codes replacing CVX 15, which is being retired. 08/16/2020 12:06:00 PM EDT completed eCW1 ([facility]) IIV3. This is one of two codes replacing CVX 15, which is being retired. 08/16/2020 12:06:00 PM EDT completed eCW1 ([facility]) IIV3. This is one of two codes replacing CVX 15, which is being retired. 08/16/2020 12:06:00 PM EDT completed eCW1 ([facility]) IIV3. This is one of two codes replacing CVX 15, which is being retired. 08/16/2020 12:06:00 PM EDT completed eCW1 ([facility]) IIV3. This is one of two codes replacing CVX 15, which is being retired. 08/16/2020 12:06:00 PM EDT completed eCW1 ([facility]) IIV3. This is one of two codes replacing CVX 15, which is being retired. 08/16/2020 12:06:00 PM EDT completed eCW1 ([facility]) IIV3. This is one of two codes replacing CVX 15, which is being retired. 08/16/2020 12:06:00 PM EDT completed eCW1 ([facility]) Medications Medication Brand Name Start Date Product [...] activ e busPIRone HCl 10 MG eCW1 ([facility]) buspirone hydrochloride 10 MG Oral Tablet busPIRone HC l 10 MG busPIRone HCl 10 MG 05/25/2021 12:00:00 AM EDT 1.0 {tablet} activ e busPIRone HCl 10 MG eCW1 ([facility]) buspirone hydrochloride 10 MG Oral Tablet busPIRone HC l 10 MG busPIRone HCl 10 MG 05/25/2021 12:00:00 AM EDT 1.0 {tablet} activ e busPIRone HCl 10 MG eCW1 ([facility]) buspirone hydrochloride 10 MG Oral Tablet busPIRone HC l 10 MG busPIRone HCl 10 MG 05/25/2021 12:00:00 AM EDT 1.0 {tablet} activ e busPIRone HCl 10 MG eCW1 ([facility]) buspirone hydrochloride 10 MG Oral Tablet busPIRone HC l 10 MG busPIRone HCl 10 MG 05/25/2021 12:00:00 AM EDT 1.0 {tablet} activ e busPIRone HCl 10 MG eCW1 ([facility]) buspirone hydrochloride 10 MG Oral Tablet busPIRone HC l 10 MG busPIRone HCl 10 MG 05/25/2021 12:00:00 AM EDT 1.0 {tablet} activ e busPIRone HCl 10 MG eCW1 ([facility]) buspirone hydrochloride 10 MG Oral Tablet busPIRone HC l 10 MG busPIRone HCl 10 MG 05/25/2021 12:00:00 AM EDT 1.0 {tablet} activ e busPIRone HCl 10 MG eCW1 ([facility]) buspirone hydrochloride 10 MG Oral Tablet busPIRone HC l 10 MG busPIRone HCl 10 MG 05/25/2021 12:00:00 AM EDT 1.0 {tablet} activ e busPIRone HCl 10 MG eCW1 ([facility]) buspirone hydrochloride 10 MG Oral Tablet busPIRone HC l 10 MG busPIRone HCl 10 MG 05/25/2021 12:00:00 AM EDT 1.0 {tablet} activ e busPIRone HCl 10 MG eCW1 ([facility]) buspirone hydrochloride 10 MG Oral Tablet busPIRone HC l 10 MG busPIRone HCl 10 MG 05/04/2021 12:00:00 AM EDT 1.0 {tablet} activ e busPIRone HCl 10 MG eCW1 ([facility]) Insurance Providers Payer name Policy type / Coverage type Policy ID Covered democrat ID Covered democrat's relationship to dc Policy Dc Plan Information MEDICARE [id number] SP [id number] A MEDICARE [id number] SP [id number] A [id number] A [employer] [place] [id number] SP [id number] [facility] [id number] SP [id number] [employer] [place] [id number] SP [id number] MEDICARE PART A [facility] [id number] 18 [id number] [facility] EMPIRE PLAN [id number] 18 [id number] MEDICARE PART A [facility] [id number] 18 [id number] MEDICARE [id number] SP [id number] A [employer] [place] [id number] SP [id number] [facility] [id number] SP [id number] [employer] [place] UNAVAILABLE UNAVAILABLE [place] PPO 302/307 [id number] SP [id number] MEDICARE C [id number] S [id number] [facility] O [id number] S [id number] MEDICARE C [id number] S [id number] A [employer] [place] [id number] SP [id number] ANSI-Medicare Part B [id number] ANSI-Commercial [id number] ANSI-Medicare Part B [id number] ANSI-Commercial [id number]-e76e-[id number] [id number]-x8h5-11f6-s89y-[id number] ANSI-Medicare Part B [id number] ANSI-Commercial [id number]-[id number] MEDICARE [id number] SP [id number] ANSI-Commercial [id number]-s64u-3027-74hi-[id number] ANSI-Medicare Part B [id number]-[id number] ANSI-Commercial lb14h5qw-wlkt-112i-0039-[id number] tt48w4ff-ertx-473d-9829-k5p45978e0us ANSI-Medicare Part B [id number]-giv8-[id number] ANSI-Commercial qif8elw2-bavb-408u-zt98-ch988oyuzf17 htm7wjw5-nzwf-474t-ax20-zq741jzfyr53 ANSI-Medicare Part B [id number]-b6t2-5281-z9bi-tw7dy8l8iph8 ANSI-Medicare Part B [id number]-[id number] ANSI-Commercial 4wkk47b9-b5s5-3vbw-0634-c0p4033aa62t 8adc37z9-n0c5-3aan-8922-n5p1757rs65i ANSI-Commercial 0ye72fs7-b772-2guc-41td-592sw9g2c299 4tp83ez0-n270-1zje-09ko-222nr7b9e769 ANSI-Medicare Part B [id number] x60gu6e8-ou62-6z21-2z4v-[id number] ANSI-Commercial 542p7c53-z8ki-999v-dfb1-0b3404q56gw9 527j3j71-g3ew-765u-wpx6-4q0599t86uq8 ANSI-Medicare Part B [id number]-sh44xbsej6r9 5w9r9p19-t5g5-3777-1r4c-ot85uppuu1o8 ANSI-Medicare Part B [id number]-6v09-2c47-[id number] sg4bw01k-879z-5y24-4n34-e88cr339064e ANSI-Commercial 6s5557p8-7d52-62ml-oqb6-596w4564k72r 7h7080j0-6u59-03tk-csm9-015t6418i87d ANSI-Medicare Part B [id number]-01n5-6m8l-[id number] k7xx2b94-104p-55i2-6q2n-6if45g9r769u ANSI-Commercial 367xai7d-059n-2f83-m8c0-y979xf1545p0 978klk5w-962o-0i21-h4z2-l817tl1834f9 ANSI-Medicare Part B [id number]-t2w46d64as45 892d6u74-i0l8-09l7-1364-u1y18n18sn96 ANSI-Commercial m2o7vc25-6023-81df-5v98-27f377h03o16 l2p0au33-0452-16bd-1o49-40e043q59t01 ANSI-Commercial r5ca2616-9ju8-3h8a-v8t0-z9llb58u7697 j7st3667-2lj5-8p3e-e5i5-g4umd42s7390 ANSI-Medicare Part B [id number]-o506-317d-012j-6u3398wh00f2 ANSI-Medicare Part B [id number]-[id number] 6e806a3x-5ww3-5i59-616t-pc2420o4n280 ANSI-Commercial c341312v-m5j0-2e5a-xy8s-22mg2x292kv1 f182139l-d1y9-6l7w-fa5a-96gu5k624qw0 ANSI-Medicare Part B [id number]-w5dy1y5p26hw 6w8w5410-9n77-0pp8-6d5n-l8qs8q0c38gz ANSI-Commercial 9r4yw21o-ygv0-1i62-22yv-0r55q16955qh 9r4zx33k-npv6-1v95-60md-8o05r66583xq ANSI-Medicare Part B [id number]-su7m-84do-84d6-99sibo8782t7 u4i8e3a0-to3z-54hc-98a5-00goek9433c0 ANSI-Commercial 6016j083-l67w-5258-wxtn-145059l3atxg 9264n914-x90e-5296-vhmv-278503a8smcq ANSI-Commercial x44v0xz6-1942-7276-wf34-s96r242e71a7 j39p5dr4-7203-3008-pa36-f82x145b61c0 ANSI-Medicare Part B [id number]-ki4i-0oqx7044e1e9 [id number]-go5d-5rho9097t1v4 ANSI-Medicare Part B [id number]-3919f53yv294 fz8me023-m2w9-337l-8aow-9649b02rt633 ANSI-Commercial 27v9eq2v-o07o-7pl0-885b-5307co533465 94p1ef7l-w74c-3yt8-764b-1106hp745709 ANSI-Commercial 7r934m72-z479-11ic-x7s2-j9z60uq3j152 7w895k09-p168-44qp-f5l7-b2v45dy4r499 ANSI-Medicare Part B 61i2psws-194a-0x5u-9l1c-iw59wz0w7673 98z4nqpg-071w-4t7r-2e3x-gp83kb5t5292 ANSI-Medicare Part B [id number] 555uj697-4k19-68r4-7064-gb121f76q747 ANSI-Commercial r05z66vv-t00z-9q8r-l9gs-4szrg6z4pqh1 d13m31wi-k69f-3h8t-j9rn-2tmpv3s0bhi2 ANSI-Commercial 26kt8b74-0a2q-33ed-o2f9-vk174cp417bh 32jw0s61-2g8e-15am-o4l1-gi455wg777db ANSI-Medicare Part B [id number]-[id number]-it82-412v-4rj2-[id number] ANSI-Medicare Part B [id number]-[id number]-[id number] ANSI-Commercial p1sw7rec-9i9d-589g-ev2x-815533297i1c e0jn1txu-6m0u-208u-rz3d-499719508t0a ANSI-Medicare Part B [id number] 5trvb0hx-354y-[id number] ANSI-Commercial 85ul1141-8205-4p87-7nz2-vb1398ff8o22 60yd1276-0861-5a05-0cr0-vm4789ee3o15 ANSI-Medicare Part B [id number]-e493-56g2-[id number] ANSI-Commercial rnoo3e69-v993-302o-2i9w-4788882bd09h tbfg5b09-y041-647o-9u7b-1950995kx89r ANSI-Commercial 5xa0s8et-0il5-3767-5i94-2g03dqbalhp2 1jx6z8xm-8mu2-5070-6c17-4t65tqvgtky4 ANSI-Medicare Part B [id number] [id number]-5fr9-5z0q-872nwp89z506 ANSI-Medicare Part B [id number] ANSI-Commercial 3icp21m6-h7mn-6sj8-e8z8-o65314m29i9z 7uif03v9-o4vq-4pw4-g4f5-o70086k08p4n [facility] Part B [id number] Self [id number] Medicare [place] Medicare Primary [id number] Self [id number] MEDICARE [id number] SP [id number] A [employer] [place] [id number] SP [id number] [employer] [place] [place] [id number] SP [id number] [facility] [id number] SP [id number] [employer] [place] [id number] SP [id number] MEDICARE [id number] SP [id number] A [facility] [id number] SP [id number] [facility] [id number] SP [id number] [employer] [place] [place] [id number] SP [id number] 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 Diagnosis 08/31/2021 04:48:00 PM EDT [facility] E119 Type 2 diabetes mellitus without complic ations Type 2 diabetes mellitus without complications Diagnosis 08/31/2021 04:48:00 PM EDT [facility] F0280 Dementia in other diseases c lassified elsewhere without behavioral disturbance Dementia in other diseases classified el sewhere without behavioral disturbance Diagnosis 08/31/2021 04:48:00 PM EDT [facility] 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 Diagnosis 08/31/2021 04:48:00 PM EDT [facility] R410 Disorientation, unspecified Disorientation, unspecifie d Diagnosis 08/31/2021 04:48:00 PM EDT [facility] E11.9 Type II diabetes mellitus well controlle d DM II (diabetes mellitus, type II), controlled Problem 07/06/2021 12:00:00 AM EDT eCW1 ([facility]) I67.9 [id number] Cerebrovascular small vessel disease Prob cathi 06/28/2021 12:00:00 AM EDT eCW1 ([facility]) 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 Problem 05/27/2021 12:00:00 AM EDT eCW1 ([facility]) F41.0 [id number] Anxiety attack Problem 05/25/2021 12:00:00 A M EDT eCW1 ([facility]) R53.81 [id number] Physical deconditioning Problem 12:00:00 AM EST eCW1 ([facility]) L57.0 [id number] Actinic keratoses Problem 08/16/2020 12:00:0 0 AM EDT eCW1 ([facility]) L81.4 [id number] Lentigines Problem 08/16/2020 12:00:00 AM ED T eCW1 ([facility]) L91.8 081992346 Skin tag Problem 08/16/2020 12:00:00 AM ED T eCW1 ([facility]) L73.8 191066314 Sebaceous hyperplasia of face Problem 08/16/2020 12:00:00 AM EDT eCW1 ([facility]) 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 Problem 08/16/2020 12:00:00 A M EDT eCW1 ([facility]) Surgeries/Procedures Procedure Description Date Indications Data Source(s) OFFICE OUTPATIENT VISIT 15 MINUTES 06/01/2021 12:00:00 AM EDT [facility] ([facility], ) Endoscopy Nasal Diagnostic 05/10/2021 12:00:00 AM EDT [facility] ([facility], ) OFFICE OUTPATIENT NEW 45 MINUTES 05/10/2021 12:00:00 A M EDT [facility] ([facility] ) Results ID Date Data Source [id number] 09/01/2021 10:27:00 [place] [address] PHONE: [phone] FAX: [phone] Name ..............: MATHEW MERLOS Acct Number ...........................: [id number] ROOM. ............: [facility] MR Number ............................: [id number] Stay type.........: E/R Discharge Date...............:08/31/21 Admit Date .....: 08/31/21 Admit Phys .............................: NICHOLE CHURCH Date of ..: 1930 Family Phys ...........................: NO PCP Phone..............: [phone] Age.................................:89 Film# ...............:[id number] Sex.................................:M Unsigned transcriptions are preliminary reports [id number] COMPLETE:08/31/21 21:00 BIS [id number] Please See Scanned Results. Name Value Range Interpretation Code Description Data Yanira rce(s) Supporting Document(s) ID Date Data Source [id number] 08/31/2021 04:48:00 PM EDT [facility] 1 OrderSheet [facility] Emergency Department [address] [place] [address] Phone #: [phone] 08/31/2021 16:35 Patient: Estela CARMONA Sex: M : 1930 Age: 89yWEIGHT:81.6 kg (S) HEIGHT:66 inches (S) BMI:29.0ALLERGIES: Penicillin, PotassiumCHIEF COMPLAINT: confusionDIAGNOSIS: Normal Exam, DementiaLAB ORDERSOrder Description Priority Entered Acknowledged InitialedCBC w Diff STAT 17:05 08/31/2021 Ack'd: 17:18 17:24 [place] Karthikeyan Dickerson Ryan Tech, [facility] M.D.; [id number] STAT 17:05 08/31/2021 Ack'd: 17:18 17:24 [place] ED Karthikeyan Varela, Cindy Miranda M.D.; [id number] STAT 17:05 08/31/2021 Ack'd: 17:18 17:24 [place] ED Karthikeyan Varela Ryan Tech, Tiffany ER M.D.; [id number] STAT 17:05 08/31/2021 Ack'd: 17:18 17:24 [place] Karthikeyan Dickerson Ryan Tech, Tiffany ER M.D.; [id number] Reflex to UA 17:05 08/31/2021 Ack'd: 17:18 17:22 Luke,Karthikeyan Williamson Ryan Ryan M.D.;DIAGNOSTIC STUDY ORDERSOrder Description Priority Entered Acknowledged InitialedCT Head W/O Cont STAT 17:05 08/31/2021 Ack'd: 17:18 20:33 Luke,(Oxygen?(No)) Karthikeyan Varela Ryan Ryan M.D.; Reason for Study: Altered Mental StatusMEDICATION/IV/DRIP/FLUID ORDERSOrder Description Priority Entered Acknowledged InitialedGENERAL ORDERSOrder Description Priority Entered Acknowledged InitialedEKG 17:05 08/31/2021 17:07 Duc Karthikeyan Dickerson Tiffany ER M.D.; Tech1 2 OrderSheet [facility] Emergency Department [address] [place] [address] Phone #: ext- [phone] 08/31/2021 16:35 Patient: Estela CARMONA Sex: M : 1930 Age: 89y[Electronically signed by Dee Jasso R.N. (23:06 08/31/2021)][Electronically signed by Karthikeyan Varela M.D. (23:09 08/31/2021)][Electronically locked by Dee Jasso R.N. (23:06 08/31/2021)] Name Value Range Interpretation Code Description Data Yanira rce(s) Supporting Document(s) ID Date Data Source [id number] 08/31/2021 04:48:00 PM EDT [facility] 1 Medication Reconciliation Report [facility] Emergency Department [address] [place] [address] Phone #: ext- [phone] 08/31/2021 16:35 Patient: Estela CARMONA Sex: M : 1930 Age: 89yWeight: 81.6 kgHeight/Length: 66 in.BMI: 29.0ALLERGIES: Penicillin, PotassiumThe patient's Home Medications are listed below:CONTINUE TAKING THE FOLLOWING MEDICATIONS: Aspirin Oral Atorvastatin Calcium Oral Buspar busPIRone HCl Oral Donepezil HCl Oral Finasteride Oral Glucosa mine Complex Oral Lexapro Oral Metamucil Oral Namenda Oral Omeprazole Oral Vitamin B12 OralThe source(s) of the original Home Medication information:Not obtained.The following Medications were given to the patient in the Emergency Department: 2 Medication Reconciliation Report [facility] Emergency Department [address] [place] [address] Phone #: ext- [phone] 08/31/2021 16:35 Patient: Estela CARMONA Sex: M : 1930 Age: 89yNone.The following Medications were prescribed to the patient:None. Name Value Range Interpretation Code Description Data [facility](s) Supporting Document(s) ID Date Data Source [id number] 08/31/2021 04:48:00 PM EDT [place] [address] Medication Administration Record [facility] Emergency Department [address] [place] [address] Phone #: ext- [phone] 08/31/2021 16:35 Patient: Estela CARMONA Sex: M : 1930 Age: 89yWeight: 81.6 kgHeight/Length: 66 inBMI: 29ALLERGIES: Penicillin, PotassiumDate/Time Medication Administered Medication Ordered Name Value Range Interpretation Code Description Data Yanira [facility](s) Supporting Document(s) ID Date Data Source [id number] 08/31/2021 04:48:00 PM EDT [facility] 1 General Instructions [facility] Emergency Department [address] [place] [address] Phone #: ext- [phone] 08/31/2021 16:35 Patient: Estela CARMONA [facility]#: [id number] Sex: M : 1930 Age: 89yChronic late onset Alzheimer's disease. No behavioral disturbance.Normal exam upon presentation, while in the ED and at discharge.INSTRUCTIONSWarnings: Further evaluation is necessary. It is very important to follow up with a healthcare provider.GENERAL WARNINGS: Return or contact your physician immediately if your condition worsens orchanges unexpectedly, if not improving as expected, or if other problems arise. Specifically return if pain,vomiting, bleeding, breathing difficulty or fever greater than 102 degrees F and not controlled byacetaminophen.Your Current Medications: Your current home medications have been reviewed.CONTINUE TAKING THE FOLLOWING MEDICATIONS:Aspirin Oral.Atorvastatin Calcium Oral.Buspar*.busPIRone HCl Oral.Donepezil HCl Oral.Finasteride Oral.Glucosamine Complex Oral.Lexapro Oral.Metamucil Oral.Namenda Oral.Omeprazole Oral.Vitamin B12 Oral.Follow-up:Return to the emergency department as needed. Follow up with your healthcare provider in two dayseven if well. Call for an appointment. Reason for referral: evaluation and treatment. Summary of careprovided to family via paper.Understanding of the discharge instructions verbalized by family. Expected course of illness, dischargeinstructions, activity level, diet, follow- up appointment and risks and benefits of treatment reviewed withcaregiver and patient payable representative and understanding verbalized. Agrees to plan of care. ADDITIONAL INFORMATION 2 General Instructions [facility] Emergency Department [address] [place] [address] Phone #: ext- [phone] 08/31/2021 16:35 Patient: Estela CARMONA [facility]#: [id number] Sex: M : 1930 Age: 89yDementia and Caregiver SupportDementia is a long-term (chronic) condition that affects the brain It causes loss of memory andthinking functions. Some forms of dementia are from degeneration of the brain. They get worse withtime. Other forms stay the same for long periods of time. A person with dementia may h ave troublerecognizing familiar people and places, or knowing what day it is. The person's memory, judgment,and decision-making may also be affected. In severe cases, the person may not respond whensomeone talks to him or her.The most common form of dementia is Alzheimer disease (AD). Doctors don't fully understand whatcauses AD. It has no cure. But medicines can treat some of the symptoms.Some of the less common causes for dementia are curable. So it's important to have a completehealth assessment to look for conditions that can be treated.Home careThese tips can help you care for a person with AD at home: A responsible person must be with the person who has advanced AD at all times. He or she should not be left alone or unsupervised. In the case of advanced AD, keep all medicines in a secure place. They should be under the caregiver's control. A person with advanced AD should not be allowed to take his or her own medicines. This needs to be supervised by the caregiver.Here are w ays to help a person with dementia:ActivitiesKeep to a daily routine. Changes in routine can cause stress for someone with dementia. Make aschedule for common daily tasks. These include bathing, dressing, taking medicines, eating meals,going for walks, and going to bed.CommunicationWhen talking to a person with dementia, talk slowly and clearly. Use a gentle tone of voice. Chooseshort, simple words and sentences. Ask one question at a time. Don't interrupt, criticize, or argue. Becalm and supportive. Use friendly facial expressions. Use pointing and touching to help communicate.If the person has a loss of long-term memory, don't ask questions about past events. Instead, talkabout what is happening now.Behavioral tipsUse lists, signs, family photos, clocks, and calendars as memory aids. Label cabinets and drawers. 3 General Instructions [facility] Emergency Department [address] [place] [address] Phone #: ext- [phone] 08/31/2021 16:35 Patient: Estela CARMONA Sex: M : 1930 Age: 89yTry to distract, not confront, the person. When he or she becomes frustrated or upset, direct theperson's attention to eating or some other interesting activity. Windows can help the person know ifit's night or day and what season it is.Medical-legal tipsTalk with your doctor or is/it project manager about getting a power of finance attorney for healthcare and for financialdecisions. It's best to do this while the person can still sign legal documents and make his or her ownlegal decisions . Otherwise, you'll need a court order.Support for the caregiverAs the caregiver, you will need a lot of support for yourself. Caring for a person with dementia is afull-time job. It can drain your emotions and lead to frustration and anger toward the one you love. It iscommon to have feelings of grief over losing the relationship that you once had. As a caregiver tosomeone with dementia, you are at higher risk for depression, anxiety and stress.Here are some tips to help you cope with being a caregiver: Learn about dementia and Alzheimer disease so you know what to expect. Find out about the resources in your community, including adult day-care programs. Ask your healthcare provider for a referral to a social media sr strategy manager, if needed. Take care of yourself with a healthy diet, exercise, and plenty of rest. Ask for help. Share some of the caretaking duties with family and friends. Make personal time for yourself. This is essential! Consider hiring an in-home sitter or home health aide. Seek counseling or join a caregiver's support group. Don't isolate yourself or try to cope with this alone. In a support group, you can learn from others in a similar situation. Visit the Alzheimer's Association website (www.alz.org) for more information.Follow-up careFollow up with the person's healthcare provider, or as advised.When to seek medical adviceCall your healthcare provider right away if any of these occur: Frequent falls The person refuses to eat or drink 4 General Instructions [facility] Emergency Department [address] [place] [address] Phone #: ext- [phone] 08/31/2021 16:35 Patient: Estela CARMONA Sex: M : 1930 Age: 89y Headache or nausea that gets worse, or repeated vomiting after a fall Unexplained fever of 100.4 F (38.0 C) or higher, or as advisedCall 911Call 911 if any of these occur: Slurred speech, or trouble speaking, walking, or seeing Fainting spell or dizziness Seizure symptoms. These include staring spells, lip-smacking, twitching, or sudden changes in mental status. Violent behavior (call police) or behavior becomes too difficult to manage at home Increased drowsiness, or failure to respond normally [id number] [employer]. [address] [place] [address]. All rights reserved. This information is not intended as asubstitute for professional medical care. Always follow your healthcare professional's instructions. You have been given the following additional information: Dementia, Any Type, Caregiver Support(Electronically signed by Karthikeyan Varela M.D. 08/31/2021 23:09) Name Value Range Interpretation Code Description Data Yanira rce(s) Supporting Document(s) ID Date Data Source [id number] 08/31/2021 04:48:00 PM EDT [facility] 1 Clinical Report - Nurses [facility] Emergency Department [address] [place] [address] Phone #: ext- [phone] 08/31/2021 16:35 Patient: Estela CARMONA Sex: M : 1930 Age: 89yTRIAGEArrived by EMS. Historian: EMS, residential nurse, residential records and patient.Unaccompanied. ( pt brought in via EMS per EMS residential staff want patient evaluated due toincreased confusion. per [facility] staff pt "has not been acting himself", was seen at [facility] on 08/30and they did not find anything. pt with hx of dementia.).Triage time: 16:38 08/31/2021. Acuity: LEVEL 4.Chief Complaint: ALTERED MENTAL STATUS and CONFUSED.No acute distress.This started 3 - 4 months ago.Treatment COST ACCOUNTING ANALYST:None.SEPSIS SCREEN: SIRS SCREEN NEGATIVE. SEPSIS SCREEN NEGATIVE. No suspected or confirmedsigns of infection present. --16:48 08/31/21 [place] Butler16:38 08/31/21. BP: 145/74. MAP: 97. HR: 76. RR: 14. O2 saturation: 97%. Temp: 98.1 F. Pain level now:01/19. --16:48 08/31/21 [place] Butler.Weight: 81.6 kg stated. Height/Length: 66 inches Per Patient. BMI: 29. --16:38 08/31/21 [place] Butler.MedicationsVitamin B12 Oral. --16:42 08/31/21 [place] Butler Omeprazole Oral. --16:42 08/31/21 [place] Butler Finasteride Oral. --16:42 08/31/21 Port[place] Butler Lexapro Oral. --16:42 08/31/21 [place] Butler Glucosamine Complex Oral. --16:43 08/31/21 [place] Butler Aspirin Oral. --16:43 08/31/21 [place] Butler Namenda Oral. --16:43 08/31/21 Port[place] Butler Atorvastatin Calcium Oral. --16:43 08/31/21 Portillo Butler Donepezil HCl Oral. --16:43 08/31/21 Portillo Butler Metamucil Oral. --16:43 08/31/21 Port[place] Butler Buspar. --16:43 08/31/21 Portillo Butler busPIRone HCl Oral. --16:44 08/31/21 Portillo Butler.AllergiesPotassium. --16:41 08/31/21 Portillo ButlerPenicillin. --16:41 08/31/21 Portillo Butler. 2 Clinical Report - Nurses [facility] Emergency Department [address] [place] [address] Phone #: ext- [phone] 08/31/2021 16:35 [id number] Sex[facility] M : 1930 Age: 89yPROBLEMS:Hyperlipidemia.IFG/metabolic syndrome.Diabetes Mellitus.Bph.OA.Aldrich's esophagus.Dementia. --16:45 08/31/21 Portillo Butler.ADDITIONAL SURGERIES:Unk. --16:45 08/31/21 Portillo Butler.HistorySOCIAL HX: Former smoker. Occasional alcohol use. Drug use: assessment deferred. The patient wasoffered HIV testing but declined and hepatitis C testing but declined.Infectious disease exposure: No infectious dise ase exposure. The patient was not exposed to Coronavirus,MERS, SARS or tuberculosis.SELF HARM ASSESSMENT: Self harm assessment deferred. The patient answered "no" to thequestion(s) "Have you recently felt down, depressed, or hopeless?", "Do you have thoughts of harming orkilling yourself?", "Do you have a plan for harming or killing yourself?", "Have you recently had thoughtsabout harming or killing others?", "Do you have any dangerous items in your possession?", "Have younoticed less interest or pleasure in doing things?", "Are you here because you tried to hurt yourself?" and"Have you ever tried to hurt yourself before today?".ABUSE ASSESSMENT: Abuse assessment. Abuse denied. No suspicion of abuse. No report of abuse.NUTRITIONAL RISK ASSESSMENT: The nutritional risk assessment revealed no deficiencies.FUNCTIONAL ASSESSMENT: Functional assessment: no impairments noted.LEARNING NEEDS ASSESSMENT: The learning needs assessment revealed no barriers.FALL RISK ASSESSMENT: Fall risk assessment completed. No risk factors identified.SKIN INTEGRITY ASSESSMENT: Skin integrity risk assessment completed. No skin integrity riskidentified. --16:48 08/31/21 [place] Butler22:05 08/31/21.SOCIAL HX: The patient has not traveled outside the [place] --23:06 08/31/21 Dee Deleon R.N.AssessmentThe patient states feels the same. --16:48 08/31/21 Portillo Butler. 3 Clinical Report - Nurses [facility] Emergency Department [address] [place] [address] Phone #: ext- [phone] 08/31/2021 16:35 Patient: Estela CARMONA Sex: M : 1930 Age: 89y Interventions Identification band on patient. To treatment room. --16:48 08/31/21 Port[place] Butler.PHYSICAL ASSESSMENTGENERAL / NEURO / PSYCH: Alert. Appears anxious. The patient is awake and alert, appearscomfortable, has normal color for race and is cooperative. The patient is disoriented to person andsituation. Speech within normal limits. Patient appears well-nourished and neat and clean.HEENT: Pupils equal, round and reactive to light.RESPIRATORY: Respirations not labored. Breath sounds within normal limits.CVS: Normal sinus rhythm noted. Capillary refill less than 2 seconds.GI / : Abdomen soft and nontender. Bowel sounds within normal limits.SKIN: Skin is warm and dry. Normal skin turgor. --16:49 08/31/21 Port[place] Butler.NURSING PROGRESS NOTES17:07 08/31/21. BP: 134/68. HR: 67. RR: 18. O2 saturation: 97%. --17:07 08/31/21 [place] quality assurance monitor chassis,Cindy, ER Tech1 EKG time: (16:37 08/31/2021). EKG was performed by a tech and shown to the ED physician. --17:08 08/31/21 [place] quality assurance monitor chassis, Cindy, ER Tech1 Reassurance given. The patient is calm and resting quietly. GENERAL / NEURO / PSYCH: Patient is calm and cooperative. Affect appears normal. Alert. Decreased awareness disoriented to time. RESPIRATORY: No respiratory distress. CVS: Normal sinus rhythm noted. SKIN: Skin is warm and dry. Two patient identifiers checked. Call light placed in reach. Side rails up x 2. Bed placed in lowest position. Brakes of bed on. Patient waiting for lab results and disposition. --17:22 08/31/21 [place] Butler 18:09 08/31/21. BP: 120/78. HR: 62. RR: 16. O2 saturation: 97%. --18:10 08/31/21 [facility] SERVICE DESK MANAGERLinda 19:13 08/31/21. BP: 139/74. HR: 60. RR: 16. O2 saturation: 95%. --19:13 08/31/21 [facility] TECHLinda Reassurance given to the patient. The patient is resting quietly and has had no adverse reaction. Overall patient status is the same- he states feels the same. GENERAL / NEURO / PSYCH: Patient is calm and cooperative. Affect appears normal. Decreased awareness disoriented to time. RESPIRATORY: No respiratory distress. CVS: Normal sinus rhythm noted. SKIN: Skin is warm and dry. Two patient identifiers checked. Call light placed in reach. Side rails up x 2. Bed placed in lowest position. Brakes of bed on. Patient waiting for resu lts and disposition. --19:21 4 Clinical Report - Nurses [facility] Emergency Department [address] [place] [address] Phone #: ext- [phone] 08/31/2021 16:35 Patient: Estela CARMONA Sex: M : 1930 Age: 89y 08/31/21 LukePortillo 20:33 08/31/21. ( Med Neccessitiy faxed to [facility]. Awaiting transport. Nurse Hurtado at [facility] aware pt will be d/c.). --20:48 08/31/21 Dee Deleon R.N.DISPOSITION / DISCHARGE 20:03 08/31/21. BP: 147/79. HR: 57. RR: 16. O2 saturation: 97%. Temp: 98.4 F. Pain level now 12/22. --20:03 08/31/21 [facility] LELIA Linda Departure time: 22:59 08/31/2021. Condition at departure: stable. Learning barriers present. Ability to learn limited by dementia. Learning barriers note: written discharge instructions sent to [facility]. Spoke with NURSE Hurtado regarding findings of todays testing. The patient was discharged by the physician. He was discharged ([facility] He left via ambulance and ([facility]) and on a stretcher. --23:01 08/31/21 Dee Deleon R.N. ( 2011 [facility] accepted return trip d/c. 2114 per [facility] no ETA on transport. 2199 still awaiting transport. Pt dozing at intervals, resting quietly on stretcher.). --23:04 08/31/21 Dee Deleon R.N.Locked/Released at 08/31/2021 23:06 by Dee Deleon R.N. Name Value Range Interpretation Code Description Data Yanira rce(s) Supporting Document(s) ID Date Data Source [id number] 08/31/2021 04:48:00 PM EDT [facility] 1 Clinical Report - Physicians/Mid Levels [facility] Emergency Department [address] [place] [address] Phone #: ext- [phone] 08/31/2021 16:35 Patient: Estela CARMONA Sex: M : 1930 Age: 89y Time Seen: 16:38 08/31/2021; initial patient contact. Arrived- By ambulance. Historian- EMS personnel and residential nurse and records. Disposition decision: 19:55 08/31/2021.HISTORY OF PRESENT ILLNESS Chief Complaint: CONFUSION. The patient has been confused. This started today and is now gone. It has been intermittent and waxing/waning. The patient was not found unresponsive. prison resident. History of chronic dementia. No change in diabetic routine, alcohol recently, recent drug use or medication given prior to arrival. Dextro stick was not low prior to arrival. No weakness, numbness or recent fall. No difficulty walking. Usually has normal mobility. (pt is resident [facility] [place], has dementia and known maxillary sinus mass; per staff, was a little bit more confused yesterday and today, briefly; was sent to [facility] ER yesterday, Covid test done and sent back to [facility]; pt sent here today for 2nd opinion; maybe workup; not confused when EMS arrived yesterday and today; pt has no complaints in ER; pt is DNR/DNI per staff). Similar symptoms previously. Patient has had similar symptoms occasionally. Recent medical care: The patient was seen recently at another facility in the emergency department. ( [facility] ER yesterday).REVIEW OF SYSTEMSNo fever, headache, head injury, dizziness or chest pain. No difficulty breathing, cough, sputumproduction, blurred vision or sore throat. No abdominal pain, nausea, diarrhea, black stools or difficultywith urination. No skin rash, joint pain, bloody stools or back pain. All other systems reviewed and arenegative.PAST HISTORYSee nurses notes. Problems: Maxillary sinus mass. Hyperlipidemia. IFG/metabolic syndrome. Diabetes Mellitus. Bph. OA. Aldrich's esophagus. 2 Clinical Report - Physicians/Mid Levels [facility] Emergency Department [address] [place] [address] Phone #: ext- [phone] 08/31/2021 16:35 Patient: Estela CARMONA Sex: M : 1930 Age: 89y Dementia. Additional Surgeries: Unk. Medications: busPIRone HCl Oral. Buspar. Metamucil Oral. Donepezil HCl Oral. Atorvastatin Calcium Oral. Namenda Oral. Aspirin Oral. Glucosamine Complex Oral. Lexapro Oral. Finasteride Oral. Omeprazole Oral. Vitamin B12 Oral. Allergies: Penicillin. Potassium.SOCIAL HISTORYFormer smoker. Occasional alcohol use. No drug use. No recent travel. Resides in a residential.ADDITIONAL NOTESThe nursing notes have been reviewed with agreement regarding the chief complaint, HPI, ROS, PMH andpatient medications and allergies.PHYSICAL EXAMAppearance: Alert. No acute distress.Head: Head atraumatic.Eyes: Pupils equal, round and reactive to light.ENT: Normal ENT inspection. Airway intact. Moist mucous membranes. Pharynx normal.Neck: Normal inspection. Neck supple.CVS: Normal heart rate and rhythm. Heart sounds normal. Pulses normal.Respiratory: No respiratory distress. Painless inspiration. Breath sounds normal.Abdomen: Soft and nontender. No organomegaly.Back: Normal inspection.Skin: Skin warm and dry. Normal skin color. No rash. Normal skin turgor.Extremities: Extremities exhibit normal ROM. No lower extremity edema.Neuro: Alert. The patient is disoriented to time, person and place (pt has chronic dementia). Mood/affectnormal. Speech normal. Cranial nerves normal (as tested). No cerebellar findings. No motor deficit.No sensory deficit. Reflexes normal. 3 Clinical Report - Physicians/Mid Levels [facility] Emergency Department [address] [place] [address] Phone #: ext- [phone] 08/31/2021 16:35 Patient: Estela CARMONA Sex: M : 1930 Age: 89yLABS, X-RAYS, AND EKGEKG: No acute process. No acute ischemia. Normal EKG. Normal sinus rhythm. Rate: 63/min.Normal ST and T waves. Prior EKG unavailable. The study has been interpreted contemporaneously byme. The EKG appears to be a good tracing. Interpretation time: 16:47 08/31/2021.CT Head: ([facility] Call: [phone] Online chat: [email or web address] Name: FIOR CARMONA (Age): 1930 89 Gender: MDate of Exam: 08/31/2021 Physician: KARTHIKEYAN VARELA # of Images: [id number] As: CT HEAD WOCONFIDENTIALITY STATEMENTThis report is intended only for the use of the referring physician, and only in accordance with law, If youreceived this in error, call [phone] 1 of 1PROCEDURE INFORMATION:Exam: CT Head Without ContrastExam date and time: 08/31/2021 6:39 PMAge: 89 years oldClinical indication: Altered mental status/memory loss; Confusion or disorientationTECHNIQUE:Imaging protocol: Computed tomography of the head with out contrast.COMPARISON:No relevant prior studies available.FINDINGS:Brain: Age- appropriate volume loss.Periventricular white matter disease compatible with chronicsmall vessel ischemic change.No acute intra or extra-axial hemorrhage. No mass or midline shift.Low attenuation in the external capsules bilaterally.Old lacunar infarcts in the basal ganglia.Cerebral ventricles: No ventriculomegaly.Paranasal sinuses: Complete opacification of right maxillary and anterior and middle right ethmoidsinuses. Hypoplastic right frontal sinus.Mastoid air cells: Visualized mastoid air cells are well aerated.Bones/ joints: Unremarkable. No acute fracture.Soft tissues: Unremarkable.IMPRESSION:Acute right-sided sinusitis with a pattern consistent with obstruction at the ostiomeatal complex.No intracranial hemorrhage.Thank you for allowing us to participate in the care of your patient.Dictated and Authenticated by: Anay Escobar MD08/31/2021 7:11 PM Eastern Time ([facility])). Head CT performed without contrast. The study wasinterpreted by the radiologist.Laboratory Tests: Laboratory tests have been ordered, with results reviewed and considered in the 4 Clinical Report - Physicians/Mid Levels [facility] Emergency Department [address] [place] [address] Phone #: ext- [phone] 08/31/2021 16:35 Patient: Estela CARMONA Sex: M : 1930 Age: 89ymedical decision making process.CBC w Diff: (ERI: 08/31/2021 17:23) ( MsgRcvd 08/31/2021 17:47) Final results Test Result Flag Units (Reference) CBC W/AUTOMATED DIFF COMPLETE BLOOD COUNT WBC 7.2 10/uL (4.2 - 11.0) RBC 4.25 L 10/uL (4.50 - 6.30) HEMOGLOBIN 14.4 g/dL (14.0 - 16.0) HEMATOCRIT 41.6 % (41.0 - 51.0) MCV 97.9 H fL (80.0 - 94.0) MCH 33.9 pg (27.0 - 34.0) MCHC 34.6 g/dL (31.0 - 36.0) RDW 13.2 % (11.5 - 14.8) PLATELETS 205 10/uL (150 - 450) MPV 9.2 fL (7.4 - 10.4) NEUT 71.0 % (37.0 - 80.0) LYMPH 19.4 L % (25.0 - 40.0) MONO 6.3 % (3.0 - 8.0) EOS 2.4 % (0.0 - 7.0) BASO 0.6 % (0.0 - 2.0) %IG 0.3 H % (0.0 - 0.0) %NRBC 0.0 % (0.0 - 0.0) #NEUT 5.09 10/uL (2.00 - 6.90) #LYMPH 1.39 10/uL (0.60 - 3.40) #MONO 0.45 10/uL (0.00 - 0.90) #EOS 0.17 10/uL (0.00 - 0.70) #BASO 0.04 10/uL (0.00 - 0.20) #IG 0.02 10/uL (0.00 - 0.10) #NRBC 0.00 10/uL (0.00 - 0.00) MANUAL DIFF NOT INDICATED RBC MORPH NOT INDICATEDCMP: (ERI: 08/31/2021 17:23) ( MsgRcvd 08/31/2021 19:52) Final results Test Result Flag Units (Reference) COMPREHENSIVE METABOLIC PANEL COMPREHENSIVE METABOLIC PANEL SODIUM 141 mEq/L (134 - 153) POTASSIUM 4.0 mEq/L (3.6 - 5.0) CHLORIDE 103 mEq/L (98 - 107) CO2 26 MEQ/L (22 - 30) GLUCOSE 111 H MG/DL (70 - 99) BUN 16 MG/DL (7 - 21) CREATININE 1.0 MG/DL (0.7 - 1.5) BUN/CREAT 16 (8 - 27) TOTAL PROTEIN 6.8 G/DL (6.3 - 8.2) ALBUMIN 4.0 G/DL (3.9 - 5.0) GLOBULIN 2.8 GM/DL (2.4 - 3.2) A/G RATIO 1.4 (0.8 - 2.0) CALCIUM 9.0 MG/DL (8.4 - 10.2) TOTAL BILI <0.7 MG/DL (0.2 - 1.3) ALKALINE PHOS 92 U/L (38 - 126) SGOT/AST 19 U/L (5 - 40) SGPT/ALT 15 U/L (7 - 56) ANION GAP 12.0 mmol/L (8.0 - 16.0) AGE 89 yrs NON-AA GFR >60 mL/min AFR AMER GFR >60 mL/min 5 Clinical Report - Physicians/Mid Levels [facility] Emergency Department [address] [place] [address] Phone #: ext- [phone] 08/31/2021 16:35 Patient: Estela CARMONA Sex: M : 1930 Age: 89y Male GFR Interprentation 20-49 yrs >60 mL/min Normal 50-59 yrs >56 mL/min Normal 60-69 yrs >49 mL/min Normal 70- 79yrs >42 mL/min Normal 80 and above >35 mL/min Normal Female GFR Interpretation 20-39 yrs >60 mL/min Normal 40-49 yrs >58 mL/min Normal 50-59 yrs >51 mL/min Normal 60-69 yrs >45 mL/min Normal 70-79 yrs >39 mL/min Normal 80 and above >32 mL/min Normal Troponin-T: (ERI: 08/31/2021 17:23) ( MsgRcvd 08/31/2021 18:31) Final results Test Result Flag Units (Reference) TROPONIN T <0.01 NG/ML (0.00 - 0.10) TROPONIN T0.1 ng/ml Recommended as the clinical threshold value forTroponin T. TSH: (ERI: 08/31/2021 17:23) ( Mscvd 08/31/2021 18:47) Final results Test Result Flag Units (Reference) TSH 1.42 uIU/mL (0.47 - 5.01) UA REFLEX TO UA CULTURE: (ERI: 08/31/2021 17:15) ( GagRcvd 08/31/2021 19:13) Final results Test Result Flag Units (Reference) UA REFLEX TO UA CULTURE URINALYSIS SOURCE Clean Catch COLOR yellow (NORMAL: Yello CLARITY clear (NORMAL: Clear SPEC GRAVITY 1.025 (1.001 - 1.030 pH 5 (5 - 9) GLUCOSE NORM (NORMAL: Negat BILIRUBIN NEG (NORMAL: Negat KETONE NEG (NORMAL: Negat PROTEIN 15 (NORMAL: Negat NITRITE NEG (NORMAL: Negat BLOOD NEG (NORMAL: Negat LEUK EST NEG (NORMAL: Negat UROBILINOGEN NOR (less than 1.0 MICROSCOPIC See Below RBC 0 - 1 (NORMAL: NONE EPITHELIAL FEW (NORMAL: NONE MUCOUS 1+ (NORMAL: NONE CT Head W/O Cont: (ERI: 08/31/2021 17:05) ( [facility] 08/31/2021 19:20) In Progress CT HEAD W/O CONTRAST Reason(s): Altered Mental Status TRANSPORTATION: IV? O2? Oxygen?(No) Room: ED.PROGRESS AND PROCEDURESCourse of Care: 17:13 08/31/21. pt has no complaint in ER w nml exam, except for known dementia 19:45 08/31/21. CBC, troponin, TSH, UA nml; CT head w/o results in and the rt maxillary sinusitis seen is actually a known mass per [facility] report; will d/c after CMP 6 Clinical Report - Physicians/Mid Levels [facility] Emergency Department [address] [place] [address] Phone #: ext- [phone] 08/31/2021 16:35 Patient: Estela CARMONA [facility]#: [id number] Sex: M : 1930 Age: 89y 19:54 08/31/21. CMP nml; pt asymptomatic in ER; will d/c back to ID; d/c instructions given to ID staff. Caregiver counseled in person regarding the patient's stable condition, test results, diagnosis and need for follow-up. Caregiver agrees with plan of care. Disposition: Condition: good and stable. Discharge decision based on the following: patient's condition is stable; patient's condition is improved; patient is ambulatory; patient is active; patient drinking fluids; patient's exam is improved; no abnormal test results; improving condition on multiple repeat evaluations; social support is good; transportation is available; follow-up is available; clinical impression is consistent with outpatient treatment.CLINICAL IMPRESSION Chronic late onset Alzheimer's disease. No behavioral disturbance. Normal exam upon presentation, while in the ED and at discharge.INSTRUCTIONS Warnings: Further evaluation is necessary. It is very important to follow up with a healthcare provider. GENERAL WARNINGS: Return or contact your physician immediately if your condition worsens or changes unexpectedly, if not improving as expected, or if other problems arise. Specifically return if pain, vomiting, bleeding, breathing difficulty or fever greater than 102 degrees F and not controlled by acetaminophen. Your Current Medications: Your current home medications have been reviewed. CONTINUE TAKING THE FOLLOWING MEDICATIONS: Aspirin Oral. Atorvastatin Calcium Oral. Buspar*. busPIRone HCl Oral. Donepezil HCl Oral. Finasteride Oral. Glucosamine Complex Oral. Lexapro Oral. Metamucil Oral. Namenda Oral. Omeprazole Oral. Vitamin B12 Oral. Follow-up: Return to the emergency department as needed. Follow up with your healthcare provider in two days 7 Clinical Report - Physicians/Mid Levels [facility] Emergency Department [address] [place] [address] Phone #: ext- [phone] 08/31/2021 16:35 Patient: Estela CARMONA Sex: M : 1930 Age: 89y even if well. Call for an appointment. Reason for referral: evaluation and treatment. Summary of care provided to family via paper. Understanding of the discharge instructions verbalized by family. Expected course of illness, discharge instructions, activity level, diet, follow-up appointment and risks and benefits of treatment reviewed with caregiver and patient payable representative and understanding verbalized. Agrees to plan of care.(Electronically signed by Karthikeyan Varela M.D. 08/31/2021 23:09) Name Value Range Interpretation Code Description Data Yanira rce(s) Supporting Document(s) ID Date Data Source [id number] 08/31/2021 09:33:00 [place] [address] PHONE: [phone] FAX: [phone] Name .................. : MATHEW MERLOS Acct Number.................. : [id number] [facility] Number ................... : [id number] Stay type ............. : E/R Discharge Date......... ... : Admit Date ......... : 1 Admit Phys .................... : NICHOLE CHURCH Date of ....... : 1930 Family Phys ................... : NO PCP Phone .................. : [phone] Age ................................ : 89 Film# .................. .:[id number] Sex ................................. : M Unsigned transcriptions are preliminary reports and do not represent a medical or legal document CT HEAD W/O CONTRAST [id number] COMPLETE:08/31/21 19:20 [facility] [id number] Reason(s): Altered Mental Status CT BRAIN WITHOUT IV CONTRAST INDICATION: Altered mental status COMPARISON: None CONTRAST: None One or more of the following dose reduction techniques were utilized in effectively lowering the radiation dose for this examination: Automated Exposure Control, Adjustment of the mA and/or kV according to patient size, or Iterative Reconstruction. FINDINGS: The ventricles, cisterns, sulci are prominent consistent with moderate atrophy atrophy is more pronounced in the frontal lobes. Calderon white differentiation is intact. Bifrontal subdural hygromas. No extra-axial hemorrhage. No indication of acute or prior ischemic CVA. Patchy decreased density is seen in the periventricular and subcortical white matter which is nonspecific but most likely due to chronic small vessel ischemic change. No mass or mass effect. Calvarium and skull base are within normal limits. Right mastoid sinus is completely opacified. Mild mucosal thickening left maxillary sinus. Anterior right ethmoid air cells are completely opacified. No air-fluid levels. IMPRESSION: 1. Atrophy and chronic ischemic changes in the white matter. 2. Bifrontal subdural hygromas. No extra-axial hemorrhage. 3. Right maxillary and ethmoid sinusitis which could be acute or chronic. Preliminary report for this exam was provided by EDI. Page 1 of 2 [facility] [address] [place] [address] PHONE: [phone] FAX: [phone] Name .................. : [id number] ROOM. ................. : [place]-25 Number ................... : [id number] Stay type ............. : E/R Discharge Date......... ... : Admit Date ......... : 08/31/21 Admit Phys .................... : NICHOLE CHURCH Date of ....... : 1930 Family Phys ................... : NO PCP Phone .................. : [phone] Age ................................ : 89 Film# .................. .:[id number] Sex ................................. : M Unsigned transcriptions are preliminary reports and do not represent a medical or legal document CT HEAD W/O CONTRAST [id number] COMPLETE:08/31/21 19:20 [facility] [id number] Reason(s): Altered Mental Status Electronically Reviewed and Signed By Ha Diaz MD , 08/31/21 21:33, JWS Transcribe Initials: KRYSTIAN , Transcribe Date: 08/31/21 21:30, Dictation Date: Copy for: 010 EMERGENCY SRV Copy for: EMERGENCY DEPT via modem Copy for: 710 MED REC Page 2 of 2 Name Value Range Interpretation Code Description Data Yanira rce(s) Supporting Document(s) ID Date Data Source [id number] 08/31/2021 05:47:00 PM EDT [facility] Name Value Range Interpretation Code Description Data Yanira rce(s) Supporting Document(s) CBC W/AUTOMATED DIFF [facility] COMPLETE BLOOD COUNT Leukocytes [#/volume] in Blood by Automated count 7.2 10^3/uL 4.2 - 1 1.0 [facility] Erythrocytes [#/volume] in Blood by Automated count 4.25 10^6/uL 4. 50 - 6.30 L [facility] Hemoglobin [Mass/volume] in Blood 14.4 g/dL 14.0 - 16.0 [facility] Hematocrit [Volume Fraction] of Blood by Automated count 41.6 % 4 1.0 - 51.0 [facility] Erythrocyte mean corpuscular volume [Entitic volume] by Auto mated count 97.9 fL 80.0 - 94.0 H [facility] Erythrocyte mean corpuscular hemoglobin [Entitic mass] by Automated count 33.9 pg 27.0 - 34.0 [facility] Erythrocyte mean corpuscular hemoglobin concentration [Mass/volume] by Automated count 34.6 g/dL 31.0 - 36.0 [facility] Erythrocyte distribution width [Ratio] by Automated count 13.2 % 11.5 - 14.8 [facility] Platelets [#/volume] in Blood by Automated count 205 10^3/uL 150 - 45 0 [facility] Platelet mean volume [Entitic volume] in Blood by Automated count 9.2 fL 7.4 - 10.4 [facility] Neutrophils/100 leukocytes in Blood by Automated count 71.0 % 37. 0 - 80.0 [facility] Lymphocytes/100 leukocytes in Blood by Manual count 19.4 % 25.0 - 40.0 L [facility] Monocytes/100 leukocytes in Blood by Automated count 6.3 % 3.0 - 8.0 [facility] Eosinophils/100 leukocytes in Blood by Automated count 2.4 % 0.0 - 7.0 [facility] Basophils/100 leukocytes in Blood by Automated count 0.6 % 0.0 - 2.0 [facility] %IG 0.3 % 0.0 - 0.0 [facility] %NRBC 0.0 % 0.0 - 0.0 [facility] al Neutrophils [#/volume] in Blood by Automated count 5.09 10^3/uL 2.00 - 6.90 [facility] Lymphocytes [#/volume] in Blood by Automated count 1.39 10^3/uL 0.60 - 3.40 [facility] Monocytes [#/volume] in Blood by Automated count 0.45 10^3/uL 0.00 - 0.90 [facility] Eosinophils [#/volume] in Blood by Automated count 0.17 10^3/uL 0.00 - 0.70 [facility] Basophils [#/volume] in Blood by Automated count 0.04 10^3/uL 0.00 - 0.20 [facility] #IG 0.02 10^3/uL 0.00 - 0.10 [facility] ospital #NRBC 0.00 10^3/uL 0.00 - 0.00 [facility] ospital MANUAL DIFF NOT INDICATED [facility] RBC MORPH NOT INDICATED [facility] spital ID Date Data Source [id number] 08/31/2021 06:31:00 PM EDT [facility] Name Value Range Interpretation Code Description Data Yanira rce(s) Supporting Document(s) TROPONIN T <0.01 NG/ML 0.00 - 0.10 [facility] ospital TROPONIN T0.1 ng/ml Recommended as the c linical threshold value forTroponin T. ID Date Data Source [id number] 08/31/2021 06:47:00 PM EDT [facility] Name Value Range Interpretation Code Description Data Yanira rce(s) Supporting Document(s) Thyrotropin [Units/volume] in Serum or Plasma by Detec tion limit <= 0.05 mIU/L 1.42 uIU/mL 0.47 - 5.01 [facility] ID Date Data Source [id number] 08/31/2021 07:51:00 PM EDT [facility] Name Value Range Interpretation Code Description Data Yanira rce(s) Supporting Document(s) COMPREHENSIVE METABOLIC PANEL [facility] COMPREHENSIVE METABOLIC PANEL Sodium [Moles/volume] in Serum or Plasma 141 mEq/L 134 - 153 [facility] Potassium [Moles/volume] in Serum or Plasma 4.0 mEq/L 3.6 - 5.0 [facility] Chloride [Moles/volume] in Serum or Plasma 103 mEq/L 98 - 107 [facility] Carbon dioxide, total [Moles/volume] in Serum or Plasma 26 MEQ/L 22 - 30 [facility] Glucose [Mass/volume] in Serum or Plasma 111 MG/DL 70 - 99 H [facility] BUN 16 MG/DL 7 - 21 [facility] Creatinine [Mass/volume] in Serum or Plasma 1.0 MG/DL 0.7 - 1.5 [facility] BUN/CREAT 16 8 - 27 [facility] Protein [Mass/volume] in Serum or Plasma 6.8 G/DL 6.3 - 8.2 [facility] Albumin [Mass/volume] in Serum or Plasma 4.0 G/DL 3.9 - 5.0 [facility] Globulin [Mass/volume] in Serum by calculation 2.8 GM/DL 2.4 - 3.2 [facility] A/G RATIO 1.4 0.8 - 2.0 [facility] Calcium [Mass/volume] in Serum or Plasma 9.0 MG/DL 8.4 - 10.2 [facility] Bilirubin.total [Mass/volume] in Serum or Plasma <0.7 MG/DL 0.2 - 1.3 [facility] Alkaline phosphatase [Enzymatic activity/volume] in Serum or Plasma 92 U/L 38 - 126 [facility] Aspartate aminotransferase [Enzymatic activity/volume] in Serum or Plasma 19 U/L 5 - 40 [facility] Alanine aminotransferase [Enzymatic activity/volume] in Seru m or Plasma 15 U/L 7 - 56 [facility] Anion gap 3 in Serum or Plasma 12.0 mmol/L 8.0 - 16.0 [facility] AGE 89 yrs [facility] NON-AA GFR >60 mL/min [facility] ital AFR AMER GFR >60 mL/min [facility] spital Male GFR In terprentation 20-49 yrs >60 mL/min Normal 50-59 yrs >56 mL/min Normal 60-69 yrs >49 mL/min Normal 70-79yrs >42 mL/min Normal 80 and above >35 mL/min Normal Female GFR Interpretation 20-39 yrs >60 mL/min Normal 40-49 yrs >58 mL/min Normal 50-59 yrs >51 mL/min Normal 60-69 yrs >45 mL/min Normal 70-79 yrs >39 mL/min Normal 80 and above >32 mL/min Normal ID Date Data Source [id number] 08/31/2021 07:12:00 PM EDT [facility] Name Value Range Interpretation Code Description Data Yanira rce(s) Supporting Document(s) UA REFLEX TO UA CULTURE [facility] URINALYSIS SOURCE Clean Catch [facility] ital COLOR yellow NORMAL: Yellow [facility] CLARITY clear NORMAL: Clear [facility] Specific gravity of Urine by Test strip 1.025 1.001 - 1.030 [facility] pH 5 5 - 9 [facility] Glucose [Mass/volume] in Urine by Test strip NORM NORMAL: Negat [facility] Bilirubin.total [Presence] in Urine by Test strip NEG NORMAL: Negative [facility] Ketones [Presence] in Urine by Test strip NEG NORMAL: Negative [facility] Protein [Mass/volume] in Urine by Test strip 15 NORMAL: Negat [facility] Nitrite [Presence] in Urine by Test strip NEG NORMAL: Negative [facility] BLOOD NEG NORMAL: Negative [facility] Leukocyte esterase [Presence] in Urine by Test strip NEG ASHLEY L: Negative [facility] Urobilinogen [Mass/volume] in Urine by Test strip NOR less albin n 1.0 mg/dL [facility] MICROSCOPIC See Below [facility] Erythrocytes [#/volume] in Urine by Test strip 0 - 1 NORMAL: NON E SEEN [facility] EPITHELIAL FEW NORMAL: NONE SEEN [facility] Mucus [Presence] in Urine sediment by Light microscopy 1+ NOR MAL: NONE SEEN [facility] ID Date Data Source [id number] 08/30/2021 03:25:00 PM EDT [facility] Name Value Range Interpretation Code Description Data Yanira rce(s) Supporting Document(s) SARS-CoV-2 (COVID 19) NEGATIVE - SARS-CoV-2 (COVID19) [facility] This lab was ordered by [facility] a nd reported by [facility]. ID Date Data Source LIPID PANEL (CARDIAC RISK) 03/30/2021 12:00:00 AM EDT eCW1 ( [facility]) Name Value Range Interpretation Code Description Data Yanira rce(s) Supporting Document(s) Triglyceride [Mass/volume] in Serum or Plasma by calculation 513 <150 TRIGLYCERIDES LEVEL eCW1 ([facility]) 141 NON-HDL-C eCW1 ([facility]) Cholesterol in HDL [Moles/volume] in Serum or Plasma 57 >40 HDL CHOLESTEROL eCW1 ([facility]) Cholesterol [Moles/volume] in Serum or Plasma 198 <200 CHOLESTEROL LEVEL eCW1 ([facility]) 3.473 <5 CHOLESTEROL RISK RATIO eCW1 ([facility]) ID Date Data Source [id number] 03/30/2021 12:00:00 AM EDT eCW1 ([facility]) Name Value Range Interpretation Code Description Data Yanira rce(s) Supporting Document(s) Hemoglobin A1c/Hemoglobin.total in Blood 5.9 HEMOGLOBIN A1c eCW1 ([facility]) ID Date Data Source Comprehensive Metabolic Profile (CMP) 03/30/2021 12:00:00 AM EDT eCW1 ([facility]) Name Value Range Interpretation Code Description Data Yanira rce(s) Supporting Document(s) 139 70-100 GLUCOSE, FASTING eCW1 ([facility]) 17 7-18 BLOOD UREA NITROGEN eCW1 ([facility]) 0.95 0.70-1.30 CREATININE FOR GFR eCW1 ([facility]) > 60.0 >35 GLOMERULAR FILTRATION RATE eCW 1 ([facility]) 30 21-32 CARBON DIOXIDE LEVEL eCW1 ([facility]) 139 136-145 SODIUM LEVEL eCW1 ([facility] hospital) 104 98-107 CHLORIDE LEVEL eCW1 ([facility]) 4.2 3.5-5.1 POTASSIUM SERUM eCW1 ([facility]) 21 7-37 AST/SGOT eCW1 ([facility]) 8.8 8.8-10.2 CALCIUM LEVEL eCW1 ([facility]) 89 45-117 ALKALINE PHOSPHATASE eCW1 ([facility]) 31 12-78 ALT/SGPT eCW1 ([facility]) 3.3 3.2-5.2 ALBUMIN eCW1 ([facility]) 0.8 0.2-1.0 BILIRUBIN,TOTAL eCW1 ([facility]) 7.0 6.4-8.2 TOTAL PROTEIN eCW1 ([facility]) 0.9 ALBUMIN/GLOBULIN RATIO eCW1 ([facility]) ID Date Data Source VITAMIN B12 LEVEL 09/29/2020 12:00:00 AM EST eCW1 ([facility]) Name Value Range Interpretation Code Description Data Yanira rce(s) Supporting Document(s) [id number] VITAMIN B12 LEVEL eCW1 ([facility]) ID Date Data Source FREE T4 & TSH PANEL 09/29/2020 12:00:00 AM EST eCW1 ([facility]) Name Value Range Interpretation Code Description Data Yanira rce(s) Supporting Document(s) 0.95 0.76-1.46 eCW1 ([facility]) 3.600 0.358-3.740 eCW1 ([facility]) ID Date Data Source FOLATE 09/29/2020 12:00:00 AM EST eCW1 ([facility]) Name Value Range Interpretation Code Description Data Yanira rce(s) Supporting Document(s) 21.1 >5.4 eCW1 ([facility]) ID Date Data Source CBC - Complete Blood Count 09/29/2020 12:00:00 AM EST eCW1 ( [facility]) Name Value Range Interpretation Code Description Data Yanira rce(s) Supporting Document(s) 4.26 4.30-6.10 eCW1 ([facility]) 7.2 4.0-10.0 eCW1 ([facility]) 13.8 13.5-17.5 eCW1 ([facility]) 32.8 32.0-36.5 eCW1 ([facility]) 42.1 42.0-52.0 eCW1 ([facility]) 98.8 80.0-96.0 eCW1 ([facility]) 32.4 27.0-33.0 eCW1 ([facility]) 206 150-450 eCW1 ([facility]) 13.2 11.5-14.5 eCW1 ([facility]) Procedure Social History Code Duration Value Status Description Data Source(s ) Smoking 05/25/2021 12:00:00 AM EDT Former Smoker completed Former Smoker eCW1 ([facility]) Smoking 05/25/2021 12:00:00 AM EDT Former Smoker completed Former Smoker eCW1 ([facility]) Smoking 05/25/2021 12:00:00 AM EDT Former Smoker completed Former Smoker eCW1 ([facility]) Smoking 05/25/2021 12:00:00 AM EDT Former Smoker completed Former Smoker eCW1 ([facility]) Smoking 05/25/2021 12:00:00 AM EDT Former Smoker completed Former Smoker eCW1 ([facility]) Smoking 05/25/2021 12:00:00 AM EDT Former Smoker completed Former Smoker eCW1 ([facility]) Smoking 05/25/2021 12:00:00 AM EDT Former Smoker completed Former Smoker eCW1 ([facility]) Smoking 05/25/2021 12:00:00 AM EDT Former Smoker completed Former Smoker eCW1 ([facility]) Smoking 05/25/2021 12:00:00 AM EDT Former Smoker completed Former Smoker eCW1 ([facility]) Smoking 03/30/2021 12:00:00 AM EDT Former Smoker completed Former Smoker eCW1 ([facility]) Smoking 03/30/2021 12:00:00 AM EDT Former Smoker completed Former Smoker eCW1 ([facility]) Smoking 03/30/2021 12:00:00 AM EDT Former Smoker completed Former Smoker eCW1 ([facility]) Smoking 03/30/2021 12:00:00 AM EDT Former Smoker completed Former Smoker eCW1 ([facility]) Smoking 03/30/2021 12:00:00 AM EDT Former Smoker completed Former Smoker eCW1 ([facility]) Smoking 01/20/2021 12:00:00 AM EST Former Smoker completed Former Smoker eCW1 ([facility]) Smoking 01/20/2021 12:00:00 AM EST Former Smoker completed Former Smoker eCW1 ([facility]) Smoking 01/20/2021 12:00:00 AM EST Former Smoker completed Former Smoker eCW1 ([facility]) Smoking 09/29/2020 12:00:00 AM EST Former Smoker completed Former Smoker eCW1 ([facility]) Smoking 09/29/2020 12:00:00 AM EST Former Smoker completed Former Smoker eCW1 ([facility]) Smoking 09/29/2020 12:00:00 AM EST Former Smoker completed Former Smoker eCW1 ([facility]) Smoking 09/29/2020 12:00:00 AM EST Former Smoker completed Former Smoker eCW1 ([facility]) Smoking 09/29/2020 12:00:00 AM EST Former Smoker completed Former Smoker eCW1 ([facility]) Smoking 08/16/2020 12:00:00 AM EDT Former Smoker completed Former Smoker eCW1 ([facility]) Smoking 08/16/2020 12:00:00 AM EDT Former Smoker completed Former Smoker eCW1 ([facility]) Vital Signs ID Date Data Source UNK Name Value Range Interpretation Code Description Data Source(s) Body height 64 [in_i] 64 [in_i] [facility] ([facility]) 5'4" Body mass index (BMI) [Ratio] 30.9 kg/m2 30.9 k g/m2 [facility] ([facility]) Body weight 180.00 [lb_av] 180.00 [lb_av] MEDEN T ([facility]) [place] body weight 130 [lb_av] 130 [lb_av] MEDEN T ([facility]) Body weight 81.648 kg 81.648 kg [facility] ([facility]) Body surface area Derived from formula 1.87 m2 1.87 m2 [facility] ([facility]) Body temperature 98 [degF] 98 [degF] eCW1 ([facility]) Systolic blood pressure 120 mm[Hg] 120 mm[Hg] e CW1 ([facility]) Body weight 186.6 [lb_av] 186.6 [lb_av] eCW1 ([facility]) Body height 64 [in_i] 64 [in_i] eCW1 ([facility]) Diastolic blood pressure 80 mm[Hg] 80 mm[Hg] eCW1 ([facility]) Body mass index (BMI) [Ratio] 32.03 kg/m2 32.03 kg/m2 eCW1 ([facility]) Heart rate 69 /min 69 /min eCW1 ([facility]) Respiratory rate 18 /min 18 /min eCW1 ([facility]) Body weight 180.00 [lb_av] 180.00 [lb_av] MEDEN T ([facility], ) Body mass index (BMI) [Ratio] 30.9 kg/m2 30.9 k g/m2 [facility] ([facility]) Body surface area Derived from formula 1.87 m2 1.87 m2 [facility] ([facility]) Body weight 81.648 kg 81.648 kg [facility] ([facility]) [place] body weight 130 [lb_av] 130 [lb_av] MEDEN T ([facility]) Body height 64 [in_i] 64 [in_i] [facility] ([facility]) 5'4" Body weight 184.2 [lb_av] 184.2 [lb_av] eCW1 ([facility]) Body height 64 [in_i] 64 [in_i] eCW1 ([facility]) Body temperature 97.8 [degF] 97.8 [degF] eCW1 ( [facility]) Systolic blood pressure 120 mm[Hg] 120 mm[Hg] e CW1 ([facility]) Diastolic blood pressure 70 mm[Hg] 70 mm[Hg] eCW1 ([facility]) Body mass index (BMI) [Ratio] 31.61 kg/m2 31.61 kg/m2 eCW1 ([facility]) Heart rate 88 /min 88 /min eCW1 ([facility]) Respiratory rate 18 /min 18 /min eCW1 ([facility]) Body weight 186.4 [lb_av] 186.4 [lb_av] eCW1 ([facility]) Body height 64 [in_i] 64 [in_i] eCW1 ([facility]) Body mass index (BMI) [Ratio] 31.99 kg/m2 31.99 kg/m2 eCW1 ([facility]) Heart rate 86 /min 86 /min eCW1 ([facility]) Respiratory rate 18 /min 18 /min eCW1 ([facility]) Body temperature 97.8 [degF] 97.8 [degF] eCW1 ( [facility]) Systolic blood pressure 130 mm[Hg] 130 mm[Hg] e CW1 ([facility]) Diastolic blood pressure 74 mm[Hg] 74 mm[Hg] eCW1 ([facility]) Body weight 186.6 [lb_av] 186.6 [lb_av] eCW1 ([facility]) Body height 64 [in_i] 64 [in_i] eCW1 ([facility]) Body mass index (BMI) [Ratio] 32.03 kg/m2 32.03 kg/m2 eCW1 ([facility]) Heart rate 88 /min 88 /min eCW1 ([facility]) Respiratory rate 18 /min 18 /min eCW1 ([facility]) Body temperature 97.7 [degF] 97.7 [degF] eCW1 ( [facility]) Systolic blood pressure 110 mm[Hg] 110 mm[Hg] e CW1 ([facility]) Diastolic blood pressure 70 mm[Hg] 70 mm[Hg] eCW1 ([facility]) Body weight 189.8 [lb_av] 189.8 [lb_av] eCW1 ([facility]) Body height 64 [in_i] 64 [in_i] eCW1 ([facility]) Body mass index (BMI) [Ratio] 32.58 kg/m2 32.58 kg/m2 eCW1 ([facility]) Systolic blood pressure 124 mm[Hg] 124 mm[Hg] e CW1 ([facility]) Diastolic blood pressure 78 mm[Hg] 78 mm[Hg] eCW1 ([facility]) Patient Treatment Plan of Care Planned Activity Planned Date Details Description Data Source (s) buspirone hydrochloride 10 MG Oral Tablet 05/25/2021 12:00:00 AM ED T eCW1 ([facility]) buspirone hydrochloride 10 MG Oral Tablet 05/25/2021 12:00:00 AM ED T eCW1 ([facility]) buspirone hydrochloride 10 MG Oral Tablet 05/25/2021 12:00:00 AM ED T eCW1 ([facility]) buspirone hydrochloride 10 MG Oral Tablet 05/25/2021 12:00:00 AM ED T eCW1 ([facility]) buspirone hydrochloride 10 MG Oral Tablet 05/25/2021 12:00:00 AM ED T eCW1 ([facility]) buspirone hydrochloride 10 MG Oral Tablet 05/25/2021 12:00:00 AM ED T eCW1 ([facility]) buspirone hydrochloride 10 MG Oral Tablet 05/25/2021 12:00:00 AM ED T eCW1 ([facility]) buspirone hydrochloride 10 MG Oral Tablet 05/25/2021 12:00:00 AM ED T eCW1 ([facility]) buspirone hydrochloride 10 MG Oral Tablet 05/25/2021 12:00:00 AM ED T eCW1 ([facility]) buspirone hydrochloride 10 MG Oral Tablet 05/04/2021 12:00:00 AM ED T eCW1 ([facility])
[2021-09-18] MEDS ORDERED: ONDANSETRON 4MG/2ML VIAL IV ONE (06:30)
--- NOTE | 2021-09-18 06:33 | REPVR ---
PROCEDURE INFORMATION: Exam: CT Head Without Contrast Exam date and time: 09/18/2021 6:19 AM Age: 89 years old Clinical indication: Injury or trauma; Fall; Blunt trauma (contusions or hematomas) TECHNIQUE: Imaging protocol: Computed tomography of the head without contrast. Radiation optimization: All CT scans at this facility use at least one of these dose optimization techniques: automated exposure control; mA and/or kV adjustment per patient size (includes targeted exams where dose is matched to clinical indication); or iterative reconstruction. COMPARISON: 1. MRI-Brain without Contrast 2021-06-22 11:[address] Head without contrast 2021-06-22 09:44 FINDINGS: Brain: Moderate diffuse cerebral volume loss. Mild chronic cerebral white matter disease. No midline shift, mass, fluid collection, or evidence of acute hemorrhage. Prominence of the extra-axial subarachnoid spaces. Frontal lobe atrophy. Cerebral ventricles: No ventriculomegaly. Paranasal sinuses: Right paranasal sinus disease, evidence of right ostiomeatal unit dysfunction. Mastoid air cells: Visualized mastoid air cells are well aerated. Bones/joints: Unremarkable. No acute fracture. Soft tissues: Unremarkable. Nasal cavity: Question mucocele protruding into the right nasal passage or antral choanal polyp. IMPRESSION: 1. No acute intracranial abnormality. 2. Right paranasal sinus disease, evidence of right ostiomeatal unit dysfunction. Question mucocele protruding into the right nasal passage or antral choanal polyp. Electronically signed by: Pancho Gil On 09/18/2021 06:32:56 AM
--- NOTE | 2021-09-18 06:34 | REPVR ---
PROCEDURE INFORMATION: Exam: CT Cervical Spine Without Contrast Exam date and time: 09/18/2021 6:19 AM Age: 89 years old Clinical indication: Injury or trauma; Fall; Blunt trauma TECHNIQUE: Imaging protocol: Computed tomography images of the cervical spine without contrast. Radiation optimization: All CT scans at this facility use at least one of these dose optimization techniques: automated exposure control; mA and/or kV adjustment per patient size (includes targeted exams where dose is matched to clinical indication); or iterative reconstruction. COMPARISON: 1. CT Spine,cervical w/o contrast 2021-06-22 00:28 2. MRI-Brain without Contrast 2021-06-22 11:34 FINDINGS: Bones/joints: Normal spinal curvature, vertebral body heights, and alignment. No spinal fracture or acute subluxation. 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 Lungs: Lung apices are normal. Soft tissues: Nuchal ligament calcifications. IMPRESSION: No acute vertebral fracture/subluxation. Electronically signed by: Pancho Gil On 09/18/2021 06:34:25 AM
[2021-09-18 06:51] LABS: BASO % 0.2 % (0.0-1.0); EOS # 0.1 10^3/uL (0.0-0.5); EOS % 1.1 % (0.0-3.0); HEMATOCRIT 41.8 % (42.0-52.0); HEMOGLOBIN 14.1 g/dl (13.5-17.5); LYMPH # 1.4 10^3/uL (1.5-5.0); MEAN CORPUSCULAR HEMOGLOBIN 33.5 pg (27.0-33.0); MEAN CORPUSCULAR HGB CONC 33.7 g/dl (32.0-36.5); MEAN CORPUSCULAR VOLUME 99.3 fl (80.0-96.0); MONO # 0.5 10^3/uL (0.0-0.8); MONO % 5.7 % (2.0-8.0); NEUTROPHILS # 6.2 10^3/uL (1.5-8.5); NEUTROPHILS % 75.3 % (36.0-66.0); PLATELET COUNT, AUTOMATED 186 10^3/uL (150-450); RED BLOOD COUNT 4.21 10^6/uL (4.30-6.10); WHITE BLOOD COUNT 8.3 10^3/uL (4.0-10.0)
[2021-09-18 07:13] LABS: BLOOD UREA NITROGEN 16 MG/DL (7-18); CALCIUM LEVEL 8.4 MG/DL (8.8-10.2); CARBON DIOXIDE LEVEL 26 MEQ/L (21-32); CHLORIDE LEVEL 107 MEQ/L (98-107); GLOMERULAR FILTRATION RATE > 60.0 (>35); GLUCOSE, FASTING 142 MG/DL (70-100); POTASSIUM SERUM 4.5 MEQ/L (3.5-5.1); SODIUM LEVEL 141 MEQ/L (136-145)
[2021-09-18 07:19] LABS: RSV AMPLIFICATION NEGATIVE (NEGATIVE)
--- OUTSIDE RECORDS SUMMARY | 2021-09-18 07:42 | CCD ---
Author Author [facility] Organization [facility] Address Unknown Phone Unavailable Care Team Providers Care Featherer Name Role Phone NO, PCP Unavailable Unavailable [...] is protected by Article 27-F of the [facility] Public Health law. If you continue you may have access to information: Regarding HIV / AIDS; Provided by facilities licensed or operated by the [facility] Office of Mental Health; or Provided by the [facility] Office for People With Developmental Disabilities. If such information is present, then the following [facility] mandated warning applies: This information has [...] law may result in a fine or shelter sentence or both. A general authorization for the release of medical or other information is NOT sufficient authorization for further disc losure. Family History Family Member Name Family Member Gender Family Member Status Date o f Status Description Data Source(s) Unknown Unknown Problem MEDENT ([facility]) Encounters Encounter Providers Location Date Indications Data Source(s ) Emergency Attender: KARTHIKEYAN Owensant: PCP NO 08/31/2021 04:48:00 PM EDT - 08/31/2021 11:04:00 PM EDT [facility] Patient discharged. [place] [address] [facility] [address] 08/31/2021 12:00:00 AM EDT eCW1 ([facility]) [place] [address] [facility] [address] 08/30/2021 12:00:00 AM EDT eCW1 ([facility]) [place] [address] [facility] [address] 08/15/2021 12:00:00 AM EDT eCW1 ([facility]) [place] [address] [facility] [address] 07/19/2021 12:00:00 AM EDT eCW1 ([facility]) Outpatient Attender: DARCIE TRIPATHI 07/12/2021 07:47:00 AM EDT - 07/08/2021 07:47:00 AM EDT [facility] Patient discharged. [place] [address] [facility] [address] 07/05/2021 12:00:00 AM EDT eCW1 ([facility]) [place] [address] [facility] [address] 06/23/2021 12:00:00 AM EDT eCW1 ([facility]) [place] [address] [facility] [address] 06/22/2021 12:00:00 AM EDT eCW1 ([facility]) [place] [address] [facility] [address] 06/14/2021 12:00:00 AM EDT eCW1 ([facility]) Outpatient Attender: LOKI Angeles/Lanie/Darien/Borisd l 06/01/2021 01:15:00 PM EDT MED[facility] ([facility] [place] [address] [facility] [address] 05/25/2021 12:00:00 AM EDT eCW1 ([facility]) Outpatient Attender: LOKI Angeles/Lanie/Darien/Reind l 05/10/2021 10:30:00 AM EDT MEDENT ([facility]) [place] [address] [facility] [address] 05/02/2021 12:00:00 AM EDT eCW1 ([facility]) [place] [address] [facility] [address] 04/18/2021 12:00:00 AM EDT eCW1 ([facility]) [place] [address] [facility] [address] 04/07/2021 12:00:00 AM EDT eCW1 ([facility]) [place] [address] [facility] [address] 04/05/2021 12:00:00 AM EDT eCW1 ([facility]) Office Visit, Est Pt., Level 2 FC [address] [place] [address] 03/30/2021 12:00:00 AM EDT eCW1 ([facility]) Unknown [address] [facility] [address] 03/01/2021 12:00:00 AM EDT eCW1 ([facility]) [place] [address] [facility] [address] 02/01/2021 12:00:00 AM EDT eCW1 ([facility]) Outpatient [address] [facility] [address] 01/20/2021 12:00:00 AM EST eCW1 ([facility]) [place] [address] [facility] [address] 01/13/2021 12:00:00 AM EST eCW1 ([facility]) Unknown [address] [facility] [address] 11/24/2020 12:00:00 AM EST eCW1 ([facility]) Unknown [address] [facility] [address] 11/03/2020 12:00:00 AM EST eCW1 ([facility]) Unknown [address] [facility] [address] 10/05/2020 12:00:00 AM EST eCW1 ([facility]) Outpatient [address] [facility] [address] 09/29/2020 12:00:00 AM EST eCW1 ([facility]) Unknown [address] [facility] [address] 09/03/2020 12:00:00 AM EDT eCW1 ([facility]) Office Visit, Est Pt., Level 4 PC [address] [place] [address] 08/16/2020 12:00:00 AM EDT eCW1 ([facility]) Immunizations Vaccine Date Status Description Data Source(s) COVID-19 VACC, MRNA(PFIZER)/PF 09/14/2021 12:00:00 AM EDT completed [facility] COVID-19 VACCINE Pfizer 08/25/2021 12:00:00 AM EDT completed [facility] Vaccine Series Complete: YESThis Data wa s Submitted to [facility] Via [employer] COVID-19 VACCINE Pfizer 12/08/2020 12:00:00 AM EST completed [facility] Vaccine Series Complete: YESThis Data wa s Submitted to [facility] [employer] COVID-19 VACCINE Pfizer 11/26/2020 12:00:00 AM EST completed [facility] Vaccine Series Complete: NOThis Data was Submitted to [facility] Via [employer] INFLUENZA VACCINE QUADRIVALENT 2019- (65 YR UP)/MF59 C.1/PF 08/27/2020 12:00:00 AM EDT completed [facility] IIV3. This is one of two codes replacing CVX 15, which is being retired. 08/16/2020 12:06:00 PM EDT completed eCW1 ([facility]) IIV3. This is one of two codes replacing CVX 15, which is being retired. 08/16/2020 12:06:00 PM EDT completed eCW1 ([facility]) IIV3. This is one of two codes replacing CVX 15, which is being retired. 08/16/2020 12:06:00 PM EDT completed eCW1 ([facility]) IIV3. This is one of two codes replacing CVX 15, which is being retired. 08/16/2020 12:06:00 PM EDT completed eCW1 ([facility]) IIV3. This is one of two codes replacing CVX 15, which is being retired. 08/16/2020 12:06:00 PM EDT completed eCW1 ([facility]) IIV3. This is one of two codes replacing CVX 15, which is being retired. 08/16/2020 12:06:00 PM EDT completed eCW1 ([facility]) IIV3. This is one of two codes replacing CVX 15, which is being retired. 08/16/2020 12:06:00 PM EDT completed eCW1 ([facility]) IIV3. This is one of two codes replacing CVX 15, which is being retired. 08/16/2020 12:06:00 PM EDT completed eCW1 ([facility]) IIV3. This is one of two codes replacing CVX 15, which is being retired. 08/16/2020 12:06:00 PM EDT completed eCW1 ([facility]) IIV3. This is one of two codes replacing CVX 15, which is being retired. 08/16/2020 12:06:00 PM EDT completed eCW1 ([facility]) IIV3. This is one of two codes replacing CVX 15, which is being retired. 08/16/2020 12:06:00 PM EDT completed eCW1 ([facility]) IIV3. This is one of two codes replacing CVX 15, which is being retired. 08/16/2020 12:06:00 PM EDT completed eCW1 ([facility]) IIV3. This is one of two codes replacing CVX 15, which is being retired. 08/16/2020 12:06:00 PM EDT completed eCW1 ([facility]) IIV3. This is one of two codes replacing CVX 15, which is being retired. 08/16/2020 12:06:00 PM EDT completed eCW1 ([facility]) IIV3. This is one of two codes replacing CVX 15, which is being retired. 08/16/2020 12:06:00 PM EDT completed eCW1 ([facility]) IIV3. This is one of two codes replacing CVX 15, which is being retired. 08/16/2020 12:06:00 PM EDT completed eCW1 ([facility]) IIV3. This is one of two codes replacing CVX 15, which is being retired. 08/16/2020 12:06:00 PM EDT completed eCW1 ([facility]) IIV3. This is one of two codes replacing CVX 15, which is being retired. 08/16/2020 12:06:00 PM EDT completed eCW1 ([facility]) IIV3. This is one of two codes replacing CVX 15, which is being retired. 08/16/2020 12:06:00 PM EDT completed eCW1 ([facility]) IIV3. This is one of two codes replacing CVX 15, which is being retired. 08/16/2020 12:06:00 PM EDT completed eCW1 ([facility]) IIV3. This is one of two codes replacing CVX 15, which is being retired. 08/16/2020 12:06:00 PM EDT completed eCW1 ([facility]) IIV3. This is one of two codes replacing CVX 15, which is being retired. 08/16/2020 12:06:00 PM EDT completed eCW1 ([facility]) Medications Medication Brand Name Start Date Product [...] activ e busPIRone HCl 10 MG eCW1 ([facility]) buspirone hydrochloride 10 MG Oral Tablet busPIRone HC l 10 MG busPIRone HCl 10 MG 05/25/2021 12:00:00 AM EDT 1.0 {tablet} activ e busPIRone HCl 10 MG eCW1 ([facility]) buspirone hydrochloride 10 MG Oral Tablet busPIRone HC l 10 MG busPIRone HCl 10 MG 05/25/2021 12:00:00 AM EDT 1.0 {tablet} activ e busPIRone HCl 10 MG eCW1 ([facility]) buspirone hydrochloride 10 MG Oral Tablet busPIRone HC l 10 MG busPIRone HCl 10 MG 05/25/2021 12:00:00 AM EDT 1.0 {tablet} activ e busPIRone HCl 10 MG eCW1 ([facility]) buspirone hydrochloride 10 MG Oral Tablet busPIRone HC l 10 MG busPIRone HCl 10 MG 05/25/2021 12:00:00 AM EDT 1.0 {tablet} activ e busPIRone HCl 10 MG eCW1 ([facility]) buspirone hydrochloride 10 MG Oral Tablet busPIRone HC l 10 MG busPIRone HCl 10 MG 05/25/2021 12:00:00 AM EDT 1.0 {tablet} activ e busPIRone HCl 10 MG eCW1 ([facility]) buspirone hydrochloride 10 MG Oral Tablet busPIRone HC l 10 MG busPIRone HCl 10 MG 05/25/2021 12:00:00 AM EDT 1.0 {tablet} activ e busPIRone HCl 10 MG eCW1 ([facility]) buspirone hydrochloride 10 MG Oral Tablet busPIRone HC l 10 MG busPIRone HCl 10 MG 05/25/2021 12:00:00 AM EDT 1.0 {tablet} activ e busPIRone HCl 10 MG eCW1 ([facility]) buspirone hydrochloride 10 MG Oral Tablet busPIRone HC l 10 MG busPIRone HCl 10 MG 05/25/2021 12:00:00 AM EDT 1.0 {tablet} activ e busPIRone HCl 10 MG eCW1 ([facility]) buspirone hydrochloride 10 MG Oral Tablet busPIRone HC l 10 MG busPIRone HCl 10 MG 05/04/2021 12:00:00 AM EDT 1.0 {tablet} activ e busPIRone HCl 10 MG eCW1 ([facility]) Insurance Providers Payer name Policy type / Coverage type Policy ID Covered green party ID Covered green party's relationship to dc Policy Dc Plan Information MEDICARE [id number] SP [id number] A MEDICARE [id number] SP [id number] A [id number] A [employer] [place] [id number] SP [id number] [facility] [id number] SP [id number] [employer] [place] [id number] SP [id number] [facility] [id number] SP [id number] MEDICARE PART A [facility] [id number] 18 [id number] [facility] EMPIRE PLAN [id number] 18 [id number] MEDICARE PART A [facility] [id number] 18 [id number] MEDICARE [id number] SP [id number] A [employer] [place] [id number] SP [id number] [employer] [place] UNAVAILABLE UNAVAILABLE [place] PPO [id number] SP [id number] MEDICARE C [id number] S [id number] [facility] O [id number] S [id number] MEDICARE C [id number] S [id number] A [employer] [place] [id number] SP [id number] ANS-Medicare Part B [id number] ANSI-Commercial [id number] ANSI-Medicare Part B [id number] ANSI-Commercial [id number]-r7d4-99u3-z73n-[id number] [id number]-q3j3-22n0-f78q-[id number] ANSI-Medicare Part B [id number] ANSI-Commercial [id number]-[id number] [id number]-[id number] MEDICARE [id number] SP [id number] ANSI-Commercial [id number]-d63p-9223-57ow-[id number] a0g24r23-s32w-5802-40cl-[id number] ANSI-Medicare Part B [id number]-21na-[id number] ANSI-Commercial ki15q2yk-jklw-830b-7309-z5i87090l6qa iq27o2py-exuz-521b-8286-s0i18911i0ze ANSI-Medicare Part B [id number]-12t7-kon1-[id number] ANSI-Commercial wct4nun5-emyu-850k-tn06-fx341dmgne99 ynr0iyt1-srpq-249y-mg91-qh078usfiy65 ANSI-Medicare Part B [id number]-s9m4-9881-d8ep-yb9jj2v1vjv2 ANSI-Medicare Part B [id number]-[id number]-7l11-8890-a513-777u769l94sk ANSI-Commercial 4shl82p2-n8v9-1bee-1277-c3g3285dc41r 4kfv45v5-h2o9-2tcv-1099-p3h9890qm28y ANSI-Commercial 3zr80xb0-q173-1ijp-21fz-652cd9f6w010 5wg82ff3-j451-8vqc-72ws-502rg9v3v651 ANSI-Medicare Part B [id number] c09fy5f0-xl83-0r33-9h3m-5368x9940ef3 ANSI-Commercial 015p0s82-g9yp-274o-drk0-3r0393e87zv5 667a5q19-i9ij-386e-jwv3-4p1438z71nf4 ANSI-Medicare Part B [id number]-sr93rgdvn8d0 7d7a3s74-d3m1-4826-3n6g-yv41ackgy2z1 ANSI-Medicare Part B [id number]-9d63-8a14-[id number] xp3rd34o-505h-9z77-3t54-e93ty387562y ANSI-Commercial 6n3915c7-5q99-33yb-tdm7-874b1562f53s 1u5877c4-6b03-41vf-fmu0-275u0517x99d ANSI-Medicare Part B [id number]-95o1-0e2d-5fj64w7k377n g3yq5y48-335x-35q9-9p4p-2va73z3v253a ANSI-Commercial 459wzz2n-905g-1x08-n8t9-r345jg5931w5 401ypq5x-941q-2s65-p4p7-y828bh3713k2 ANSI-Medicare Part B [id number]-l9g7-19y1-3760-v6z51d55yc33 247x2t47-b6c3-24h9-8161-s0e07h54ik31 ANSI-Commercial c4h8vc14-9708-69zd-1a57-76v917l45i77 w3s7xr67-0448-17vx-5f58-86l661j02w26 ANSI-Commercial v3en8317-3bm5-5j2n-s0p9-l7mbz54e2974 e7nb8102-6my5-3c3s-m6l2-s9piu26k5922 ANSI-Medicare Part B [id number]-170u-4l0385px04j4 [id number]-y033-082u-773v-5p6225we28b3 ANSI-Medicare Part B [id number]-dx1847i4y855 5h200b4x-0nu7-2x27-680g-bh6524s8w560 ANSI-Commercial f534553d-x2v2-4n5n-dn6l-28ef2a007ii3 o330561n-h8b3-9s7o-sb8v-19zs4t073dc9 ANSI-Medicare Part B [id number]-u3rm1t7d20vm 8h3c9883-2f37-5yp1-8p5j-m0nn4f8z49uq ANSI-Commercial 7o5gj98a-rxq2-4i74-18iz-4q19z29816fs 5h8xz19l-dol7-0f36-27ro-9z82w15653ra ANSI-Medicare Part B [id number]-ri5i-18qs-55g1-12fqwe8855u4 i2o4m4k5-yi7c-32aa-51j1-68ypxf1965e3 ANSI-Commercial 9229m313-a33q-4739-dxxz-949709c2oxwh 6626n936-a90b-6022-egdp-826253i0vxki ANSI-Commercial e26y1yb2-8969-7567-rl44-q46w236i28q0 h84k2db8-0912-2701-ka38-s67k261n85j1 ANSI-Medicare Part B [id number]-he0m-5php3964k8t8 [id number]-ow8q-4yyw0827z6t5 ANSI-Medicare Part B [id number]-2ggr-1957b11ho844 lt2ma371-p4x9-713m-6jgg-4989u88mm703 ANSI-Commercial 71x1ip4b-g14o-4ci9-017j-6307ec371241 84t6uz6h-f58s-6xc4-859x-3987ab396990 ANSI-Commercial 1n152u49-m413-08jo-t6l3-k0g51xn2r277 6f081s47-q762-69uh-h5g0-b1o42hy8c822 ANSI-Medicare Part B [id number]-323d-9r2r-8s2l-eq79ck5z0258 41k1rhbv-478v-3l9d-3v1h-bk16ri7j8812 ANSI-Medicare Part B [id number]-[id number] 954yp972-6m33-26s8-4368-bj738n54t852 ANSI-Commercial h50e53xh-l58m-2y6a-r0ek-0wiqx6w7oro0 d95i69ge-r79z-2d3f-s0fl-2npee4z6ceq3 ANSI-Commercial 66fv2g13-5g7b-38yl-h3t5-yj383sk680rg 53uc0q17-0p7n-66hm-d7q4-vk580eb851qi ANSI-Medicare Part B [id number]-[id number]-on41-847e-0dy5-tn042862301m ANSI-Medicare Part B [id number]-[id number] 260q1p55-13v3-6lpy-rz98-48m517008f57 ANSI-Commercial k8cf0njo-7t4l-149u-fr6x-396046844b5c h9ux6rum-7n3y-392h-es9x-060515731s2r ANSI-Medicare Part B [id number]-[id number]-[id number] 4dnvx1nf-189l-6703-0c98-25a7k115x577 ANSI-Commercial 89jf0960-4904-5x75-5rt1-qs2439bb7o18 49mr2443-4617-3z98-2pi3-bp4051yn9s79 ANSI-Medicare Part B [id number]-[id number]-o744-83f7-a925-120761427ta0 ANSI-Commercial lpok9z54-r778-391b-3w4z-1372289cl75d qkoo2u85-v898-223m-3x2d-8079531kn50i ANSI-Commercial 4aj0i0se-0cb9-9829-4o99-3r83gdedzzp1 4jv8b6yp-1dy0-9176-7l19-5q01sohryjm1 ANSI-Medicare Part B [id number]-[id number]-9jh4-6f2e-915rcm66z641 ANSI-Medicare Part B [id number]-oht703945792 ANSI-Commercial 2akp61z1-h4ar-2wz1-l1x9-e81033e95r4h 3hio81i3-o6wb-6sy6-q7c4-z71431l32p5r [facility] Part B [id number] Self [id number] Medicare [place] Medicare Primary [id number] Self 2 [id number] MEDICARE [id number] SP [id number] A [facility] [place] [id number] SP [id number] [facility] [employer] [place] [id number] SP [id number] [facility] [id number] SP [id number] BCBS [place] [id number] SP [id number] MEDICARE [id number] SP [id number] A [facility] [id number] SP [id number] [facility] [id number] SP [id number] [facility] [place] [place] [id number] SP [id number] [facility] [id number] SP [id number] MEDICARE [id number] SP [id number] [facility] [place] [place] [id number] SP [id number] [facility] [id number] SP [id number] E[employer]IRE [employer] BLUE SHIELD -O/P [id number] 18 [id number] MEDICARE PART A -O/P [id number] Problems, Conditions, and Diagnoses Code Display Name Description Problem Type Effective Dates Data Source(s) G23313 Personal history of nicotine dependence Personal history of nicotine dependence Diagnosis 08/31/2021 04:48:00 PM EDT [facility] Z7982 intermission coordinator (current) use of aspirin intermission coordinator (cu rrent) use of aspirin Diagnosis 08/31/2021 04:48:00 PM EDT [facility] E119 Type 2 diabetes mellitus without complic ations Type 2 diabetes mellitus without complications Diagnosis 08/31/2021 04:48:00 PM EDT [facility] F0280 Dementia in other diseases c lassified elsewhere without behavioral disturbance Dementia in other diseases classified el sewhere without behavioral disturbance Diagnosis 08/31/2021 04:48:00 PM EDT [facility] 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 Diagnosis 08/31/2021 04:48:00 PM EDT [facility] R410 Disorientation, unspecified Disorientation, unspecifie d Diagnosis 08/31/2021 04:48:00 PM EDT [facility] E11.9 Type II diabetes mellitus well controlle d DM II (diabetes mellitus, type II), controlled Problem 07/06/2021 12:00:00 AM EDT eCW1 ([facility]) I67.9 [id number] Cerebrovascular small vessel disease Prob cathi 06/28/2021 12:00:00 AM EDT eCW1 ([facility]) 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 Problem 05/27/2021 12:00:00 AM EDT eCW1 ([facility]) F41.0 [id number] Anxiety attack Problem 05/25/2021 12:00:00 A M EDT eCW1 ([facility]) R53.81 [id number] Physical deconditioning Problem 12:00:00 AM EST eCW1 ([facility]) L57.0 918414686 Actinic keratoses Problem 08/16/2020 12:00:0 0 AM EDT eCW1 ([facility]) L81.4 523444357 Lentigines Problem 08/16/2020 12:00:00 AM ED T eCW1 ([facility]) L91.8 101737906 Skin tag Problem 08/16/2020 12:00:00 AM ED T eCW1 ([facility]) L73.8 175479109 Sebaceous hyperplasia of face Problem 08/16/2020 12:00:00 AM EDT eCW1 ([facility]) 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..........................: [id number] ROOM. ............: [facility] MR Number ............................: [id number] Stay type.........: E/R Discharge Date...............:08/31/21 Admit Date .....: 08/31/21 Admit Phys .............................: NICHOLE CHURCH Date of ..: 1930 Family Phys ...........................: NO PCP Phone..............: [phone] Age.................................:89 Film# ...............:[id number] Sex.................................:M Unsigned transcriptions are preliminary reports and [id number] [id number] COMPLETE:08/31/21 21:00 [id number] Please See Scanned Results. Name Value Range Interpretation Code Description Data Yanira rce(s) Supporting Document(s) ID Date Data Source [id number] 08/31/2021 04:48:00 PM EDT [facility] 1 OrderSheet [facility] Emergency Department [address] [place] [address] Phone #: ext- [phone] 08/31/2021 16:35 Patient: Estela CARMONA Sex: M : 1930 Age: 89yWEIGHT:81.6 kg (S) HEIGHT:66 inches (S) BMI:29.0ALLERGIES: Penicillin, PotassiumCHIEF COMPLAINT: confusionDIAGNOSIS: Normal Exam, DementiaLAB ORDERSOrder Description Priority Entered Acknowledged InitialedCBC w Diff STAT 17:05 08/31/2021 Ack'd: 17:18 17:24 [place] Karthikeyan Dickerson Ryan Tech, Tiffany ER M.D.; [id number] STAT 17:05 08/31/2021 Ack'd: 17:18 17:24 [place] ED Karthikeyan Varela, Cindy Miranda M.D.; [id number] STAT 17:05 08/31/2021 Ack'd: 17:18 17:24 [place] ED Karthikeyan Varela Ryan Tech, Tiffany ER M.D.; [id number] STAT 17:05 08/31/2021 Ack'd: 17:18 17:24 [place] Karthikeyan Dickerson Ryan Tech, Tiffany ER M.D.; [id number] Reflex to UA 17:05 08/31/2021 Ack'd: 17:18 [...] Dickerson Tiffany ER M.D.; Tech1 2 OrderSheet [facility] Emergency Department [address] [place] [address] Phone #: ext- [phone] 08/31/2021 16:35 Patient: Estela CARMONA Sex: M : 1930 Age: 89y[Electronically signed by Dee Jasso R.N. (23:06 08/31/2021)][Electronically signed by Karthikeyan Varela M.D. (23:09 08/31/2021)][Electronically locked by Dee Jasso R.N. (23:06 08/31/2021)] Name Value Range Interpretation Code Description Data Yanira rce(s) Supporting Document(s) ID Date Data Source [id number] 08/31/2021 04:48:00 PM EDT [facility] 1 Medication Reconciliation Report [facility] Emergency Department [address] [place] [address] Phone #: ext- [phone] 08/31/2021 16:35 Patient: [...] the Emergency Department: 2 Medication Reconciliation Report [facility] Emergency Department [address] [place] [address] Phone #: ext- [phone] 08/31/2021 16:35 Patient: Estela CARMONA Sex: M : 1930 Age: 89yNone.The following Medications were prescribed to the patient:None. Name Value Range Interpretation Code Description Data [facility](s) Supporting Document(s) ID Date Data Source [id number] 08/31/2021 04:48:00 PM EDT [place] [address] Medication Administration Record [facility] Emergency Department [address] [place] [address] Phone #: ext- [phone] 08/31/2021 16:35 Patient: Estela CARMONA Sex: M : 1930 Age: 89yWeight: 81.6 kgHeight/Length: 66 inBMI: 29ALLERGIES: Penicillin, PotassiumDate/Time Medication Administered Medication Ordered Name Value Range Interpretation Code Description Data Yanira [facility](s) Supporting Document(s) ID Date Data Source [id number] 08/31/2021 04:48:00 PM EDT [facility] 1 General Instructions [facility] Emergency Department [address] [place] [address] Phone #: ext- [phone] 08/31/2021 16:35 Patient: Estela CARMONA [facility]#: [id number] Sex: M : 1930 Age: 89yChronic late [...] benefits of treatment reviewed withcaregiver and patient technical service representative and understanding verbalized. Agrees to plan of care. ADDITIONAL INFORMATION 2 General Instructions [facility] Emergency Department [address] [place] [address] Phone #: ext- [phone] 08/31/2021 16:35 Patient: Estela CARMONA [facility]#: [id number] Sex: M : 1930 Age: 89yDementia and [...] Label cabinets and drawers. 3 General Instructions [facility] Emergency Department [address] [place] [address] Phone #: ext- [phone] 08/31/2021 16:35 Patient: Estela CARMONA Sex: M : 1930 Age: 89yTry to distract, not confront, the person. When he or she becomes frustrated or upset, direct theperson's attention to eating or some other interesting activity. Windows can help the person know ifit's night or day and what season it is.Medical-legal tipsTalk with your doctor or mines safety engineer about getting a power of criminal defense attorney for healthcare and for financialdecisions. It's [...] healthcare provider for a referral to a high school social science teacher, if needed. Take care of yourself with [...] to eat or drink 4 General Instructions [facility] Emergency Department [address] [place] [address] Phone #: ext- [phone] 08/31/2021 16:35 Patient: [...] Increased drowsiness, or failure to respond normally [id number] [employer]. [address] [place] [address]. All rights reserved. This information is not intended as asubstitute for professional medical care. Always follow your healthcare professional's instructions. You have been given the following additional information: Dementia, Any Type, Caregiver Support(Electronically signed by Karthikeyan Varela M.D. 08/31/2021 23:09) Name Value Range Interpretation Code Description Data Yanira rce(s) Supporting Document(s) ID Date Data Source [id number] 08/31/2021 04:48:00 PM EDT [facility] 1 Clinical Report - Nurses [facility] Emergency Department [address] [place] [address] Phone #: ext- [phone] 08/31/2021 16:35 Patient: Estela CARMONA Sex: M : 1930 Age: 89yTRIAGEArrived by EMS. Historian: EMS, fci nurse, fci records and patient.Unaccompanied. ( pt brought in via EMS per EMS fci staff want patient evaluated due toincreased confusion. per [facility] staff pt "has not been acting himself", was seen at [facility] on 08/30and they did not find anything. pt with hx of dementia.).Triage time: 16:38 08/31/2021. 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 SEPSIS SCREEN NEGATIVE. [...] Portillo Butler. 2 Clinical Report - Nurses [facility] Emergency Department [address] [place] [address] Phone #: ext- [phone] 08/31/2021 16:35 [id number] Sex[facility] M : 1930 Age: 89yPROBLEMS:Hyperlipidemia.IFG/metabolic syndrome.Diabetes [...] Portillo Butler. 3 Clinical Report - Nurses [facility] Emergency Department [address] [place] [address] Phone #: ext- [phone] 08/31/2021 16:35 Patient: [...] RR: 18. O2 saturation: 97%. --17:07 08/31/21 [place] buyer tobacco head,Cindy, ER Tech1 EKG time: (16:37 08/31/2021). EKG was performed by a tech and shown to the ED physician. --17:08 08/31/21 [place] buyer tobacco head, Cindy, ER Tech1 Reassurance given. The patient [...] RR: 16. O2 saturation: 97%. --18:10 08/31/21 [facility] JAVA ORACLE DEVELOPERLinda 19:13 08/31/21. BP: 139/74. HR: 60. RR: 16. O2 saturation: 95%. --19:13 08/31/21 [facility] TECHLinda Reassurance given to the patient. [...] disposition. --19:21 4 Clinical Report - Nurses [facility] Emergency Department [address] [place] [address] Phone #: ext- [phone] 08/31/2021 16:35 Patient: Estela CARMONA Sex: M : 1930 Age: 89y 08/31/21 LukePortillo 20:33 08/31/21. ( Med Neccessitiy faxed to [facility]. Awaiting transport. Nurse Hurtado at [facility] aware pt will be d/c.). --20:48 08/31/21 Dee Deleon R.N.DISPOSITION / DISCHARGE 20:03 08/31/21. BP: 147/79. HR: 57. RR: 16. O2 saturation: 97%. Temp: 98.4 F. Pain level now 12/22. --20:03 08/31/21 [facility] LELIA Linda Departure time: 22:59 08/31/2021. Condition at departure: stable. Learning barriers present. Ability to learn limited by dementia. Learning barriers note: written discharge instructions sent to [facility]. Spoke with NURSE Hurtado regarding findings of todays testing. The patient was discharged by the physician. He was discharged ([facility] He left via ambulance and ([facility] BLS) and on a stretcher. --23:01 08/31/21 Dee Deleon R.N. ( 2011 [facility] accepted return trip d/c. 2114 per [facility] no ETA on transport. 2199 still awaiting transport. Pt dozing at intervals, resting quietly on stretcher.). --23:04 08/31/21 Dee Deleon R.N.Locked/Released at 08/31/2021 23:06 by Dee Deleon R.N. Name Value Range Interpretation Code Description Data Yanira rce(s) Supporting Document(s) ID Date Data Source [id number] 08/31/2021 04:48:00 PM EDT [facility] 1 Clinical Report - Physicians/Mid Levels [facility] Emergency Department [address] [place] [address] Phone #: ext- [phone] 08/31/2021 16:35 Patient: Estela CARMONA Sex: M : 1930 Age: 89y Time Seen: 16:38 08/31/2021; initial patient contact. Arrived- By ambulance. Historian- EMS personnel and fci nurse and records. Disposition decision: 19:55 08/31/2021.HISTORY OF PRESENT ILLNESS Chief Complaint: CONFUSION. The patient has been confused. This started today and is now gone. It has been intermittent and waxing/waning. The patient was not found unresponsive. retirement resident. History of chronic dementia. No change in diabetic routine, alcohol recently, recent drug use or medication given prior to arrival. Dextro stick was not low prior to arrival. No weakness, numbness or recent fall. No difficulty walking. Usually has normal mobility. ([facility] [place], has dementia and known maxillary sinus mass; per staff, was a little bit more confused yesterday and today, briefly; was sent to [facility] ER yesterday, [facility]; pt sent here today for 2nd opinion; maybe workup; not confused when EMS arrived yesterday and today; pt has no complaints in ER; pt is DNR/DNI per staff). Similar symptoms previously. Patient has had similar symptoms occasionally. Recent medical care: The patient was seen recently at another facility in the emergency department. ( [facility] ER yesterday).REVIEW OF SYSTEMSNo fever, headache, head [...] esophagus. 2 Clinical Report - Physicians/Mid Levels [facility] Emergency Department [address] [place] [address] Phone #: ext- [phone] 08/31/2021 16:35 Patient: [...] use. No recent travel. Resides in a fci.ADDITIONAL NOTESThe nursing notes have been reviewed with [...] normal. 3 Clinical Report - Physicians/Mid Levels [facility] Emergency Department [address] [place] [address] Phone #: ext- [phone] 08/31/2021 16:35 Patient: Estela CARMONA Sex: M : 1930 Age: 89yLABS, X-RAYS, AND EKGEKG: No acute process. No acute ischemia. Normal EKG. Normal sinus rhythm. Rate: 63/min.Normal ST and T waves. Prior EKG unavailable. The study has been interpreted contemporaneously byme. The EKG appears to be a good tracing. Interpretation time: 16:47 08/31/2021.CT Head: ([facility] Report Call: [phone] Online chat: [email or web address] Name: FIOR CARMONA (Age): 1930 89 Gender: MDate of Exam: 08/31/2021 Physician: KARTHIKEYAN VARELA # of Images: 171Ordered As: CT HEAD WOCONFIDENTIALITY STATEMENTThis report is intended only for the use of the referring physician, and only in accordance with law, If youreceived this in error, call [phone] 1 of 1PROCEDURE INFORMATION:Exam: CT Head Without [...] Anay Escobar MD08/31/2021 7:11 PM Eastern Time ([facility])). Head CT performed without contrast. The study wasinterpreted by the radiologist.Laboratory Tests: Laboratory tests have been ordered, with results reviewed and considered in the 4 Clinical Report - Physicians/Mid Levels [facility] Emergency Department [address] [place] [address] Phone #: ext- [phone] 08/31/2021 16:35 Patient: [...] mL/min 5 Clinical Report - Physicians/Mid Levels [facility] Emergency Department [address] [place] [address] Phone #: ext- [phone] 08/31/2021 16:35 Patient: [...] TO UA CULTURE: (ERI: 08/31/2021 17:15) ( NvgRcvd 08/31/2021 19:13) Final results Test Result Flag [...] Head W/O Cont: (ERI: 08/31/2021 17:05) ( [facility] 08/31/2021 19:20) In Progress CT HEAD W/O [...] CMP 6 Clinical Report - Physicians/Mid Levels [facility] Emergency Department [address] [place] [address] Phone #: ext- [phone] 08/31/2021 16:35 Patient: Estela CARMONA [facility]#: [id number] Sex: M : 1930 Age: 89y 19:54 08/31/21. CMP nml; pt asymptomatic in ER; [facility]; [facility]. Caregiver counseled in person regarding the [...] days 7 Clinical Report - Physicians/Mid Levels [facility] Emergency Department [address] [place] [address] Phone #: ext- [phone] 08/31/2021 16:35 Patient: [...] of treatment reviewed with caregiver and patient technical service representative and understanding verbalized. Agrees to plan of care.(Electronically signed by Karthikeyan Varela M.D. 08/31/2021 23:09) Name Value Range Interpretation Code Description Data Yanira rce(s) Supporting Document(s) ID Date Data Source [id number] 08/31/2021 09:33:00 [place] [address] PHONE: [phone] FAX: [phone] Name .................. : MATHEW MERLOS Acct Number.................. : [id number] [facility]... : [id number] Stay type ............. : E/R Discharge Date......... ... : Admit Date ......... : 1 Admit Phys .................... : NICHOLE CHURCH Date of ....... : 1930 Family Phys ................... : NO PCP Phone .................. : [phone] Age ................................ : 89 Film# .................. .:[id number] Sex ................................. : M Unsigned transcriptions are preliminary reports and do not represent a medical or legal document CT HEAD W/O CONTRAST [id number] COMPLETE:08/31/21 19:20 [facility] [place] [id number] Reason(s): Altered Mental Status CT BRAIN WITHOUT [...] provided by EDI. Page 1 of 2 [facility] [address] [place] [address] PHONE: [phone] FAX: [phone] Name .................. : [id number] ROOM. ................. : VT-25 Number ................... : [id number] Stay type ............. : E/R Discharge Date......... ... : Admit Date ......... : 08/31/21 Admit Phys .................... : NICHOLE CHURCH Date of ....... : 1930 Family Phys ................... : NO PCP Phone .................. : [phone] Age ................................ : 89 Film# .................. .:[id number] Sex ................................. : M Unsigned transcriptions are preliminary reports and do not represent a medical or legal document CT HEAD W/O CONTRAST [id number] COMPLETE:08/31/21 19:20 [facility] [place] [place] [id number] Reason(s): Altered Mental Status Electronically Reviewed and Signed By Ha Diaz MD , 08/31/21 21:33, JWS Transcribe Initials: KRYSTIAN , Transcribe Date: 08/31/21 21:30, Dictation Date: Copy for: 010 EMERGENCY SRV Copy for: EMERGENCY DEPT via modem Copy for: 710 MED REC Page 2 of 2 Name Value Range Interpretation Code Description Data Yanira rce(s) Supporting Document(s) ID Date Data Source [id number] 08/31/2021 05:47:00 PM EDT [facility] Name Value Range Interpretation Code Description Data Yanira rce(s) Supporting Document(s) CBC W/AUTOMATED DIFF [facility] COMPLETE BLOOD COUNT Leukocytes [#/volume] in Blood by Automated count 7.2 10^3/uL 4.2 - 1 1.0 [facility] Erythrocytes [#/volume] in Blood by Automated count 4.25 10^6/uL 4. 50 - 6.30 L [facility] Hemoglobin [Mass/volume] in Blood 14.4 g/dL 14.0 - 16.0 [facility] Hematocrit [Volume Fraction] of Blood by Automated count 41.6 % 4 1.0 - 51.0 [facility] Erythrocyte mean corpuscular volume [Entitic volume] by Auto mated count 97.9 fL 80.0 - 94.0 H [facility] Erythrocyte mean corpuscular hemoglobin [Entitic mass] by Automated count 33.9 pg 27.0 - 34.0 [facility] Erythrocyte mean corpuscular hemoglobin concentration [Mass/volume] by Automated count 34.6 g/dL 31.0 - 36.0 [facility] Erythrocyte distribution width [Ratio] by Automated count 13.2 % 11.5 - 14.8 [facility] Platelets [#/volume] in Blood by Automated count 205 10^3/uL 150 - 45 0 [facility] Platelet mean volume [Entitic volume] in Blood by Automated count 9.2 fL 7.4 - 10.4 [facility] Neutrophils/100 leukocytes in Blood by Automated count 71.0 % 37. 0 - 80.0 [facility] Lymphocytes/100 leukocytes in Blood by Manual count 19.4 % 25.0 - 40.0 L [facility] Monocytes/100 leukocytes in Blood by Automated count 6.3 % 3.0 - 8.0 [facility] Eosinophils/100 leukocytes in Blood by Automated count 2.4 % 0.0 - 7.0 [facility] Basophils/100 leukocytes in Blood by Automated count 0.6 % 0.0 - 2.0 [facility] %IG 0.3 % 0.0 - 0.0 H [facility] %NRBC 0.0 % 0.0 - 0.0 [facility] al Neutrophils [#/volume] in Blood by Automated count 5.09 10^3/uL 2.00 - 6.90 [facility] Lymphocytes [#/volume] in Blood by Automated count 1.39 10^3/uL 0.60 - 3.40 [facility] Monocytes [#/volume] in Blood by Automated count 0.45 10^3/uL 0.00 - 0.90 [facility] Eosinophils [#/volume] in Blood by Automated count 0.17 10^3/uL 0.00 - 0.70 [facility] Basophils [#/volume] in Blood by Automated count 0.04 10^3/uL 0.00 - 0.20 [facility] #IG 0.02 10^3/uL 0.00 - 0.10 [facility] H ospital #NRBC 0.00 10^3/uL 0.00 - 0.00 [facility] ospital MANUAL DIFF NOT INDICATED [facility] RBC MORPH NOT INDICATED [facility] spital ID Date Data Source [id number] 08/31/2021 06:31:00 PM EDT [facility] Name Value Range Interpretation Code Description Data Yanira rce(s) Supporting Document(s) TROPONIN T <0.01 NG/ML 0.00 - 0.10 [facility] ospital TROPONIN T0.1 ng/ml Recommended as the c linical threshold value forTroponin T. ID Date Data Source [id number] 08/31/2021 06:47:00 PM EDT [facility] Name Value Range Interpretation Code Description Data Yanira rce(s) Supporting Document(s) Thyrotropin [Units/volume] in Serum or Plasma by Detec tion limit <= 0.05 mIU/L 1.42 uIU/mL 0.47 - 5.01 [facility] ID Date Data Source [id number] 08/31/2021 07:51:00 PM EDT [facility] Name Value Range Interpretation Code Description Data Yanira rce(s) Supporting Document(s) COMPREHENSIVE METABOLIC PANEL [facility] COMPREHENSIVE METABOLIC PANEL Sodium [Moles/volume] in Serum or Plasma 141 mEq/L 134 - 153 [facility] Potassium [Moles/volume] in Serum or Plasma 4.0 mEq/L 3.6 - 5.0 [facility] Chloride [Moles/volume] in Serum or Plasma 103 mEq/L 98 - 107 [facility] Carbon dioxide, total [Moles/volume] in Serum or Plasma 26 MEQ/L 22 - 30 [facility] Glucose [Mass/volume] in Serum or Plasma 111 MG/DL 70 - 99 H [facility] BUN 16 MG/DL 7 - 21 [facility] Creatinine [Mass/volume] in Serum or Plasma 1.0 MG/DL 0.7 - 1.5 [facility] BUN/CREAT 16 8 - 27 [facility] Protein [Mass/volume] in Serum or Plasma 6.8 G/DL 6.3 - 8.2 [facility] Albumin [Mass/volume] in Serum or Plasma 4.0 G/DL 3.9 - 5.0 [facility] Globulin [Mass/volume] in Serum by calculation 2.8 GM/DL 2.4 - 3.2 [facility] A/G RATIO 1.4 0.8 - 2.0 [facility] Calcium [Mass/volume] in Serum or Plasma 9.0 MG/DL 8.4 - 10.2 [facility] Bilirubin.total [Mass/volume] in Serum or Plasma <0.7 MG/DL 0.2 - 1.3 [facility] Alkaline phosphatase [Enzymatic activity/volume] in Serum or Plasma 92 U/L 38 - 126 [facility] Aspartate aminotransferase [Enzymatic activity/volume] in Serum or Plasma 19 U/L 5 - 40 [facility] Alanine aminotransferase [Enzymatic activity/volume] in Seru m or Plasma 15 U/L 7 - 56 [facility] Anion gap 3 in Serum or Plasma 12.0 mmol/L 8.0 - 16.0 [facility] AGE 89 yrs [facility] NON-AA GFR >60 mL/min [facility] ital AFR AMER GFR >60 mL/min [facility] Ho spital Male GFR In terprentation [...] >32 mL/min Normal ID Date Data Source [id number] 08/31/2021 07:12:00 PM EDT [facility] Name Value Range Interpretation Code Description Data Yanira rce(s) Supporting Document(s) UA REFLEX TO UA CULTURE [facility] URINALYSIS SOURCE Clean Catch [facility] Hosp ital COLOR yellow NORMAL: Yellow [facility] ospital CLARITY clear NORMAL: Clear [facility] Ho spital Specific gravity of Urine by Test strip 1.025 1.001 - 1.030 [facility] pH 5 5 - 9 [facility] Glucose [Mass/volume] in Urine by Test strip NORM NORMAL: Negat [facility] Bilirubin.total [Presence] in Urine by Test strip NEG NORMAL: Negative [facility] Ketones [Presence] in Urine by Test strip NEG NORMAL: Negative [facility] Protein [Mass/volume] in Urine by Test strip 15 NORMAL: Negat [facility] Nitrite [Presence] in Urine by Test strip NEG NORMAL: Negative [facility] BLOOD NEG NORMAL: Negative [facility] Leukocyte esterase [Presence] in Urine by Test strip NEG ASHLEY L: Negative [facility] Urobilinogen [Mass/volume] in Urine by Test strip NOR less albin n 1.0 mg/dL [facility] MICROSCOPIC See Below [facility] Erythrocytes [#/volume] in Urine by Test strip 0 - 1 NORMAL: NON E SEEN [facility] EPITHELIAL FEW NORMAL: NONE SEEN [facility] Mucus [Presence] in Urine sediment by Light microscopy 1+ NOR MAL: NONE SEEN [facility] ID Date Data Source [id number] 08/30/2021 03:25:00 PM EDT [facility] Name Value Range Interpretation Code Description Data Yanira rce(s) Supporting Document(s) SARS-CoV-2 (COVID 19) NEGATIVE - SARS-CoV-2 (COVID19) [facility] This lab was ordered by [facility] a nd reported by [facility]. ID Date Data Source LIPID PANEL (CARDIAC RISK) 03/30/2021 12:00:00 AM EDT eCW1 ( [facility]) Name Value Range Interpretation Code Description Data Yanira rce(s) Supporting Document(s) Triglyceride [Mass/volume] in Serum or Plasma by calculation 513 <150 TRIGLYCERIDES LEVEL eCW1 ([facility]) 141 NON-HDL-C eCW1 ([facility]) Cholesterol in HDL [Moles/volume] in Serum or Plasma 57 >40 HDL CHOLESTEROL eCW1 ([facility]) Cholesterol [Moles/volume] in Serum or Plasma 198 <200 CHOLESTEROL LEVEL eCW1 ([facility]) 3.473 <5 CHOLESTEROL RISK RATIO eCW1 ([facility]) ID Date Data Source [id number] 03/30/2021 12:00:00 AM EDT eCW1 ([facility]) Name Value Range Interpretation Code Description Data Yanira rce(s) Supporting Document(s) Hemoglobin A1c/Hemoglobin.total in Blood 5.9 HEMOGLOBIN A1c eCW1 ([facility]) ID Date Data Source Comprehensive Metabolic Profile (CMP) 03/30/2021 12:00:00 AM EDT eCW1 ([facility]) Name Value Range Interpretation Code Description Data Yanira rce(s) Supporting Document(s) 139 70-100 GLUCOSE, FASTING eCW1 ([facility]) 17 7-18 BLOOD UREA NITROGEN eCW1 ([facility]) 0.95 0.70-1.30 CREATININE FOR GFR eCW1 ([facility]) > 60.0 >35 GLOMERULAR FILTRATION RATE eCW 1 ([facility]) 30 21-32 CARBON DIOXIDE LEVEL eCW1 ([facility]) 139 136-145 SODIUM LEVEL eCW1 ([facility]) 104 98-107 CHLORIDE LEVEL eCW1 ([facility]) 4.2 3.5-5.1 POTASSIUM SERUM eCW1 ([facility]) 21 7-37 AST/SGOT eCW1 ([facility]) 8.8 8.8-10.2 CALCIUM LEVEL eCW1 ([facility]) 89 45-117 ALKALINE PHOSPHATASE eCW1 ([facility]) 31 12-78 ALT/SGPT eCW1 ([facility]) 3.3 3.2-5.2 ALBUMIN eCW1 ([facility]) 0.8 0.2-1.0 BILIRUBIN,TOTAL eCW1 ([facility]) 7.0 6.4-8.2 TOTAL PROTEIN eCW1 ([facility]) 0.9 ALBUMIN/GLOBULIN RATIO eCW1 ([facility]) ID Date Data Source VITAMIN B12 LEVEL 09/29/2020 12:00:00 AM EST eCW1 ([facility]) Name Value Range Interpretation Code Description Data Yanira rce(s) Supporting Document(s) [id number] VITAMIN B12 LEVEL eCW1 ([facility]) ID Date Data Source FREE T4 & TSH PANEL 09/29/2020 12:00:00 AM EST eCW1 ([facility]) Name Value Range Interpretation Code Description Data Yanira rce(s) Supporting Document(s) 0.95 0.76-1.46 eCW1 ([facility]) 3.600 0.358-3.740 eCW1 ([facility]) ID Date Data Source FOLATE 09/29/2020 12:00:00 AM EST eCW1 ([facility]) Name Value Range Interpretation Code Description Data Yanira rce(s) Supporting Document(s) 21.1 >5.4 eCW1 ([facility]) ID Date Data Source CBC - Complete Blood Count 09/29/2020 12:00:00 AM EST eCW1 ( [facility]) Name Value Range Interpretation Code Description Data Yanira rce(s) Supporting Document(s) 4.26 4.30-6.10 eCW1 ([facility]) 7.2 4.0-10.0 eCW1 ([facility]) 13.8 13.5-17.5 eCW1 ([facility]) 32.8 32.0-36.5 eCW1 ([facility]) 42.1 42.0-52.0 eCW1 ([facility]) 98.8 80.0-96.0 eCW1 ([facility]) 32.4 27.0-33.0 eCW1 ([facility]) 206 150-450 eCW1 ([facility]) 13.2 11.5-14.5 eCW1 ([facility]) Procedure Social History Code Duration Value Status Description Data Source(s ) Smoking 05/25/2021 12:00:00 AM EDT Former Smoker completed Former Smoker eCW1 ([facility]) Smoking 05/25/2021 12:00:00 AM EDT Former Smoker completed Former Smoker eCW1 ([facility]) Smoking 05/25/2021 12:00:00 AM EDT Former Smoker completed Former Smoker eCW1 ([facility]) Smoking 05/25/2021 12:00:00 AM EDT Former Smoker completed Former Smoker eCW1 ([facility]) Smoking 05/25/2021 12:00:00 AM EDT Former Smoker completed Former Smoker eCW1 ([facility]) Smoking 05/25/2021 12:00:00 AM EDT Former Smoker completed Former Smoker eCW1 ([facility]) Smoking 05/25/2021 12:00:00 AM EDT Former Smoker completed Former Smoker eCW1 ([facility]) Smoking 05/25/2021 12:00:00 AM EDT Former Smoker completed Former Smoker eCW1 ([facility]) Smoking 05/25/2021 12:00:00 AM EDT Former Smoker completed Former Smoker eCW1 ([facility]) Smoking 03/30/2021 12:00:00 AM EDT Former Smoker completed Former Smoker eCW1 ([facility]) Smoking 03/30/2021 12:00:00 AM EDT Former Smoker completed Former Smoker eCW1 ([facility]) Smoking 03/30/2021 12:00:00 AM EDT Former Smoker completed Former Smoker eCW1 ([facility]) Smoking 03/30/2021 12:00:00 AM EDT Former Smoker completed Former Smoker eCW1 ([facility]) Smoking 03/30/2021 12:00:00 AM EDT Former Smoker completed Former Smoker eCW1 ([facility]) Smoking 01/20/2021 12:00:00 AM EST Former Smoker completed Former Smoker eCW1 ([facility]) Smoking 01/20/2021 12:00:00 AM EST Former Smoker completed Former Smoker eCW1 ([facility]) Smoking 01/20/2021 12:00:00 AM EST Former Smoker completed Former Smoker eCW1 ([facility]) Smoking 09/29/2020 12:00:00 AM EST Former Smoker completed Former Smoker eCW1 ([facility]) Smoking 09/29/2020 12:00:00 AM EST Former Smoker completed Former Smoker eCW1 ([facility]) Smoking 09/29/2020 12:00:00 AM EST Former Smoker completed Former Smoker eCW1 ([facility]) Smoking 09/29/2020 12:00:00 AM EST Former Smoker completed Former Smoker eCW1 ([facility]) Smoking 09/29/2020 12:00:00 AM EST Former Smoker completed Former Smoker eCW1 ([facility]) Smoking 08/16/2020 12:00:00 AM EDT Former Smoker completed Former Smoker eCW1 ([facility]) Smoking 08/16/2020 12:00:00 AM EDT Former Smoker completed Former Smoker eCW1 ([facility]) Vital Signs ID Date Data Source UNK Name Value Range Interpretation Code Description Data Source(s) Body weight 180.00 [lb_av] 180.00 [lb_av] CATHY T ([facility]) Body height 64 [in_i] 64 [in_i] [facility] ([facility]) 5'4" Malo body weight 130 [lb_av] 130 [lb_av] GOYOEN T ([facility]) Body surface area Derived from formula 1.87 m2 1.87 m2 [facility] ([facility]) Body mass index (BMI) [Ratio] 30.9 kg/m2 30.9 k g/m2 [facility] ([facility]) Body weight 81.648 kg 81.648 kg [facility] ([facility]) Body temperature 98 [degF] 98 [degF] eCW1 ([facility]) Body weight 186.6 [lb_av] 186.6 [lb_av] eCW1 ([facility]) Body height 64 [in_i] 64 [in_i] eCW1 ([facility]) Body mass index (BMI) [Ratio] 32.03 kg/m2 32.03 kg/m2 eCW1 ([facility]) Heart rate 69 /min 69 /min eCW1 (formerly [facility]) Respiratory rate 18 /min 18 /min eCW1 ([facility]) Systolic blood pressure 120 mm[Hg] 120 mm[Hg] e CW1 ([facility]) Diastolic blood pressure 80 mm[Hg] 80 mm[Hg] eCW1 ([facility]) Body mass index (BMI) [Ratio] 30.9 kg/m2 30.9 k g/m2 [facility] ([facility]) Body weight 81.648 kg 81.648 kg [facility] ([facility]) Body weight 180.00 [lb_av] 180.00 [lb_av] MEDEN T ([facility]) Malo body weight 130 [lb_av] 130 [lb_av] MEDEN T ([facility]) Body surface area Derived from formula 1.87 m2 1.87 m2 [facility] ([facility]) Body height 64 [in_i] 64 [in_i] [facility] ([facility]) 5'4" Body temperature 97.8 [degF] 97.8 [degF] eCW1 ( [facility]) Body weight 184.2 [lb_av] 184.2 [lb_av] eCW1 ([facility]) Body height 64 [in_i] 64 [in_i] eCW1 ([facility]) Body mass index (BMI) [Ratio] 31.61 kg/m2 31.61 kg/m2 eCW1 ([facility]) Heart rate 88 /min 88 /min eCW1 (formerly [facility]) Respiratory rate 18 /min 18 /min eCW1 ([facility]) Systolic blood pressure 120 mm[Hg] 120 mm[Hg] e CW1 ([facility]) Diastolic blood pressure 70 mm[Hg] 70 mm[Hg] eCW1 ([facility]) Body weight 186.4 [lb_av] 186.4 [lb_av] eCW1 ([facility]) Body height 64 [in_i] 64 [in_i] eCW1 ([facility]) Body mass index (BMI) [Ratio] 31.99 kg/m2 31.99 kg/m2 eCW1 ([facility]) Heart rate 86 /min 86 /min eCW1 (formerly [facility]) Respiratory rate 18 /min 18 /min eCW1 ([facility]) Body temperature 97.8 [degF] 97.8 [degF] eCW1 ( [facility]) Systolic blood pressure 130 mm[Hg] 130 mm[Hg] e CW1 ([facility]) Diastolic blood pressure 74 mm[Hg] 74 mm[Hg] eCW1 ([facility]) Body weight 186.6 [lb_av] 186.6 [lb_av] eCW1 ([facility]) Body height 64 [in_i] 64 [in_i] eCW1 ([facility]) Body mass index (BMI) [Ratio] 32.03 kg/m2 32.03 kg/m2 eCW1 ([facility]) Heart rate 88 /min 88 /min eCW1 (formerly [facility]) Respiratory rate 18 /min 18 /min eCW1 ([facility]) Body temperature 97.7 [degF] 97.7 [degF] eCW1 ( [facility]) Systolic blood pressure 110 mm[Hg] 110 mm[Hg] e CW1 ([facility]) Diastolic blood pressure 70 mm[Hg] 70 mm[Hg] eCW1 ([facility]) Body weight 189.8 [lb_av] 189.8 [lb_av] eCW1 ([facility]) Body height 64 [in_i] 64 [in_i] eCW1 ([facility]) Body mass index (BMI) [Ratio] 32.58 kg/m2 32.58 kg/m2 eCW1 ([facility]) Systolic blood pressure 124 mm[Hg] 124 mm[Hg] e CW1 ([facility]) Diastolic blood pressure 78 mm[Hg] 78 mm[Hg] eCW1 ([facility]) Patient Treatment Plan of Care Planned Activity Planned Date Details Description Data Source (s) buspirone hydrochloride 10 MG Oral Tablet 05/25/2021 12:00:00 AM ED T eCW1 ([facility]) buspirone hydrochloride 10 MG Oral Tablet 05/25/2021 12:00:00 AM ED T eCW1 ([facility]) buspirone hydrochloride 10 MG Oral Tablet 05/25/2021 12:00:00 AM ED T eCW1 ([facility]) buspirone hydrochloride 10 MG Oral Tablet 05/25/2021 12:00:00 AM ED T eCW1 ([facility]) buspirone hydrochloride 10 MG Oral Tablet 05/25/2021 12:00:00 AM ED T eCW1 ([facility]) buspirone hydrochloride 10 MG Oral Tablet 05/25/2021 12:00:00 AM ED T eCW1 ([facility]) buspirone hydrochloride 10 MG Oral Tablet 05/25/2021 12:00:00 AM ED T eCW1 ([facility]) buspirone hydrochloride 10 MG Oral Tablet 05/25/2021 12:00:00 AM ED T eCW1 ([facility]) buspirone hydrochloride 10 MG Oral Tablet 05/25/2021 12:00:00 AM ED T eCW1 ([facility]) buspirone hydrochloride 10 MG Oral Tablet 05/04/2021 12:00:00 AM ED T eCW1 ([facility])
[2021-09-18 08:29] VITALS: BP 151/93
--- NOTE | 2021-09-18 20:13 | ECGEPIP ---
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
== END 2021-09-18 08:31 | disposition home or self-care (01) ==
LOC: M ED 03:39
DX: S00.03XA Contusion of scalp, initial encounter (principal); R00.1 Bradycardia, unspecified; W19.XXXA Unspecified fall, initial encounter; Y92.099 Unspecified place in other non-institutional residence as the place of occurrence of the external cause; Y93.9 Activity, unspecified; Y99.9 Unspecified external cause status; F03.90 Unspecified dementia, unspecified severity, without behavioral disturbance, psychotic disturbance, mood disturbance, and anxiety; G43.909 Migraine, unspecified, not intractable, without status migrainosus; E78.00 Pure hypercholesterolemia, unspecified; Z87.01 Personal history of pneumonia (recurrent); K21.9 Gastro-esophageal reflux disease without esophagitis; K22.70 Barrett's esophagus without dysplasia; N40.0 Benign prostatic hyperplasia without lower urinary tract symptoms; E11.9 Type 2 diabetes mellitus without complications; M54.9 Dorsalgia, unspecified; F41.9 Anxiety disorder, unspecified; F32.9 Major depressive disorder, single episode, unspecified; J34.89 Other specified disorders of nose and nasal sinuses; Z79.82 Long term (current) use of aspirin; Z79.899 Other long term (current) drug therapy; Z88.0 Allergy status to penicillin; Z88.8 Allergy status to other drugs, medicaments and biological substances
CPT/HCPCS: 70450; 72125; 80048; 81001; 85025; 87631; 93005; 96374; 99284; J2405

== ENCOUNTER 2021-09-22 12:32 | Emergency (ER) | payer MEDICARE, BC, OTHER ==
[~2021-09-22] VITALS: Ht 172.7 cm; Wt 84.1 kg
[2021-09-22] MEDS ORDERED: FAMOTIDINE INJ 20MG/2ML VIAL (S0028 PER 1) IVP ONE (13:10)
[2021-09-22] MEDS ORDERED: NS 1,000 ML IV SCH (13:10)
[2021-09-22] MEDS ORDERED: GI COCKTAIL 50ML BTL(HYOSCYAMINE/MAALOX/LIDOCAINE VISCOUS)(1:3:1) PO ONE (13:10)
[2021-09-22] MEDS ORDERED: ONDANSETRON 4MG/2ML VIAL IV ONE (13:10)
--- NOTE | 2021-09-22 13:38 | REP ---
INDICATION: abd pain. COMPARISON: 01/15/2020 the latest prior a contrast-enhanced exam TECHNIQUE: Standard helical technique without intravenous or oral bowel preparatory contrast. FINDINGS: There is no significant change in appearance of the lung bases. Cholelithiasis has developed since the last exam paired gravel-like calculi are identified. The liver, spleen, pancreas, and adrenal glands do not appear to be significantly changed. Three tiny nonobstructing nephroliths are seen in the right kidney and 3 tiny nonobstructing nephroliths are seen in the left kidney. These cannot be compared to the prior exam since the prior exam was a contrast-enhanced exam. There is no evidence of obstructive uropathy. There are no ureterolith sore urinary bladder calcifications. There are bilateral pelvic phleboliths status quo. 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 There is no significant change in appearance of the bowel loops or the mesenteries. There is descending colon and sigmoid colon diverticulosis. There is no mass or adenopathy. There is no free fluid or free air. Bone window technique throughout the examination shows no evidence of an acute osseous abnormality. There are spinal degenerative changes and discogenic changes status quo. IMPRESSION: There is no evidence of acute disease. There is cholelithiasis and there are nonobstructing tiny nephroliths as described above. <Electronically signed by Jason Faria > 09/22/21 [id number]
[2021-09-22 13:57] LABS: BASO % 0.2 % (0.0-1.0); EOS % 0.5 % (0.0-3.0); HEMATOCRIT 41.5 % (42.0-52.0); HEMOGLOBIN 14.1 g/dl (13.5-17.5); LYMPH # 0.9 10^3/uL (1.5-5.0); LYMPH % 10.3 % (24.0-44.0); MEAN CORPUSCULAR HEMOGLOBIN 33.3 pg (27.0-33.0); MEAN CORPUSCULAR VOLUME 98.1 fl (80.0-96.0); MONO # 0.4 10^3/uL (0.0-0.8); MONO % 4.4 % (2.0-8.0); NEUTROPHILS % 84.1 % (36.0-66.0); PLATELET COUNT, AUTOMATED 164 10^3/uL (150-450); RED BLOOD COUNT 4.23 10^6/uL (4.30-6.10); WHITE BLOOD COUNT 8.3 10^3/uL (4.0-10.0)
--- OUTSIDE RECORDS SUMMARY | 2021-09-22 14:14 | CCD ---
Author Author [facility] Organization [facility] Address Unknown Phone Unavailable Care Team Providers Care Ict Analyst Name Role Phone NO, PCP Unavailable Unavailable [...] [facility] Unavailable Unavailable rTeasure [facility] Unavailable Unavailable AKHIL, [...] AK[facility]IL, [facility] Unavailable Unavailable AKHLI, [facility] Unavailable Unavailable AKHIL, [...] is protected by Article 27-F of the [facility] Public Health law. If you continue you may have access to information: Regarding HIV / AIDS; Provided by facilities licensed or operated by the [facility] Office of Mental Health; or Provided by the [facility] Office for People With Developmental Disabilities. If such information is present, then the following [facility] mandated warning applies: This information has been [...] Description Data Source(s) Unknown Unknown Problem MEDENT ([facility]) Encounters Encounter Providers Location Date Indications Data Source(s ) Emergency Attender: KARTHIKEYAN Owensant: PCP NO 08/31/2021 04:48:00 PM EDT - 08/31/2021 11:04:00 PM EDT [facility] Patient discharged. [place] [address] [facility] [address] 08/31/2021 12:00:00 AM EDT eCW1 (Critical access hospital) Unknown [address] [facility] [address] 08/30/2021 12:00:00 AM EDT eCW1 (Critical access hospital) Unknown [address] [facility] [address] 08/15/2021 12:00:00 AM EDT eCW1 ([facility]) Unknown [address] [facility] [address] 07/19/2021 12:00:00 AM EDT eCW1 ([facility]) Outpatient Attender: DARCIE TRIPATHI 07/12/2021 07:47:00 AM EDT - 07/08/2021 07:47:00 AM EDT [facility] Patient discharged. Unknown [address] [facility] [address] 07/05/2021 12:00:00 AM EDT eCW1 ([facility]) Unknown [address] [facility] [address] 06/23/2021 12:00:00 AM EDT eCW1 ([facility]) Unknown [address] [facility] [address] 06/22/2021 12:00:00 AM EDT eCW1 ([facility]) Unknown [address] [facility] [address] 06/14/2021 12:00:00 AM EDT eCW1 ([facility]) Outpatient Attender: LOKI Angeles/Lanie/Darien/Borisd l 06/01/2021 01:15:00 PM EDT MED[facility] ([facility] [place] [address] [facility] [address] 05/25/2021 12:00:00 AM EDT eCW1 ([facility]) Outpatient Attender: LOKI Angeles/Lanie/Darien/Reind l 05/10/2021 10:30:00 AM EDT MEDENT ([facility]) [place] [address] [facility] [address] 05/02/2021 12:00:00 AM EDT eCW1 ([facility]) Unknown [address] [facility] [address] 04/18/2021 12:00:00 AM EDT eCW1 ([facility]) Unknown [address] [facility] [address] 04/07/2021 12:00:00 AM EDT eCW1 ([facility]) Unknown [address] [facility] [address] 04/05/2021 12:00:00 AM EDT eCW1 ([facility]) Office Visit, Est Pt., Level 2 FC [address] [place] [address] 03/30/2021 12:00:00 AM EDT eCW1 ([facility]) Unknown [address] [facility] [address] 03/01/2021 12:00:00 AM EDT eCW1 ([facility]) Unknown [address] [facility] [address] 02/01/2021 12:00:00 AM EDT eCW1 ([facility]) Outpatient [address] [facility] [address] 01/20/2021 12:00:00 AM EST eCW1 ([facility]) Unknown [address] [facility] [place] [address] 01/13/2021 12:00:00 AM EST eCW1 ([facility]) Unknown [address] [facility] [address] 11/24/2020 12:00:00 AM EST eCW1 ([facility]) Unknown [address] [facility] [place] [address] 11/03/2020 12:00:00 AM EST eCW1 ([facility]) Unknown [address] [facility] [place] [address] 10/05/2020 12:00:00 AM EST eCW1 ([facility]) Outpatient [address] [facility] [address] 09/29/2020 12:00:00 AM EST eCW1 (Critical access hospital) Unknown [address] [facility] [address] 09/03/2020 12:00:00 AM EDT eCW1 (Critical access hospital) Office Visit, Est Pt., Level 4 PC [address] [place] [address] 08/16/2020 12:00:00 AM EDT eCW1 ([facility]) Immunizations Vaccine Date Status Description Data Source(s) COVID-19 VACC, MRNA(PFIZER)/PF 09/14/2021 12:00:00 AM EDT completed [facility] COVID-19 VACCINE Pfizer 08/25/2021 12:00:00 AM EDT completed [facility] Vaccine Series Complete: YESThis Data wa s Submitted to [facility] Via [employer] COVID-19 VACCINE Pfizer 12/08/2020 12:00:00 AM EST completed [facility] Vaccine Series Complete: YESThis Data wa s Submitted to [facility] [employer] COVID-19 VACCINE Pfizer 11/26/2020 12:00:00 AM EST completed [facility] Vaccine Series Complete: NOThis Data was Submitted to [facility] [employer] INFLUENZA VACCINE QUADRIVALENT 2019- (65 YR UP)/MF59 C.1/PF 08/27/2020 12:00:00 AM EDT completed [facility] IIV3. This is one of two codes replacing CVX 15, which is being retired. 08/16/2020 12:06:00 PM EDT completed eCW1 ([facility]) IIV3. This is one of two codes replacing CVX 15, which is being retired. 08/16/2020 12:06:00 PM EDT completed eCW1 ([facility]) IIV3. This is one of two codes replacing CVX 15, which is being retired. 08/16/2020 12:06:00 PM EDT completed eCW1 ([facility]) IIV3. This is one of two codes replacing CVX 15, which is being retired. 08/16/2020 12:06:00 PM EDT completed eCW1 ([facility]) IIV3. This is one of two codes replacing CVX 15, which is being retired. 08/16/2020 12:06:00 PM EDT completed eCW1 ([facility]) IIV3. This is one of two codes replacing CVX 15, which is being retired. 08/16/2020 12:06:00 PM EDT completed eCW1 ([facility]) IIV3. This is one of two codes replacing CVX 15, which is being retired. 08/16/2020 12:06:00 PM EDT completed eCW1 ([facility]) IIV3. This is one of two codes replacing CVX 15, which is being retired. 08/16/2020 12:06:00 PM EDT completed eCW1 ([facility]) IIV3. This is one of two codes replacing CVX 15, which is being retired. 08/16/2020 12:06:00 PM EDT completed eCW1 ([facility]) IIV3. This is one of two codes replacing CVX 15, which is being retired. 08/16/2020 12:06:00 PM EDT completed eCW1 ([facility]) IIV3. This is one of two codes replacing CVX 15, which is being retired. 08/16/2020 12:06:00 PM EDT completed eCW1 ([facility]) IIV3. This is one of two codes replacing CVX 15, which is being retired. 08/16/2020 12:06:00 PM EDT completed eCW1 ([facility]) IIV3. This is one of two codes replacing CVX 15, which is being retired. 08/16/2020 12:06:00 PM EDT completed eCW1 ([facility]) IIV3. This is one of two codes replacing CVX 15, which is being retired. 08/16/2020 12:06:00 PM EDT completed eCW1 ([facility]) IIV3. This is one of two codes replacing CVX 15, which is being retired. 08/16/2020 12:06:00 PM EDT completed eCW1 ([facility]) IIV3. This is one of two codes replacing CVX 15, which is being retired. 08/16/2020 12:06:00 PM EDT completed eCW1 ([facility]) IIV3. This is one of two codes replacing CVX 15, which is being retired. 08/16/2020 12:06:00 PM EDT completed eCW1 ([facility]) IIV3. This is one of two codes replacing CVX 15, which is being retired. 08/16/2020 12:06:00 PM EDT completed eCW1 ([facility]) IIV3. This is one of two codes replacing CVX 15, which is being retired. 08/16/2020 12:06:00 PM EDT completed eCW1 ([facility]) IIV3. This is one of two codes replacing CVX 15, which is being retired. 08/16/2020 12:06:00 PM EDT completed eCW1 ([facility]) IIV3. This is one of two codes replacing CVX 15, which is being retired. 08/16/2020 12:06:00 PM EDT completed eCW1 ([facility]) IIV3. This is one of two codes replacing CVX 15, which is being retired. 08/16/2020 12:06:00 PM EDT completed eCW1 ([facility]) Medications Medication Brand Name Start Date Product [...] activ e busPIRone HCl 10 MG eCW1 ([facility]) buspirone hydrochloride 10 MG Oral Tablet busPIRone HC l 10 MG busPIRone HCl 10 MG 05/25/2021 12:00:00 AM EDT 1.0 {tablet} activ e busPIRone HCl 10 MG eCW1 ([facility]) buspirone hydrochloride 10 MG Oral Tablet busPIRone HC l 10 MG busPIRone HCl 10 MG 05/25/2021 12:00:00 AM EDT 1.0 {tablet} activ e busPIRone HCl 10 MG eCW1 ([facility]) buspirone hydrochloride 10 MG Oral Tablet busPIRone HC l 10 MG busPIRone HCl 10 MG 05/25/2021 12:00:00 AM EDT 1.0 {tablet} activ e busPIRone HCl 10 MG eCW1 ([facility]) buspirone hydrochloride 10 MG Oral Tablet busPIRone HC l 10 MG busPIRone HCl 10 MG 05/25/2021 12:00:00 AM EDT 1.0 {tablet} activ e busPIRone HCl 10 MG eCW1 ([facility]) buspirone hydrochloride 10 MG Oral Tablet busPIRone HC l 10 MG busPIRone HCl 10 MG 05/25/2021 12:00:00 AM EDT 1.0 {tablet} activ e busPIRone HCl 10 MG eCW1 ([facility]) buspirone hydrochloride 10 MG Oral Tablet busPIRone HC l 10 MG busPIRone HCl 10 MG 05/25/2021 12:00:00 AM EDT 1.0 {tablet} activ e busPIRone HCl 10 MG eCW1 ([facility]) buspirone hydrochloride 10 MG Oral Tablet busPIRone HC l 10 MG busPIRone HCl 10 MG 05/25/2021 12:00:00 AM EDT 1.0 {tablet} activ e busPIRone HCl 10 MG eCW1 ([facility]) buspirone hydrochloride 10 MG Oral Tablet busPIRone HC l 10 MG busPIRone HCl 10 MG 05/25/2021 12:00:00 AM EDT 1.0 {tablet} activ e busPIRone HCl 10 MG eCW1 ([facility]) buspirone hydrochloride 10 MG Oral Tablet busPIRone HC l 10 MG busPIRone HCl 10 MG 05/04/2021 12:00:00 AM EDT 1.0 {tablet} activ e busPIRone HCl 10 MG eCW1 ([facility]) Insurance Providers Payer name Policy type / Coverage type Policy ID Covered green party ID Covered green party's relationship to dc Policy Dc Plan Information MEDICARE [id number] SP [id number] A MEDICARE [id number] SP [id number] A [id number] A [employer] [place] [id number] SP [id number] [facility] [id number] SP [id number] [employer] [place] [id number] SP [id number] [facility] [id number] SP [id number] MEDICARE PART A [facility] [id number] 18 [id number] [facility] E[facility] PLAN [id number] 18 [id number] MEDICARE PART A [facility] [id number] 18 [id number] MEDICARE [id number] SP [id number] A [employer] [place] [id number] SP [id number] [employer] [place] UNAVAILABLE UNAVAILABLE [place] PPO [id number] SP [id number] MEDICARE C [id number] S [id number] [facility] O [id number] S [id number] MEDICARE C [id number] S [id number] A [employer] [place] [id number] SP [id number] ANS-Medicare Part B [id number] ANSI-Commercial [id number] ANSI-Medicare Part B [id number] ANSI-Commercial [id number]-[id number] [id number]-p4c4-82n5-x25y-[id number] ANSI-Medicare Part B [id number] ANSI-Commercial [id number] MEDICARE [id number] SP [id number] ANSI-Commercial [id number]-d41x-0600-26vt-[id number] ANSI-Medicare Part B [id number] ANSI-Commercial be50d2gj-dmqk-167p-7813-[id number] xk82i5gw-ujhn-522j-7678-[id number] ANSI-Medicare Part B [id number] ANSI-Commercial vzi6xeb0-ufhu-727h-ct19-ih098efpgk79 nfw2tio2-hfkn-618p-ld85-qm060ncvhw86 ANSI-Medicare Part B [id number]-a4tq-dr9cn5k3jkq3 ANSI-Medicare Part B [id number]-[id number] ANSI-Commercial 5oyt24n6-y9k0-3jpx-4828-b9i0295vl80n 9ivh93d7-p8z7-6xbs-6096-f5a1019du08d ANSI-Commercial 4hl23jv0-o121-9jbn-64wl-606zi8l6q089 7nk32gf3-d250-4mcx-97jj-987hg1z6a848 ANSI-Medicare Part B [id number]-na78-9g79-0u3z-[id number] ANSI-Commercial 601b5q87-q7ke-320c-pvp0-0p2207c16mb8 800s6i33-a0dt-468p-kwl8-9z4872j70pc0 ANSI-Medicare Part B [id number]-sx94gcmda4p6 4m4j9k57-x0o6-9230-1x6z-om47wqjqr0n0 ANSI-Medicare Part B [id number]-324e-2p24-1a36-[id number] ANSI-Commercial 6y3418m8-8x04-29zq-aod8-004h8918n78l 6a1229c3-5y18-64iw-eog2-523f7943w91q ANSI-Medicare Part B [id number]-5gl22g3c850z j8ow4f27-409s-16t8-0x1m-8kw85i6k871y ANSI-Commercial 982wru2m-134h-7v91-s3h3-r218pq1099i6 416pbo2g-278r-3k11-g1d4-x230ju3171a8 ANSI-Medicare Part B [id number]-[id number] 891y1q91-c6l8-47s4-0297-x6f08a31ve70 ANSI-Commercial x8w4sn87-1304-10pz-7j97-20l886u83s50 m4s3in42-7577-08rp-9s37-00i562y78e71 ANSI-Commercial y0nn2265-1ux3-9a5g-p6r1-z5mvj94l0917 m7ed7456-2zh8-6y2x-e5e6-x3xuf33j9354 ANSI-Medicare Part B [id number]-[id number]-333w-9j0320fl89z4 ANSI-Medicare Part B [id number]-ut7933f3p388 5t106i5b-7sb2-7v67-616n-ll5875z8a593 ANSI-Commercial b878389k-f8z9-2i6e-xf1b-02sg9x047bs0 d344166b-q0r7-9j4y-gd4l-74lb4l825ww9 ANSI-Medicare Part B [id number]-w8us3n8x04sw 0s0t0584-7i34-2hd5-0e1z-q4wh6x4j16uk ANSI-Commercial 2g1pv25l-wmc3-7f78-46bh-3x28a74423av 6y6sv49b-syp7-6i53-87en-3l20j01426og ANSI-Medicare Part B [id number]-zr9t-91aw-34e4-80mqfd4702h4 r2i6g0q6-oh2o-22ob-40t8-95nntx7535j9 ANSI-Commercial 5204g164-q78t-4484-rezc-441174y9bxuv 6252n172-x62p-5522-akci-262710v3yasm ANSI-Commercial a27c8hu1-0878-4182-jk39-o59x776x15e3 j07f1gm1-2400-3038-sc79-f41d623g38x1 ANSI-Medicare Part B [id number]-jq7o-[id number] [id number]-is5d-6rmt4323w6n1 ANSI-Medicare Part B [id number]-8iay-[id number] [id number]-q8g1-909a-2npa-7362y75po441 ANSI-Commercial 64x5mo1c-j55e-5aj6-357e-8283sq582599 35r3ts5x-k77c-2oh2-221m-0114pk751598 ANSI-Commercial 3y386k67-g532-32kj-q4g4-b5x99gm3t854 1j856a11-j777-06ov-f3u1-a4k18qy9n712 ANSI-Medicare Part B [id number]-759x-5e6e-4m4c-lx60sn2q4859 43b5vdgl-378s-3p5z-4k8c-ni48zn4p5102 ANSI-Medicare Part B [id number]-lm765r59i896 ANSI-Commercial d35u77ux-h12b-9f6c-h6oe-9ppnv3k1vdl6 l24h18wb-w94d-0a6j-n3eu-6sytn9d4tqo3 ANSI-Commercial 65yl2u37-9n0s-47wr-d9y8-qp964ur580sh 96vk2k03-9v8p-02qm-d4z1-gq109is449un ANSI-Medicare Part B [id number]-xo50-771k-0na8-[id number] ANSI-Medicare Part B [id number]-[id number]-[id number] ANSI-Commercial k8wv4oyg-5w9p-882b-kq9h-351361748e5o b3wd0ftg-8z6g-794b-uj3s-276739158u4e ANSI-Medicare Part B [id number]-[id number]-311n-[id number] ANSI-Commercial [id number]-tl0915jw5y90 86mz8353-7475-9h75-6iy9-gv7346zm9q62 ANSI-Medicare Part B [id number]-[id number]-l895-29s9-[id number] ANSI-Commercial lcrr1f59-c162-901k-7s7c-3752441zp00t askg4p54-d108-406t-7e0k-5701366kj01s ANSI-Commercial 8vw5z6ij-0vq6-3963-7r01-2w11gdftmdh2 9nw4c3dn-0er5-5043-7l39-4v77jwoxpgv1 ANSI-Medicare Part B [id number] [id number]-2xk4-7y4l-[id number] ANSI-Medicare Part B [id number] ANSI-Commercial 3yfm72b9-w4mu-1qn5-y3a8-s94931s46m0l 4ulm33l9-q2pt-2ga2-m1c9-e43037z20v3n [facility] Part B [id number] Self [id number] Medicare [place] Medicare Primary [id number] Self 2 [id number] MEDICARE [id number] SP [id number] A [facility] [place] [id number] SP [id number] [facility] [employer] [place] [id number] SP [id number] [facility] [id number] SP [id number] [employer] [place] [id number] SP [id number] MEDICARE [id number] SP [id number] A [facility] [id number] SP [id number] [facility] [id number] SP [id number] [facility] [employer] [place] [id number] SP [id number] [facility] [id number] SP [id number] MEDICARE [id number] SP [id number] [facility] [employer] [place] [id number] SP [id number] [facility] [id number] SP [id number] E[employer]IRE [employer] BLUE SHIELD -O/P [id number] 18 [id number] MEDICARE PART A -O/P [id number] 18 [id number] Problems, Conditions, and Diagnoses Code Display Name Description Problem Type Effective Dates Data Source(s) C57627 Personal history of nicotine dependence Personal history of nicotine dependence Diagnosis 08/31/2021 04:48:00 PM EDT [facility] 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 Diagnosis 08/31/2021 04:48:00 PM EDT [facility] E119 Type 2 diabetes mellitus without complic ations Type 2 diabetes mellitus without complications Diagnosis 08/31/2021 04:48:00 PM EDT [facility] F0280 Dementia in other diseases c lassified elsewhere without behavioral disturbance Dementia in other diseases classified el sewhere without behavioral disturbance Diagnosis 08/31/2021 04:48:00 PM EDT [facility] 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 Diagnosis 08/31/2021 04:48:00 PM EDT [facility] R410 Disorientation, unspecified Disorientation, unspecifie d Diagnosis 08/31/2021 04:48:00 PM EDT [facility] E11.9 Type II diabetes mellitus well controlle d DM II (diabetes mellitus, type II), controlled Problem 07/06/2021 12:00:00 AM EDT eCW1 ([facility]) I67.9 [id number] Cerebrovascular small vessel disease Prob cathi 06/28/2021 12:00:00 AM EDT eCW1 ([facility]) 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 Problem 05/27/2021 12:00:00 AM EDT eCW1 ([facility]) F41.0 [id number] Anxiety attack Problem 05/25/2021 12:00:00 A M EDT eCW1 ([facility]) R53.81 [id number] Physical deconditioning Problem 12:00:00 AM EST eCW1 ([facility]) L57.0 [id number] Actinic keratoses Problem 08/16/2020 12:00:0 0 AM EDT eCW1 ([facility]) L81.4 [id number] Lentigines Problem 08/16/2020 12:00:00 AM ED T eCW1 ([facility]) L91.8 [id number] Skin tag Problem 08/16/2020 12:00:00 AM ED T eCW1 ([facility]) L73.8 [id number] Sebaceous hyperplasia of face Problem 08/16/2020 12:00:00 AM EDT eCW1 ([facility]) D18.01 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 Problem 08/16/2020 12:00:00 A M EDT eCW1 ([facility]ly [facility]) Surgeries/Procedures Procedure Description Date Indications Data Source(s) OFFICE OUTPATIENT VISIT 15 MINUTES 06/01/2021 12:00:00 AM EDT [facility] ([facility], ) Endoscopy Nasal Diagnostic 05/10/2021 12:00:00 AM EDT [facility] ([facility], ) OFFICE OUTPATIENT NEW 45 MINUTES 05/10/2021 12:00:00 A M EDT [facility] ([facility], ) Results ID Date Data Source [id number] 09/18/2021 06:28:00 AM EST [facility] Name Value Range Interpretation Code Description Data Yanira rce(s) Supporting Document(s) SARS coronavirus 2 RNA [Presence] in Res piratory specimen by FABIAN with probe detection NEGATIVE [facility] This lab was ordered by [facility] a nd reported by [facility]. ID Date Data Source [id number] 09/01/2021 10:27:00 PM EDT [facility] [address] [place] [address] PHONE: [phone] FAX: [phone] Name ..............: MATHEW MERLOS Acct Number ...........................: [id number] ROOM. ............: [address] Number ............................: [id number] Stay type.........: E/R Discharge Date...............:08/31/21 Admit Date .....: 08/31/21 Admit Phys .............................: NICHOLE CHURCH Date of ..: 1930 Family Phys ...........................: NO PCP Phone..............: [phone] Age.................................:89 Film# ...............:[id number] Sex.................................:M Unsigned transcriptions are preliminary reports and do not represent a medical or legal document [facility]LY [facility] [id number] COMPLETE:08/31/21 21:00 BIS [id number] Please See Scanned Results. Name Value Range Interpretation Code Description Data Yanira rce(s) Supporting Document(s) ID Date Data Source [id number] 08/31/2021 04:48:00 PM EDT [facility] 1 OrderSheet [facility] Emergency Department [address] [place] [address] Phone #: ext- [phone] 08/31/2021 16:35 Patient: Estela CARMONA Sex: M : 1930 Age: 89yWEIGHT:81.6 kg (S) HEIGHT:66 inches (S) BMI:29.0ALLERGIES: Penicillin, PotassiumCHIEF COMPLAINT: confusionDIAGNOSIS: Normal Exam, DementiaLAB ORDERSOrder Description Priority Entered Acknowledged InitialedCBC w Diff STAT 17:05 08/31/2021 Ack'd: 17:18 17:24 [place] ED Karthikeyan Varela Ryan Tech, Tiffany ER M.D.; [id number] STAT 17:05 08/31/2021 Ack'd: 17:18 17:24 [place] ED Karthikeyan Varela Ryan Tech, Tiffany ER M.D.; [id number] STAT 17:05 08/31/2021 Ack'd: 17:18 17:24 [facility] ED Karthikeyan Varela Ryan Tech, Tiffany ER M.D.; [id number] STAT 17:05 08/31/2021 Ack'd: 17:18 17:24 [place] ED Karthikeyan Varela Ryan Tech, Tiffany ER M.D.; [id number] Reflex to UA 17:05 08/31/2021 Ack'd: 17:18 17:22 Benjamin Butler Riccardo Hinkley, Ryan Ryan M.D.;DIAGNOSTIC STUDY ORDERSOrder Description Priority Entered Acknowledged InitialedCT Head W/O Cont STAT 17:05 08/31/2021 Ack'd: 17:18 20:33 Luke(Oxygen?(No)) Karthikeyan Varela Ryan Ryan M.D.; Reason for Study: Altered Mental StatusMEDICATION/IV/DRIP/FLUID ORDERSOrder Description Priority Entered Acknowledged InitialedGENERAL ORDERSOrder Description Priority Entered Acknowledged InitialedEKG 17:05 08/31/2021 17:07 Duc ED Karthikeyan Varela Tiffany ER M.D.; Tech1 2 OrderSheet [facility] Emergency Department [address] [place] [address] Phone #: ext- [phone] 08/31/2021 16:35 Patient: Estela CARMONA GAURANG Sex: M : 1930 Age: 89y[Electronically signed by Dee Jasso R.N. (23:06 08/31/2021)][Electronically signed by Karthikeyan Varela M.D. (23:09 08/31/2021)][Electronically locked by Dee Jasso R.N. (23:06 08/31/2021)] Name Value Range Interpretation Code Description Data Yanira rce(s) Supporting Document(s) ID Date Data Source [id number] 08/31/2021 04:48:00 PM EDT [facility] 1 Medication Reconciliation Report [facility] Emergency Department [address] [place] [address] Phone #: ext- [phone] 08/31/2021 16:35 Patient: [...] the Emergency Department: 2 Medication Reconciliation Report [facility] Emergency Department [address] [place] [address] Phone #: ext- [phone] 08/31/2021 16:35 Patient: Estela CARMONA Sex: M : 1930 Age: 89yNone.The following Medications were prescribed to the patient:None. Name Value Range Interpretation Code Description Data Yanira rce(s) Supporting Document(s) ID Date Data Source [id number] 08/31/2021 04:48:00 PM EDT [facility] 1 Medication Administration Record [facility] Emergency Department [address] [place] [address] Phone #: ext- [phone] 08/31/2021 16:35 Patient: Estela CARMONA Sex: M : 1930 Age: 89yWeight: 81.6 kgHeight/Length: 66 inBMI: 29ALLERGIES: Penicillin, PotassiumDate/Time Medication Administered Medication Ordered Name Value Range Interpretation Code Description Data Yanira rce(s) Supporting Document(s) ID Date Data Source [id number] 08/31/2021 04:48:00 PM EDT [facility] 1 General Instructions [facility] Emergency Department [address] [place] [address] Phone #: ext- [phone] 08/31/2021 16:35 Patient: Estela CARMONA [facility]#: [id number] Sex: M : 1930 Age: 89yChronic late [...] benefits of treatment reviewed withcaregiver and patient client representative and understanding verbalized. Agrees to plan of care. ADDITIONAL INFORMATION 2 General Instructions [facility] Emergency Department [address] [place] [address] Phone #: ext- [phone] 08/31/2021 16:35 [id number] Sex: [facility] : 1930 Age: 89yDementia and [...] Label cabinets and drawers. 3 General Instructions [facility] Emergency Department [address] [place] [address] Phone #: ext- [phone] 08/31/2021 16:35 Patient: Estela CARMONA Sex: M : 1930 Age: 89yTry to distract, not confront, the person. When he or she becomes frustrated or upset, direct theperson's attention to eating or some other interesting activity. Windows can help the person know ifit's night or day and what season it is.Medical-legal tipsTalk with your doctor or hand dry cleaner about getting a power of radioactive waste disposal dispatcher for healthcare and for financialdecisions. It's best [...] provider for a referral to a social security benefits interviewer, if needed. Take care of yourself with [...] to eat or drink 4 General Instructions [facility] Emergency Department [address] [place] [address] Phone #: ext- [phone] 08/31/2021 16:35 Patient: Estela CARMONA Sex: M : 1930 Age: 89y Headache or nausea that gets worse, or repeated vomiting after a fall Unexplained fever of 100.4 F (38.0 C) or higher, or as advisedCall 911Call [phone] if any of these occur: Slurred speech, or trouble speaking, walking, or seeing Fainting spell or dizziness Seizure symptoms. These include staring spells, lip-smacking, twitching, or sudden changes in mental status. Violent behavior (call police) or behavior becomes too difficult to manage at home Increased drowsiness, or failure to respond normally [employer]. [address] [place] [address]. All rights reserved. This information is not intended as asubstitute for professional medical care. Always follow your healthcare professional's instructions. You have been given the following additional information: Dementia, Any Type, Caregiver Support(Electronically signed by Karthikeyan Varela M.D. 08/31/2021 23:09) Name Value Range Interpretation Code Description Data Yanira rce(s) Supporting Document(s) ID Date Data Source [id number] 08/31/2021 04:48:00 PM EDT [facility] 1 Clinical Report - Nurses [facility] Emergency Department [address] [place] [address] Phone #: ext- [phone] 08/31/2021 16:35 Patient: Estela CARMONA Sex: M : 1930 Age: 89yTRIAGEArrived by EMS. Historian: EMS, skilled nursing nurse, skilled nursing records and patient.Unaccompanied. ( pt brought in via EMS per EMS skilled nursing staff want patient evaluated due toincreased confusion. per [facility] home staff pt "has not been acting himself", was seen at [facility] on 08/30and they did not find anything. pt with hx of dementia.).Triage time: 16:38 08/31/2021. Acuity: LEVEL 4.Chief Complaint: ALTERED MENTAL STATUS and CONFUSED.No acute distress.This started 3 - 4 months ago.Treatment TREE CLIMBER:None.SEPSIS SCREEN: SIRS SCREEN NEGATIVE. SEPSIS SCREEN NEGATIVE. [...] Portillo Butler. 2 Clinical Report - Nurses [facility] Emergency Department [address] [place] [address] Phone #: ext- [phone] 08/31/2021 16:35 Patient: Estela CARMONA Sex: M : 1930 Age: 89yPROBLEMS:Hyperlipidemia.IFG/metabolic syndrome.Diabetes [...] traveled outside the [place] --23:06 08/31/21 Dee Deleno R.N.AssessmentThe patient states feels the same. --16:48 08/31/21 Portillo Butler. 3 Clinical Report - Nurses [facility] Emergency Department [address] [place] [address] Phone #: ext- [phone] 08/31/2021 16:35 Patient: Estela CARMONA Sex: M [...] RR: 18. O2 saturation: 97%. --17:07 08/31/21 [facility] Tech,Cindy, Tech1 EKG time: (16:37 08/31/2021). EKG was performed by a tech and shown to the ED physician. --17:08 08/31/21 [facility] Tech, Cindy, Tech1 Reassurance given. The patient is calm [...] RR: 16. O2 saturation: 97%. --18:10 08/31/21 [facility] ADMINISTRATORLinda ROWELL 19:13 08/31/21. BP: 139/74. HR: 60. RR: 16. O2 saturation: 95%. --19:13 08/31/21 [facility] Linda ROWELL Reassurance given to the patient. The patient [...] disposition. --19:21 4 Clinical Report - Nurses [facility] Emergency Department [address] [place] [address] Phone #: ext- [phone] 08/31/2021 16:35 Patient: Estela CARMONA Sex: M : 1930 Age: 89y 08/31/21 Portillo Butler 20:33 08/31/21. ( Med Neccessitiy faxed to [facility]. Awaiting transport. Nurse Hurtado at [facility] aware pt will be d/c.). --20:48 08/31/21 Dee Deleon R.N.DISPOSITION / DISCHARGE 20:03 08/31/21. BP: 147/79. HR: 57. RR: 16. O2 saturation: 97%. Temp: 98.4 F. Pain level now 12/22. --20:03 08/31/21 [facility] LELIA Linda Departure time: 22:59 08/31/2021. Condition at departure: stable. Learning barriers present. Ability to learn limited by dementia. Learning barriers note: written discharge instructions sent to [facility]. Spoke with NURSE Hurtado regarding findings of todays testing. The patient was discharged by the physician. He was discharged ([facility] He left via ambulance and ([facility]) and on a stretcher. --23:01 08/31/21 Dee Deleon R.N. ( 2012 [facility] accepted return trip d/c. 2114 per [facility] no ETA on transport. 2199 still awaiting transport. Pt dozing at intervals, resting quietly on stretcher.). --23:04 08/31/21 Dee Deleon R.N.Locked/Released at 08/31/2021 23:06 by Dee Deleon R.N. Name Value Range Interpretation Code Description Data Yanira rce(s) Supporting Document(s) ID Date Data Source [id number] 08/31/2021 04:48:00 PM EDT [facility] 1 Clinical Report - Physicians/Mid Levels [facility] Emergency Department [address] [place] [address] Phone #: ext- [phone] 08/31/2021 16:35 Patient: Estela CARMONA Sex: M : 1930 Age: 89y Time Seen: 16:38 08/31/2021; initial patient contact. Arrived- By ambulance. Historian- EMS personnel and skilled nursing nurse and records. Disposition decision: 19:55 08/31/2021.HISTORY OF PRESENT ILLNESS Chief Complaint: CONFUSION. The patient has been confused. This started today and is now gone. It has been intermittent and waxing/waning. The patient was not found unresponsive. long term resident. History of chronic dementia. No change in diabetic routine, alcohol recently, recent drug use or medication given prior to arrival. Dextro stick was not low prior to arrival. No weakness, numbness or recent fall. No difficulty walking. Usually has normal mobility. (pt is resident [facility] [place], has dementia and known maxillary sinus mass; per staff, was a little bit more confused yesterday and today, briefly; was sent to [facility] ER yesterday, Covid test done and sent back to [facility]; pt sent here today for 2nd opinion; maybe workup; not confused when EMS arrived yesterday and today; pt has no complaints in ER; pt is DNR/DNI per staff). Similar symptoms previously. Patient has had similar symptoms occasionally. Recent medical care: The patient was seen recently at another facility in the emergency department. ( [facility] ER yesterday).REVIEW OF SYSTEMSNo fever, headache, head [...] esophagus. 2 Clinical Report - Physicians/Mid Levels [facility] Emergency Department [address] [place] [address] Phone #: ext- [phone] 08/31/2021 16:35 Patient: Estlea CARMONA Sex: M : 1930 Age: 89y Dementia. Additional Surgeries: Unk. Medications: busPIRone HCl Oral. Buspar. Metamucil Oral. Donepezil HCl Oral. Atorvastatin Calcium Oral. Namenda Oral. Aspirin Oral. Glucosamine Complex Oral. Lexapro Oral. Finasteride Oral. Omeprazole Oral. Vitamin B12 Oral. Allergies: Penicillin. Potassium.SOCIAL HISTORYFormer smoker. Occasional alcohol use. No drug use. No recent travel. Resides in a skilled nursing.ADDITIONAL NOTESThe nursing notes have been reviewed with [...] normal. 3 Clinical Report - Physicians/Mid Levels [facility] Emergency Department [address] [place] [address] Phone #: ext- [phone] 08/31/2021 16:35 Patient: Estela CARMONA Sex: M : 1930 Age: 89yLABS, X-RAYS, AND EKGEKG: No acute process. No acute ischemia. Normal EKG. Normal sinus rhythm. Rate: 63/min.Normal ST and T waves. Prior EKG unavailable. The study has been interpreted contemporaneously byme. The EKG appears to be a good tracing. Interpretation time: 16:47 08/31/2021.CT Head: ([facility] Call: [phone] Online chat: [email or web address] Name: FIOR CARMONA (Age): 1930 89 Gender: MDate of Exam: 08/31/2021 Physician: KARTHIKEYAN VARELA # of Images: 171Ordered As: CT HEAD WOCONFIDENTIALITY STATEMENTThis report is intended only for the use of the referring physician, and only in accordance with law, If youreceived this in error, call [phone] 1 of 1PROCEDURE INFORMATION:Exam: CT Head Without [...] Anay Escobar MD08/31/2021 7:11 PM Eastern Time ([facility])). Head CT performed without contrast. The study wasinterpreted by the radiologist.Laboratory Tests: Laboratory tests have been ordered, with results reviewed and considered in the 4 Clinical Report - Physicians/Mid Levels [facility] Emergency Department [address] [place] [address] Phone #: ext- [phone] 08/31/2021 16:35 Patient: [...] mL/min 5 Clinical Report - Physicians/Mid Levels [facility] Emergency Department [address] [place] [address] Phone #: ext- [phone] 08/31/2021 16:35 Patient: [...] forTroponin T. TSH: (ERI: 08/31/2021 17:23) ( [facility] 08/31[facility] 18:47) Final results Test Result Flag Units (Reference) TSH 1.42 uIU/mL (0.47 - 5.01) UA REFLEX TO UA CULTURE: (ERI: 08/31/2021 17:15) ( [facility] 08/31/2021 19:13) Final results Test Result Flag [...] Head W/O Cont: (ERI: 08/31/2021 17:05) ( [facility] 08/31/2021 19:20) In Progress CT HEAD W/O [...] CMP 6 Clinical Report - Physicians/Mid Levels [facility] Emergency Department [address] [place] [address] Phone #: ext- [phone] 08/31/2021 16:35 [id number] Sex: M : 1930 Age: 89y 19:54 08/31/21. CMP nml; pt asymptomatic in ER; will d/c back to [facility]; d/c instructions given to [facility] staff. Caregiver counseled in person regarding the [...] in two days 7 Clinical Report - Physicians/[facility] Emergency Department [address] [place] [address] Phone #: ext- [phone] 08/31/2021 16:35 Patient: [...] of treatment reviewed with caregiver and patient client representative and understanding verbalized. Agrees to plan of care.(Electronically signed by Karthikeyan Varela M.D. 08/31/2021 23:09) Name Value Range Interpretation Code Description Data Yanira rce(s) Supporting Document(s) ID Date Data Source [id number] 08/31/2021 09:33:00 [place] [address] PHONE: [phone] FAX: [phone] Name .................. : MATHEW MERLOS Acct Number.................. : [id number] ROOM. ................. : VT-25 Number ................... : [id number] Stay type ............. : E/R Discharge Date......... ... : Admit Date ......... : 1 Admit Phys .................... : NICHOLE CHURCH Date of ....... : 1930 Family Phys ................... : NO PCP Phone .................. : [phone] Age ................................ : 89 Film# .................. .:[id number] Sex ................................. : M Unsigned transcriptions are preliminary reports and do not represent a medical or legal document CT HEAD W/O CONTRAST [id number] COMPLETE:08/31/21 19:20 [facility] [address] Reason(s): Altered Mental Status CT BRAIN WITHOUT [...] report for this exam was provided by [employer]. Page 1 of 2 [facility] [address] [place] [id number] PHONE: [phone] FAX: [phone] Name .................. : MATHEW MERLOS Acct Number.................. : [id number] ROOM. ................. : [id number] MR Number ................... : [id number] Stay type ............. : E/R Discharge Date......... ... : Admit Date ......... : 08/31/21 Admit Phys .................... : TURRIN RANJIT Date of ....... : 1930 Family Phys ................... : NO PCP Phone .................. : [phone] Age ................................ : 89 Film# .................. .:[id number] Sex ................................. : M Unsigned transcriptions are preliminary reports and do not represent a medical or legal document CT HEAD W/O CONTRAST [id number] COMPLETE:08/31/21 19:20 [facility] [address] Reason(s): Altered Mental Status Electronically Reviewed and Signed By Gaurang Diaz MD , 08/31/21 21:33, JWS Transcribe Initials: KRYSTIAN , Transcribe Date: 08/31/21 21:30, Dictation Date: Copy for: 010 EMERGENCY SRV Copy for: EMERGENCY DEPT via modem Copy for: 710 MED REC Page 2 of 2 Name Value Range Interpretation Code Description Data Yanira rce(s) Supporting Document(s) ID Date Data Source [id number] 08/31/2021 05:47:00 PM EDT [facility] Name Value Range Interpretation Code Description Data Yanira rce(s) Supporting Document(s) CBC W/AUTOMATED DIFF [facility] COMPLETE BLOOD COUNT Leukocytes [#/volume] in Blood by Automated count 7.2 10^3/uL 4.2 - 1 1.0 [facility] Erythrocytes [#/volume] in Blood by Automated count 4.25 10^6/uL 4. 50 - 6.30 L [facility] Hemoglobin [Mass/volume] in Blood 14.4 g/dL 14.0 - 16.0 [facility] Hematocrit [Volume Fraction] of Blood by Automated count 41.6 % 4 1.0 - 51.0 [facility] Erythrocyte mean corpuscular volume [Entitic volume] by Auto mated count 97.9 fL 80.0 - 94.0 H [facility] Erythrocyte mean corpuscular hemoglobin [Entitic mass] by Automated count 33.9 pg 27.0 - 34.0 [facility] Erythrocyte mean corpuscular hemoglobin concentration [Mass/volume] by Automated count 34.6 g/dL 31.0 - 36.0 [facility] Erythrocyte distribution width [Ratio] by Automated count 13.2 % 11.5 - 14.8 [facility] Platelets [#/volume] in Blood by Automated count 205 10^3/uL 150 - 45 0 [facility] Platelet mean volume [Entitic volume] in Blood by Automated count 9.2 fL 7.4 - 10.4 [facility] Neutrophils/100 leukocytes in Blood by Automated count 71.0 % 37. 0 - 80.0 [facility] Lymphocytes/100 leukocytes in Blood by Manual count 19.4 % 25.0 - 40.0 L [facility] Monocytes/100 leukocytes in Blood by Automated count 6.3 % 3.0 - 8.0 [facility] Eosinophils/100 leukocytes in Blood by Automated count 2.4 % 0.0 - 7.0 [facility] Basophils/100 leukocytes in Blood by Automated count 0.6 % 0.0 - 2.0 [facility] %IG 0.3 % 0.0 - 0.[address] [facility] %NRBC 0.0 % 0.0 - 0.0 [facility] Neutrophils [#/volume] in Blood by Automated count 5.09 10^3/uL 2.00 - 6.90 [facility] Lymphocytes [#/volume] in Blood by Automated count 1.39 10^3/uL 0.60 - 3.40 [facility] Monocytes [#/volume] in Blood by Automated count 0.45 10^3/uL 0.00 - 0.90 [facility] Eosinophils [#/volume] in Blood by Automated count 0.17 10^3/uL 0.00 - 0.70 [facility] Basophils [#/volume] in Blood by Automated count 0.04 10^3/uL 0.00 - 0.20 [facility] #IG 0.02 10^3/uL 0.00 - 0.10 [facility] ospital #NRBC 0.00 10^3/uL 0.00 - 0.00 [facility] osp[facility] MANUAL DIFF NOT INDICATED [facility] RBC MORPH NOT INDICATED [facility] spital ID Date Data Source [id number] 08/31/2021 06:31:00 PM EDT [facility] Name Value Range Interpretation Code Description Data Yanira rce(s) Supporting Document(s) TROPONIN T <0.01 NG/ML 0.00 - 0.10 [facility] ospital TROPONIN T0.1 ng/ml Recommended as the c linical threshold value forTroponin T. ID Date Data Source [id number] 08/31/2021 06:47:[address] [facility] Value Range Interpretation Code Description Data Yanira rce(s) Supporting Document(s) Thyrotropin [Units/volume] in Serum or Plasma by Detec tion limit <= 0.05 mIU/L 1.42 uIU/mL 0.47 - 5.01 [facility] ID Date Data Source [id number] 08/31/2021 07:51:00 PM EDT [facility] Name Value Range Interpretation Code Description Data Yanira rce(s) Supporting Document(s) COMPREHENSIVE METABOLIC PANEL [facility] COMPREHENSIVE METABOLIC PANEL Sodium [Moles/volume] in Serum or Plasma 141 mEq/L 134 - 153 [facility] Potassium [Moles/volume] in Serum or Plasma 4.0 mEq/L 3.6 - 5.0 [facility] Chloride [Moles/volume] in Serum or Plasma 103 mEq/L 98 - 107 [facility] Carbon dioxide, total [Moles/volume] in Serum or Plasma 26 MEQ/L 22 - 30 [facility] Glucose [Mass/volume] in Serum or Plasma 111 MG/DL 70 - 99 H [facility] BUN 16 MG/DL 7 - 21 [facility] al Creatinine [Mass/volume] in Serum or Plasma 1.0 MG/DL 0.7 - 1.5 [facility] BUN/CREAT 16 8 - 27 [facility] Protein [Mass/volume] in Serum or Plasma 6.8 G/DL 6.3 - 8.2 [facility] Albumin [Mass/volume] in Serum or Plasma 4.0 G/DL 3.9 - 5.0 [facility] Globulin [Mass/volume] in Serum by calculation 2.8 GM/DL 2.4 - 3.2 [facility] A/G RATIO 1.4 0.8 - 2.0 [facility] Calcium [Mass/volume] in Serum or Plasma 9.0 MG/DL 8.4 - 10.2 [facility] Bilirubin.total [Mass/volume] in Serum or Plasma <0.7 MG/DL 0.2 - 1.3 [facility] Alkaline phosphatase [Enzymatic activity/volume] in Serum or Plasma 92 U/L 38 - 126 [facility] Aspartate aminotransferase [Enzymatic activity/volume] in Serum or Plasma 19 U/L 5 - 40 [facility] Alanine aminotransferase [Enzymatic activity/volume] in Seru m or Plasma 15 U/L 7 - 56 [facility] Anion gap 3 in Serum or Plasma 12.0 mmol/L 8.0 - 16.0 [facility] AGE 89 yrs [facility] al NON-AA GFR >60 mL/min [facility] ital AFR AMER GFR >60 mL/min [facility] Ho spital Male GFR In terprentation 20-49 [...] >32 mL/min Normal ID Date Data Source [id number] 08/31/2021 07:12:00 PM EDT [facility] Name Value Range Interpretation Code Description Data Yanira rce(s) Supporting Document(s) UA REFLEX TO UA CULTURE [facility] URINALYSIS SOURCE Clean Catch [facility] ital COLOR yellow NORMAL: Yellow [facility]spital CLARITY clear NORMAL: Clear [facility] spital Specific gravity of Urine by Test strip 1.025 1.001 - 1.030 [facility] pH 5 5 - [facility] Glucose [Mass/volume] in Urine by Test strip NORM NORMAL: Negat [facility] Bilirubin.total [Presence] in Urine by Test strip NEG NORMAL: Negative [facility] Ketones [Presence] in Urine by Test strip NEG NORMAL: Negative [facility] Protein [Mass/volume] in Urine by Test strip 15 NORMAL: Negat [facility] Nitrite [Presence] in Urine by Test strip NEG NORMAL: Negative [facility] BLOOD NEG NORMAL: Negative [facility] Leukocyte esterase [Presence] in Urine by Test strip NEG ASHLEY L: Negative [facility] Urobilinogen [Mass/volume] in Urine by Test strip NOR less albin n 1.0 mg/dL [facility] MICROSCOPIC See Below [facility] ital Erythrocytes [#/volume] in Urine by Test strip 0 - 1 NORMAL: NON E SEEN [facility] EPITHELIAL FEW NORMAL: NONE SEEN [facility] Mucus [Presence] in Urine sediment by Light microscopy 1+ NOR MAL: NONE SEEN [facility] ID Date Data Source [id number] 08/30/2021 03:25:00 PM EDT [facility] Name Value Range Interpretation Code Description Data Yanira rce(s) Supporting Document(s) SARS-CoV-2 (COVID 19) NEGATIVE - SARS-CoV-2 (COVID19) [facility] This lab was ordered by [facility] a nd reported by [facility]. ID Date Data Source LIPID PANEL (CARDIAC RISK) 03/30/2021 12:00:00 AM EDT eCW1 ( [facility]) Name Value Range Interpretation Code Description Data Yanira rce(s) Supporting Document(s) Triglyceride [Mass/volume] in Serum or Plasma by calculation 513 <150 TRIGLYCERIDES LEVEL eCW1 ([facility]) 141 NON-HDL-C eCW1 ([facility]) Cholesterol in HDL [Moles/volume] in Serum or Plasma 57 >40 HDL CHOLESTEROL eCW1 ([facility]) Cholesterol [Moles/volume] in Serum or Plasma 198 <200 CHOLESTEROL LEVEL eCW1 ([facility]) 3.473 <5 CHOLESTEROL RISK RATIO eCW1 ([facility]) ID Date Data Source [id number] 03/30/2021 12:00:00 AM EDT eCW1 ([facility]) Name Value Range Interpretation Code Description Data Yanira rce(s) Supporting Document(s) Hemoglobin A1c/Hemoglobin.total in Blood 5.9 HEMOGLOBIN A1c eCW1 ([facility]) ID Date Data Source Comprehensive Metabolic Profile (CMP) 03/30/2021 12:00:00 AM EDT eCW1 ([facility]) Name Value Range Interpretation Code Description Data Yanira rce(s) Supporting Document(s) 139 70-100 GLUCOSE, FASTING eCW1 ([facility]) 17 7-18 BLOOD UREA NITROGEN eCW1 ([facility]) 0.95 0.70-1.30 CREATININE FOR GFR eCW1 ([facility]) > 60.0 >35 GLOMERULAR FILTRATION RATE eCW 1 ([facility]) 30 21-32 CARBON DIOXIDE LEVEL eCW1 ([facility]) 139 136-145 SODIUM LEVEL eCW1 ([facility]) 104 98-107 CHLORIDE LEVEL eCW1 ([facility]) 4.2 3.5-5.1 POTASSIUM SERUM eCW1 ([facility]) 21 7-37 AST/SGOT eCW1 ([facility]) 8.8 8.8-10.2 CALCIUM LEVEL eCW1 ([facility]) 89 45-117 ALKALINE PHOSPHATASE eCW1 ([facility]) 31 12-78 ALT/SGPT eCW1 ([facility]) 3.3 3.2-5.2 ALBUMIN eCW1 ([facility]) 0.8 0.2-1.0 BILIRUBIN,TOTAL eCW1 ([facility]) 7.0 6.4-8.2 TOTAL PROTEIN eCW1 ([facility]) 0.9 ALBUMIN/GLOBULIN RATIO eCW1 ([facility]) ID Date Data Source VITAMIN B12 LEVEL 09/29/2020 12:00:00 AM EST eCW1 ([facility]) Name Value Range Interpretation Code Description Data Yanira rce(s) Supporting Document(s) [id number] VITAMIN B12 LEVEL eCW1 ([facility]) ID Date Data Source FREE T4 & TSH PANEL 09/29/2020 12:00:00 AM EST eCW1 ([facility]) Name Value Range Interpretation Code Description Data Yanira rce(s) Supporting Document(s) 0.95 0.76-1.46 eCW1 ([facility]) 3.600 0.358-3.740 eCW1 ([facility]) ID Date Data Source FOLATE 09/29/2020 12:00:00 AM EST eCW1 ([facility]) Name Value Range Interpretation Code Description Data Yanira rce(s) Supporting Document(s) 21.1 >5.4 eCW1 ([facility]) ID Date Data Source CBC - Complete Blood Count 09/29/2020 12:00:00 AM EST eCW1 ( [facility]) Name Value Range Interpretation Code Description Data Yanira rce(s) Supporting Document(s) 4.26 4.30-6.10 eCW1 ([facility]) 7.2 4.0-10.0 eCW1 ([facility]) 13.8 13.5-17.5 eCW1 ([facility]) 32.8 32.0-36.5 eCW1 ([facility]) 42.1 42.0-52.0 eCW1 ([facility]) 98.8 80.0-96.0 eCW1 ([facility]) 32.4 27.0-33.0 eCW1 ([facility]) 206 150-450 eCW1 ([facility]) 13.2 11.5-14.5 eCW1 ([facility]) Procedure Social History Code Duration Value Status Description Data Source(s ) Smoking 05/25/2021 12:00:00 AM EDT Former Smoker completed Former Smoker eCW1 ([facility]) Smoking 05/25/2021 12:00:00 AM EDT Former Smoker completed Former Smoker eCW1 ([facility]) Smoking 05/25/2021 12:00:00 AM EDT Former Smoker completed Former Smoker eCW1 ([facility]) Smoking 05/25/2021 12:00:00 AM EDT Former Smoker completed Former Smoker eCW1 ([facility]) Smoking 05/25/2021 12:00:00 AM EDT Former Smoker completed Former Smoker eCW1 ([facility]) Smoking 05/25/2021 12:00:00 AM EDT Former Smoker completed Former Smoker eCW1 ([facility]) Smoking 05/25/2021 12:00:00 AM EDT Former Smoker completed Former Smoker eCW1 ([facility]) Smoking 05/25/2021 12:00:00 AM EDT Former Smoker completed Former Smoker eCW1 ([facility]) Smoking 05/25/2021 12:00:00 AM EDT Former Smoker completed Former Smoker eCW1 ([facility]) Smoking 03/30/2021 12:00:00 AM EDT Former Smoker completed Former Smoker eCW1 ([facility]) Smoking 03/30/2021 12:00:00 AM EDT Former Smoker completed Former Smoker eCW1 ([facility]) Smoking 03/30/2021 12:00:00 AM EDT Former Smoker completed Former Smoker eCW1 ([facility]) Smoking 03/30/2021 12:00:00 AM EDT Former Smoker completed Former Smoker eCW1 ([facility]) Smoking 03/30/2021 12:00:00 AM EDT Former Smoker completed Former Smoker eCW1 ([facility]) Smoking 01/20/2021 12:00:00 AM EST Former Smoker completed Former Smoker eCW1 ([facility]) Smoking 01/20/2021 12:00:00 AM EST Former Smoker completed Former Smoker eCW1 ([facility]) Smoking 01/20/2021 12:00:00 AM EST Former Smoker completed Former Smoker eCW1 ([facility]) Smoking 09/29/2020 12:00:00 AM EST Former Smoker completed Former Smoker eCW1 ([facility]) Smoking 09/29/2020 12:00:00 AM EST Former Smoker completed Former Smoker eCW1 ([facility]) Smoking 09/29/2020 12:00:00 AM EST Former Smoker completed Former Smoker eCW1 ([facility]) Smoking 09/29/2020 12:00:00 AM EST Former Smoker completed Former Smoker eCW1 ([facility]) Smoking 09/29/2020 12:00:00 AM EST Former Smoker completed Former Smoker eCW1 ([facility]) Smoking 08/16/2020 12:00:00 AM EDT Former Smoker completed Former Smoker eCW1 ([facility]) Smoking 08/16/2020 12:00:00 AM EDT Former Smoker completed Former Smoker eCW1 ([facility]) Vital Signs ID Date Data Source UNK Name Value Range Interpretation Code Description Data Source(s) Body height 64 [in_i] 64 [in_i] MEDEVELIN ([facility], ) 5'4" [place] body weight 130 [lb_av] 130 [lb_av] MEDEN T ([facility], ) Body weight 81.648 kg 81.648 kg MEDENT ([facility]) Body surface area Derived from formula 1.87 m2 1.87 m2 MEDENT ([facility]) Body mass index (BMI) [Ratio] 30.9 kg/m2 30.9 k g/m2 [facility] ([facility]) Body weight 180.00 [lb_av] 180.00 [lb_av] MEDEN T ([facility]) Body weight 186.6 [lb_av] 186.6 [lb_av] eCW1 ([facility]) Body height 64 [in_i] 64 [in_i] eCW1 ([facility]) Body mass index (BMI) [Ratio] 32.03 kg/m2 32.03 kg/m2 W1 ([facility]) Body temperature 98 [degF] 98 [degF] eCW1 ([facility]) Systolic blood pressure 120 mm[Hg] 120 mm[Hg] e CW1 ([facility]) Diastolic blood pressure 80 mm[Hg] 80 mm[Hg] eCW1 ([facility]) Heart rate 69 /min 69 /min eCW1 ([facility]) Respiratory rate 18 /min 18 /min eCW1 ([facility]) Body weight 180.00 [lb_av] 180.00 [lb_av] MEDEN T ([facility]) Body mass index (BMI) [Ratio] 30.9 kg/m2 30.9 k g/m2 [facility] ([facility]) [place] body weight 130 [lb_av] 130 [lb_av] MEDEN T ([facility]) Body weight 81.648 kg 81.648 kg [facility] ([facility]) Body surface area Derived from formula 1.87 m2 1.87 m2 [facility] ([facility]) Body height 64 [in_i] 64 [in_i] [facility] ([facility]) 5'4" Body weight 184.2 [lb_av] 184.2 [lb_av] eCW1 ([facility]) Body height 64 [in_i] 64 [in_i] eCW1 ([facility]) Body mass index (BMI) [Ratio] 31.61 kg/m2 31.61 kg/m2 eCW1 ([facility]) Heart rate 88 /min 88 /min eCW1 ([facility]) Body temperature 97.8 [degF] 97.8 [degF] eCW1 ( [facility]) Respiratory rate 18 /min 18 /min eCW1 ([facility]) Systolic blood pressure 120 mm[Hg] 120 mm[Hg] e CW1 ([facility]) Diastolic blood pressure 70 mm[Hg] 70 mm[Hg] eCW1 ([facility]) Body weight 186.4 [lb_av] 186.4 [lb_av] eCW1 ([facility]) Body height 64 [in_i] 64 [in_i] eCW1 ([facility]) Body mass index (BMI) [Ratio] 31.99 kg/m2 31.99 kg/m2 eCW1 ([facility]) Heart rate 86 /min 86 /min eCW1 ([facility]) Respiratory rate 18 /min 18 /min eCW1 ([facility]) Body temperature 97.8 [degF] 97.8 [degF] eCW1 ( [facility]) Systolic blood pressure 130 mm[Hg] 130 mm[Hg] e CW1 ([facility]) Diastolic blood pressure 74 mm[Hg] 74 mm[Hg] eCW1 ([facility]) Body weight 186.6 [lb_av] 186.6 [lb_av] eCW1 ([facility]) Body height 64 [in_i] 64 [in_i] eCW1 ([facility]) Body mass index (BMI) [Ratio] 32.03 kg/m2 32.03 kg/m2 eCW1 ([facility]) Heart rate 88 /min 88 /min eCW1 ([facility]) Respiratory rate 18 /min 18 /min eCW1 ([facility]) Body temperature 97.7 [degF] 97.7 [degF] eCW1 ( [facility]) Systolic blood pressure 110 mm[Hg] 110 mm[Hg] e CW1 ([facility]) Diastolic blood pressure 70 mm[Hg] 70 mm[Hg] eCW1 ([facility]) Body weight 189.8 [lb_av] 189.8 [lb_av] eCW1 ([facility]) Body height 64 [in_i] 64 [in_i] eCW1 ([facility]) Body mass index (BMI) [Ratio] 32.58 kg/m2 32.58 kg/m2 eCW1 ([facility]) Systolic blood pressure 124 mm[Hg] 124 mm[Hg] e CW1 ([facility]) Diastolic blood pressure 78 mm[Hg] 78 mm[Hg] eCW1 ([facility]) Patient Treatment Plan of Care Planned Activity Planned Date Details Description Data Source (s) buspirone hydrochloride 10 MG Oral Tablet 05/25/2021 12:00:00 AM ED T eCW1 ([facility]) buspirone hydrochloride 10 MG Oral Tablet 05/25/2021 12:00:00 AM ED T eCW1 ([facility]) buspirone hydrochloride 10 MG Oral Tablet 05/25/2021 12:00:00 AM ED T eCW1 ([facility]) buspirone hydrochloride 10 MG Oral Tablet 05/25/2021 12:00:00 AM ED T eCW1 ([facility]) buspirone hydrochloride 10 MG Oral Tablet 05/25/2021 12:00:00 AM ED T eCW1 ([facility]) buspirone hydrochloride 10 MG Oral Tablet 05/25/2021 12:00:00 AM ED T eCW1 ([facility]) buspirone hydrochloride 10 MG Oral Tablet 05/25/2021 12:00:00 AM ED T eCW1 ([facility]) buspirone hydrochloride 10 MG Oral Tablet 05/25/2021 12:00:00 AM ED T eCW1 ([facility]) buspirone hydrochloride 10 MG Oral Tablet 05/25/2021 12:00:00 AM ED T eCW1 ([facility]) buspirone hydrochloride 10 MG Oral Tablet 05/04/2021 12:00:00 AM ED T eCW1 ([facility])
[2021-09-22 14:38] LABS: CK-MB VALUE MASS < 1.0 NG/ML (<3.6); CPK CREATINE PHOSPHOKINASE 69 U/L (39-308); MB/CK RELATIVE INDEX 1.45 (< OR =4); TROPONIN I < 0.02 NG/ML (< 0.10)
[2021-09-22 14:57] LABS: ALT/SGPT 28 U/L (12-78); AMYLASE 47 U/L (25-115); BILIRUBIN,DIRECT 0.2 MG/DL (0.0-0.2); BILIRUBIN,TOTAL 0.9 MG/DL (0.2-1.0); BLOOD UREA NITROGEN 13 MG/DL (7-18); CALCIUM LEVEL 8.8 MG/DL (8.8-10.2); CARBON DIOXIDE LEVEL 29 MEQ/L (21-32); CHLORIDE LEVEL 107 MEQ/L (98-107); GLOMERULAR FILTRATION RATE > 60.0 (>35); GLUCOSE, FASTING 147 MG/DL (70-100); LIPASE 160 U/L (73-393); POTASSIUM SERUM 3.9 MEQ/L (3.5-5.1); SODIUM LEVEL 140 MEQ/L (136-145); TOTAL PROTEIN 7.3 GM/DL (6.4-8.2)
[2021-09-22] MEDS ORDERED: ZOFR4TAB16 PO (15:05)
[2021-09-22 15:45] VITALS: BP 135/80
--- NOTE | 2021-09-23 07:50 | ECGEPIP ---
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
== END 2021-09-22 15:56 | disposition home or self-care (01) ==
LOC: EDBD 12:32 → M ED 12:32
DX: B34.9 Viral infection, unspecified (principal); R11.0 Nausea; I44.0 Atrioventricular block, first degree; N20.0 Calculus of kidney; I51.9 Heart disease, unspecified; I10 Essential (primary) hypertension; K21.9 Gastro-esophageal reflux disease without esophagitis; Z79.82 Long term (current) use of aspirin; Z79.899 Other long term (current) drug therapy; Z88.0 Allergy status to penicillin; Z88.8 Allergy status to other drugs, medicaments and biological substances
CPT/HCPCS: 74176; 80048; 80076; 82150; 82550; 82553; 83690; 84484; 85025; 93005; 93041; 96361; 96374; 96375; 99284; J2405

== ENCOUNTER 2021-10-11 02:04 | Emergency (ER) | payer MEDICARE, BC, OTHER ==
[~2021-10-11] VITALS: Ht 170.2 cm; Wt 81.8 kg
[~2021-10-11 02:04] MED LIST changes: -OMEP-221 PO; +OMEP40CA5 PO; +ZOFR4TAB16 PO
[2021-10-11 05:08] VITALS: BP 136/80
[2021-10-12] MEDS ORDERED: META0.52 PO (10:52)
[2021-10-12] MEDS ORDERED: MULT400T10 PO (10:52)
[2021-12-04] MEDS ORDERED: MILK400S12 PO (16:24)
== END 2021-10-11 05:09 | disposition home or self-care (01) ==
LOC: M ED 02:04
DX: Z04.3 Encounter for examination and observation following other accident (principal); W01.0XXA Fall on same level from slipping, tripping and stumbling without subsequent striking against object, initial encounter; Y92.009 Unspecified place in unspecified non-institutional (private) residence as the place of occurrence of the external cause; Z86.79 Personal history of other diseases of the circulatory system; E78.5 Hyperlipidemia, unspecified; K21.9 Gastro-esophageal reflux disease without esophagitis; F03.90 Unspecified dementia, unspecified severity, without behavioral disturbance, psychotic disturbance, mood disturbance, and anxiety; F32.A Depression, unspecified; N40.0 Benign prostatic hyperplasia without lower urinary tract symptoms; Z88.0 Allergy status to penicillin; Z79.82 Long term (current) use of aspirin; Z79.899 Other long term (current) drug therapy

== ENCOUNTER 2021-10-12 07:17 | Inpatient (IN) | payer MEDICARE, BC, OTHER ==
[~2021-10-12] VITALS: Ht 170.2 cm; Wt 81.8 kg
[~2021-10-12 07:17] MED LIST changes: +OMEP-221 PO; -OMEP40CA5 PO
[2021-10-12 08:14] LABS: BASO % 0.5 % (0.0-1.0); EOS # 0.1 10^3/uL (0.0-0.5); EOS % 0.9 % (0.0-3.0); HEMATOCRIT 39.5 % (42.0-52.0); HEMOGLOBIN 13.6 g/dl (13.5-17.5); LYMPH % 13.1 % (24.0-44.0); MEAN CORPUSCULAR HEMOGLOBIN 33.7 pg (27.0-33.0); MEAN CORPUSCULAR HGB CONC 34.4 g/dl (32.0-36.5); MONO # 0.5 10^3/uL (0.0-0.8); MONO % 6.4 % (2.0-8.0); NEUTROPHILS # 5.8 10^3/uL (1.5-8.5); NEUTROPHILS % 78.6 % (36.0-66.0); PLATELET COUNT, AUTOMATED 162 10^3/uL (150-450); RED BLOOD COUNT 4.03 10^6/uL (4.30-6.10); WHITE BLOOD COUNT 7.4 10^3/uL (4.0-10.0)
--- NOTE | 2021-10-12 08:24 | REP ---
INDICATION: trauma COMPARISON: 10/11/2021 TECHNIQUE: Axial noncontrast images from the skull base to the thoracic inlet with coronal reformations. This CT examination was performed using the following dose reduction techniques: Automated exposure control, adjustment of mA and/or kv according to the patient's size, and use of iterative reconstruction technique. FINDINGS: Stable atrophy with periventricular leukomalacia and microvascular ischemic changes are appreciated. The ventricles and sulci are symmetric. Calderon-white differentiation is maintained. There is no evidence for acute intracranial hemorrhage, mass/mass effect, pathology or infarction. No extra-axial fluid collection. Calvarium is intact. Mucosal changes involving right maxillary and ethmoid sinuses consistent with sinusitis.. IMPRESSION: Atrophy and microvascular ischemic changes. No acute intracranial hemorrhage, infarction, or mass/mass effect. <Electronically signed by Victorino Alicea > 10/12/21 [id number]
--- NOTE | 2021-10-12 08:27 | REP ---
INDICATION: trauma COMPARISON: 10/11/2021 TECHNIQUE: Axial noncontrast images from the skull base to the thoracic inlet with coronal and sagittal re-formations This CT examination was performed using the following dose reduction techniques: Automated exposure control, adjustment of mA and/or kv according to the patient's size, and use of iterative reconstruction technique. FINDINGS: Stable osteopenia and moderate multilevel degenerative changes primarily involving C6-7 and C5-6. Spinal canal is patent. Posterior elements and spinous processes are intact. There is no evidence for acute fracture/compression injury or subluxation. Paravertebral soft tissues within normal limits. IMPRESSION: Age-related changes. No evidence for acute pathology or trauma/injury. <Electronically signed by Victorino Alicea > 10/12/21 [id number]
[2021-10-12 08:38] LABS: ALT/SGPT 30 U/L (12-78); BLOOD UREA NITROGEN 12 MG/DL (7-18); CARBON DIOXIDE LEVEL 25 MEQ/L (21-32); CHLORIDE LEVEL 105 MEQ/L (98-107); CREATININE FOR GFR 0.92 MG/DL (0.70-1.30); GLOMERULAR FILTRATION RATE > 60.0 (>35); GLUCOSE, FASTING 138 MG/DL (70-100); POTASSIUM SERUM 4.2 MEQ/L (3.5-5.1); SODIUM LEVEL 139 MEQ/L (136-145); TOTAL PROTEIN 6.5 GM/DL (6.4-8.2)
--- OUTSIDE RECORDS SUMMARY | 2021-10-12 08:48 | CCD ---
Author Author [facility] Organization [facility] Address Unknown Phone Unavailable Care Team Providers Care Suction Roller Name Role Phone NO, PCP Unavailable Unavailable TURRIN, KARTHIKEYAN Unavailable Unavailable TURRIN, KARTHIKEYAN Unavailable Unavailable TURRIN, KARTHIKEYAN Unavailable Unavailable TURRIN, KARTHIKEYAN Unavailable Unavailable Treasure LANDAVERDE DARCIE [facility] Unavailable Unavailable Treasure LANDAVEDRE DARCIE [facility] Unavailable Unavailable Treasure LANDAVERDE DARCIE [facility] Unavailable Unavailable Treasure LANDAVERDE DARCIE DPM [facility] Unavailable Unavailable Treasure LANDAVERDE DARCIE DPM PC Unavailable Unavailable Treasure LANDAVERDE DARCIE DPM PC Unavailable Unavailable Treasure LANDAVERDE DARCIE DPM PC Unavailable Unavailable Treasure LANDAVERED DARCIE DPM PC Unavailable Unavailable Treasure LANDAVERDE [...] Unavailable Unavailable Danica ANGELES MD Unavailable Unavailable Dancia ANGELES MD Unavailable Unavailable Danica ANGELES MD [...] is protected by Article 27-F of the [facility] Public Health law. If you continue you may have access to information: Regarding HIV / AIDS; Provided by facilities licensed or operated by the [facility] Office of Mental Health; or Provided by the [facility] Office for People With Developmental Disabilities. If such information is present, then the following [facility] mandated warning applies: This information has [...] law may result in a fine or senior living sentence or both. A general authorization for the release of medical or other information is NOT sufficient authorization for further disc losure. Family History Family Member Name Family Member Gender Family Member Status Date o f Status Description Data Source(s) Unknown Unknown Problem MEDENT ([facility], ) Encounters Encounter Providers Location Date Indications Data Source(s ) Outpatient Attender: DARCIE LANDAVERDE DPM 10/04/2021 08:55:00 AM EST - 09/30/2021 08:55:00 AM EST [facility] Patient discharged. [place] [address] [facility] [place] [address] 09/28/2021 12:00:00 AM EST eCW1 ([facility]) Unknown [address] [facility] [place] [address] 09/22/2021 12:00:00 AM EST eCW1 ([facility]) Unknown [address] [facility] [address] 09/21/2021 12:00:00 AM EST eCW1 ([facility]) Emergency Attender: KARTHIKEYAN Grey: PCP FRANSISCO 08/31/2021 04:48:00 PM EDT - 08/31/2021 11:04:00 PM EDT [facility] Patient discharged. Unknown [address] [facility] [address] 08/31/2021 12:00:00 AM EDT eCW1 ([facility]) Unknown [address] [facility] [address] 08/30/2021 12:00:00 AM EDT [facility]CW1 ([facility]) [place] [address] [facility] [address] 08/15/2021 12:00:00 AM EDT eCW1 ([facility]) Unknown [address] [facility] [address] 07/19/2021 12:00:00 AM EDT eCW1 ([facility]) Outpatient Attender: DARCIE TRIPATHI 07/12/2021 07:47:00 AM EDT - 07/08/2021 07:47:00 AM EDT [facility] Patient discharged. Unknown [address] [facility] [address] 07/05/2021 12:00:00 AM EDT eCW1 ([facility]) Unknown [address] [facility] [address] 06/23/2021 12:00:00 AM EDT eCW1 ([facility]) Unknown [address] [facility] [address] 06/22/2021 12:00:00 AM EDT eCW1 ([facility]) Unknown [address] [facility] [address] 06/14/2021 12:00:00 AM EDT eCW1 ([facility]) Outpatient Attender: LOKI Angeles/Proctor/Darien/Reind l 06/01/2021 01:15:00 PM EDT MEDENT ([facility]) Outpatient [address] [facility] [address] 05/25/2021 12:00:00 AM EDT eCW1 ([facility]) Outpatient Attender: LOKI Angeles/Lanie/Darien/Reind yahaira 05/10/2021 10:30:00 AM EDT MEDENT ([facility]) Unknown [address] [facility] [address] 05/02/2021 12:00:00 AM EDT eCW1 ([facility]) Unknown [address] [facility] [address] 04/18/2021 12:00:00 AM EDT eCW1 ([facility]) Unknown [address] [facility] [address] 04/07/2021 12:00:00 AM EDT eCW1 ([facility]) Unknown [address] [facility] [address] 04/05/2021 12:00:00 AM EDT eCW1 ([facility]) Office Visit, Est Pt., Level 2 FC [address] [place] [address] 03/30/2021 12:00:00 AM EDT eCW1 ([facility]) Unknown [address] [facility] [address] 03/01/2021 12:00:00 AM EDT eCW1 ([facility]) Unknown [address] [facility] [address] 02/01/2021 12:00:00 AM EDT eCW1 ([facility]) Outpatient [address] [facility] [address] 01/20/2021 12:00:00 AM EST eCW1 ([facility]) Unknown [address] [facility] [address] 01/13/2021 12:00:00 AM EST eCW1 ([facility]) Unknown [address] [facility] [address] 11/24/2020 12:00:00 AM EST eCW1 ([facility]) Unknown [address] [facility] [address] 11/03/2020 12:00:00 AM EST eCW1 ([facility]) Unknown [address] [facility] [address] 10/05/2020 12:00:00 AM EST eCW1 ([facility]) Outpatient [address] [facility] [address] 09/29/2020 12:00:00 AM EST eCW1 ([facility]) Unknown [address] [facility] [address] 09/03/2020 12:00:00 AM EDT eCW1 ([facility]) Office Visit, Est Pt., Level 4 PC [address] [place] [address] 08/16/2020 12:00:00 AM EDT eCW1 ([facility]) Immunizations Vaccine Date Status Description Data Source(s) COVID-19 VACC, MRNA(PFIZER)/PF 09/14/2021 12:00:00 AM EDT completed [facility] IIV3. This is one of two codes replacing CVX 15, which is being retired. 08/30/2021 10:58:00 AM EDT completed eCW1 ([facility]) Pfizer #3 dose COVID-19 (given elsewhere) SARSCOV2 VAC 30MCG/0.3ML IM 08/25/2021 11:00:00 AM EDT completed eCW1 ([facility]) COVID-19 VACCINE Pfizer 08/25/2021 12:00:00 AM EDT completed [facility] Vaccine Series Complete: YESThis Data wa s Submitted to [facility] Via [employer]. Pfizer #2 dose COVID-19 (given elsewhere) SARSCOV2 VAC 30MCG/0.3ML IM 12/08/2020 10:59:00 AM EST completed eCW1 ([facility]) COVID-19 VACCINE Pfizer 12/08/2020 12:00:00 AM EST completed [facility] Vaccine Series Complete: YESThis Data wa s Submitted to [facility] Via [employer]. COVID-19 VACCINE Pfizer 11/26/2020 12:00:00 AM EST completed [facility] Vaccine Series Complete: NOThis Data was Submitted to [facility] Via [employer]. Pfizer #1 dose COVID-19 (given elsewhere) SARSCOV2 VAC 30MCG/0.3ML IM 11/17/2020 10:59:00 AM EST completed eCW1 ([facility]) INFLUENZA VACCINE QUADRIVALENT 2019- (65 YR UP)/MF59 C.1/PF 08/27/2020 12:00:00 AM EDT completed [facility] IIV3. This is one of two codes replacing CVX 15, which is being retired. 08/16/2020 12:06:00 PM EDT completed eCW1 ([facility]) IIV3. This is one of two codes replacing CVX 15, which is being retired. 08/16/2020 12:06:00 PM EDT completed eCW1 ([facility]) IIV3. This is one of two codes replacing CVX 15, which is being retired. 08/16/2020 12:06:00 PM EDT completed eCW1 ([facility]) IIV3. This is one of two codes replacing CVX 15, which is being retired. 08/16/2020 12:06:00 PM EDT completed eCW1 ([facility]) IIV3. This is one of two codes replacing CVX 15, which is being retired. 08/16/2020 12:06:00 PM EDT completed eCW1 ([facility]) IIV3. This is one of two codes replacing CVX 15, which is being retired. 08/16/2020 12:06:00 PM EDT completed eCW1 ([facility]) IIV3. This is one of two codes replacing CVX 15, which is being retired. 08/16/2020 12:06:00 PM EDT completed eCW1 ([facility]) IIV3. This is one of two codes replacing CVX 15, which is being retired. 08/16/2020 12:06:00 PM EDT completed eCW1 ([facility]) IIV3. This is one of two codes replacing CVX 15, which is being retired. 08/16/2020 12:06:00 PM EDT completed eCW1 ([facility]) IIV3. This is one of two codes replacing CVX 15, which is being retired. 08/16/2020 12:06:00 PM EDT completed eCW1 ([facility]) IIV3. This is one of two codes replacing CVX 15, which is being retired. 08/16/2020 12:06:00 PM EDT completed eCW1 ([facility]) IIV3. This is one of two codes replacing CVX 15, which is being retired. 08/16/2020 12:06:00 PM EDT completed eCW1 ([facility]) IIV3. This is one of two codes replacing CVX 15, which is being retired. 08/16/2020 12:06:00 PM EDT completed eCW1 ([facility]) IIV3. This is one of two codes replacing CVX 15, which is being retired. 08/16/2020 12:06:00 PM EDT completed eCW1 ([facility]) IIV3. This is one of two codes replacing CVX 15, which is being retired. 08/16/2020 12:06:00 PM EDT completed eCW1 ([facility]) IIV3. This is one of two codes replacing CVX 15, which is being retired. 08/16/2020 12:06:00 PM EDT completed eCW1 ([facility]) IIV3. This is one of two codes replacing CVX 15, which is being retired. 08/16/2020 12:06:00 PM EDT completed eCW1 ([facility]) IIV3. This is one of two codes replacing CVX 15, which is being retired. 08/16/2020 12:06:00 PM EDT completed eCW1 ([facility]) IIV3. This is one of two codes replacing CVX 15, which is being retired. 08/16/2020 12:06:00 PM EDT completed eCW1 ([facility]) IIV3. This is one of two codes replacing CVX 15, which is being retired. 08/16/2020 12:06:00 PM EDT completed eCW1 ([facility]) IIV3. This is one of two codes replacing CVX 15, which is being retired. 08/16/2020 12:06:00 PM EDT completed eCW1 ([facility]) IIV3. This is one of two codes replacing CVX 15, which is being retired. 08/16/2020 12:06:00 PM EDT completed eCW1 ([facility]) IIV3. This is one of two codes replacing CVX 15, which is being retired. 08/16/2020 12:06:00 PM EDT completed eCW1 ([facility]) IIV3. This is one of two codes replacing CVX 15, which is being retired. 08/16/2020 12:06:00 PM EDT completed eCW1 ([facility]) IIV3. This is one of two codes replacing CVX 15, which is being retired. 08/16/2020 12:06:00 PM EDT completed eCW1 ([facility]) Medications Medication Brand Name Start Date Product Form Dose Route Admi nistrative Instructions Pharmacy Instructions Status Indications Reaction Description Data Source(s) doxycycline hyclate 100 MG Oral Tablet Doxycycline Hyc late 100 MG Doxycycline Hyclate 100 MG 09/28/2021 12:00:00 AM EST 1.0 {tablet} active Doxycycline Hyclate 100 MG eCW1 ([facility]) 240 mcg/0.7 mL 08/24/2021 12:00:00 AM EDT syringe 0 INJECT DIRECTED INJECT DIRECTED SOLD: 08/24/2021 [facility] buspirone hydrochloride 10 MG Oral Tablet busPIRone HC l 10 MG busPIRone HCl 10 MG 05/25/2021 12:00:00 AM EDT 1.0 {tablet} activ e busPIRone HCl 10 MG eCW1 ([facility]) buspirone hydrochloride 10 MG Oral Tablet busPIRone HC l 10 MG busPIRone HCl 10 MG 05/25/2021 12:00:00 AM EDT 1.0 {tablet} activ e busPIRone HCl 10 MG eCW1 ([facility]) buspirone hydrochloride 10 MG Oral Tablet busPIRone HC l 10 MG busPIRone HCl 10 MG 05/25/2021 12:00:00 AM EDT 1.0 {tablet} activ e busPIRone HCl 10 MG eCW1 ([facility]) buspirone hydrochloride 10 MG Oral Tablet busPIRone HC l 10 MG busPIRone HCl 10 MG 05/25/2021 12:00:00 AM EDT 1.0 {tablet} activ e busPIRone HCl 10 MG eCW1 ([facility]) buspirone hydrochloride 10 MG Oral Tablet busPIRone HC l 10 MG busPIRone HCl 10 MG 05/25/2021 12:00:00 AM EDT 1.0 {tablet} activ e busPIRone HCl 10 MG eCW1 ([facility]) buspirone hydrochloride 10 MG Oral Tablet busPIRone HC l 10 MG busPIRone HCl 10 MG 05/25/2021 12:00:00 AM EDT 1.0 {tablet} activ e busPIRone HCl 10 MG eCW1 ([facility]) buspirone hydrochloride 10 MG Oral Tablet busPIRone HC l 10 MG busPIRone HCl 10 MG 05/25/2021 12:00:00 AM EDT 1.0 {tablet} activ e busPIRone HCl 10 MG eCW1 ([facility]) buspirone hydrochloride 10 MG Oral Tablet busPIRone HC l 10 MG busPIRone HCl 10 MG 05/25/2021 12:00:00 AM EDT 1.0 {tablet} activ e busPIRone HCl 10 MG eCW1 ([facility]) buspirone hydrochloride 10 MG Oral Tablet busPIRone HC l 10 MG busPIRone HCl 10 MG 05/25/2021 12:00:00 AM EDT 1.0 {tablet} activ e busPIRone HCl 10 MG eCW1 ([facility]) buspirone hydrochloride 10 MG Oral Tablet busPIRone HC l 10 MG busPIRone HCl 10 MG 05/25/2021 12:00:00 AM EDT 1.0 {tablet} activ e busPIRone HCl 10 MG eCW1 ([facility]) buspirone hydrochloride 10 MG Oral Tablet busPIRone HC l 10 MG busPIRone HCl 10 MG 05/25/2021 12:00:00 AM EDT 1.0 {tablet} activ e busPIRone HCl 10 MG eCW1 ([facility]) buspirone hydrochloride 10 MG Oral Tablet busPIRone HC l 10 MG busPIRone HCl 10 MG 05/04/2021 12:00:00 AM EDT 1.0 {tablet} activ e busPIRone HCl 10 MG eCW1 ([facility]) Insurance Providers Payer name Policy type / Coverage type Policy ID Covered libertarian ID Covered libertarian's relationship to dc Policy Dc Plan Information MEDICARE [id number] SP [id number] A MEDICARE [id number] SP [id number] A [id number] A [employer] [place] [id number] SP [id number] [facility] [id number] SP [id number] [employer] [place] [id number] SP [id number] [facility] E[facility]IRE -[facility] [id number] 18 [id number] EMPIRE BLUE CROSS BLUE SHIELD -O/P [id number] 18 [id number] MEDICARE PART A -O/P [id number] 18 [id number] [facility] [id number] SP [id number] MEDICARE PART A [facility] [id number] 18 [id number] MEDICARE [id number] SP [id number] A BCBS E[place]IRE [place] DIV [id number] SP [id number] BCBS [place] UNAVAILABLE UNAVAILABLE [place] PPO [id number] SP [id number] MEDICARE C [id number] S [id number] [facility] O [id number] S [id number] MEDICARE C [id number] S [id number] A BCBS EMPIRAlpa FROST DIV [id number] SP [id number] ANSI-Medicare Part B [id number] ANSI-Commercial [id number] ANSI-Medicare Part B [id number] ANSI-Commercial [id number] ANSI-Medicare Part B [id number] ANSI-Commercial [id number] MEDICARE [id number] SP [id number] ANSI-Commercial [id number] ANSI-Medicare Part B [id number] ANSI-Commercial [id number]-oxgb-[id number] ANSI-Medicare Part B [id number] ANSI-Commercial [id number]-vqer-324j-do14-[id number] bym5gsz3-ixnv-271h-zu12-fe786qvuyb40 ANSI-Medicare Part B [id number] ANSI-Medicare Part B [id number] ANSI-Commercial [id number] ANSI-Commercial [id number]-60lu-[id number]-[id number]-04fk-[id number] ANSI-Medicare Part B [id number] ANSI-Commercial [id number]-[id number]-383r-[id number] ANSI-Medicare Part B [id number]-wv68ksvka7j7 ANSI-Medicare Part B [id number] ANSI-Commercial [id number]-[id number]-[id number] ANSI-Medicare Part B [id number]-[id number] ANSI-Commercial 172vez3m-308p-1z45-v5j6-[id number] 447dej7p-192i-7e79-f0w6-[id number] ANSI-Medicare Part B [id number] ANSI-Commercial [id number]-[id number] [id number]-[id number] ANSI-Commercial [id number]-g8k8-[id number] [id number]-j0r2-w4dga68o5883 ANSI-Medicare Part B [id number] ANSI-Medicare Part B [id number] ANSI-Commercial [id number]-e4p7-3y5c-ca0s-[id number] [id number]-o8i3-7w8d-sw8g-21tj4t076av0 ANSI-Medicare Part B [id number]-[id number] ANSI-Commercial [id number]-ilr2-4t66-03lu-[id number]-kmo1-3h95-57yt-4s58a78577cw ANSI-Medicare Part B [id number]-bw4q-13cg-[id number] ANSI-Commercial [id number]-e16k-6970-qels-746914d5snwp [id number]-w24p-5874-cbwy-634192h2fxso ANSI-Commercial [id number]-dp18-[id number] u34f2mz4-2618-0701-qd65-j35j634d47j5 ANSI-Medicare Part B [id number] ANSI-Medicare Part B [id number] ANSI-Commercial [id number]-g28y-[id number] [id number]-p04s-3tk2-717w-6953zl970081 ANSI-Commercial [id number]-[id number]-a3e0-q2n03rl1v910 [id number]-a768-07iy-r7y1-d4s18vq0m955 ANSI-Medicare Part B [id number]-[id number]-4b5z-la46zl0f4616 ANSI-Medicare Part B [id number] ANSI-Commercial q30r09as-h51t-4j2h-k7lf-8ixwc5h9xsu6 g98b30jl-k10g-6v9b-w5bf-8femi3p4sux7 ANSI-Commercial 04hr8v31-1r2n-96tj-y7k2-cl830zi982bw 69rq1z15-2w4t-17xy-t3t3-fh389fk123an ANSI-Medicare Part B [id number] ANSI-Medicare Part B [id number] ANSI-Commercial i4gp5nqq-2g0f-293x-hg2l-[id number] u8ll0ndi-1h5v-121z-dv4s-707742483n8w ANSI-Medicare Part B [id number]-[id number] ANSI-Commercial [id number]-jn2200cl4z96 31dk2353-3441-1k15-1cz5-dj7139di3l16 ANSI-Medicare Part B [id number]-m880-82t5-[id number] ANSI-Commercial yoqv1u79-f659-634i-6j5w-4681262tj70u fzcu3a35-e225-682z-2v6o-[id number] ANSI-Commercial [id number]-8fo5-6950-2p26-6g18dgcdway0 4xz8e0dv-4iw5-0150-7a40-2w34angklac2 ANSI-Medicare Part B [id number]-[id number] [facility] [id number] ANSI-Commercial [id number] [facility] Part B [id number] Self [id number] Medicare [place]/[facility] Medicare Primary [id number] Self [id number] MEDICARE [id number] SP [id number] A [employer] [place] [id number] SP [id number] [employer] [place] [id number] SP [id number] [facility] [id number] SP [id number] [employer] [place] [id number] SP [id number] MEDICARE [id number] SP [id number] A [facility] [id number] SP [id number] [facility] [id number] SP [id number] [employer] [place] [id number] SP [id number] [facility] [id number] SP [id number] MEDICARE [id number] SP [id number] [employer] [place] [id number] SP [id number] [facility] [id number] SP [id number] MEDICARE PART A [facility] [id number] 18 [id number] [facility] [employer] PLAN [id number] Problems, Conditions, and Diagnoses Code Display Name Description Problem Type Effective Dates Data Source(s) M2010 Hallux valgus (acquired), unspecified fo ot Hallux valgus (acquired), unspecified foot Diagnosis 09/30/2021 08:55:00 AM [facility] M2041 Other hammer toe(s) (acquired), right fo ot Other hammer toe(s) (acquired), right foot Diagnosis 09/30/2021 08:55:00 AM [facility] R2681 Unsteadiness on feet Unsteadiness on feet Diagnosis 09/30/2021 08:55:00 AM [facility] [id number] Pain in left foot Pain in left foot Diagnosis 09/30/2021 08:55:00 AM [facility] L84 Corns and callosities Corns and callosities Diagnosis 09/30/2021 08:55:00 AM [facility] B351 Tinea unguium Tinea unguium Diagnosis 09/30/2021 08:55:00 AM [facility] 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, bilateral legs Unspecified atherosclerosis of [place] ar teries of extremities, bilateral legs Diagnosis 09/30/2021 08:55:00 AM [facility] G42408 Personal history of nicotine dependence Personal history of nicotine dependence Diagnosis [facility] [employer] (current) use of aspirin [employer] (cu rrent) use of aspirin Diagnosis [facility] Type 2 diabetes mellitus without complic ations Type 2 diabetes mellitus without complications Diagnosis 08/31/2021 04:48:00 PM EDT [facility] F0280 Dementia in other diseases c lassified elsewhere without behavioral disturbance Dementia in other diseases classified el sewhere without behavioral disturbance Diagnosis 08/31/2021 04:48:00 PM [facility] 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 Diagnosis 08/31/2021 04:48:00 PM [facility] R410 Disorientation, unspecified Disorientation, unspecifie d Diagnosis 08/31/2021 04:48:00 PM [facility] E11.9 Type II diabetes mellitus well controlle d DM II (diabetes mellitus, type II), controlled Problem 07/06/2021 12:00:00 AM EDT eCW1 ([facility]) 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 [id number] Cerebrovascular small vessel disease Prob cathi 06/28/2021 12:00:00 AM EDT eCW1 ([facility]) 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 Problem 05/27/2021 12:00:00 AM EDT eCW1 ([facility]) F41.0 [id number] Anxiety attack Problem 05/25/2021 12:00:00 A M EDT eCW1 ([facility]) R53.81 [id number] Physical deconditioning Problem 12:00:00 AM EST eCW1 ([facility]) L57.0 126920036 Actinic keratoses Problem 08/16/2020 12:00:0 0 AM EDT eCW1 ([facility]) L81.4 [id number] Lentigines Problem 08/16/2020 12:00:00 AM ED T eCW1 ([facility]) L91.8 [id number] Skin tag Problem 08/16/2020 12:00:00 AM ED T eCW1 ([facility]) L73.8 982945302 Sebaceous hyperplasia of face Problem 08/16/2020 12:00:00 AM EDT eCW1 ([facility]) D18.01 9744002 Nicole angioma Problem 08/16/2020 12:00:00 A M EDT eCW1 ([facility]) Surgeries/Procedures Procedure Description Date Indications Data Source(s) Pare Hyperkeratotic Lesion, 2-4 09/30/2021 12:00:00 AM EST [facility] ([facility]) Debridement Nails Any Method 1-5 09/30/2021 12:00:00 A M EST [facility] ([facility]) Pare Hyperkeratotic Lesion, 2-4 07/08/2021 12:00:00 AM EDT [facility] ([facility]) Debridement Nails Any Method 1-5 07/08/2021 12:00:00 A M EDT [facility] ([facility]) OFFICE OUTPATIENT VISIT 15 MINUTES 06/01/2021 12:00:00 AM EDT [facility] ([facility] ) Endoscopy Nasal Diagnostic 05/10/2021 12:00:00 AM [facility] OFF[facility] OUTPATIENT NEW 45 MINUTES 05/10/2021 12:00:00 A M EDT [facility] Results ID Date Data Source [id number] 09/18/2021 06:28:00 AM EST [facility] Name Value Range Interpretation Code Description Data Yanira rce(s) Supporting Document(s) SARS coronavirus 2 RNA [Presence] in Res piratory specimen by FABIAN with probe detection NEGATIVE [facility] This lab was ordered by [facility] a nd reported by [facility]. ID Date Data Source [id number] 09/01/2021 10:27:00 PM EDT [facility] [address] [place] [address] PHONE: [phone] FAX: [phone] Name ..............: MATHEW MERLOS Acct Number ...........................: [id number] ROOM. ............: VT-25 Number ............................: [id number] Stay type.........: E/R Discharge Date...............:08/31/21 Admit Date .....: 08/31/21 Admit Phys .............................: NICHOLE CHURCH Date of ..: 1930 Family Phys ...........................: NO PCP Phone..............: [phone] Age.................................:89 Film# ...............:[id number] Sex.................................:M Unsigned transcriptions are preliminary reports and do not represent a medical or legal document EKG [id number] COMPLETE:08/31/21 21:00 BIS [id number] Please See Scanned Results. Name Value Range Interpretation Code Description Data Yanira rce(s) Supporting Document(s) ID Date Data Source [id number] 08/31/2021 04:48:00 PM EDT [facility] 1 OrderSheet [facility] Emergency Department [address] [place] [address] Phone #: ext- [phone] 08/31/2021 16:35 Patient: Estela CARMONA Sex: M : 1930 Age: 89yWEIGHT:81.6 kg (S) HEIGHT:66 inches (S) BMI:29.0ALLERGIES: Penicillin, PotassiumCHIEF COMPLAINT: confusionDIAGNOSIS: Normal Exam, DementiaLAB ORDERSOrder Description Priority Entered Acknowledged [facility]ed[facility] 17:05 08/31/2021 Ack'd: 17:18 17:24 [facility] Karthikeyan Varela Ryan Tech, Tiffany ER M.D.; [id number] STAT 17:05 08/31/2021 Ack'd: 17:18 17:24 [facility] Karthikeyan Varela Ryan Tech, Tiffany ER M.D.; [id number] STAT 17:05 08/31/2021 Ack'd: 17:18 17:24 [facility] Karthikeyan Varela Ryan Tech, Tiffany ER M.D.; [id number] STAT 17:05 08/31/2021 Ack'd: 17:18 17:24 [facility] Karthikeyan Varela Ryan Tech, Tiffany ER M.D.; [id number] Reflex to UA 17:05 08/31/2021 Ack'd: 17:18 17:22 Luke,Culture Karthikeyan Varela Ryan Ryan M.D.;DIAGNOSTIC STUDY ORDERSOrder Description Priority Entered Acknowledged InitialedCT Head W/O Cont STAT 17:05 08/31/2021 Ack'd: 17:18 20:33 Luke,(Oxygen?(No)) Karthikeyan Varela Ryan Ryan M.D.; Reason for Study: Altered Mental StatusMEDICATION/IV/DRIP/FLUID ORDERSOrder Description Priority Entered Acknowledged InitialedGENERAL ORDERSOrder Description Priority Entered Acknowledged InitialedEKG 17:05 08/31/2021 17:07 [facility] Karthikeyan Varela Tiffany ER M.D.; Tech1 2 OrderSheet [facility] Emergency Department [address] [place] [address] Phone #: ext- [phone] 08/31/2021 16:35 Patient: Estela CARMONA Sex: M : 1930 Age: 89y[Electronically signed by Dee Jasso R.N. (23:06 08/31/2021)][Electronically signed by Karthikeyan Varela M.D. (23:09 08/31/2021)][Electronically locked by Dee Jasso R.N. (23:06 08/31/2021)] Name Value Range Interpretation Code Description Data Yanira rce(s) Supporting Document(s) ID Date Data Source [id number] 08/31/2021 04:48:00 PM EDT [facility] 1 Medication Reconciliation Report [facility] Emergency Department [address] [place] [address] Phone #: ext- [phone] 08/31/2021 16:35 Patient: [...] the Emergency Department: 2 Medication Reconciliation Report [facility] Emergency Department [address] [place] [address] Phone #: ext- [phone] 08/31/2021 16:35 Patient: Estela CARMONA Sex: M : 1930 Age: 89yNone.The following Medications were prescribed to the patient:None. Name Value Range Interpretation Code Description Data Yanira rce(s) Supporting Document(s) ID Date Data Source [id number] 08/31/2021 04:48:00 PM EDT [facility] 1 Medication Administration Record [facility] Emergency Department [address] [place] [address] Phone #: ext- [phone] 08/31/2021 16:35 Patient: Estela CARMONA Sex: M : 1930 Age: 89yWeight: 81.6 kgHeight/Length: 66 inBMI: 29ALLERGIES: Penicillin, PotassiumDate/Time Medication Administered Medication Ordered Name Value Range Interpretation Code Description Data Yanira rce(s) Supporting Document(s) ID Date Data Source [id number] 08/31/2021 04:48:00 PM EDT [facility] 1 General Instructions [facility] Emergency Department [address] [place] [address] Phone #: ext- [phone] 08/31/2021 16:35 Patient: Estela CARMONA Sex: M : 1930 Age: 89yChronic late [...] benefits of treatment reviewed withcaregiver and patient loss control representative and understanding verbalized. Agrees to plan of care. ADDITIONAL INFORMATION 2 General Instructions [facility] Emergency Department [address] [place] [address] Phone #: ext- [phone] 08/31/2021 16:35 [facility]: [id number] Sex: M : 1930 Age: 89yDementia and [...] Label cabinets and drawers. 3 General Instructions [facility] Emergency Department [address] [place] [address] Phone #: ext- [phone] 08/31/2021 16:35 Patient: Estela CARMONA Sex: M : 1930 Age: 89yTry to distract, not confront, the person. When he or she becomes frustrated or upset, direct theperson's attention to eating or some other interesting activity. Windows can help the person know ifit's night or day and what season it is.Medical-legal tipsTalk with your doctor or ui developer about getting a power of criminal attorney for healthcare and for financialdecisions. It's [...] healthcare provider for a referral to a administrator social welfare, if needed. Take care of yourself with [...] to eat or drink 4 General Instructions [facility] Emergency Department [address] [place] [address] Phone #: ext- [phone] 08/31/2021 16:35 Patient: Estela CARMONA Sex: M : 1930 Age: 89y Headache or nausea that gets worse, or repeated vomiting after a fall Unexplained fever of 100.4 F (38.0 C) or higher, or as advisedCall 911Cnys 911 if any of these occur: Slurred speech, or trouble speaking, walking, or seeing Fainting spell or dizziness Seizure symptoms. These include staring spells, lip-smacking, twitching, or sudden changes in mental status. Violent behavior (call police) or behavior becomes too difficult to manage at home Increased drowsiness, or failure to respond normally [id number] [employer]. [address] [place] [address]. All rights reserved. This information is not intended as asubstitute for professional medical care. Always follow your healthcare professional's instructions. You have been given the following additional information: Dementia, Any Type, Caregiver Support(Electronically signed by Karthikeyan Varela M.D. 08/31/2021 23:09) Name Value Range Interpretation Code Description Data Yanira rce(s) Supporting Document(s) ID Date Data Source [id number] 08/31/2021 04:48:00 PM EDT [facility] 1 Clinical Report - Nurses [facility] Emergency Department [address] [place] [address] Phone #: ext- [phone] 08/31/2021 16:35 Patient: Estela CARMONA Sex: M : 1930 Age: 89yTRIAGEArrived by EMS. Historian: EMS, halfway nurse, halfway records and patient.Unaccompanied. ( pt brought in via EMS per EMS halfway staff want patient evaluated due toincreased confusion. per [facility] home staff pt "has not been acting himself", was seen at [facility] on 08/30and they did not find anything. pt with hx of dementia.).Triage time: 16:38 08/31/2021. Acuity: LEVEL 4.Chief Complaint: ALTERED MENTAL STATUS and CONFUSED.No acute distress.This started 3 - 4 months ago.Treatment SPECIAL WEAPONS AND TACTICS OFFICER:None.SEPSIS SCREEN: SIRS SCREEN NEGATIVE. SEPSIS SCREEN NEGATIVE. [...] Portillo Butler. 2 Clinical Report - Nurses [facility] Emergency Department [address] [place] [address] Phone #: ext- [phone] 08/31/2021 16:35 Patient: Estela CARMONA [facility]#: [id number] Sex: M : 1930 Age: 89yPROBLEMS:Hyperlipidemia.IFG/metabolic syndrome.Diabetes [...] Portillo Butler. 3 Clinical Report - Nurses [facility] Emergency Department [address] [place], [place] [address] Phone #: ext- [phone] 08/31/2021 16:35 Patient: Estela CARMONA Sex: M [...] RR: 18. O2 saturation: 97%. --17:07 08/31/21 [facility] EKG time: (16:37 08/31/2021). EKG was performed by a tech and shown to the ED physician. --17:08 08/31/21 [facility] Tech, Cindy, Tech1 Reassurance given. The [...] RR: 16. O2 saturation: 97%. --18:10 08/31/21 Linda Gonzalez ED 19:13 08/31/21. BP: 139/74. HR: 60. RR: 16. O2 saturation: 95%. --19:13 08/31/21 Linda Gonzalez ED Reassurance given to the patient. The patient [...] disposition. --19:21 4 Clinical Report - Nurses [facility] Emergency Department [address] [place] [address] Phone #: ext- [phone] 08/31/2021 16:35 Patient: Estela CARMONA Sex: M : 1930 Age: 89y 08/31/21 Portillo Butler 20:33 08/31/21. ( Med Neccessitiy faxed to [facility]. Awaiting transport. Nurse Genesis at [facility] aware pt will be d/c.). --20:48 08/31/21 Dee Deleon R.N.DISPOSITION / DISCHARGE 20:03 08/31/21. BP: 147/79. HR: 57. RR: 16. O2 saturation: 97%. Temp: 98.4 F. Pain level now 12/22. --20:03 08/31/21 [facility] Linda ROWELL Departure time: 22:59 08/31/2021. Condition at departure: stable. Learning barriers present. Ability to learn limited by dementia. Learning barriers note: written discharge instructions sent to [facility]. Spoke with NURSE Genesis regarding findings of todays testing. The patient was discharged by the physician. He was discharged ([facility]). He left via ambulance and ([facility]) and on a stretcher. --23:01 08/31/21 Dee Deleon R.N. ( 2011 [facility] accepted return trip d/c. 2114 per [facility] no ETA on transport. 2199 still awaiting transport. Pt dozing at intervals, resting quietly on stretcher.). --23:04 08/31/21 Dee Deleon R.N.Locked/Released at 08/31/2021 23:06 by Dee Deleon R.N. Name Value Range Interpretation Code Description Data Yanira rce(s) Supporting Document(s) ID Date Data Source [id number] 08/31/2021 04:48:00 PM EDT [facility] 1 Clinical Report - Physicians/Mid Levels [facility] Emergency Department [address] [place] [address] Phone #: ext- [phone] 08/31/2021 16:35 Patient: [facility]MON[id number] Sex: M : 1930 Age: 89y Time Seen: 16:38 08/31/2021; initial patient contact. Arrived- By ambulance. Historian- EMS personnel and halfway nurse and records. Disposition decision: 19:55 08/31/2021.HISTORY OF PRESENT ILLNESS Chief Complaint: CONFUSION. The patient has been confused. This started today and is now gone. It has been intermittent and waxing/waning. The patient was not found unresponsive. custodial resident. History of chronic dementia. No change in diabetic routine, alcohol recently, recent drug use or medication given prior to arrival. Dextro stick was not low prior to arrival. No weakness, numbness or recent fall. No difficulty walking. Usually has normal mobility. (pt is resident of [facility] in [place], has dementia and known maxillary sinus mass; per staff, was a little bit more confused yesterday and today, briefly; was sent to [facility] ER yesterday, Covid test done and sent back to [place]; pt sent here today for 2nd opinion; maybe workup; not confused when EMS arrived yesterday and today; pt has no complaints in ER; pt is DNR/DNI per staff). Similar symptoms previously. Patient has had similar symptoms occasionally. Recent medical care: The patient was seen recently at another facility in the emergency department. ( [facility] ER yesterday).REVIEW OF SYSTEMSNo fever, headache, [...] esophagus. 2 Clinical Report - Physicians/Mid Levels [facility] Emergency Department [address] [place] [address] Phone #: ext- [phone] 08/31/2021 16:35 Patient: Estela CARMONA Sex: M : 1930 Age: 89y Dementia. Additional Surgeries: Unk. Medications: busPIRone HCl Oral. Buspar. Metamucil Oral. Donepezil HCl Oral. Atorvastatin Calcium Oral. Namenda Oral. Aspirin Oral. Glucosamine Complex Oral. Lexapro Oral. Finasteride Oral. Omeprazole Oral. Vitamin B12 Oral. Allergies: Penicillin. Potassium.SOCIAL HISTORYFormer smoker. Occasional alcohol use. No drug use. No recent travel. Resides in a halfway.ADDITIONAL NOTESThe nursing notes have been reviewed with [...] normal. 3 Clinical Report - Physicians/Mid Levels [facility] Emergency Department [address] [place] [address] Phone #: ext- [phone] 08/31/2021 16:35 Patient: Estela CARMONA Sex: M : 1930 Age: 89yLABS, X-RAYS, AND EKGEKG: No acute process. No acute ischemia. Normal EKG. Normal sinus rhythm. Rate: 63/min.Normal ST and T waves. Prior EKG unavailable. The study has been interpreted contemporaneously byme. The EKG appears to be a good tracing. Interpretation time: 16:47 08/31/2021.CT Head: ([facility] Call: [phone] Online chat: [email or web address] Name: FIOR CARMONA (Age): 1930 89 Gender: MDate of Exam: 08/31/2021 Physician: KARTHIKEYAN VARELA # of Images: 171Ordered As: CT HEAD WOCONFIDENTIALITY STATEMENTThis report is intended only for the use of the referring physician, and only in accordance with law, If youreceived this in error, call [phone] 1 of 1PROCEDURE INFORMATION:Exam: CT Head Without [...] Anay Escobar MD08/31/2021 7:11 PM Eastern Time ([facility])). Head CT performed without contrast. The study wasinterpreted by the radiologist.Laboratory Tests: Laboratory tests have been ordered, with results reviewed and considered in the 4 Clinical Report - Physicians/Mid Levels [facility] Emergency Department [address] [place] [address] Phone #: ext- [phone] 08/31/2021 16:35 Patient: Estela CARMONA Sex: M [...] mL/min 5 Clinical Report - Physicians/Mid Levels [facility] Emergency Department [address] [place] [address] Phone #: ext- [phone] 08/31/2021 16:35 Patient: [...] 80 and above >32 mL/min Normal Troponin-T: (REI: 08/31/2021 17:23) ( MsgRcvd 08/31/2021 18:31) Final results Test Result Flag Units (Reference) TROPONIN T <0.01 NG/ML (0.00 - 0.10) TROPONIN T0.1 ng/ml Recommended as the clinical threshold value forTroponin T. TSH: (ERI: 08/31/2021 17:23) ( MsgRcvd 08/31/2021 18:47) Final results Test Result Flag Units (Reference) TSH 1.42 uIU/mL (0.47 - 5.01) UA REFLEX TO UA CULTURE: (ERI: 08/31/2021 17:15) ( MsgRcvd 08/31/2021 19:13) Final results Test Result Flag [...] Head W/O Cont: (ERI: 08/31/2021 17:05) ( [facility] 08/31/2021 19:20) In Progress CT HEAD W/O CONTRAST Reason(s): Altered Mental Status TRANSPORTATION: IV? O2? Oxygen?(No) Room: ED.PROGRESS AND PROCEDURESCourse of Care: 17:13 08/31/21. pt has no complaint in ER w nml exam, except for known dementia 19:45 08/31/21. CBC, troponin, TSH, UA nml; CT head w/o results in and the rt maxillary sinusitis seen is actually a known mass per [place] report; will d/c after [facility] 6 Clinical Report - Physicians/Mid Levels [facility] Emergency Department [address] [place] [address] Phone #: ext- [phone] 08/31/2021 16:35 Patient: Estela [facility]MON[id number] Sex: M : 1930 Age: 89y 19:54 08/31/21. CMP nml; pt asymptomatic in ER; will d/c back to [place]; d/c instructions given to [facility] staff. Caregiver counseled in person regarding the [...] days 7 Clinical Report - Physicians/Mid Levels [facility] Emergency Department [address] [place] [address] Phone #: ext- [phone] 08/31/2021 16:35 Patient: [...] of treatment reviewed with caregiver and patient loss control representative and understanding verbalized. Agrees to plan of care.(Electronically signed by Karthikeyan Varela M.D. 08/31/2021 23:09) Name Value Range Interpretation Code Description Data Yanira rce(s) Supporting Document(s) ID Date Data Source [id number] 08/31/2021 09:33:00 [place] [address] PHONE: [phone] FAX: [phone] Name .................. : MATHEW MERLOS Acct Number.................. : [id number] ROOM. ................. : VT-25 MR Number ................... : [id number] Stay type ............. : E/R Discharge Date......... ... : Admit Date ......... : 1 Admit Phys .................... : NORBERTRIN RANJIT Date of ....... : 1930 Family Phys ................... : NO PCP Phone .................. : [phone] Age ................................ : 89 Film# .................. .:[id number] Sex ................................. : M Unsigned transcriptions are preliminary reports and do not represent a medical or legal document CT HEAD W/O CONTRAST [id number] COMPLETE:08/31/21 19:20 [facility] [address] Reason(s): Altered Mental Status CT BRAIN WITHOUT [...] provided by Toy. Page 1 of 2 [facility] [address] [place] [address] PHONE: [phone] FAX: [phone] Name .................. : MATHEW MERLOS Acct Number.................. : [id number] [facility]... : [id number] Stay type ............. : E/R Discharge Date......... ... : Admit Date ......... : 08/31/21 Admit Phys .................... : NICHOLE CHURCH Date of ....... : 1930 Family Phys ................... : NO PCP Phone .................. : [phone] Age ................................ : 89 Film# .................. .:[id number] Sex ................................. : M Unsigned transcriptions are preliminary reports and do not represent a medical or legal document CT HEAD W/O CONTRAST [id number] COMPLETE:08/31/21 19:20 [facility] [address] Reason(s): Altered Mental Status Electronically Reviewed and Signed By Ha Diaz MD , 08/31/21 21:33, DIANELYS Transcribe Initials: KRYSTIAN , Transcribe Date: 08/31/21 21:30, Dictation Date: Copy for: 010 EMERGENCY SRV Copy for: EMERGENCY DEPT via modem Copy for: 710 MED REC Page 2 of 2 Name Value Range Interpretation Code Description Data Yanira rce(s) Supporting Document(s) ID Date Data Source [id number] 08/31/2021 05:47:00 PM EDT [facility] Name Value Range Interpretation Code Description Data Yanira rce(s) Supporting Document(s) CBC W/AUTOMATED DIFF [facility] COMPLETE BLOOD COUNT Leukocytes [#/volume] in Blood by Automated count 7.2 10^3/uL 4.2 - 1 1.0 [facility] Erythrocytes [#/volume] in Blood by Automated count 4.25 10^6/uL 4. 50 - 6.30 L [facility] Hemoglobin [Mass/volume] in Blood 14.4 g/dL 14.0 - 16.0 [facility] Hematocrit [Volume Fraction] of Blood by Automated count 41.6 % 4 1.0 - 51.0 [facility] Erythrocyte mean corpuscular volume [Entitic volume] by Auto mated count 97.9 fL 80.0 - 94.0 H [facility] Erythrocyte mean corpuscular hemoglobin [Entitic mass] by Automated count 33.9 pg 27.0 - 34.0 [facility] Erythrocyte mean corpuscular hemoglobin concentration [Mass/volume] by Automated count 34.6 g/dL 31.0 - 36.0 [facility] Erythrocyte distribution width [Ratio] by Automated count 13.2 % 11.5 - 14.8 [facility] Platelets [#/volume] in Blood by Automated count 205 10^3/uL 150 - 45 0 [facility] Platelet mean volume [Entitic volume] in Blood by Automated count 9.2 fL 7.4 - 10.4 [facility] Neutrophils/100 leukocytes in Blood by Automated count 71.0 % 37. 0 - 80.0 [facility] Lymphocytes/100 leukocytes in Blood by Manual count 19.4 % 25.0 - 40.0 L [facility] Monocytes/100 leukocytes in Blood by Automated count 6.3 % 3.0 - 8.0 [facility] Eosinophils/100 leukocytes in Blood by Automated count 2.4 % 0.0 - 7.0 [facility] Basophils/100 leukocytes in Blood by Automated count 0.6 % 0.0 - 2.0 [facility] %IG 0.3 % 0.0 - 0.0 H [facility] al %NRBC 0.0 % 0.0 - 0.0 [facility] al Neutrophils [#/volume] in Blood by Automated count 5.09 10^3/uL 2.00 - 6.90 [facility] Lymphocytes [#/volume] in Blood by Automated count 1.39 10^3/uL 0.60 - 3.40 [facility] Monocytes [#/volume] in Blood by Automated count 0.45 10^3/uL 0.00 - 0.90 [facility] Eosinophils [#/volume] in Blood by Automated count 0.17 10^3/uL 0.00 - 0.70 [facility] Basophils [#/volume] in Blood by Automated count 0.04 10^3/uL 0.00 - 0.20 [facility] #IG 0.02 10^3/uL 0.00 - 0.10 [facility] #NRBC 0.00 10^3/uL 0.00 - 0.00 [facility] MANUAL DIFF NOT INDICATED [facility] RBC MORPH NOT INDICATED [facility] spital ID Date Data Source [id number] 08/31/2021 06:31:00 PM EDT [facility] Name Value Range Interpretation Code Description Data Yanira rce(s) Supporting Document(s) TROPONIN T <0.01 NG/ML 0.00 - 0.10 [facility] ospital TROPONIN T0.1 ng/ml Recommended as the c linical threshold value forTroponin T. ID Date Data Source [id number] 08/31/2021 06:47:00 PM EDT [facility] Name Value Range Interpretation Code Description Data Yanira rce(s) Supporting Document(s) Thyrotropin [Units/volume] in Serum or Plasma by Detec tion limit <= 0.05 mIU/L 1.42 uIU/mL 0.47 - 5.01 [facility] ID Date Data Source [id number] 08/31/2021 07:51:00 PM EDT [facility] Name Value Range Interpretation Code Description Data Yanira rce(s) Supporting Document(s) COMPREHENSIVE METABOLIC PANEL [facility] COMPREHENSIVE METABOLIC PANEL Sodium [Moles/volume] in Serum or Plasma 141 mEq/L 134 - 153 [facility] Potassium [Moles/volume] in Serum or Plasma 4.0 mEq/L 3.6 - 5.0 [facility] Chloride [Moles/volume] in Serum or Plasma 103 mEq/L 98 - 107 [facility] Carbon dioxide, total [Moles/volume] in Serum or Plasma 26 MEQ/L 22 - 30 [facility] Glucose [Mass/volume] in Serum or Plasma 111 MG/DL 70 - 99 H [facility] BUN 16 MG/DL 7 - 21 [facility] al Creatinine [Mass/volume] in Serum or Plasma 1.0 MG/DL 0.7 - 1.5 [facility] BUN/CREAT 16 8 - 27 [facility] Protein [Mass/volume] in Serum or Plasma 6.8 G/DL 6.3 - 8.2 [facility] Albumin [Mass/volume] in Serum or Plasma 4.0 G/DL 3.9 - 5.0 [facility] Globulin [Mass/volume] in Serum by calculation 2.8 GM/DL 2.4 - 3.2 [facility] A/G RATIO 1.4 0.8 - 2.0 [facility] Calcium [Mass/volume] in Serum or Plasma 9.0 MG/DL 8.4 - 10.2 [facility] Bilirubin.total [Mass/volume] in Serum or Plasma <0.7 MG/DL 0.2 - 1.3 [facility] Alkaline phosphatase [Enzymatic activity/volume] in Serum or Plasma 92 U/L 38 - 126 [facility] Aspartate aminotransferase [Enzymatic activity/volume] in Serum or Plasma 19 U/L 5 - 40 [facility] Alanine aminotransferase [Enzymatic activity/volume] in Seru m or Plasma 15 U/L 7 - 56 [facility] Anion gap 3 in Serum or Plasma 12.0 mmol/L 8.0 - 16.0 [facility] AGE 89 yrs [facility] al NON-AA GFR >60 mL/min [facility] ital AFR AMER GFR >60 mL/min [facility] Ho spital Male GFR In terprentation 20-49 [...] >32 mL/min Normal ID Date Data Source [id number] 08/31/2021 07:12:00 PM EDT [facility] Name Value Range Interpretation Code Description Data Yanira rce(s) Supporting Document(s) UA REFLEX TO UA CULTURE [facility] URINALYSIS SOURCE Clean Catch [facility] ital COLOR yellow NORMAL: Yellow [facility] H [facility] CLARITY clear NORMAL: Clear [facility] Specific gravity of Urine by Test strip 1.025 1.001 - 1.030 [facility] pH 5 5 - 9 [facility] al Glucose [Mass/volume] in Urine by Test strip NORM NORMAL: Negat [facility] Bilirubin.total [Presence] in Urine by Test strip NEG NORMAL: Negative [facility] Ketones [Presence] in Urine by Test strip NEG NORMAL: Negative [facility] Protein [Mass/volume] in Urine by Test strip 15 NORMAL: Negat [facility] Nitrite [Presence] in Urine by Test strip NEG NORMAL: Negative [facility] BLOOD NEG NORMAL: Negative [facility] Leukocyte esterase [Presence] in Urine by Test strip NEG ASHLEY L: Negative [facility] Urobilinogen [Mass/volume] in Urine by Test strip NOR less albin n 1.0 mg/dL [facility] MICROSCOPIC See Below [facility] Hosp ital Erythrocytes [#/volume] in Urine by Test strip 0 - 1 NORMAL: NON E SEEN [facility] EPITHELIAL FEW NORMAL: NONE SEEN [facility] Mucus [Presence] in Urine sediment by Light microscopy 1+ NOR MAL: NONE SEEN [facility] ID Date Data Source [id number] 08/30/2021 03:25:00 PM EDT [facility] Name Value Range Interpretation Code Description Data Yanira rce(s) Supporting Document(s) SARS-CoV-2 (COVID 19) NEGATIVE - SARS-CoV-2 (COVID19) [facility] This lab was ordered by [facility] a nd reported by [facility]. ID Date Data Source LIPID PANEL (CARDIAC RISK) 03/30/2021 12:00:00 AM EDT eCW1 ( [facility]) Name Value Range Interpretation Code Description Data Yanira rce(s) Supporting Document(s) Triglyceride [Mass/volume] in Serum or Plasma by calculation 513 <150 TRIGLYCERIDES LEVEL eCW1 ([facility]) 141 NON-HDL-C eCW1 ([facility]) Cholesterol in HDL [Moles/volume] in Serum or Plasma 57 >40 HDL CHOLESTEROL eCW1 ([facility]) Cholesterol [Moles/volume] in Serum or Plasma 198 <200 CHOLESTEROL LEVEL eCW1 ([facility]) 3.473 <5 CHOLESTEROL RISK RATIO eCW1 ([facility]ly [facility]) ID Date Data Source [id number] 03/30/2021 12:00:00 AM EDT eCW1 ([facility]) Name Value Range Interpretation Code Description Data Yanira rce(s) Supporting Document(s) Hemoglobin A1c/Hemoglobin.total in Blood 5.9 HEMOGLOBIN A1c eCW1 ([facility]) ID Date Data Source Comprehensive Metabolic Profile (CMP) 03/30/2021 12:00:00 AM EDT eCW1 ([facility]) Name Value Range Interpretation Code Description Data Yanira rce(s) Supporting Document(s) 139 70-100 GLUCOSE, FASTING eCW1 ([facility]) 17 7-18 BLOOD UREA NITROGEN eCW1 ([facility]) 0.95 0.70-1.30 CREATININE FOR GFR eCW1 ([facility]) > 60.0 >35 GLOMERULAR FILTRATION RATE eCW 1 ([facility]) 30 21-32 CARBON DIOXIDE LEVEL eCW1 ([facility]) 139 136-145 SODIUM LEVEL eCW1 ([facility]) 104 98-107 CHLORIDE LEVEL eCW1 ([facility]) 4.2 3.5-5.1 POTASSIUM SERUM eCW1 ([facility]) 21 7-37 AST/SGOT eCW1 ([facility]) 8.8 8.8-10.2 CALCIUM LEVEL eCW1 ([facility]) 89 45-117 ALKALINE PHOSPHATASE eCW1 ([facility]) 31 12-78 ALT/SGPT eCW1 ([facility]) 3.3 3.2-5.2 ALBUMIN eCW1 ([facility]) 0.8 0.2-1.0 BILIRUBIN,TOTAL eCW1 ([facility]) 7.0 6.4-8.2 TOTAL PROTEIN eCW1 ([facility]) 0.9 ALBUMIN/GLOBULIN RATIO eCW1 ([facility]) ID Date Data Source VITAMIN B12 LEVEL 09/29/2020 12:00:00 AM EST eCW1 ([facility]) Name Value Range Interpretation Code Description Data Yanira rce(s) Supporting Document(s) 525 421-147 VITAMIN B12 LEVEL eCW1 ([facility]) ID Date Data Source FREE T4 & TSH PANEL 09/29/2020 12:00:00 AM EST eCW1 ([facility]) Name Value Range Interpretation Code Description Data Yanira rce(s) Supporting Document(s) 0.95 0.76-1.46 eCW1 ([facility]) 3.600 0.358-3.740 eCW1 ([facility]) ID Date Data Source FOLATE 09/29/2020 12:00:00 AM EST eCW1 ([facility]) Name Value Range Interpretation Code Description Data Yanira rce(s) Supporting Document(s) 21.1 >5.4 eCW1 ([facility]) ID Date Data Source CBC - Complete Blood Count 09/29/2020 12:00:00 AM EST eCW1 ( [facility]) Name Value Range Interpretation Code Description Data Yanira rce(s) Supporting Document(s) 4.26 4.30-6.10 eCW1 ([facility]) 7.2 4.0-10.0 eCW1 ([facility]) 13.8 13.5-17.5 eCW1 ([facility]) 32.8 32.0-36.5 eCW1 ([facility]) 42.1 42.0-52.0 eCW1 ([facility]) 98.8 80.0-96.0 eCW1 ([facility]) 32.4 27.0-33.0 eCW1 ([facility]) 206 150-450 eCW1 ([facility]) 13.2 11.5-14.5 eCW1 ([facility]) Procedure Social History Code Duration Value Status Description Data Source(s ) Smoking 09/28/2021 12:00:00 AM EST Former Smoker completed Former Smoker eCW1 ([facility]) Smoking 09/12/2021 12:00:00 AM EDT Former Smoker completed Former Smoker eCW1 ([facility]) Smoking 09/12/2021 12:00:00 AM EDT Former Smoker completed Former Smoker eCW1 ([facility]) Smoking 05/25/2021 12:00:00 AM EDT Former Smoker completed Former Smoker eCW1 ([facility]) Smoking 05/25/2021 12:00:00 AM EDT Former Smoker completed Former Smoker eCW1 ([facility]) Smoking 05/25/2021 12:00:00 AM EDT Former Smoker completed Former Smoker eCW1 ([facility]) Smoking 05/25/2021 12:00:00 AM EDT Former Smoker completed Former Smoker eCW1 ([facility]) Smoking 05/25/2021 12:00:00 AM EDT Former Smoker completed Former Smoker eCW1 ([facility]) Smoking 05/25/2021 12:00:00 AM EDT Former Smoker completed Former Smoker eCW1 ([facility]) Smoking 05/25/2021 12:00:00 AM EDT Former Smoker completed Former Smoker eCW1 ([facility]) Smoking 05/25/2021 12:00:00 AM EDT Former Smoker completed Former Smoker eCW1 ([facility]) Smoking 05/25/2021 12:00:00 AM EDT Former Smoker completed Former Smoker eCW1 ([facility]) Smoking 03/30/2021 12:00:00 AM EDT Former Smoker completed Former Smoker eCW1 ([facility]) Smoking 03/30/2021 12:00:00 AM EDT Former Smoker completed Former Smoker eCW1 ([facility]) Smoking 03/30/2021 12:00:00 AM EDT Former Smoker completed Former Smoker eCW1 ([facility]) Smoking 03/30/2021 12:00:00 AM EDT Former Smoker completed Former Smoker eCW1 ([facility]) Smoking 03/30/2021 12:00:00 AM EDT Former Smoker completed Former Smoker eCW1 ([facility]) Smoking 01/20/2021 12:00:00 AM EST Former Smoker completed Former Smoker eCW1 ([facility]) Smoking 01/20/2021 12:00:00 AM EST Former Smoker completed Former Smoker eCW1 ([facility]) Smoking 01/20/2021 12:00:00 AM EST Former Smoker completed Former Smoker eCW1 ([facility]) Smoking 09/29/2020 12:00:00 AM EST Former Smoker completed Former Smoker eCW1 ([facility]) Smoking 09/29/2020 12:00:00 AM EST Former Smoker completed Former Smoker eCW1 ([facility]) Smoking 09/29/2020 12:00:00 AM EST Former Smoker completed Former Smoker eCW1 ([facility]) Smoking 09/29/2020 12:00:00 AM EST Former Smoker completed Former Smoker eCW1 ([facility]) Smoking 09/29/2020 12:00:00 AM EST Former Smoker completed Former Smoker eCW1 ([facility]) Smoking 08/16/2020 12:00:00 AM EDT Former Smoker completed Former Smoker eCW1 ([facility]) Smoking 08/16/2020 12:00:00 AM EDT Former Smoker completed Former Smoker eCW1 ([facility]) Vital Signs ID Date Data Source UNK Name Value Range Interpretation Code Description Data Source(s) Body weight 187 [lb_av] 187 [lb_av] eCW1 ([facility]) Body weight 84.82 kg 84.82 kg W1 ([facility]) Body height 64 [in_i] 64 [in_i] eCW1 ([facility]) Body mass index (BMI) [Ratio] 32.09 kg/m2 32.09 kg/m2 eCW1 ([facility]) Heart rate 80 /min 80 /min eCW1 ([facility]) Respiratory rate 18 /min 18 /min eCW1 ([facility] Body temperature 98 [degF] 98 [degF] eCW1 ([facility]) Systolic blood pressure 112 mm[Hg] 112 mm[Hg] e CW1 ([facility]) Diastolic blood pressure 70 mm[Hg] 70 mm[Hg] eCW1 ([facility]) Body height 64 [in_i] 64 [in_i] [facility] ([facility], ) 5'4" Body weight 180.00 [lb_av] 180.00 [lb_av] MEDEN T ([facility], ) Body mass index (BMI) [Ratio] 30.9 kg/m2 30.9 k g/m2 [facility] ([facility], ) [place] body weight 130 [lb_av] 130 [lb_av] MEDEN T ([facility], ) Body weight 81.648 kg 81.648 kg [facility] ([facility], ) Body surface area Derived from formula 1.87 m2 1.87 m2 [facility] ([facility]) Body weight 186.6 [lb_av] 186.6 [lb_av] eCW1 ([facility]) Body height 64 [in_i] 64 [in_i] eCW1 ([facility]) Body mass index (BMI) [Ratio] 32.03 kg/m2 32.03 kg/m2 eCW1 ([facility]) Heart rate 69 /min 69 /min eCW1 ([facility]) Respiratory rate 18 /min 18 /min eCW1 ([facility] Body temperature 98 [degF] 98 [degF] eCW1 ([facility]) Systolic blood pressure 120 mm[Hg] 120 mm[Hg] e CW1 ([facility]) Diastolic blood pressure 80 mm[Hg] 80 mm[Hg] eCW1 ([facility]) Body weight 180.00 [lb_av] 180.00 [lb_av] MEDEN T ([facility]) Body mass index (BMI) [Ratio] 30.9 kg/m2 30.9 k g/m2 [facility] ([facility]) [place] body weight 130 [lb_av] 130 [lb_av] MEDEN T ([facility]) Body weight 81.648 kg 81.648 kg [facility] ([facility]) Body surface area Derived from formula 1.87 m2 1.87 m2 [facility] ([facility]) Body height 64 [in_i] 64 [in_i] [facility] ([facility]) 5'4" Body weight 184.2 [lb_av] 184.2 [lb_av] eCW1 ([facility]) Body height 64 [in_i] 64 [in_i] eCW1 ([facility]) Body mass index (BMI) [Ratio] 31.61 kg/m2 31.61 kg/m2 eCW1 ([facility]) Heart rate 88 /min 88 /min eCW1 ([facility]) Respiratory rate 18 /min 18 /min eCW1 ([facility]) Body temperature 97.8 [degF] 97.8 [degF] eCW1 ( [facility]) Systolic blood pressure 120 mm[Hg] 120 mm[Hg] e CW1 ([facility]) Diastolic blood pressure 70 mm[Hg] 70 mm[Hg] eCW1 ([facility]) Body weight 186.4 [lb_av] 186.4 [lb_av] eCW1 ([facility]) Body height 64 [in_i] 64 [in_i] eCW1 ([facility]) Body mass index (BMI) [Ratio] 31.99 kg/m2 31.99 kg/m2 eCW1 ([facility]) Heart rate 86 /min 86 /min eCW1 ([facility]) Respiratory rate 18 /min 18 /min eCW1 ([facility]) Body temperature 97.8 [degF] 97.8 [degF] eCW1 ( [facility]) Systolic blood pressure 130 mm[Hg] 130 mm[Hg] e CW1 ([facility]) Diastolic blood pressure 74 mm[Hg] 74 mm[Hg] eCW1 ([facility]) Body weight 186.6 [lb_av] 186.6 [lb_av] eCW1 ([facility]) Body height 64 [in_i] 64 [in_i] eCW1 ([facility]) Body mass index (BMI) [Ratio] 32.03 kg/m2 32.03 kg/m2 eCW1 ([facility]) Heart rate 88 /min 88 /min eCW1 ([facility]) Respiratory rate 18 /min 18 /min eCW1 ([facility]) Body temperature 97.7 [degF] 97.7 [degF] eCW1 ( [facility]) Systolic blood pressure 110 mm[Hg] 110 mm[Hg] e CW1 ([facility]) Diastolic blood pressure 70 mm[Hg] 70 mm[Hg] eCW1 ([facility]) Body weight 189.8 [lb_av] 189.8 [lb_av] eCW1 ([facility]) Body height 64 [in_i] 64 [in_i] eCW1 ([facility]) Body mass index (BMI) [Ratio] 32.58 kg/m2 32.58 kg/m2 eCW1 ([facility]) Systolic blood pressure 124 mm[Hg] 124 mm[Hg] e CW1 ([facility]) Diastolic blood pressure 78 mm[Hg] 78 mm[Hg] eCW1 ([facility]) Patient Treatment Plan of Care Planned Activity Planned Date Details Description Data Source (s) doxycycline hyclate 100 MG Oral Tablet 09/28/2021 12:00:00 AM EST eCW1 ([facility]) buspirone hydrochloride 10 MG Oral Tablet 05/25/2021 12:00:00 AM ED T eCW1 ([facility]) buspirone hydrochloride 10 MG Oral Tablet 05/25/2021 12:00:00 AM ED T eCW1 ([facility]) buspirone hydrochloride 10 MG Oral Tablet 05/25/2021 12:00:00 AM ED T eCW1 ([facility]) buspirone hydrochloride 10 MG Oral Tablet 05/25/2021 12:00:00 AM ED T eCW1 ([facility]) buspirone hydrochloride 10 MG Oral Tablet 05/25/2021 12:00:00 AM ED T eCW1 ([facility]) buspirone hydrochloride 10 MG Oral Tablet 05/25/2021 12:00:00 AM ED T eCW1 ([facility]) buspirone hydrochloride 10 MG Oral Tablet 05/25/2021 12:00:00 AM ED T eCW1 ([facility]) buspirone hydrochloride 10 MG Oral Tablet 05/25/2021 12:00:00 AM ED T eCW1 ([facility]) buspirone hydrochloride 10 MG Oral Tablet 05/25/2021 12:00:00 AM ED T eCW1 ([facility]) buspirone hydrochloride 10 MG Oral Tablet 05/25/2021 12:00:00 AM ED T eCW1 ([facility]) buspirone hydrochloride 10 MG Oral Tablet 05/25/2021 12:00:00 AM ED T eCW1 ([facility]) buspirone hydrochloride 10 MG Oral Tablet 05/04/2021 12:00:00 AM ED T eCW1 ([facility])
[2021-10-12 08:51] LABS: RSV AMPLIFICATION NEGATIVE (NEGATIVE)
[2021-10-12] MEDS: DIMETHICONE 2% OINTMENT(VANICREAM) 70GM TUBE TOP SCH ×2 (09:00→21:26)
--- NOTE | 2021-10-12 09:12 | ECGEPIP ---
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
[2021-10-12] MEDS ORDERED: ACETAMINOPHEN TAB 650MG DOSE (2X325MG) PO PRN (09:25)
--- OUTSIDE RECORDS SUMMARY | 2021-10-12 09:39 | CCD ---
Author Author [facility] Organization [facility] Address Unknown Phone Unavailable Care Team Providers Care Hide Or Skin Buffer Name Role Phone NO, PCP Unavailable Unavailable [...] is protected by Article 27-F of the [facility] Public Health law. If you continue you may have access to information: Regarding HIV / AIDS; Provided by facilities licensed or operated by the [facility] Office of Mental Health; or Provided by the [facility] Office for People With Developmental Disabilities. If such information is present, then the following [facility] mandated warning applies: This information has [...] Description Data Source(s) Unknown Unknown Problem MEDENT ([facility], ) Encounters Encounter Providers Location Date Indications Data Source(s ) Outpatient Attender: DARCIE LANDAVERDE DPM 10/04/2021 08:55:00 AM EST - 09/30/2021 08:55:00 AM EST [facility] Patient discharged[facility] [place] [address] [place] [address] 09/28/2021 12:00:00 AM EST eCW1 ([facility]) [place] [address] [address] 09/22/2021 12:00:00 AM EST eCW1 ([facility]) [place] [address] [place] [address] 09/21/2021 12:00:00 AM EST eCW1 ([facility]) Emergency Attender: KARTHIKEYAN Grey: PCP FRANSISCO 08/31/2021 04:48:00 PM EDT - 08/31/2021 11:04:00 PM EDT [facility] Patient discharged. [place] [address] [place] [address] 08/31/2021 12:00:00 AM EDT eCW1 ([facility]) [place] [address] [place] [address] 08/30/2021 12:00:00 AM EDT [facility] [place] [address] [place] [address] 08/15/2021 12:00:00 AM EDT eCW1 ([facility]) [place] [address] [address] 07/19/2021 12:00:00 AM EDT eCW1 ([facility]) Outpatient Attender: DARCIE TRIPTAHI 07/12/2021 07:47:00 AM EDT - 07/08/2021 07:47:00 AM EDT [facility] Patient discharged. [place] [address] [place] [address] 07/05/2021 12:00:00 AM EDT eCW1 ([facility]) [place] [address] [place] [address] 06/23/2021 12:00:00 AM EDT eCW1 ([facility]) [place] [address] [place] [address] 06/22/2021 12:00:00 AM EDT eCW1 ([facility]) [place] [address] [place] [address] 06/14/2021 12:00:00 AM EDT eCW1 ([facility]) Outpatient Attender: LOKI [place]/Reind l 06/01/2021 01:15:00 PM EDT MEDENT ([facility]) [place] [address] [address] 05/25/2021 12:00:00 AM EDT eCW1 ([facility]) Outpatient Attender: LOKI Angeles/Lanie/Darien/Reind yahaira 05/10/2021 10:30:00 AM EDT MEDENT ([facility]) [place] [address] [place] [address] 05/02/2021 12:00:00 AM EDT eCW1 ([facility]) [place] [address] [place] [address] 04/18/2021 12:00:00 AM EDT eCW1 ([facility]) [place] [address] [place] [address] 04/07/2021 12:00:00 AM EDT eCW1 ([facility]) [place] [address] [place] [address] 04/05/2021 12:00:00 AM EDT eCW1 ([facility]) Office Visit, Est Pt., Level 2 FC [address] [place] [address] 03/30/2021 12:00:00 AM EDT eCW1 ([facility]) Unknown [address] [place] [address] 03/01/2021 12:00:00 AM EDT eCW1 ([facility]) [place] [address] [place] [address] 02/01/2021 12:00:00 AM EDT eCW1 ([facility]) [place] [address] [place] [address] 01/20/2021 12:00:00 AM EST eCW1 ([facility]) [place] [address] [place] [address] 01/13/2021 12:00:00 AM EST eCW1 ([facility]) [place] [address] [place] [address] 11/24/2020 12:00:00 AM EST eCW1 ([facility]) [place] [address] [place] [address] 11/03/2020 12:00:00 AM EST eCW1 ([facility]) [place] [address] [place] [address] 10/05/2020 12:00:00 AM EST eCW1 ([facility]) [place] [address] [address] 09/29/2020 12:00:00 AM EST eCW1 ([facility]) [place] [address] [address] 09/03/2020 12:00:00 AM EDT eCW1 ([facility]) Office Visit, Est Pt., Level 4 PC [address] [place] [address] 08/16/2020 12:00:00 AM EDT eCW1 ([facility] to [facility]) Immunizations Vaccine Date Status Description Data Source(s) COVID-19 VACC, MRNA(PFIZER)/PF 09/14/2021 12:00:00 AM EDT completed [facility] IIV3. This is one of two codes replacing CVX 15, which is being retired. 08/30/2021 10:58:00 AM EDT completed eCW1 ([facility] to [facility]) Pfizer #3 dose COVID-19 (given elsewhere) SARSCOV2 VAC 30MCG/0.3ML IM 08/25/2021 11:00:00 AM EDT completed eCW1 ([facility]) COVID-19 VACCINE Pfizer 08/25/2021 12:00:00 AM EDT completed [facility] Vaccine Series Complete: YESThis Data wa s Submitted to [facility] Via [employer]. Pfizer #2 dose COVID-19 (given elsewhere) SARSCOV2 VAC 30MCG/0.3ML IM 12/08/2020 10:59:00 AM EST completed eCW1 ([facility]) COVID-19 VACCINE Pfizer 12/08/2020 12:00:00 AM EST completed [facility] Vaccine Series Complete: YESThis Data wa s Submitted to [facility] Via [employer]. COVID-19 VACCINE Pfizer 11/26/2020 12:00:00 AM EST completed [facility] Vaccine Series Complete: NOThis Data was Submitted to [facility] Via [employer]. Pfizer #1 dose COVID-19 (given elsewhere) SARSCOV2 VAC 30MCG/0.3ML IM 11/17/2020 10:59:00 AM EST completed eCW1 ([facility]) INFLUENZA VACCINE QUADRIVALENT 2019- (65 YR UP)/MF59 C.1/PF 08/27/2020 12:00:00 AM EDT completed [facility] IIV3. This is one of two codes replacing CVX 15, which is being retired. 08/16/2020 12:06:00 PM EDT completed eCW1 ([facility]) IIV3. This is one of two codes replacing CVX 15, which is being retired. 08/16/2020 12:06:00 PM EDT completed eCW1 ([facility]) IIV3. This is one of two codes replacing CVX 15, which is being retired. 08/16/2020 12:06:00 PM EDT completed eCW1 ([facility]) IIV3. This is one of two codes replacing CVX 15, which is being retired. 08/16/2020 12:06:00 PM EDT completed eCW1 ([facility]) IIV3. This is one of two codes replacing CVX 15, which is being retired. 08/16/2020 12:06:00 PM EDT completed eCW1 ([facility]) IIV3. This is one of two codes replacing CVX 15, which is being retired. 08/16/2020 12:06:00 PM EDT completed eCW1 ([facility]) IIV3. This is one of two codes replacing CVX 15, which is being retired. 08/16/2020 12:06:00 PM EDT completed eCW1 ([facility]) IIV3. This is one of two codes replacing CVX 15, which is being retired. 08/16/2020 12:06:00 PM EDT completed eCW1 ([facility]) IIV3. This is one of two codes replacing CVX 15, which is being retired. 08/16/2020 12:06:00 PM EDT completed eCW1 ([facility]) IIV3. This is one of two codes replacing CVX 15, which is being retired. 08/16/2020 12:06:00 PM EDT completed eCW1 ([facility]) IIV3. This is one of two codes replacing CVX 15, which is being retired. 08/16/2020 12:06:00 PM EDT completed eCW1 ([facility]) IIV3. This is one of two codes replacing CVX 15, which is being retired. 08/16/2020 12:06:00 PM EDT completed eCW1 ([facility]) IIV3. This is one of two codes replacing CVX 15, which is being retired. 08/16/2020 12:06:00 PM EDT completed eCW1 ([facility]) IIV3. This is one of two codes replacing CVX 15, which is being retired. 08/16/2020 12:06:00 PM EDT completed eCW1 ([facility]) IIV3. This is one of two codes replacing CVX 15, which is being retired. 08/16/2020 12:06:00 PM EDT completed eCW1 ([facility]) IIV3. This is one of two codes replacing CVX 15, which is being retired. 08/16/2020 12:06:00 PM EDT completed eCW1 ([facility]) IIV3. This is one of two codes replacing CVX 15, which is being retired. 08/16/2020 12:06:00 PM EDT completed eCW1 ([facility]) IIV3. This is one of two codes replacing CVX 15, which is being retired. 08/16/2020 12:06:00 PM EDT completed eCW1 ([facility] to [facility]) IIV3. This is one of two codes replacing CVX 15, which is being retired. 08/16/2020 12:06:00 PM EDT completed eCW1 ([facility]) IIV3. This is one of two codes replacing CVX 15, which is being retired. 08/16/2020 12:06:00 PM EDT completed eCW1 ([facility]) IIV3. This is one of two codes replacing CVX 15, which is being retired. 08/16/2020 12:06:00 PM EDT completed eCW1 ([facility] to [facility]) IIV3. This is one of two codes replacing CVX 15, which is being retired. 08/16/2020 12:06:00 PM EDT completed eCW1 ([facility] to [facility]) IIV3. This is one of two codes replacing CVX 15, which is being retired. 08/16/2020 12:06:00 PM EDT completed eCW1 ([facility] to [facility]) IIV3. This is one of two codes replacing CVX 15, which is being retired. 08/16/2020 12:06:00 PM EDT completed eCW1 ([facility]) IIV3. This is one of two codes replacing CVX 15, which is being retired. 08/16/2020 12:06:00 PM EDT completed eCW1 ([facility] to [facility]) Medications Medication Brand Name Start Date Product Form Dose Route Admi nistrative Instructions Pharmacy Instructions Status Indications Reaction Description Data Source(s) doxycycline hyclate 100 MG Oral Tablet Doxycycline Hyc late 100 MG Doxycycline Hyclate 100 MG 09/28/2021 12:00:00 AM EST 1.0 {tablet} active Doxycycline Hyclate 100 MG eCW1 ([facility]) 240 mcg/0.7 mL 08/24/2021 12:00:00 AM EDT syringe 0 INJECT DIRECTED INJECT DIRECTED SOLD: 08/24/2021 [facility] buspirone hydrochloride 10 MG Oral Tablet busPIRone HC l 10 MG busPIRone HCl 10 MG 05/25/2021 12:00:00 AM EDT 1.0 {tablet} activ e busPIRone HCl 10 MG eCW1 ([facility]) buspirone hydrochloride 10 MG Oral Tablet busPIRone HC l 10 MG busPIRone HCl 10 MG 05/25/2021 12:00:00 AM EDT 1.0 {tablet} activ e busPIRone HCl 10 MG eCW1 ([facility]) buspirone hydrochloride 10 MG Oral Tablet busPIRone HC l 10 MG busPIRone HCl 10 MG 05/25/2021 12:00:00 AM EDT 1.0 {tablet} activ e busPIRone HCl 10 MG eCW1 ([facility]) buspirone hydrochloride 10 MG Oral Tablet busPIRone HC l 10 MG busPIRone HCl 10 MG 05/25/2021 12:00:00 AM EDT 1.0 {tablet} activ e busPIRone HCl 10 MG eCW1 ([facility]) buspirone hydrochloride 10 MG Oral Tablet busPIRone HC l 10 MG busPIRone HCl 10 MG 05/25/2021 12:00:00 AM EDT 1.0 {tablet} activ e busPIRone HCl 10 MG eCW1 ([facility]) buspirone hydrochloride 10 MG Oral Tablet busPIRone HC l 10 MG busPIRone HCl 10 MG 05/25/2021 12:00:00 AM EDT 1.0 {tablet} activ e busPIRone HCl 10 MG eCW1 ([facility]) buspirone hydrochloride 10 MG Oral Tablet busPIRone HC l 10 MG busPIRone HCl 10 MG 05/25/2021 12:00:00 AM EDT 1.0 {tablet} activ e busPIRone HCl 10 MG eCW1 ([facility]) buspirone hydrochloride 10 MG Oral Tablet busPIRone HC l 10 MG busPIRone HCl 10 MG 05/25/2021 12:00:00 AM EDT 1.0 {tablet} activ e busPIRone HCl 10 MG eCW1 ([facility]) buspirone hydrochloride 10 MG Oral Tablet busPIRone HC l 10 MG busPIRone HCl 10 MG 05/25/2021 12:00:00 AM EDT 1.0 {tablet} activ e busPIRone HCl 10 MG eCW1 ([facility]) buspirone hydrochloride 10 MG Oral Tablet busPIRone HC l 10 MG busPIRone HCl 10 MG 05/25/2021 12:00:00 AM EDT 1.0 {tablet} activ e busPIRone HCl 10 MG eCW1 ([facility]) buspirone hydrochloride 10 MG Oral Tablet busPIRone HC l 10 MG busPIRone HCl 10 MG 05/25/2021 12:00:00 AM EDT 1.0 {tablet} activ e busPIRone HCl 10 MG eCW1 ([facility]) buspirone hydrochloride 10 MG Oral Tablet busPIRone HC l 10 MG busPIRone HCl 10 MG 05/04/2021 12:00:00 AM EDT 1.0 {tablet} activ e busPIRone HCl 10 MG eCW1 ([facility]) Insurance Providers Payer name Policy type / Coverage type Policy ID Covered alliance party ID Covered alliance party's relationship to dc Policy Dc Plan Information MEDICARE [id number] SP [id number] A MEDICARE [id number] SP [id number] A [id number] A [facility] [place] [id number] SP [id number] [facility] [id number] SP [id number] [facility] [place] DIV [id number] SP [id number] MEDICARE PART A [facility] [id number] 18 [id number] [facility] EMPIRE PLAN [id number] 18 [id number] [facility] EMPIRE -PHYSICIAN [id number] 18 [id number] EMPIRE BLUE CROSS BLUE SHIELD -O/P [id number] 18 [id number] MEDICARE PART A -O/P [id number] 18 [id number] MEDICARE PART A [facility] [id number] 18 [id number] [facility] [place] DIV [id number] SP [id number] [employer] [place] DIV UNAVAILABLE UNAVAILABLE [place] PPO 302/307 [id number] SP [id number] MEDICARE C [id number] S [id number] [facility] O [id number] S [id number] MEDICARE C [id number] S [id number] A [employer] [place] [id number] SP [id number] ANSI-Medicare Part B [id number] ANSI-Commercial [id number] ANSI-Medicare Part B [id number] ANSI-Commercial [id number]-[id number]-[id number]-r11t-[id number] ANSI-Medicare Part B [id number] ANSI-Commercial [id number] MEDICARE [id number] SP [id number] ANSI-Commercial [id number]-[id number] ANSI-Medicare Part B [id number] ANSI-Commercial ey62k3ys-vfbm-603s-9233-[id number] [id number]-thke-[id number]-[id number] ANSI-Medicare Part B [id number] ANSI-Commercial rei9cia1-sfna-538n-sb40-nw428rtpbk31 ccx1jnn5-thes-654f-rw21-gz093xmiqd92 ANSI-Medicare Part B [id number]-sj9fi7a7xsq7 ANSI-Medicare Part B [id number] ANSI-Commercial [id number]-n1j5-3yri-6159-o3e6269pt22u 8ogd08l8-k7p3-1dnx-9584-l8j7097oa59v ANSI-Commercial [id number]-c202-3xvd-88cv-392ji0k7r478 7hc37qo8-w389-5jfi-04kd-778hk7z3x499 ANSI-Medicare Part B [id number]-tx24-3t51-0z2b-[id number] ANSI-Commercial [id number]-j6gi-950d-fuv7-4z9374a15aa7 419h9x48-d5fi-404q-oky0-6p8553w01bz3 ANSI-Medicare Part B [id number] 5b7w7u36-s7c6-6089-2k6e-um14hmyqz6b2 ANSI-Medicare Part B [id number]-106m-3y23-3c83-[id number] ANSI-Commercial [id number]-lbr1-906s3611g83m 2z2765a2-0o64-86zi-wxv6-627x0957x33u ANSI-Medicare Part B [id number]-74p7-4g3d-3wo43s9c271s ANSI-Commercial 329hyz4r-139d-0d24-z3f8-a502qa4467d7 190owm0g-852m-3e62-a8c7-n290uu4188z9 ANSI-Medicare Part B [id number]-r5c2-98g8-4186-i2o67r68ny85 ANSI-Commercial j3t6xq38-5204-66jp-7h77-84g181d09t61 c0t2fu92-0465-12ri-5g13-06c226y80c59 ANSI-Commercial r5pe4481-2hg2-9g0i-w9d7-d1iaa83m5976 l3ol7780-0ew0-9t7m-s9m4-f4fte19y6397 ANSI-Medicare Part B [id number]-[id number] ANSI-Medicare Part B [id number]-0uy0-5d82-743r-ak0955y0d810 ANSI-Commercial [id number]-z3w0-9t4x-ue2r-05ae2b766ow0 a493059q-r1m3-9p5x-jy0n-20ap9p647mj2 ANSI-Medicare Part B [id number]-j7re4w5v41gv [id number]-s4do9t3t35yz ANSI-Commercial 6k2lo39t-adq3-5h28-15wr-0p86c86692vg 8l9af96g-bry0-1p72-81xm-1f39h83892ug ANSI-Medicare Part B [id number] c8b5r9s1-hi4u-58ii-79c5-58qese3391x8 ANSI-Commercial 7523s688-p55a-1890-ssjs-970692k2nkcf 3810c431-i90h-2857-ftiw-606798p6pzts ANSI-Commercial w51i4ol8-1851-5362-ay83-n65t648k55u7 d96i4up1-4711-3980-at34-g76h537u68t8 ANSI-Medicare Part B [id number]-zg6x-[id number] ANSI-Medicare Part B [id number]-r9h7-906l-7vhq-5749m00yr444 ANSI-Commercial 02f8bu0q-l98d-8ys4-939o-9895tk273514 20k5ao9r-k70n-8fw5-728v-4007im058753 ANSI-Commercial 9q590a63-f255-23bo-v4b2-r8j74lj0z303 9d804o14-l180-34sz-g7h4-h0z92jw7x714 ANSI-Medicare Part B [id number] 33l1klmv-169a-4k4v-0n3e-xl16ex0n5971 ANSI-Medicare Part B [id number]-vh805f96b986 ANSI-Commercial p12c33ib-n03f-8e8p-o8ir-8jfxe7h1ggl8 h24g17ys-m51t-2s1j-e7hj-6bsio0z3rpa4 ANSI-Commercial 92ky3m98-9k0t-08xc-m1f6-cs438lz785fq 48ib4u90-0d8l-01ou-y0q5-bj007go996wr ANSI-Medicare Part B [id number]-[id number] ANSI-Medicare Part B [id number]-[id number] ANSI-Commercial f2je7clv-5z5r-383p-gq3u-699457993z2a l3ox7olt-7x6c-125i-fj3y-759777616v5x ANSI-Medicare Part B [id number]-836r-[id number] ANSI-Commercial [id number]-ak2074qw0n97 23ri8610-8994-4s33-5dm1-bt2531qw6p99 ANSI-Medicare Part B [id number]-b902-06j0-[id number] ANSI-Commercial qdma4t71-d432-642u-3x1e-5477105tv23k dwyz6m80-r390-027w-2k8u-3270151vg58r ANSI-Commercial 5vi5i2vg-1nk7-5066-8m90-5z58lvlaebb3 9hy5q8rp-8er6-4628-0w64-4a24ofvjbvf1 ANSI-Medicare Part B [id number]-7lh3-9z5p-839krv28m464 ANSI-Medicare Part B [id number]-[id number] ANSI-Commercial 0sgu34w7-g8az-0tz0-r3l8-l61237e81i8w 1hwz32y6-z9rr-1ok2-l8f3-m39552f56s1i [facility] Part B [id number] Self [id number] Medicare [place] Medicare Primary [id number] Self 2 [id number] MEDICARE [id number] SP [id number] A [employer] [place] [id number] SP [id number] [employer] [place] [id number] SP [id number] [facility] [id number] SP [id number] [employer] [place] [id number] SP [id number] MEDICARE [id number] SP [id number] A [facility] [id number] SP [id number] [facility] [id number] SP [id number] [employer] [place] [id number] SP [id number] [facility] [id number] SP [id number] MEDICARE [id number] SP [id number] [employer] [place] DIV [id number] SP [id number] [facility] [id number] SP [id number] MEDICARE [id number] SP [id number] A [facility] [id number] SP [id number] Problems, Conditions, and Diagnoses Code Display Name Description Problem Type Effective Dates Data Source(s) M2010 Hallux valgus (acquired), unspecified fo ot Hallux valgus (acquired), unspecified foot Diagnosis 09/30/2021 08:55:00 AM [facility] M2041 Other hammer toe(s) (acquired), right fo ot Other hammer toe(s) (acquired), right foot Diagnosis 09/30/2021 08:55:00 AM [facility] R2681 Unsteadiness on feet Unsteadiness on feet Diagnosis 09/30/2021 08:55:00 AM [facility] V87852 Pain in left foot Pain in left foot Diagnosis 09/30/2021 08:55:00 AM [facility] L84 Corns and callosities Corns and callosities Diagnosis 09/30/2021 08:55:00 AM [facility] B351 Tinea unguium Tinea unguium Diagnosis 09/30/2021 08:55:00 AM [facility] 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, bilateral legs Unspecified atherosclerosis of three affiliated ar teries of extremities, bilateral legs Diagnosis 09/30/2021 08:55:00 AM [facility] L14290 Personal history of nicotine dependence Personal history of nicotine dependence Diagnosis [facility]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 Diagnosis 08/31/2021 [facility] E[facility] Type 2 diabetes mellitus without complic ations Type 2 diabetes mellitus without complications Diagnosis 08/31/2021 04:48:00 PM EDT [facility] F0280 Dementia in other diseases c lassified elsewhere without behavioral disturbance Dementia in other diseases classified el sewhere without behavioral disturbance Diagnosis 08/31/2021 04:48:00 PM [facility] 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 Diagnosis 08/31/2021 04:48:00 PM [facility] R410 Disorientation, unspecified Disorientation, unspecifie d Diagnosis 08/31/2021 04:48:00 PM [facility] E11.9 Type II diabetes mellitus well controlle d DM II (diabetes mellitus, type II), controlled Problem 07/06/2021 12:00:00 AM EDT eCW1 ([facility]ending [facility] to [facility]) I67.9 [id number] Cerebrovascular small vessel disease Prob cathi 06/28/2021 12:00:00 AM EDT eCW1 ([facility]) 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 [id number] Degenerative spondylolisthesis Problem 05/27/2021 12:00:00 AM EDT eCW1 ([facility]) F41.0 [id number] Anxiety attack Problem 05/25/2021 12:00:00 A M EDT eCW1 ([facility]) R53.81 [id number] Physical deconditioning Problem 12:00:00 AM EST eCW1 ([facility]) L57.0 [id number] Actinic keratoses Problem 08/16/2020 12:00:0 0 AM EDT eCW1 ([facility]) L81.4 [id number] Lentigines Problem 08/16/2020 12:00:00 AM ED T eCW1 ([facility]) L91.8 [id number] Skin tag Problem 08/16/2020 12:00:00 AM ED T eCW1 ([facility]) L73.8 [id number] Sebaceous hyperplasia of face Problem 08/16/2020 12:00:00 AM EDT eCW1 ([facility]) D18.01 1124241 Nicole angioma Problem 08/16/2020 12:00:00 A M EDT eCW1 ([facility]) Surgeries/Procedures Procedure Description Date Indications Data Source(s) Pare Hyperkeratotic Lesion, 2-4 09/30/2021 12:00:00 AM EST [facility] ([facility]) Debridement Nails Any Method 1-5 09/30/2021 12:00:00 A M EST [facility] ([facility]) Pare Hyperkeratotic Lesion, 2-4 07/08/2021 12:00:00 AM EDT [facility] ([facility]) Debridement Nails Any Method 1-5 07/08/2021 12:00:00 A M EDT [facility] ([facility]) OFFICE OUTPATIENT VISIT 15 MINUTES 06/01/2021 12:00:00 AM EDT [facility] ([facility], ) Endoscopy Nasal Diagnostic 05/10/2021 12:00[facility]00 [facility] NEW 45 MINUTES 05/10/2021 12:00:00 [facility] HOSPITAL ([facility], ) Results ID Date Data Source [id number] 09/18/2021 06:28:00 AM EST [facility] Name Value Range Interpretation Code Description Data Yanira rce(s) Supporting Document(s) SARS coronavirus 2 RNA [Presence] in Res piratory specimen by FABIAN with probe detection NEGATIVE [facility] This lab was ordered by [facility] a nd reported by [facility]. ID Date Data Source [id number] 09/01/2021 10:27:[address] [facility] [address] [place] [address] PHONE: [phone] FAX: [phone] Name ..............: MATHEW MERLOS Acct Number ...........................: [id number] ROOM. ............: VT-25 Number ............................: [id number] Stay type.........: E/R Discharge Date...............:08/31/21 Admit Date .....: 08/31/21 Admit Phys .............................: NICHOLE CHURCH Date of ..: 1930 Family Phys ...........................: NO PCP Phone..............: [phone] Age.................................:89 Film# ...............:[id number] Sex.................................:M Unsigned transcriptions are preliminary reports and do not represent a medical or legal document EKG [id number] COMPLETE:08/31/21 21:00 BIS 00017 Please See Scanned Results. Name Value Range Interpretation Code Description Data Yanira rce(s) Supporting Document(s) ID Date Data Source [id number] 08/31/2021 04:48:00 PM EDT [facility] 1 OrderSheet [facility] [address] [place] [address] Phone #: ext- [phone] 08/31/2021 16:35 Patient: Estela CARMONA Sex: M : 1930 Age: 89yWEIGHT:81.6 kg (S) HEIGHT:66 inches (S) BMI:29.0ALLERGIES: Penicillin, PotassiumCHIEF COMPLAINT: confusionDIAGNOSIS: Normal Exam, DementiaLAB ORDERSOrder Description Priority Entered Acknowledged [facility] STAT 17:05 08/31/2021 Ack'd: 17:18 17:24 Duc ED Karthikeyan Varela Ryan Tech, Tiffany ER M.D.; [id number] STAT 17:05 08/31/2021 Ack'd: 17:18 17:24 Duc ED Karthikeyan Varela Ryan Tech, Tiffany ER M.D.; [id number] STAT 17:05 08/31/2021 Ack'd: 17:18 17:24 Duc ED Karthikeyan Varela Ryan Tech, Tiffany ER M.D.; [id number] STAT 17:05 08/31/2021 Ack'd: 17:18 17:24 Vader ED Karthikeyan Varela Ryan Tech, Tiffany ER M.D.; [id number] Reflex to UA 17:05 08/31/2021 Ack'd: 17:18 17:22 Luke,Culture Karthikeyan Varela Ryan Ryan M.D.;DIAGNOSTIC STUDY ORDERSOrder Description Priority Entered Acknowledged InitialedCT Head W/O Cont STAT 17:05 08/31/2021 Ack'd: 17:18 20:33 Luke,(Oxygen?(No)) Karthikeyan Varela Ryan Ryan M.D.; Reason for Study: Altered Mental StatusMEDICATION/IV/DRIP/FLUID ORDERSOrder Description Priority Entered Acknowledged InitialedGENERAL ORDERSOrder Description Priority Entered Acknowledged InitialedEKG 17:05 08/31/2021 17:[address] [facility] Karthikeyan Varela Tiffany ER M.D.; Tech1 2 OrderSheet [facility] [address] [place] [address] Phone #: ext- [phone] 08/31/2021 16:35 Patient: Estela CARMONA Sex: M : 1930 Age: 89y[Electronically signed by Dee Jasso R.N. (23:06 08/31/2021)][Electronically signed by Karhtikeyan Varela M.D. (23:09 08/31/2021)][Electronically locked by Dee Jasso R.N. (23:06 08/31/2021)] Name Value Range Interpretation Code Description Data Yanira rce(s) Supporting Document(s) ID Date Data Source [id number] 08/31/2021 04:48:00 PM EDT [facility] 1 Medication Reconciliation Report [facility] [address] [place] [address] Phone #: ext- [phone] 08/31/2021 16:35 Patient: [...] the Emergency Department: 2 Medication Reconciliation Report [facility] [address] [place] [address] Phone #: ext- [phone] 08/31/2021 16:35 Patient: Estela CARMONA Sex: M : 1930 Age: 89yNone.The following Medications were prescribed to the patient:None. Name Value Range Interpretation Code Description Data Yanira rce(s) Supporting Document(s) ID Date Data Source [id number] 08/31/2021 04:48:00 PM EDT [facility] 1 Medication Administration Record [facility] [address] [place] [address] Phone #: ext- [phone] 08/31/2021 16:35 Patient: Estela CARMONA Sex: M : 1930 Age: 89yWeight: 81.6 kgHeight/Length: 66 inBMI: 29ALLERGIES: Penicillin, PotassiumDate/Time Medication Administered Medication Ordered Name Value Range Interpretation Code Description Data Yanira rce(s) Supporting Document(s) ID Date Data Source [id number] 08/31/2021 04:48:00 PM EDT [facility] 1 General Instructions [facility] [address] [place] [address] Phone #: ext- [phone] 08/31/2021 16:35 Patient: [...] benefits of treatment reviewed withcaregiver and patient tour sales representative and understanding verbalized. Agrees to plan of care. ADDITIONAL INFORMATION 2 General Instructions [facility] [address] [place] [address] Phone #: ext- [phone] 08/31/2021 16:35 [facility]: [id number] Sex: M : 1930 Age: 89yDementia and [...] Label cabinets and drawers. 3 General Instructions [facility] [address] [place] [address] Phone #: ext- [phone] 08/31/2021 16:35 Patient: Estela CARMONA Sex: M : 1930 Age: 89yTry to distract, not confront, the person. When he or she becomes frustrated or upset, direct theperson's attention to eating or some other interesting activity. Windows can help the person know ifit's night or day and what season it is.Medical-legal tipsTalk with your doctor or relationship consultant about getting a power of employment law attorney for healthcare and for financialdecisions. It's [...] provider for a referral to a social services manager, if needed. Take care of yourself [...] to eat or drink 4 General Instructions [facility] [address] [place] [address] Phone #: ext- [phone] 08/31/2021 16:35 Patient: Estela CARMONA Sex: M : 1930 Age: 89y Headache or nausea that gets worse, or repeated vomiting after a fall Unexplained fever of 100.4 F (38.0 C) or higher, or as advisedCall 911Ckua 911 if any of these occur: Slurred speech, or trouble speaking, walking, or seeing Fainting spell or dizziness Seizure symptoms. These include staring spells, lip-smacking, twitching, or sudden changes in mental status. Violent behavior (call police) or behavior becomes too difficult to manage at home Increased drowsiness, or failure to respond normally [id number] [employer] [place]. [address] [place] [address]. All rights reserved. This information is not intended as asubstitute for professional medical care. Always follow your healthcare professional's instructions. You have been given the following additional information: Dementia, Any Type, Caregiver Support(Electronically signed by Karthikeyna Varela M.D. 08/31/2021 23:09) Name Value Range Interpretation Code Description Data Yanira rce(s) Supporting Document(s) ID Date Data Source [id number] 08/31/2021 04:48:00 PM EDT [facility] 1 Clinical Report - Nurses [facility] [address] [place] [address] Phone #: ext- [phone] 08/31/2021 16:35 Patient: Estela CARMONA Sex: M : 1930 Age: 89yTRIAGEArrived by EMS. Historian: EMS, shelter nurse, shelter records and patient.Unaccompanied. ( pt brought in via EMS per EMS shelter staff want patient evaluated due toincreased confusion. [facility] pt "has not been acting himself", was seen at [facility] on 08/30and they did not find anything. pt with hx of dementia.).Triage time: 16:38 08/31/2021. Acuity: LEVEL 4.Chief Complaint: ALTERED MENTAL STATUS and CONFUSED.No acute distress.This started 3 - 4 months ago.Treatment SENIOR MEDICAL BILLING SPECIALIST:None.SEPSIS SCREEN: SIRS SCREEN NEGATIVE. SEPSIS SCREEN NEGATIVE. [...] Portillo Butler. 2 Clinical Report - Nurses [facility] [address] [place] [address] Phone #: ext- [phone] 08/31/2021 16:35 Patient: Estela CARMONA [facility]#: [id number] Sex: M : 1930 Age: 89yPROBLEMS:Hyperlipidemia.IFG/metabolic syndrome.Diabetes [...] Portillo Butler. 3 Clinical Report - Nurses [facility] [address] [place], [place] [address] Phone #: ext- [phone] 08/31/2021 16:35 Patient: Estela CARMONA Sex: M [...] RR: 18. O2 saturation: 97%. --17:07 08/31/[address] [facility] Tech,[facility] Tech[facility] EKG time: (16:37 08/31/2021). EKG was performed by a tech and shown to the ED physician. --17:08 08/31/[address] [facility] Tech, Cindy, Tech1 Reassurance given. The patient [...] disposition. --19:21 4 Clinical Report - Nurses [facility] [address] [place] [address] Phone #: ext- [phone] 08/31/2021 16:35 Patient: Estela CARMONA Sex: M : 1930 Age: 89y 08/31/21 Portillo Butler 20:33 08/31/21. ( Med Neccessitiy faxed to [facility]. Awaiting transport. Nurse [facility] at [facility] aware pt will be d/c.). --20:48 08/31/21 Dee Deleon R.N.DISPOSITION / DISCHARGE 20:03 08/31/21. BP: 147/79. HR: 57. RR: 16. O2 saturation: 97%. Temp: 98.4 F. Pain level now 12/22. --20:03 08/31/21 [facility] Linda ROWELL Departure time: 22:59 08/31/2021. Condition [...] rce(s) Supporting Document(s) ID Date Data Source [id number] 08/31/2021 04:48:00 PM EDT [facility] 1 Clinical Report - Physicians/Mid Levels [facility] [address] [place] [address] Phone #: ext- [phone] 08/31/2021 16:35 Patient: Estela [facility] [id number] Sex: M : 1930 Age: 89y Time Seen: 16:38 08/31/2021; initial patient contact. Arrived- By ambulance. Historian- EMS personnel and shelter nurse and records. Disposition decision: 19:55 08/31/2021.HISTORY OF PRESENT ILLNESS Chief Complaint: CONFUSION. The patient has been confused. This started today and is now gone. It has been intermittent and waxing/waning. The patient was not found unresponsive. halfway resident. History of chronic dementia. No change in diabetic routine, alcohol recently, recent drug use or medication given prior to arrival. Dextro stick was not low prior to arrival. No weakness, numbness or recent fall. No difficulty walking. Usually has normal mobility. (pt is resident of [facility] in [place], has dementia and known maxillary sinus mass; per staff, was a little bit more confused yesterday and today, briefly; was sent to [facility] ER yesterday, Covid test done and sent back to [facility]; pt sent here today for 2nd opinion; maybe workup; not confused when EMS arrived yesterday and today; pt has no complaints in ER; pt is DNR/DNI per staff). Similar symptoms previously. Patient has had similar symptoms occasionally. Recent medical care: The patient was seen recently at another facility in the emergency department. ( [facility] ER yesterday).REVIEW OF SYSTEMSNo fever, headache, [...] esophagus. 2 Clinical Report - Physicians/Mid Levels [facility] [address] [place] [address] Phone #: ext- [phone] 08/31/2021 16:35 Patient: Estela CARMONA Sex: M : 1930 Age: 89y Dementia. Additional Surgeries: Unk. Medications: busPIRone HCl Oral. Buspar. Metamucil Oral. Donepezil HCl Oral. Atorvastatin Calcium Oral. Namenda Oral. Aspirin Oral. Glucosamine Complex Oral. Lexapro Oral. Finasteride Oral. Omeprazole Oral. Vitamin B12 Oral. Allergies: Penicillin. Potassium.SOCIAL HISTORYFormer smoker. Occasional alcohol use. No drug use. No recent travel. Resides in a shelter.ADDITIONAL NOTESThe nursing notes have been reviewed with [...] normal. 3 Clinical Report - Physicians/Mid Levels [facility] [address] [place] [address] Phone #: ext- [phone] 08/31/2021 16:35 Patient: Estela CARMNOA Sex: M : 1930 Age: 89yLABS, X-RAYS, AND EKGEKG: No acute process. No acute ischemia. Normal EKG. Normal sinus rhythm. Rate: 63/min.Normal ST and T waves. Prior EKG unavailable. The study has been interpreted contemporaneously byme. The EKG appears to be a good tracing. Interpretation time: 16:47 08/31/2021.CT Head: ([facility] Call: [phone] Online chat: [email or web address] Name: FIOR CARMONA (Age): 1930 89 Gender: MDate of Exam: 08/31/2021 Physician: KARTHIKEYAN VARELA # of Images: 171Ordered As: CT HEAD WOCONFIDENTIALITY STATEMENTThis report is intended only for the use of the referring physician, and only in accordance with law, If youreceived this in error, call [phone] 1 of 1PROCEDURE INFORMATION:Exam: CT Head Without [...] Anay Escobar MD08/31/2021 7:11 PM Eastern Time ([facility])). Head CT performed without contrast. The study wasinterpreted by the radiologist.Laboratory Tests: Laboratory tests have been ordered, with results reviewed and considered in the 4 Clinical Report - Physicians/Mid Levels [facility] [address] [place] [address] Phone #: ext- [phone] 08/31/2021 16:35 Patient: Estela CARMONA Sex: M [...] mL/min 5 Clinical Report - Physicians/Mid Levels [facility] [address] [place] [address] Phone #: ext- [phone] 08/31/2021 16:35 Patient: [...] Head W/O Cont: (ERI: 08/31/2021 17:05) [facility] 19:20) In Progress CT HEAD W/O CONTRAST Reason(s): Altered Mental Status TRANSPORTATION: IV? O2? Oxygen?(No) Room: ED.PROGRESS AND PROCEDURESCourse of Care: 17:13 08/31/21. pt has no complaint in ER w nml exam, except for known dementia 19:45 08/31/21. CBC, troponin, TSH, UA nml; CT head w/o results in and the rt maxillary sinusitis seen is actually a known mass per [facility] report; will d/c after [facility] 6 Clinical Report - Physicians/Mid Levels [facility] [address] [place] [address] Phone #: ext- [phone] 08/31/2021 16:35 Patient: Estela [facility]MONA [facility] [id number] Sex: M : 1930 Age: 89y 19:54 08/31/21. CMP nml; pt asymptomatic in ER; will d/c back to [facility]; d/c instructions given to [facility] staff. Caregiver counseled in person regarding the [...] days 7 Clinical Report - Physicians/Mid Levels [facility] [address] [place] [address] Phone #: ext- [phone] 08/31/2021 16:35 Patient: [...] of treatment reviewed with caregiver and patient tour sales representative and understanding verbalized. Agrees to plan of care.(Electronically signed by Karthikeyan Varela M.D. 08/31/2021 23:09) Name Value Range Interpretation Code Description Data Yanira rce(s) Supporting Document(s) ID Date Data Source [id number] 08/31/2021 09:33:00 [place] [address] PHONE: [phone] FAX: [phone] Name .................. : MATHEW MERLOS Acct Number.................. : [id number] ROOM. ................. : VT-25 MR Number ................... : [id number] Stay type ............. : E/R Discharge Date......... ... : Admit Date ......... : 1 Admit Phys .................... : NORBERTRIN RANJIT Date of ....... : 1930 Family Phys ................... : NO PCP Phone .................. : [phone] Age ................................ : 89 Film# .................. .:[id number] Sex ................................. : M Unsigned transcriptions are preliminary reports and do not represent a medical or legal document CT HEAD W/O CONTRAST [id number] COMPLETE:08/31/21 19:20 [facility] [address] Reason(s): Altered Mental Status CT BRAIN WITHOUT [...] report for this exam was provided by [employer]. Page 1 of 2 [facility] [address] [place] [address] PHONE: [phone] FAX: [phone] Name .................. : MATHEW MERLOS Acct Number.................. : [id number] [facility] Number ................... : [id number] Stay type ............. : E/R Discharge Date......... ... : Admit Date ......... : 08/31/21 Admit Phys .................... : NICHOLE CHURCH Date of ....... : 1930 Family Phys ................... : NO PCP Phone .................. : [phone] Age ................................ : 89 Film# .................. .:[id number] Sex ................................. : M Unsigned transcriptions are preliminary reports and do not represent a medical or legal document CT HEAD W/O CONTRAST [id number] COMPLETE:08/31/21 19:20 [facility] [address] Reason(s): Altered Mental Status Electronically Reviewed and Signed By Ha Diaz MD , 08/31/21 21:33, DIANELYS Transcribe Initials: KRYSTIAN , Transcribe Date: 08/31/21 21:30, Dictation Date: Copy for: 010 EMERGENCY SRV Copy for: EMERGENCY DEPT via modem Copy for: 710 MED REC Page 2 of 2 Name Value Range Interpretation Code Description Data Yanira rce(s) Supporting Document(s) ID Date Data Source [id number] 08/31/2021 05:47:00 PM EDT [facility] Name Value Range Interpretation Code Description Data Yanira rce(s) Supporting Document(s) CBC W/AUTOMATED DIFF [facility] COMPLETE BLOOD COUNT Leukocytes [#/volume] in Blood by Automated count 7.2 10^3/uL 4.2 - 1 1.0 [facility] Erythrocytes [#/volume] in Blood by Automated count 4.25 10^6/uL 4. 50 - 6.30 L [facility] Hemoglobin [Mass/volume] in Blood 14.4 g/dL 14.0 - 16.0 [facility] Hematocrit [Volume Fraction] of Blood by Automated count 41.6 % 4 1.0 - 51.0 [facility] Erythrocyte mean corpuscular volume [Entitic volume] by Auto mated count 97.9 fL 80.0 - 94.0 H [facility] Erythrocyte mean corpuscular hemoglobin [Entitic mass] by Automated count 33.9 pg 27.0 - 34.0 [facility] Erythrocyte mean corpuscular hemoglobin concentration [Mass/volume] by Automated count 34.6 g/dL 31.0 - 36.0 [facility] Erythrocyte distribution width [Ratio] by Automated count 13.2 % 11.5 - 14.8 [facility] Platelets [#/volume] in Blood by Automated count 205 10^3/uL 150 - 45 0 [facility] Platelet mean volume [Entitic volume] in Blood by Automated count 9.2 fL 7.4 - 10.4 [facility] Neutrophils/100 leukocytes in Blood by Automated count 71.0 % 37. 0 - 80.0 [facility] Lymphocytes/100 leukocytes in Blood by Manual count 19.4 % 25.0 - 40.0 L [facility] Monocytes/100 leukocytes in Blood by Automated count 6.3 % 3.0 - 8.0 [facility] Eosinophils/100 leukocytes in Blood by Automated count 2.4 % 0.0 - 7.0 [facility] Basophils/100 leukocytes in Blood by Automated count 0.6 % 0.0 - 2.0 [facility] %IG 0.3 % 0.0 - 0.0 H [facility] %NRBC 0.0 % 0.0 - 0.0 [facility] Neutrophils [#/volume] in Blood by Automated count 5.09 10^3/uL 2.00 - 6.90 [facility] Lymphocytes [#/volume] in Blood by Automated count 1.39 10^3/uL 0.60 - 3.40 [facility] Monocytes [#/volume] in Blood by Automated count 0.45 10^3/uL 0.00 - 0.90 [facility] Eosinophils [#/volume] in Blood by Automated count 0.17 10^3/uL 0.00 - 0.70 [facility] Basophils [#/volume] in Blood by Automated count 0.04 10^3/uL 0.00 - 0.20 [facility] #IG 0.02 10^3/uL 0.00 - 0.10 [facility] #NRBC 0.00 10^3/uL 0.00 - 0.00 [facility] MANUAL DIFF NOT INDICATED [facility] RBC MORPH NOT INDICATED [facility] ID Date Data Source [id number] 08/31/2021 06:31:00 PM EDT [facility] Name Value Range Interpretation Code Description Data Yanira rce(s) Supporting Document(s) TROPONIN T <0.01 NG/ML 0.00 - 0.10 [facility]ital TROPONIN T0.1 ng/ml Recommended as the c linical threshold value forTroponin T. ID Date Data Source [id number] 08/31/2021 06:47:00 PM EDT [facility] Name Value Range Interpretation Code Description Data Yanira rce(s) Supporting Document(s) Thyrotropin [Units/volume] in Serum or Plasma by Detec tion limit <= 0.05 mIU/L 1.42 uIU/mL 0.47 - 5.01 [facility] ID Date Data Source [id number] 08/31/2021 07:51:00 PM EDT [facility] Name Value Range Interpretation Code Description Data Yanira rce(s) Supporting Document(s) COMPREHENSIVE METABOLIC PANEL [facility] COMPREHENSIVE METABOLIC PANEL Sodium [Moles/volume] in Serum or Plasma 141 mEq/L 134 - 153 [facility] Potassium [Moles/volume] in Serum or Plasma 4.0 mEq/L 3.6 - 5.0 [facility] Chloride [Moles/volume] in Serum or Plasma 103 mEq/L 98 - 107 [facility] Carbon dioxide, total [Moles/volume] in Serum or Plasma 26 MEQ/L 22 - 30 [facility] Glucose [Mass/volume] in Serum or Plasma 111 MG/DL 70 - 99 H [facility] BUN 16 MG/DL 7 - 21 [facility] Creatinine [Mass/volume] in Serum or Plasma 1.0 MG/DL 0.7 - 1.5 [facility] BUN/CREAT 16 8 - 27 [facility] Protein [Mass/volume] in Serum or Plasma 6.8 G/DL 6.3 - 8.2 [facility] Albumin [Mass/volume] in Serum or Plasma 4.0 G/DL 3.9 - 5.0 [facility] Globulin [Mass/volume] in Serum by calculation 2.8 GM/DL 2.4 - 3.2 [facility] A/G RATIO 1.4 0.8 - 2.0 [facility] Calcium [Mass/volume] in Serum or Plasma 9.0 MG/DL 8.4 - 10.2 [facility] Bilirubin.total [Mass/volume] in Serum or Plasma <0.7 MG/DL 0.2 - 1.3 [facility] Alkaline phosphatase [Enzymatic activity/volume] in Serum or Plasma 92 U/L 38 - 126 [facility] Aspartate aminotransferase [Enzymatic activity/volume] in Serum or Plasma 19 U/L 5 - 40 [facility] Alanine aminotransferase [Enzymatic activity/volume] in Seru m or Plasma 15 U/L 7 - 56 [facility] Anion gap 3 in Serum or Plasma 12.0 mmol/L 8.0 - 16.0 [facility] AGE 89 yrs [facility] NON-AA GFR >60 mL/min [facility] ital AFR AMER GFR >60 mL/min [facility] Male GFR In [...] >32 mL/min Normal ID Date Data Source [id number] 08/31/2021 07:12:00 PM EDT [facility] Name Value Range Interpretation Code Description Data Yanira rce(s) Supporting Document(s) UA REFLEX TO UA CULTURE [facility] URINALYSIS SOURCE Clean Catch [facility] ital COLOR yellow NORMAL: Yellow [facility] CLARITY clear NORMAL: Clear [facility] Specific gravity of Urine by Test strip 1.025 1.001 - 1.030 [facility] pH 5 5 - 9 [facility] al Glucose [Mass/volume] in Urine by Test strip NORM NORMAL: Negat [facility] Bilirubin.total [Presence] in Urine by Test strip NEG NORMAL: Negative [facility] Ketones [Presence] in Urine by Test strip NEG NORMAL: Negative [facility] Protein [Mass/volume] in Urine by Test strip 15 NORMAL: Negat [facility] Nitrite [Presence] in Urine by Test strip NEG NORMAL: Negative [facility] BLOOD NEG NORMAL: Negative [facility] Leukocyte esterase [Presence] in Urine by Test strip NEG ASHLEY L: Negative [facility] Urobilinogen [Mass/volume] in Urine by Test strip NOR less albin n 1.0 mg/dL [facility] MICROSCOPIC See Below [facility] ital Erythrocytes [#/volume] in Urine by Test strip 0 - 1 NORMAL: NON E SEEN [facility] EPITHELIAL FEW NORMAL: NONE SEEN [facility] Mucus [Presence] in Urine sediment by Light microscopy 1+ NOR MAL: NONE SEEN [facility] ID Date Data Source [id number] 08/30/2021 03:25:00 PM EDT [facility] Name Value Range Interpretation Code Description Data Yanira rce(s) Supporting Document(s) SARS-CoV-2 (COVID 19) NEGATIVE - SARS-CoV-2 (COVID19) [facility] This lab was ordered by [facility] a nd reported by [facility]. ID Date Data Source LIPID PANEL (CARDIAC RISK) 03/30/2021 12:00:00 AM EDT eCW1 ( [facility]) Name Value Range Interpretation Code Description Data Yanira rce(s) Supporting Document(s) Triglyceride [Mass/volume] in Serum or Plasma by calculation 513 <150 TRIGLYCERIDES LEVEL eCW1 ([facility]) 141 NON-HDL-C eCW1 ([facility]) Cholesterol in HDL [Moles/volume] in Serum or Plasma 57 >40 HDL CHOLESTEROL [facility] [facility] Cholesterol [Moles/volume] in Serum or Plasma 198 <200 CHOLESTEROL LEVEL eCW1 ([facility]) 3.473 <5 CHOLESTEROL RISK RATIO eCW1 ([facility]) ID Date Data Source [id number] 03/30/2021 12:00:00 AM EDT eCW1 (Pending sale to [facility]) Name Value Range Interpretation Code Description Data Yanira rce(s) Supporting Document(s) Hemoglobin A1c/Hemoglobin.total in Blood 5.9 HEMOGLOBIN A1c eCW1 ([facility]) ID Date Data Source Comprehensive Metabolic Profile (CMP) 03/30/2021 12:00:00 AM EDT eCW1 ([facility]) Name Value Range Interpretation Code Description Data Yanira rce(s) Supporting Document(s) 139 70-100 GLUCOSE, FASTING eCW1 (Pending sale to [facility]) 17 7-18 BLOOD UREA NITROGEN e[facility] 0.95 0.70-1.30 CREATININE FOR GFR eCW1 ([facility]) > 60.0 >35 GLOMERULAR FILTRATION RATE eCW 1 ([facility]) 30 21-32 CARBON DIOXIDE LEVEL eCW1 ([facility]) 139 136-145 SODIUM LEVEL eCW1 ([facility] hospital) 104 98-107 CHLORIDE LEVEL eCW1 ([facility]) 4.2 3.5-5.1 POTASSIUM SERUM eCW1 ([facility]) 21 7-37 AST/SGOT eCW1 ([facility]) 8.8 8.8-10.2 CALCIUM LEVEL eCW1 ([facility]) 89 45-117 ALKALINE PHOSPHATASE eCW1 ([facility]) 31 12-78 ALT/SGPT eCW1 ([facility]) 3.3 3.2-5.2 ALBUMIN eCW1 ([facility]) 0.8 0.2-1.0 BILIRUBIN,TOTAL eCW1 ([facility]) 7.0 6.4-8.2 TOTAL PROTEIN eCW1 ([facility]) 0.9 ALBUMIN/GLOBULIN RATIO eCW1 ([facility]) ID Date Data Source VITAMIN B12 LEVEL 09/29/2020 12:00:00 AM EST eCW1 (Pending sale to [facility]) Name Value Range Interpretation Code Description Data Yanira rce(s) Supporting Document(s) [id number] VITAMIN B12 LEVEL eCW1 ([facility]) ID Date Data Source FREE T4 & TSH PANEL 09/29/2020 12:00:00 AM EST eCW1 (Pending sale to [facility]) Name Value Range Interpretation Code Description Data Yanira rce(s) Supporting Document(s) 0.95 0.76-1.46 eCW1 ([facility]) 3.600 0.358-3.740 eCW1 ([facility]) ID Date Data Source FOLATE 09/29/2020 12:00:00 AM EST eCW1 (Pending sale to [facility]) Name Value Range Interpretation Code Description Data Yanira rce(s) Supporting Document(s) 21.1 >5.4 eCW1 ([facility]) ID Date Data Source CBC - Complete Blood Count 09/29/2020 12:00:00 AM EST eCW1 ( [facility]) Name Value Range Interpretation Code Description Data Yanira rce(s) Supporting Document(s) 4.26 4.30-6.10 eCW1 ([facility]) 7.2 4.0-10.0 eCW1 ([facility]) 13.8 13.5-17.5 eCW1 ([facility]) 32.8 32.0-36.5 eCW1 ([facility]) 42.1 42.0-52.0 eCW1 ([facility]) 98.8 80.0-96.0 eCW1 ([facility]) 32.4 27.0-33.0 eCW1 ([facility]) 206 150-450 eCW1 ([facility]) 13.2 11.5-14.5 eCW1 ([facility]) Procedure Social History Code Duration Value Status Description Data Source(s ) Smoking 09/28/2021 12:00:00 AM EST Former Smoker completed Former Smoker eCW1 ([facility]) Smoking 09/12/2021 12:00:00 AM EDT Former Smoker completed Former Smoker eCW1 ([facility]) Smoking 09/12/2021 12:00:00 AM EDT Former Smoker completed Former Smoker eCW1 ([facility]) Smoking 05/25/2021 12:00:00 AM EDT Former Smoker completed Former Smoker eCW1 ([facility]) Smoking 05/25/2021 12:00:00 AM EDT Former Smoker completed Former Smoker eCW1 ([facility]) Smoking 05/25/2021 12:00:00 AM EDT Former Smoker completed Former Smoker eCW1 ([facility]) Smoking 05/25/2021 12:00:00 AM EDT Former Smoker completed Former Smoker eCW1 ([facility]) Smoking 05/25/2021 12:00:00 AM EDT Former Smoker completed Former Smoker eCW1 ([facility]) Smoking 05/25/2021 12:00:00 AM EDT Former Smoker completed Former Smoker eCW1 ([facility]) Smoking 05/25/2021 12:00:00 AM EDT Former Smoker completed Former Smoker eCW1 ([facility]) Smoking 05/25/2021 12:00:00 AM EDT Former Smoker completed Former Smoker eCW1 ([facility]) Smoking 05/25/2021 12:00:00 AM EDT Former Smoker completed Former Smoker eCW1 ([facility]) Smoking 03/30/2021 12:00:00 AM EDT Former Smoker completed Former Smoker eCW1 ([facility]) Smoking 03/30/2021 12:00:00 AM EDT Former Smoker completed Former Smoker eCW1 ([facility]) Smoking 03/30/2021 12:00:00 AM EDT Former Smoker completed Former Smoker eCW1 ([facility]) Smoking 03/30/2021 12:00:00 AM EDT Former Smoker completed Former Smoker eCW1 ([facility]) Smoking 03/30/2021 12:00:00 AM EDT Former Smoker completed Former Smoker eCW1 ([facility]) Smoking 01/20/2021 12:00:00 AM EST Former Smoker completed Former Smoker eCW1 ([facility]) Smoking 01/20/2021 12:00:00 AM EST Former Smoker completed Former Smoker eCW1 ([facility]) Smoking 01/20/2021 12:00:00 AM EST Former Smoker completed Former Smoker eCW1 ([facility]) Smoking 09/29/2020 12:00:00 AM EST Former Smoker completed Former Smoker eCW1 ([facility]) Smoking 09/29/2020 12:00:00 AM EST Former Smoker completed Former Smoker eCW1 ([facility]) Smoking 09/29/2020 12:00:00 AM EST Former Smoker completed Former Smoker eCW1 ([facility]) Smoking 09/29/2020 12:00:00 AM EST Former Smoker completed Former Smoker eCW1 ([facility]) Smoking 09/29/2020 12:00:00 AM EST Former Smoker completed Former Smoker eCW1 ([facility]) Smoking 08/16/2020 12:00:00 AM EDT Former Smoker completed Former Smoker eCW1 ([facility]) Smoking 08/16/2020 12:00:00 AM EDT Former Smoker completed Former Smoker eCW1 ([facility]) Vital Signs ID Date Data Source UNK Name Value Range Interpretation Code Description Data Source(s) Body weight 187 [lb_av] 187 [lb_av] eCW1 ([facility]) Body weight 84.82 kg 84.82 kg W1 (Pending sale to [facility]) Body height 64 [in_i] 64 [in_i] eCW1 (Pending sale to [facility]) Body mass index (BMI) [Ratio] 32.09 kg/m2 32.09 kg/m2 eCW1 ([facility]) Heart rate 80 /min 80 /min eCW1 ([facility]) Respiratory rate 18 /min 18 /min eCW1 ([facility]) Body temperature 98 [degF] 98 [degF] eCW1 ([facility]) Systolic blood pressure 112 mm[Hg] 112 mm[Hg] e CW1 ([facility]) Diastolic blood pressure 70 mm[Hg] 70 mm[Hg] eCW1 ([facility]) Body weight 180.00 [lb_av] 180.00 [lb_av] MEDEN T ([facility], ) Body mass index (BMI) [Ratio] 30.9 kg/m2 30.9 k g/m2 [facility] Body height 64 [in_i] 64 [in_i] MEDENT ([facility], ) 5'4" [place] body weight 130 [lb_av] 130 [lb_av] MEDEN T ([facility], ) Body weight 81.648 kg 81.648 kg MEDENT ([facility], ) Body surface area Derived from formula 1.87 m2 1.87 m2 [facility] Body temperature 98 [degF] 98 [degF] eCW1 ([facility]) Systolic blood pressure 120 mm[Hg] 120 mm[Hg] e CW1 ([facility]) Body weight 186.6 [lb_av] 186.6 [lb_av] eCW1 ([facility]) Diastolic blood pressure 80 mm[Hg] 80 mm[Hg] eCW1 ([facility]) Body height 64 [in_i] 64 [in_i] eCW1 (Pending sale to [facility]) Body mass index (BMI) [Ratio] 32.03 kg/m2 32.03 kg/m2 eCW1 ([facility]) Heart rate 69 /min 69 /min eCW1 ([facility]) Respiratory rate 18 /min 18 /min eCW1 ([facility]) Body weight 180.00 [lb_av] 180.00 [lb_av] MEDEN T ([facility]) Body mass index (BMI) [Ratio] 30.9 kg/m2 30.9 k g/m2 [facility] ([facility]) [place] body weight 130 [lb_av] 130 [lb_av] MEDEN T ([facility]) Body weight 81.648 kg 81.648 kg [facility] ([facility]) Body surface area Derived from formula 1.87 m2 1.87 m2 [facility] ([facility]) Body height 64 [in_i] 64 [in_i] [facility] ([facility]) 5'4" Body temperature 97.8 [degF] 97.8 [degF] eCW1 ( [facility]) Body weight 184.2 [lb_av] 184.2 [lb_av] eCW1 ([facility]) Body height 64 [in_i] 64 [in_i] eCW1 (Pending sale to [facility]) Body mass index (BMI) [Ratio] 31.61 kg/m2 31.61 kg/m2 eCW1 ([facility]) Heart rate 88 /min 88 /min eCW1 ([facility]) Respiratory rate 18 /min 18 /min eCW1 ([facility]) Systolic blood pressure 120 mm[Hg] 120 mm[Hg] e CW1 ([facility]) Diastolic blood pressure 70 mm[Hg] 70 mm[Hg] eCW1 ([facility]) Body weight 186.4 [lb_av] 186.4 [lb_av] eCW1 ([facility]) Body height 64 [in_i] 64 [in_i] eCW1 (Pending sale to [facility]) Body mass index (BMI) [Ratio] 31.99 kg/m2 31.99 kg/m2 eCW1 ([facility]) Heart rate 86 /min 86 /min eCW1 ([facility]) Respiratory rate 18 /min 18 /min eCW1 ([facility]) Body temperature 97.8 [degF] 97.8 [degF] eCW1 ( [facility]) Systolic blood pressure 130 mm[Hg] 130 mm[Hg] e CW1 ([facility]) Diastolic blood pressure 74 mm[Hg] 74 mm[Hg] eCW1 ([facility]) Body weight 186.6 [lb_av] 186.6 [lb_av] eCW1 ([facility]) Body height 64 [in_i] 64 [in_i] eCW1 (Pending sale to [facility]) Body mass index (BMI) [Ratio] 32.03 kg/m2 32.03 kg/m2 eCW1 ([facility]) Heart rate 88 /min 88 /min eCW1 ([facility]) Respiratory rate 18 /min 18 /min eCW1 ([facility]) Body temperature 97.7 [degF] 97.7 [degF] eCW1 ( [facility]) Systolic blood pressure 110 mm[Hg] 110 mm[Hg] e CW1 ([facility]) Diastolic blood pressure 70 mm[Hg] 70 mm[Hg] eCW1 ([facility]) Body weight 189.8 [lb_av] 189.8 [lb_av] eCW1 ([facility]) Body height 64 [in_i] 64 [in_i] eCW1 (Pending sale to [facility]) Body mass index (BMI) [Ratio] 32.58 kg/m2 32.58 kg/m2 eCW1 ([facility]) Systolic blood pressure 124 mm[Hg] 124 mm[Hg] e CW1 ([facility]) Diastolic blood pressure 78 mm[Hg] 78 mm[Hg] eCW1 ([facility]) Patient Treatment Plan of Care Planned Activity Planned Date Details Description Data Source (s) doxycycline hyclate 100 MG Oral Tablet 09/28/2021 12:00:00 AM EST eCW1 ([facility]) buspirone hydrochloride 10 MG Oral Tablet 05/25/2021 12:00:00 AM ED T eCW1 ([facility]) buspirone hydrochloride 10 MG Oral Tablet 05/25/2021 12:00:00 AM ED T eCW1 ([facility]) buspirone hydrochloride 10 MG Oral Tablet 05/25/2021 12:00:00 AM ED T eCW1 ([facility]) buspirone hydrochloride 10 MG Oral Tablet 05/25/2021 12:00:00 AM ED T eCW1 ([facility]) buspirone hydrochloride 10 MG Oral Tablet 05/25/2021 12:00:00 AM ED T eCW1 ([facility]) buspirone hydrochloride 10 MG Oral Tablet 05/25/2021 12:00:00 AM ED T eCW1 ([facility]) buspirone hydrochloride 10 MG Oral Tablet 05/25/2021 12:00:00 AM ED T eCW1 ([facility]) buspirone hydrochloride 10 MG Oral Tablet 05/25/2021 12:00:00 AM ED T eCW1 ([facility]) buspirone hydrochloride 10 MG Oral Tablet 05/25/2021 12:00:00 AM ED T eCW1 ([facility]) buspirone hydrochloride 10 MG Oral Tablet 05/25/2021 12:00:00 AM ED T eCW1 ([facility]) buspirone hydrochloride 10 MG Oral Tablet 05/25/2021 12:00:00 AM ED T eCW1 ([facility]) buspirone hydrochloride 10 MG Oral Tablet 05/04/2021 12:00:00 AM ED T eCW1 ([facility])
[2021-10-12 10:27] LABS: INR 0.91; PROTHROMBIN TIME 12.6 SECONDS (12.7-14.5)
[2021-10-12 10:28] LABS: PARTIAL THROMBOPLASTIN TIME 34.3 SECONDS (25.9-37.0)
[2021-10-12] MEDS ORDERED: META0.52 PO (10:52)
[2021-10-12] MEDS ORDERED: MULT400T10 PO (10:52)
[2021-10-12] MEDS ORDERED: HOME MED LIST COMPLETE! XX SCH (11:00)
[2021-10-12 12:11] VITALS: BP 164/89
[2021-10-12] MEDS ORDERED: CALCIUM CARBONATE 500 MG CHEW U/D PO PRN (12:20)
[2021-10-12] MEDS ORDERED: LOPERAMIDE 2 MG CAPLET PO PRN (12:20)
--- NOTE | 2021-10-12 12:45 | HPEPDOC ---
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 The patient states he hit the top of his head in the occipital region on the ground when he fell. He has had several falls over this past month along with increased generalized weakness. He currently l vikt[facility] in nursing home and has had discussions with the facility about him potentially needing placement recently. The patient sustained several superficial abrasions over the past several falls all of which appear to be healing well. The patient denies chest pain, shortness of breath, fevers, loss of consciousness, lightheadedness or dizziness, chills, decreased appetite, abdominal pain, nausea, vomiting, diarrhea. He was brought to the ER today to be further evaluated. In the emergency room vital signs were stable. All CTs done today were negative for acute findings. Physical therapy evaluated him in the ER and felt he was unsteady on his feet and would benefit from continued therapy. Upon talking further with the patient it appears this has been a gradual problem with discussions about placement already being had between him and his current living situation. The patient was ultimately admitted to medicine service for falls, physical deconditioning and likely requiring placement in group home facility. REVIEW OF SYSTEMS: CONSTITUTIONAL: Denies unexplained weight gain or weight loss, loss of appetite, fever, night sweats EYES: Denies eye drainage, eye pain, visual changes, dry/irritated eye EARS, NOSE, MOUTH, THROAT: Denies difficulty hearing, ringing in ears, mouth sores, loose teeth, sore throat, facial numbness or pain NECK: Denies swollen glands CARDIOVASCULAR: Denies irregular heartbeat, racing heart, chest pains, swelling of feet or legs, pain in legs with walking RESPIRATORY: Denies shortness of breath, night sweats, wheezing, sputum production, oxygen at home, coughing up blood, cough lasting > 1 month GASTROINTESTINAL: Denies abdominal pain, constipation, bloody stool, diarrhea, heartburn, nausea, vomiting GENITOURINARY: Denies painful urination, bloody urine, frequent urination, urgency, leaking urine, impotence MUSCULOSKELETAL: Denies joint pain, muscle pain, leg swelling INTEGUMENTARY: Denies rash, itching, new skin lesion, change in existing skin lesion, hair loss or increase, breast changes. 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 Alive SOCIAL HISTORY: Prior smoker 1 pack/day for 10 years. Quit 20 years ago. Denies alcohol or illicit drug use. Primary care provider is Dr. Burnette. DNR/DNI. ALLERGIES: Please see below. HOME MEDICATIONS: Please see below. PHYSICAL EXAMINATION: VS: STable on RA CONSTITUTIONAL: No acute distress, resting comfortably, AAO x 3 EYES: PERRLA, EOM intact HENT, MOUTH: Normocephalic, atraumatic, moist mucous membranes NECK: SUPPLE, no JVD, no lymphadenopathy, no carotid bruit CV: Regular rate and rhythm, S1S2 normal, no murmurs/rubs/gallops RESPIRATORY: Clear to auscultation bilaterally, no rales/rhonchi/wheezes GI: BS positive in 4 quadrants, soft, nontender, nondistended, no rebound or g uarding, no organomegaly : Deferred MUSCULOSKELETAL: Normal ROM. 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 PLAN: Frequent falls secondary to chronic physical deconditioning, unsteadiness on feet -Evaluated by PT in the emergency room and found to be unsteady, unsafe to discharge back to [facility] -CT head above, denies dizziness/lightheadedness -PT/OT during this admission to evaluate -Optimize nutritionally -We will likely require placement, PFS consulted Dementia/age-related memory loss -Awake alert oriented x3 -Resume home medications Hyperlipidemia -Continue home meds Anxiety/depression -Denies homicidal/suicidal ideation -Resume home meds BPH -Continue finasteride GERD -PPI DVT prophylaxis -Lovenox DISPOSITION: Admitted as acute inpatient. PT/OT to evaluate, likely require placement. Vital Signs Vital Signs Date Time Temp Pulse Resp B/P (MAP) Pulse Ox O2 Delivery O2 Flow Rate FiO2 10/12/21 11:57 98.2 80 19 151/78 (102) 96 10/12/21 07:29 Room Air Laboratory Data Labs 24H Laboratory Tests 2 10/12/21 07:48: Immature Granulocyte % (Auto) 0.5, Neutrophils (%) (Auto) 78.6H, Lymphocytes (%) (Auto) 13.1L, Monocytes (%) (Auto) 6.4, Eosinophils (%) (Auto) 0.9, Basophils (%) (Auto) 0.5, Neutrophils # (Auto) 5.8, Lymphocytes # (Auto) 1.0L, Monocytes # (Auto) 0.5, Eosinophils # (Auto) 0.1, Basophils # (Auto) 0.0, Nucleated Red Blood Cells % (auto) 0.0, Anion Gap 9, Glomerular Filtration Rate > 60.0, Calcium Level 9.0, Total Bilirubin 1.0, Aspartate Amino Transf (AST/SGOT) 35, Alanine Aminotransferase (ALT/SGPT) 30, Alkaline Phosphatase 86, Total Protein 6.5, Albumin 3.0L, Albumin/Globulin Ratio 0.9, Coronavirus (COVID-19)(PCR) NEGATIVE, Influenza Type A (RT-PCR) NEGATIVE, Influenza Type B (RT-PCR) NEGATIVE, Respiratory Syncytial Virus (PCR) NEGATIVE 10/12/21 09:56: Prothrombin Time 12.6, Prothromb Time International Ratio 0.91, Activated Partial Thromboplast Time 34.3 CBC/BMP Laboratory Tests 10/12/21 07:48 Home Medications Scheduled Aspirin (Aspirin EC) 81 Mg Tablet.dr, 81 MG PO DAILY Atorvastatin Calcium (Atorvastatin Calcium) 40 Mg Tablet, 40 MG PO QHS Cyanocobalamin (Vitamin B-12) (Vitamin B-12) 1,000 Mcg Tablet, 1,000 MCG PO DAILY Donepezil HCl (Donepezil HCl) 10 Mg Tablet, 10 MG PO QHS Escitalopram Oxalate (Lexapro) 10 Mg Tablet, 20 MG PO DAILY Finasteride (Finasteride) 5 Mg Tablet, 5 MG PO DAILY Glucosamine HCl (Glucosamine HCl) 500 Mg Tablet, 2,000 MG PO QPM TAKES AT 1700 Memantine HCl (Namenda) 10 Mg Tablet, 10 MG PO BID 1200, 1999 Multivitamin with Folic Acid (Tab-A-Antonio Tablet) 400 Mcg Tablet, 400 MCG PO DAILY Omeprazole (Omeprazole) 40 Mg Capsule.dr, 40 MG PO DAILY Petrolatum,White (Aquaphor with Natural Healing) 50 Gm Oint...g., 1 DOSE TOP BID APPLIES TO ARMS AND LEGS Psyllium Husk (Metamucil) 0.4 Gm Capsule, 1.04 GM PO BID 1200, 2000 Scheduled PRN Acetaminophen (Tylenol) 325 Mg Tablet, 650 MG PO Q6H PRN for PAIN/FEVER Calcium Carbonate (Tums) 200 Mg Tab.chew, 1,000 MG PO BID PRN for INDIGESTION Loperamide HCl (Anti-Diarrheal) 2 Mg Capsule, 2 MG PO ASDIRECTED PRN for DIARRHEA 4MG AFTER 1ST LOOSE STOOL, THEN 2MG AFTER EACH FOLLOWING LOOSE STOOL. MDD= 12MG Menthol (Cough Drops) 7.6 Mg Lozenge, 7.6 MG MT Q6H PRN for COUGH Allergies Coded Allergies: Penicillins (Verified Allergy, Intermediate, hives, 08/30/21) potassium (Verified Allergy, Unknown, per [facility] documentation, 10/12/21) A-FIB/CHADSVASC A-FIB History Current/History of A-Fib/PAF?: No Current PO Anticoag Therapy: No Age/Risk Factor Scoring CHADSVASC: CHADSVASC Response (Comments) Value Age Risk Factor Age >/= 75 years old 2 Gender Risk Factor Male 0 Hx of CHF No 0 Hx of HTN Yes 1 Hx of Stroke/TIA/or VTE No 0 Hx of Diabetes No 0 Hx of Vascular Disease No 0 Total 3 Treatment Other anticoagulant ordered: Marine Knapp MD Oct 12, 2021 12:44
[2021-10-12] MEDS: MEMANTINE 5MG TABLET (NAMENDA) PO SCH ×2 (13:59→21:26)
[2021-10-12] MEDS: MULTIVITAMINS/MINERALS THERAP 1 TAB PO SCH (13:59)
[2021-10-12] MEDS: FINASTERIDE 5 MG TAB PO SCH (13:59)
[2021-10-12] MEDS: ENOXAPARIN 40MG/0.4ML SYRINGE (J1650 PER 10MG) SC SCH (13:59)
[2021-10-12] MEDS: OMEPRAZOLE 20 MG CAP PO SCH (13:59)
[2021-10-12] MEDS: ASPIRIN 81MG ENTERIC TABLET PO SCH (14:00)
[2021-10-12] MEDS: ESCITALOPRAM OXALATE 10 MG TAB (LEXAPRO) PO SCH (14:00)
[2021-10-12] MEDS: ATORVASTATIN 20 MG TAB PO SCH (21:26)
[2021-10-12] MEDS: DONEPEZIL 5 MG TAB PO SCH (21:26)
[2021-10-12 22:00] VITALS: BP 134/77
[2021-10-13 05:54] LABS: HEMATOCRIT 37.4 % (42.0-52.0); HEMOGLOBIN 12.7 g/dl (13.5-17.5); MEAN CORPUSCULAR HEMOGLOBIN 33.5 pg (27.0-33.0); MEAN CORPUSCULAR VOLUME 98.7 fl (80.0-96.0); PLATELET COUNT, AUTOMATED 159 10^3/uL (150-450); RED BLOOD COUNT 3.79 10^6/uL (4.30-6.10); WHITE BLOOD COUNT 6.1 10^3/uL (4.0-10.0)
[2021-10-13 06:00] VITALS: BP 127/79
[2021-10-13] MEDS: VANCOMYCIN ORAL SOL 250MG/5ML ORAL SYRINGE PO SCH ×4 (06:16→23:34)
[2021-10-13 06:17] LABS: ALBUMIN 2.8 GM/DL (3.2-5.2); ALT/SGPT 28 U/L (12-78); BILIRUBIN,TOTAL 1.2 MG/DL (0.2-1.0); BLOOD UREA NITROGEN 11 MG/DL (7-18); CALCIUM LEVEL 7.9 MG/DL (8.8-10.2); CARBON DIOXIDE LEVEL 29 MEQ/L (21-32); CHLORIDE LEVEL 104 MEQ/L (98-107); CREATININE FOR GFR 0.87 MG/DL (0.70-1.30); GLOMERULAR FILTRATION RATE > 60.0 (>35); GLUCOSE, FASTING 119 MG/DL (70-100); POTASSIUM SERUM 3.4 MEQ/L (3.5-5.1); SODIUM LEVEL 141 MEQ/L (136-145); TOTAL PROTEIN 6.1 GM/DL (6.4-8.2)
[2021-10-13] MEDS: FINASTERIDE 5 MG TAB PO SCH (10:00)
[2021-10-13] MEDS: OMEPRAZOLE 20 MG CAP PO SCH (10:00)
[2021-10-13] MEDS: MULTIVITAMINS/MINERALS THERAP 1 TAB PO SCH (10:01)
[2021-10-13] MEDS: ASPIRIN 81MG ENTERIC TABLET PO SCH (10:01)
[2021-10-13] MEDS: ESCITALOPRAM OXALATE 10 MG TAB (LEXAPRO) PO SCH (10:01)
[2021-10-13] MEDS: ENOXAPARIN 40MG/0.4ML SYRINGE (J1650 PER 10MG) SC SCH (10:02)
[2021-10-13] MEDS: DIMETHICONE 2% OINTMENT(VANICREAM) 70GM TUBE TOP SCH ×2 (10:02→20:03)
[2021-10-13] MEDS: MEMANTINE 5MG TABLET (NAMENDA) PO SCH ×2 (12:27→20:02)
--- NOTE | 2021-10-13 14:29 | IPNPDOC ---
Date Seen The patient was seen on 10/13/21. Progress Note SUBJECTIVE: Several bowel movements overnight, C. difficile positive and currently on precautions. UA positive, urine culture pending. Patient denies any dysuria, abdominal pain, fevers, chills, nausea, vomiting. OBJECTIVE: PHYSICAL EXAMINATION: VS: Stable on RA CONSTITUTIONAL: No acute distress, sitting up in bed comfortably, AAO x 3 EYES: PERRLA, EOM intact HENT, MOUTH: Normocephalic, atraumatic, moist mucous membranes NECK: SUPPLE, no JVD, no lymphadenopathy, no carotid bruit CV: Regular rate and rhythm, S1S2 normal, no murmurs/rubs/gallops RESPIRATORY: Clear to auscultation bilaterally, no rales/rhonchi/wheezes GI: BS positive in 4 quadrants, soft, nontender, nondistended, no rebound or guarding, no organomegaly : Deferred MUSCULOSKELETAL: Normal ROM. No cyanosis, clubbing, swelling, joint deformity, +1 pitting lower extremity edema INTEGUMENTARY: Intact, no rashes, no lesions, no erythema NEUROLOGIC: Cranial Nerves II-XII are intact, no focal deficits PSYCHIATRIC: Mood and affect are normal LABORATORY DATA: Please see below IMAGING: CT head: No acute abnormality CT C spine: No acute fx MICRO: UA positive, urine culture pending C. 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 PLAN: C. difficile infection -Several bowel movements overnight described by nursing; however, only one documented in the system -WBC within normal limits, no abdominal pain -P.o. vancomycin x14 days Positive UA -Asymptomatic, afebrile, WBC within normal limits -Follow-up urine culture -Holding off on antibiotic treatment at this time with C. difficile infection until culture results obtained Frequent falls secondary to chronic physical deconditioning, unsteadiness on feet and acute infections above -Evaluated by PT in the emergency room and found to be unsteady, unsafe to discharge back to [facility] -CT head above, denies dizziness/lightheadedness -PT ordered, to see today -Optimize nutritionally -We will likely require placement, PFS consulted Hypokalemia, acute and possibly secondary to diarrhea -K3.4 and unable to supplement secondary to allergy -Monitor on daily labs and treatment above for C. difficile Dementia/age-related memory loss -Awake alert oriented x3 -Continue home medications Hyperlipidemia -Continue home meds Anxiety/depression -Denies homicidal/suicidal ideation -Continue home meds BPH -Continue finasteride GERD -PPI DVT prophylaxis -Lovenox DISPOSITION: Admitted as acute inpatient. PT to evaluate, likely require placement. Switching to ALC status today. VS, I&O, 24H, Fishbone Vital Signs/I&O Vital Signs Date Time Temp Pulse Resp B/P (MAP) Pulse Ox O2 Delivery O2 Flow Rate FiO2 10/13/21 06:00 97.6 76 18 127/79 (95) 93 Room Air I&O- Last 24 Hours up to 6 AM 10/13/21 06:00 Intake Total 460 ml Output Total 0 ml Balance 460 ml Laboratory Data 24H LABS Laboratory Tests 2 10/13/21 05:31: Nucleated Red Blood Cells % (auto) 0.0, Anion Gap 8, Glomerular Filtration Rate > 60.0, Calcium Level 7.9L, Total Bilirubin 1.2H, Aspartate Amino Transf (AST/SGOT) 23, Alanine Aminotransferase (ALT/SGPT) 28, Alkaline Phosphatase 76, Total Protein 6.1L, Albumin 2.8L, Albumin/Globulin Ratio 0.8 10/13/21 12:30: Urine Color MAGDALENA, Urine Appearance CLOUDYH, Urine pH 5.0, Urine Specific [place] 1.024, Urine Protein 1+H, Urine Glucose (UA) NEGATIVE, Urine Ketones TRACEH, Urine Blood NEGATIVE, Urine Nitrite NEGATIVE, Urine Bilirubin NEGATIVE, Urine Urobilinogen 0.2, Urine Leukocyte Esterase TRACEH, Urine WBC (Auto) 21H, Urine RBC (Auto) 1, Urine Hyaline Casts (Auto) 0, Urine Bacteria (Auto) NEGATIVE, Urine Squamous Epithelial Cells 1, Urine Mucus (Auto) LARGE, Urine Sperm (Auto) CBC/BMP Laboratory Tests 10/13/21 05:31 Microbiology Microbiology 10/13/21 Urine Culture, Received Pending 10/12/21 Gastrointestinal Tract Panel (PCR) - Final, Complete Clostridium Difficile A/B Marine Segovia MD Oct 13, 2021 14:29
[2021-10-13] MEDS: DONEPEZIL 5 MG TAB PO SCH (20:03)
[2021-10-13] MEDS: ATORVASTATIN 20 MG TAB PO SCH (20:03)
[2021-10-14] MEDS: VANCOMYCIN ORAL SOL 250MG/5ML ORAL SYRINGE PO SCH ×3 (05:30→18:21)
[2021-10-14 05:54] VITALS: BP 132/85
[2021-10-14 06:28] LABS: HEMATOCRIT 39.8 % (42.0-52.0); HEMOGLOBIN 13.2 g/dl (13.5-17.5); MEAN CORPUSCULAR HEMOGLOBIN 33.2 pg (27.0-33.0); MEAN CORPUSCULAR HGB CONC 33.2 g/dl (32.0-36.5); PLATELET COUNT, AUTOMATED 167 10^3/uL (150-450); RED BLOOD COUNT 3.98 10^6/uL (4.30-6.10); WHITE BLOOD COUNT 7.1 10^3/uL (4.0-10.0)
[2021-10-14] MEDS: ENOXAPARIN 40MG/0.4ML SYRINGE (J1650 PER 10MG) SC SCH (10:28)
[2021-10-14] MEDS: FINASTERIDE 5 MG TAB PO SCH (10:29)
[2021-10-14] MEDS: MULTIVITAMINS/MINERALS THERAP 1 TAB PO SCH (10:29)
[2021-10-14] MEDS: OMEPRAZOLE 20 MG CAP PO SCH (10:29)
[2021-10-14] MEDS: MEMANTINE 5MG TABLET (NAMENDA) PO SCH ×3 (10:29→21:20)
[2021-10-14] MEDS: ESCITALOPRAM OXALATE 10 MG TAB (LEXAPRO) PO SCH (10:29)
[2021-10-14] MEDS: ASPIRIN 81MG ENTERIC TABLET PO SCH (10:29)
[2021-10-14] MEDS: DIMETHICONE 2% OINTMENT(VANICREAM) 70GM TUBE TOP SCH ×2 (10:30→21:20)
[2021-10-14 14:00] VITALS: BP 135/85
[2021-10-14] MEDS: ATORVASTATIN 20 MG TAB PO SCH (21:20)
[2021-10-14] MEDS: DONEPEZIL 5 MG TAB PO SCH (21:20)
[2021-10-14 22:00] VITALS: BP 150/79
[2021-10-15] MEDS: VANCOMYCIN ORAL SOL 250MG/5ML ORAL SYRINGE PO SCH ×4 (00:35→18:09)
[2021-10-15 06:00] VITALS: BP 134/76
[2021-10-15 06:45] LABS: HEMATOCRIT 38.9 % (42.0-52.0); HEMOGLOBIN 13.2 g/dl (13.5-17.5); MEAN CORPUSCULAR HEMOGLOBIN 33.7 pg (27.0-33.0); MEAN CORPUSCULAR HGB CONC 33.9 g/dl (32.0-36.5); MEAN CORPUSCULAR VOLUME 99.2 fl (80.0-96.0); PLATELET COUNT, AUTOMATED 177 10^3/uL (150-450); RED BLOOD COUNT 3.92 10^6/uL (4.30-6.10); WHITE BLOOD COUNT 6.4 10^3/uL (4.0-10.0)
[2021-10-15 06:58] LABS: ALBUMIN 2.9 GM/DL (3.2-5.2); ALT/SGPT 33 U/L (12-78); BILIRUBIN,TOTAL 0.6 MG/DL (0.2-1.0); BLOOD UREA NITROGEN 14 MG/DL (7-18); CALCIUM LEVEL 8.7 MG/DL (8.8-10.2); CARBON DIOXIDE LEVEL 27 MEQ/L (21-32); CHLORIDE LEVEL 107 MEQ/L (98-107); CREATININE FOR GFR 0.96 MG/DL (0.70-1.30); GLOMERULAR FILTRATION RATE > 60.0 (>35); GLUCOSE, FASTING 117 MG/DL (70-100); SODIUM LEVEL 140 MEQ/L (136-145)
[2021-10-15] MEDS: FINASTERIDE 5 MG TAB PO SCH (09:34)
[2021-10-15] MEDS: MULTIVITAMINS/MINERALS THERAP 1 TAB PO SCH (09:34)
[2021-10-15] MEDS: OMEPRAZOLE 20 MG CAP PO SCH (09:34)
[2021-10-15] MEDS: ESCITALOPRAM OXALATE 10 MG TAB (LEXAPRO) PO SCH (09:35)
[2021-10-15] MEDS: DIMETHICONE 2% OINTMENT(VANICREAM) 70GM TUBE TOP SCH ×2 (09:35→20:13)
[2021-10-15] MEDS: ENOXAPARIN 40MG/0.4ML SYRINGE (J1650 PER 10MG) SC SCH (09:35)
[2021-10-15] MEDS: ASPIRIN 81MG ENTERIC TABLET PO SCH (09:35)
[2021-10-15] MEDS: MEMANTINE 5MG TABLET (NAMENDA) PO SCH ×2 (12:32→20:12)
[2021-10-15] MEDS: ATORVASTATIN 20 MG TAB PO SCH (20:12)
[2021-10-15] MEDS: DONEPEZIL 5 MG TAB PO SCH (20:12)
[2021-10-15 22:00] VITALS: BP 151/79
[2021-10-16] MEDS: VANCOMYCIN ORAL SOL 250MG/5ML ORAL SYRINGE PO SCH ×5 (00:14→23:10)
[2021-10-16 06:00] VITALS: BP 120/70
[2021-10-16] MEDS: ASPIRIN 81MG ENTERIC TABLET PO SCH (08:57)
[2021-10-16] MEDS: FINASTERIDE 5 MG TAB PO SCH (08:57)
[2021-10-16] MEDS: ESCITALOPRAM OXALATE 10 MG TAB (LEXAPRO) PO SCH (08:57)
[2021-10-16] MEDS: MULTIVITAMINS/MINERALS THERAP 1 TAB PO SCH (08:57)
[2021-10-16] MEDS: OMEPRAZOLE 20 MG CAP PO SCH (08:57)
[2021-10-16] MEDS: ENOXAPARIN 40MG/0.4ML SYRINGE (J1650 PER 10MG) SC SCH (08:58)
[2021-10-16] MEDS: DIMETHICONE 2% OINTMENT(VANICREAM) 70GM TUBE TOP SCH ×2 (08:58→21:18)
[2021-10-16] MEDS: CEFUROXIME 500 MG TAB PO SCH ×2 (11:13→21:17)
[2021-10-16] MEDS: MEMANTINE 5MG TABLET (NAMENDA) PO SCH ×2 (11:13→21:17)
[2021-10-16] MEDS: ATORVASTATIN 20 MG TAB PO SCH (21:17)
[2021-10-16] MEDS: DONEPEZIL 5 MG TAB PO SCH (21:18)
[2021-10-16 22:00] VITALS: BP 132/79
[2021-10-17 05:51] VITALS: BP 133/80
[2021-10-17] MEDS: VANCOMYCIN ORAL SOL 250MG/5ML ORAL SYRINGE PO SCH ×4 (06:14→23:56)
[2021-10-17 08:11] LABS: HEMATOCRIT 38.2 % (42.0-52.0); HEMOGLOBIN 12.9 g/dl (13.5-17.5); MEAN CORPUSCULAR HEMOGLOBIN 33.3 pg (27.0-33.0); MEAN CORPUSCULAR HGB CONC 33.8 g/dl (32.0-36.5); MEAN CORPUSCULAR VOLUME 98.7 fl (80.0-96.0); PLATELET COUNT, AUTOMATED 174 10^3/uL (150-450); RED BLOOD COUNT 3.87 10^6/uL (4.30-6.10); WHITE BLOOD COUNT 6.5 10^3/uL (4.0-10.0)
[2021-10-17 08:46] LABS: BLOOD UREA NITROGEN 14 MG/DL (7-18); CALCIUM LEVEL 9.1 MG/DL (8.8-10.2); CARBON DIOXIDE LEVEL 27 MEQ/L (21-32); CHLORIDE LEVEL 102 MEQ/L (98-107); CREATININE FOR GFR 0.93 MG/DL (0.70-1.30); GLOMERULAR FILTRATION RATE > 60.0 (>35); GLUCOSE, FASTING 120 MG/DL (70-100); POTASSIUM SERUM 3.8 MEQ/L (3.5-5.1); SODIUM LEVEL 136 MEQ/L (136-145)
[2021-10-17] MEDS: FINASTERIDE 5 MG TAB PO SCH (09:48)
[2021-10-17] MEDS: MULTIVITAMINS/MINERALS THERAP 1 TAB PO SCH (09:48)
[2021-10-17] MEDS: ESCITALOPRAM OXALATE 10 MG TAB (LEXAPRO) PO SCH (09:48)
[2021-10-17] MEDS: CEFUROXIME 500 MG TAB PO SCH ×2 (09:48→20:11)
[2021-10-17] MEDS: ASPIRIN 81MG ENTERIC TABLET PO SCH (09:48)
[2021-10-17] MEDS: OMEPRAZOLE 20 MG CAP PO SCH (09:49)
[2021-10-17] MEDS: DIMETHICONE 2% OINTMENT(VANICREAM) 70GM TUBE TOP SCH ×2 (09:49→20:14)
[2021-10-17] MEDS: ENOXAPARIN 40MG/0.4ML SYRINGE (J1650 PER 10MG) SC SCH (09:49)
[2021-10-17] MEDS: MEMANTINE 5MG TABLET (NAMENDA) PO SCH ×2 (12:29→20:13)
[2021-10-17 14:00] VITALS: BP 142/75
--- NOTE | 2021-10-17 18:03 | IPNPDOC ---
Date Seen The patient was seen on 10/17/21. Progress Note SUBJECTIVE: I was made aware that the patient was exposed to a positive employee. Initially it was believed the patient was unvaccinated; however, a family member updated staff that he had indeed received his vaccination. This was confirmed later with [facility]. He did not require monoclonal antibody infusion. He has been asymptomatic thus far since exposure to the positive employee. VS, I&O, 24H, Fishbone Vital Signs/I&O Vital Signs Date Time Temp Pulse Resp B/P (MAP) Pulse Ox O2 Delivery O2 Flow Rate FiO2 10/17/21 14:00 97.7 74 18 142/75 (97) 94 Room Air I&O- Last 24 Hours up to 6 AM 10/17/21 06:00 Intake Total 1320 ml Balance 1320 ml Laboratory Data 24H LABS Laboratory Tests 2 10/17/21 07:41: Nucleated Red Blood Cells % (auto) 0.0, Anion Gap 7L, Glomerular Filtration Rate > 60.0, Calcium Level 9.1 CBC/BMP Laboratory Tests 10/17/21 07:41 Microbiology Microbiology 10/13/21 Urine Culture - Final, Complete Providencia Rettgeri 10/12/21 Gastrointestinal Tract Panel (PCR) - Final, Complete Clostridium Difficile A/B Marine Segovia MD Oct 17, 2021 18:03
[2021-10-17] MEDS: ATORVASTATIN 20 MG TAB PO SCH (20:11)
[2021-10-17] MEDS: DONEPEZIL 5 MG TAB PO SCH (20:14)
[2021-10-17 21:00] VITALS: BP 141/81
[2021-10-18 05:57] VITALS: BP 136/73
[2021-10-18] MEDS: VANCOMYCIN ORAL SOL 250MG/5ML ORAL SYRINGE PO SCH ×2 (06:11→13:39)
[2021-10-18] MEDS: DIMETHICONE 2% OINTMENT(VANICREAM) 70GM TUBE TOP SCH (09:16)
[2021-10-18] MEDS: ENOXAPARIN 40MG/0.4ML SYRINGE (J1650 PER 10MG) SC SCH (09:16)
[2021-10-18] MEDS: MULTIVITAMINS/MINERALS THERAP 1 TAB PO SCH (09:17)
[2021-10-18] MEDS: ESCITALOPRAM OXALATE 10 MG TAB (LEXAPRO) PO SCH (09:17)
[2021-10-18] MEDS: ASPIRIN 81MG ENTERIC TABLET PO SCH (09:17)
[2021-10-18] MEDS: FINASTERIDE 5 MG TAB PO SCH (09:17)
[2021-10-18] MEDS: OMEPRAZOLE 20 MG CAP PO SCH (09:17)
[2021-10-18] MEDS: CEFUROXIME 500 MG TAB PO SCH (09:17)
[2021-10-18] MEDS ORDERED: FIRV50SO PO (13:14)
[2021-10-18] MEDS: MEMANTINE 5MG TABLET (NAMENDA) PO SCH (13:39)
--- NOTE | 2021-10-18 18:40 | DS.PDOC ---
Discharge Summary General Date of Admission Oct 12, 2021 at 09:22 Date of Discharge 10/18/2021 Attending Physician: BRIAN STANLEY DO Discharge Summary PROCEDURES PERFORMED DURING STAY: None. ADMITTING DIAGNOSES: 1. Frequent falls secondary to chronic physical deconditioning. 2. 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 Hyperlipidemia 4. Anxiety/depression 5. BPH DISCHARGE DIAGNOSES: 1. Frequent falls secondary to chronic physical deconditioning. 2. 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 Hyperlipidemia 4. Anxiety/depression 5. BPH COMPLICATIONS/CHIEF COMPLAINT: Recurrent Falls, Weakness Generalized. HISTORY OF PRESENT ILLNESS: Patient is an 89-year-old male who presented to the hospital after sustaining a fall. Patient states he at the top of his head on the occipital region on the ground when he fell. He had several falls over the past month along with increased generalized weakness. Currently lives in a shelter facility and has had discussions with the facility about potentially intermediate placement. Patient sustained several superficial abrasions over the past several falls all of which appear to be healing well. Patient denies any chest pain shortness of breath, fevers, loss consciousness, lightheadedness, or dizziness, chills, decreased appetite, abdominal pain, nausea, vomiting, diarrhea. He was brought to the ER today for further evaluation. Vital signs are stable in the emergency department and CTs done were negative for any acute findings. Physical therapy evaluated in the emergency department felt he was unsteady on his feet would benefit from continued therapy. Patient states that this is been a gradual problem and has had discussions about placement.. HOSPITAL COURSE: Patient was admitted to the hospital for continued therapy and possible intermediate placement. Overnight on the first day of the patient's hospitalization, patient was found to have several bowel movements and was tested positive for C. difficile colitis. Patient was started on p.o. vancomycin at this time. Patient also had a urinary analysis that was positive but denied any dysuria or abdominal pain. Patient was continued on C. difficile colitis treatment. Patient did not develop any further urinary tract symptoms although the patient was continued on cefuroxime throughout his hospitalization although the urine culture did come back positive for Providencia rettgeri which was resistant to cefuroxime. Since patient did not have any symptoms that develop throughout his hospitalization, no further treatment was given. Patient was continued on p.o. vancomycin. Patient was exposed to a COVID-19 positive staff member and discussion was made about possible monoclonal antibodies. Infection control stated the patient did not qualify because he was vaccinated however, pharmacy stated that the patient may qualify. This will need to be continued at [facility] as patient was getting close to being able to be discharged from the hospital and this may hold of the patient's discharge. Patient tested negative on 10/18/2021 and patient was deemed ready for discharge to [facility] on 10/18/2021. DISCHARGE MEDICATIONS: Please see below. ALLERGIES: Please see below. PHYSICAL EXAMINATION ON DISCHARGE: VITAL SIGNS: Please see below. General: Alert and oriented male patient who was sitting up in bed when I walked in. Patient did not appear to be in any acute distress. HEENT: Normocephalic, atraumatic, moist mucous membranes. Neck: No lymphadenopathy or thyromegaly Cardiac: Regular rate and rhythm, no murmurs, normal S1, normal S2 Pulm: Clear to auscultation bilaterally. No wheezes, rhonchi, rales Abd: Nondistended, nontender to palpation, normal bowel sounds Ext: No edema bilateral lower extremities LABORATORY DATA: Please see below. IMAGING: CT of the's head performed without contrast on 10/12/2021 was reported to show atrophy and microvascular ischemic changes. No acute intracranial hemorrhage, infarction, or mass/mass-effect. CT of the cervical spine performed without contrast on 10/12/2021 is reported to show age-related changes. No evidence for acute pathology or trauma/injury PROGNOSIS: Fair ACTIVITY: As tolerated. DIET: Mechanical soft DISCHARGE PLAN: Discharge to [facility] DISPOSITION: [facility]. DISCHARGE INSTRUCTIONS: 1. Follow-up with provider at [facility]. 2. Return to the emergency department if symptoms worsen ITEMS TO FOLLOWUP ON ON OUTPATIENT: 1. Possible monoclonal antibody infusion as patient was exposed to a positive COVID-19 staff member DISCHARGE CONDITION: Stable. TIME SPENT ON DISCHARGE: 40 minutes. Vital Signs/I&Os Vital Signs Date Time Temp Pulse Resp B/P (MAP) Pulse Ox O2 Delivery O2 Flow Rate FiO2 10/18/21 05:57 97.5 70 18 136/73 (94) 95 Room Air I&O- Last 24 Hours up to 6 AM 10/18/21 06:00 Intake Total 600 ml Output Total 120 ml Balance 480 ml Laboratory Data Labs 24H Laboratory Tests 2 10/18/21 11:02: Coronavirus (COVID-19)(PCR) NEGATIVE Microbiology Microbiology 10/13/21 Urine Culture - Final, Complete Providencia Rettgeri 10/12/21 Gastrointestinal Tract Panel (PCR) - Final, Complete Clostridium Difficile A/B Discharge Medications Scheduled Aspirin (Aspirin EC) 81 Mg Tablet.dr, 81 MG PO DAILY, (Reported) Atorvastatin Calcium (Atorvastatin Calcium) 40 Mg Tablet, 40 MG PO QHS, (Reported) Cyanocobalamin (Vitamin B-12) (Vitamin B-12) 1,000 Mcg Tablet, 1,000 MCG PO SAMEER Y, (Reported) Donepezil HCl (Donepezil HCl) 10 Mg Tablet, 10 MG PO QHS, (Reported) Escitalopram Oxalate (Lexapro) 10 Mg Tablet, 20 MG PO DAILY, (Reported) Finasteride (Finasteride) 5 Mg Tablet, 5 MG PO DAILY, (Reported) Glucosamine HCl (Glucosamine HCl) 500 Mg Tablet, 2,000 MG PO QPM, (Reported) TAKES AT 1700 Memantine HCl (Namenda) 10 Mg Tablet, 10 MG PO BID, (Reported) 1200, 1999 Multivitamin with Folic Acid (Tab-A-Antonio Tablet) 400 Mcg Tablet, 400 MCG PO DAILY, (Reported) Omeprazole (Omeprazole) 40 Mg Capsule.dr, 40 MG PO DAILY, (Reported) Petrolatum,White (Aquaphor with Natural Healing) 50 Gm Oint...g., 1 DOSE TOP BID, (Reported) APPLIES TO ARMS AND LEGS Psyllium Husk (Metamucil) 0.4 Gm Capsule, 1.04 GM PO BID, (Reported) 1200, 2000 Vancomycin HCl (Firvanq) 50 Mg/1 Ml Soln.recon, 125 MG PO Q6H Scheduled PRN Acetaminophen (Tylenol) 325 Mg Tablet, 650 MG PO Q6H PRN for PAIN/FEVER, (Repo rted) Calcium Carbonate (Tums) 200 Mg Tab.chew, 1,000 MG PO BID PRN for INDIGESTION, (Reported) Loperamide HCl (Anti-Diarrheal) 2 Mg Capsule, 2 MG PO ASDIRECTED PRN for DIARRHEA, (Reported) 4MG AFTER 1ST LOOSE STOOL, THEN 2MG AFTER EACH FOLLOWING LOOSE STOOL. MDD= 12MG Menthol (Cough Drops) 7.6 Mg Lozenge, 7.6 MG MT Q6H PRN for COUGH, (Reported) Allergies Coded Allergies: Penicillins (Verified Allergy, Intermediate, hives, 08/30/21) potassium (Verified Allergy, Unknown, per [facility] documentation, 10/12/21) BRIAN STANLEY DO Oct 18, 2021 18:40
== END 2021-10-18 13:58 | DRG 92 ==
LOC: M ED 07:17 → EDBD 07:17 → M ED INP 09:22 → ENRESERV 11:40 → M MSPAV 12:04
PROVIDERS: ADMIT Internal Medicine; ATTEND Family Medicine
DX: R29.6 Repeated falls (principal); A04.72 Enterocolitis due to Clostridium difficile, not specified as recurrent; E78.5 Hyperlipidemia, unspecified; K21.9 Gastro-esophageal reflux disease without esophagitis; F03.90 Unspecified dementia, unspecified severity, without behavioral disturbance, psychotic disturbance, mood disturbance, and anxiety; F41.9 Anxiety disorder, unspecified; R53.1 Weakness; F32.A Depression, unspecified; N40.0 Benign prostatic hyperplasia without lower urinary tract symptoms; E53.8 Deficiency of other specified B group vitamins; R26.81 Unsteadiness on feet; Z66 Do not resuscitate; Z79.82 Long term (current) use of aspirin; Z79.899 Other long term (current) drug therapy; Z86.79 Personal history of other diseases of the circulatory system; Z88.0 Allergy status to penicillin; Z90.49 Acquired absence of other specified parts of digestive tract; Z87.891 Personal history of nicotine dependence; Z20.822 Contact with and (suspected) exposure to COVID-19; Z88.8 Allergy status to other drugs, medicaments and biological substances

== ENCOUNTER → 2021-10-20 | Outpatient (REF) | payer MEDICARE, BC, OTHER ==
[~2021-10-20] MED LIST changes: +FIRV50SO PO; +META0.52 PO; +MULT400T10 PO
[2021-10-20 09:57] LABS: HEMATOCRIT 39.8 % (42.0-52.0); HEMOGLOBIN 13.4 g/dl (13.5-17.5); MEAN CORPUSCULAR HGB CONC 33.7 g/dl (32.0-36.5); PLATELET COUNT, AUTOMATED 184 10^3/uL (150-450); RED BLOOD COUNT 4.06 10^6/uL (4.30-6.10); WHITE BLOOD COUNT 5.6 10^3/uL (4.0-10.0)
[2021-10-20 10:24] LABS: ALT/SGPT 61 U/L (12-78); BILIRUBIN,TOTAL 0.9 MG/DL (0.2-1.0); BLOOD UREA NITROGEN 11 MG/DL (7-18); CALCIUM LEVEL 8.7 MG/DL (8.8-10.2); CARBON DIOXIDE LEVEL 30 MEQ/L (21-32); CHLORIDE LEVEL 103 MEQ/L (98-107); CREATININE FOR GFR 0.98 MG/DL (0.70-1.30); GLOMERULAR FILTRATION RATE > 60.0 (>35); GLUCOSE, FASTING 134 MG/DL (70-100); SODIUM LEVEL 140 MEQ/L (136-145); TOTAL PROTEIN 6.7 GM/DL (6.4-8.2)
[2021-10-20 11:11] LABS: TOTAL 25(OH) VITAMIN D 25.1 NG/ML (30.0-100.0); VITAMIN B12 LEVEL 1436 PG/ML (247-911)
== END ==
LOC: SKLAB4 07:00
PROVIDERS: ATTEND Nurse Practitioner Family
DX: F32.A Depression, unspecified (principal); F03.90 Unspecified dementia, unspecified severity, without behavioral disturbance, psychotic disturbance, mood disturbance, and anxiety; E53.8 Deficiency of other specified B group vitamins; Z79.899 Other long term (current) drug therapy

== ENCOUNTER → 2021-10-26 | Outpatient (REF) | payer MEDICARE, BC, OTHER ==
[~2021-10-26] MED LIST changes: +MILK400S12 PO; -OMEP-221 PO; +OMEP40CA5 PO
== END ==
LOC: SKLAB4 06:05
PROVIDERS: ATTEND Neuromusculoskeletal Medicine & OMM
DX: Z20.822 Contact with and (suspected) exposure to COVID-19 (principal)

== ENCOUNTER → 2021-11-02 | Outpatient (REF) | payer MEDICARE, BC, OTHER ==
[~2021-11-02] MED LIST changes: -MILK400S12 PO; +OMEP-221 PO; -OMEP40CA5 PO
== END ==
LOC: SKLAB4 11:40
PROVIDERS: ATTEND Internal Medicine
DX: Z20.822 Contact with and (suspected) exposure to COVID-19 (principal)

== ENCOUNTER → 2021-11-09 | Outpatient (REF) | payer MEDICARE, BC, OTHER | LOC: SKLAB4 09:55 | PROVIDERS: ATTEND Internal Medicine | DX: Z20.822 Contact with and (suspected) exposure to COVID-19 (principal) ==

== ENCOUNTER → 2021-11-16 | Outpatient (REF) | payer MEDICARE, BC, OTHER | LOC: SKLAB4 07:16 | PROVIDERS: ATTEND Internal Medicine | DX: Z20.822 Contact with and (suspected) exposure to COVID-19 (principal) ==

== ENCOUNTER → 2021-12-13 | Outpatient (CLI) | payer MEDICARE, BC, OTHER ==
[~2021-12-13] MED LIST changes: +MILK400S12 PO; -OMEP-221 PO; +OMEP40CA5 PO
== END ==
LOC: M RAD 15:01
PROVIDERS: ATTEND Internal Medicine
DX: I62.9 Nontraumatic intracranial hemorrhage, unspecified (principal)

== ENCOUNTER → 2021-12-13 | Outpatient (REF) | payer MEDICARE, BC, OTHER | LOC: SKLAB4 15:06 | PROVIDERS: ATTEND Internal Medicine | DX: R53.83 Other fatigue (principal) ==

== ENCOUNTER → 2021-12-20 | Outpatient (CLI) | payer MEDICARE, BC, OTHER | LOC: M PLAIMG 14:50 → M RAD 14:50 | PROVIDERS: ATTEND Nurse Practitioner Family | DX: S06.6X0A Traumatic subarachnoid hemorrhage without loss of consciousness, initial encounter (principal); W19.XXXA Unspecified fall, initial encounter; Y92.9 Unspecified place or not applicable; Y93.9 Activity, unspecified; Y99.9 Unspecified external cause status ==

== ENCOUNTER 2021-12-21 09:28 | Emergency (ER) | payer MEDICARE, BC, OTHER ==
[~2021-12-21] VITALS: Ht 170.2 cm; Wt 185.0 kg
[2021-12-21 10:45] LABS: HEMATOCRIT 39.7 % (42.0-52.0); HEMOGLOBIN 13.6 g/dl (13.5-17.5); MEAN CORPUSCULAR HEMOGLOBIN 33.2 pg (27.0-33.0); MEAN CORPUSCULAR HGB CONC 34.3 g/dl (32.0-36.5); MEAN CORPUSCULAR VOLUME 96.8 fl (80.0-96.0); PLATELET COUNT, AUTOMATED 198 10^3/uL (150-450); WHITE BLOOD COUNT 7.9 10^3/uL (4.0-10.0)
[2021-12-21 11:20] LABS: BLOOD UREA NITROGEN 10 MG/DL (7-18); CALCIUM LEVEL 8.6 MG/DL (8.8-10.2); CARBON DIOXIDE LEVEL 29 MEQ/L (21-32); CHLORIDE LEVEL 102 MEQ/L (98-107); CREATININE FOR GFR 0.69 MG/DL (0.70-1.30); GLOMERULAR FILTRATION RATE > 60.0 (>35); GLUCOSE, FASTING 129 MG/DL (70-100); POTASSIUM SERUM 3.7 MEQ/L (3.5-5.1); SODIUM LEVEL 138 MEQ/L (136-145)
[2021-12-21 11:23] LABS: RSV AMPLIFICATION NEGATIVE (NEGATIVE)
[2021-12-21 12:45] VITALS: BP 165/93
== END 2021-12-21 13:24 | disposition home or self-care (01) ==
LOC: EDBD 09:28 → M ED 09:28
DX: R41.82 Altered mental status, unspecified (principal); R29.6 Repeated falls; E78.5 Hyperlipidemia, unspecified; Z79.82 Long term (current) use of aspirin; Z79.899 Other long term (current) drug therapy; Z88.0 Allergy status to penicillin; Z88.8 Allergy status to other drugs, medicaments and biological substances

== ENCOUNTER → 2021-12-21 | Outpatient (REF) | payer MEDICARE, BC, OTHER ==
[2021-12-21 08:21] LABS: HEMATOCRIT 39.1 % (42.0-52.0); HEMOGLOBIN 13.4 g/dl (13.5-17.5); MEAN CORPUSCULAR HEMOGLOBIN 33.2 pg (27.0-33.0); MEAN CORPUSCULAR HGB CONC 34.3 g/dl (32.0-36.5); MEAN CORPUSCULAR VOLUME 96.8 fl (80.0-96.0); PLATELET COUNT, AUTOMATED 188 10^3/uL (150-450); RED BLOOD COUNT 4.04 10^6/uL (4.30-6.10); WHITE BLOOD COUNT 7.1 10^3/uL (4.0-10.0)
[2021-12-21 08:41] LABS: BLOOD UREA NITROGEN 10 MG/DL (7-18); CALCIUM LEVEL 8.6 MG/DL (8.8-10.2); CARBON DIOXIDE LEVEL 29 MEQ/L (21-32); CHLORIDE LEVEL 102 MEQ/L (98-107); GLOMERULAR FILTRATION RATE > 60.0 (>35); GLUCOSE, FASTING 130 MG/DL (70-100); POTASSIUM SERUM 3.4 MEQ/L (3.5-5.1); SODIUM LEVEL 139 MEQ/L (136-145)
== END ==
LOC: SKLAB4 07:00
PROVIDERS: ATTEND Internal Medicine
DX: I62.9 Nontraumatic intracranial hemorrhage, unspecified (principal)

== ENCOUNTER → 2021-12-29 | Outpatient (REF) | payer MEDICARE, BC, OTHER ==
[2021-12-29 17:00] LABS: HEMATOCRIT 37.3 % (42.0-52.0); HEMOGLOBIN 12.8 g/dl (13.5-17.5); MEAN CORPUSCULAR HEMOGLOBIN 33.7 pg (27.0-33.0); MEAN CORPUSCULAR HGB CONC 34.3 g/dl (32.0-36.5); MEAN CORPUSCULAR VOLUME 98.2 fl (80.0-96.0); PLATELET COUNT, AUTOMATED 178 10^3/uL (150-450); WHITE BLOOD COUNT 5.7 10^3/uL (4.0-10.0)
[2021-12-29 18:07] LABS: ERYTHROCYTE SEDIMENTATION RATE 59 mm/hr (0-20)
== END ==
LOC: SKLAB4 15:25
PROVIDERS: ATTEND Internal Medicine
DX: M25.421 Effusion, right elbow (principal)

== ENCOUNTER → 2021-12-30 | Outpatient (CLI) | payer MEDICARE, BC, OTHER | LOC: M RAD 11:22 | PROVIDERS: ATTEND Nurse Practitioner Family | DX: M19.021 Primary osteoarthritis, right elbow (principal) ==

== ENCOUNTER → 2022-02-01 | Outpatient (REF) | payer BC, MEDICARE, OTHER | LOC: SKLAB4 09:00 → EDSTATUS 16:45 → M RAD 17:01 | PROVIDERS: ATTEND Nurse Practitioner Family | DX: S09.90XA Unspecified injury of head, initial encounter (principal); W19.XXXA Unspecified fall, initial encounter ==

== ENCOUNTER → 2022-02-11 | Outpatient (REF) ==
[2022-02-11 08:37] LABS: HEMATOCRIT 45.1 % (42.0-52.0); HEMOGLOBIN 15.4 g/dl (13.5-17.5); MEAN CORPUSCULAR HEMOGLOBIN 34.4 pg (27.0-33.0); MEAN CORPUSCULAR HGB CONC 34.1 g/dl (32.0-36.5); MEAN CORPUSCULAR VOLUME 100.7 fl (80.0-96.0); PLATELET COUNT, AUTOMATED 179 10^3/uL (150-450); RED BLOOD COUNT 4.48 10^6/uL (4.30-6.10); WHITE BLOOD COUNT 14.6 10^3/uL (4.0-10.0)
[2022-02-11 09:01] LABS: ALBUMIN 3.2 GM/DL (3.2-5.2); BILIRUBIN,TOTAL 0.8 MG/DL (0.2-1.0); CALCIUM LEVEL 8.9 MG/DL (8.8-10.2); CREATININE FOR GFR 1.22 MG/DL (0.70-1.30); GLOMERULAR FILTRATION RATE 59.5 (>35); TOTAL PROTEIN 7.2 GM/DL (6.4-8.2)
== END ==
LOC: SKLAB4 05:57
PROVIDERS: ATTEND Internal Medicine
DX: R11.2 Nausea with vomiting, unspecified (principal); R19.5 Other fecal abnormalities

== ENCOUNTER → 2022-02-14 | Outpatient (REF) | payer MEDICARE, OTHER ==
[2022-02-14 11:34] LABS: HEMATOCRIT 38.6 % (42.0-52.0); HEMOGLOBIN 13.3 g/dl (13.5-17.5); MEAN CORPUSCULAR HEMOGLOBIN 34.1 pg (27.0-33.0); MEAN CORPUSCULAR HGB CONC 34.5 g/dl (32.0-36.5); PLATELET COUNT, AUTOMATED 164 10^3/uL (150-450); WHITE BLOOD COUNT 5.4 10^3/uL (4.0-10.0)
[2022-02-14 12:01] LABS: BLOOD UREA NITROGEN 11 MG/DL (7-18); CALCIUM LEVEL 8.2 MG/DL (8.8-10.2); CARBON DIOXIDE LEVEL 28 MEQ/L (21-32); CHLORIDE LEVEL 112 MEQ/L (98-107); GLOMERULAR FILTRATION RATE > 60.0 (>35); GLUCOSE, FASTING 130 MG/DL (70-100); POTASSIUM SERUM 3.7 MEQ/L (3.5-5.1); SODIUM LEVEL 144 MEQ/L (136-145)
== END ==
LOC: SKLAB4 07:00
PROVIDERS: ATTEND Internal Medicine
DX: A04.72 Enterocolitis due to Clostridium difficile, not specified as recurrent (principal); Z79.899 Other long term (current) drug therapy

== ENCOUNTER → 2022-04-27 | Outpatient (REF) | payer MEDICARE, OTHER ==
[~2022-04-27] MED LIST changes: -META0.522 PO; +METAMUCIL0.52 G2 PO
[2022-04-27 09:50] LABS: HEMATOCRIT 43.1 % (42.0-52.0); MEAN CORPUSCULAR HEMOGLOBIN 33.9 pg (27.0-33.0); MEAN CORPUSCULAR HGB CONC 34.8 g/dl (32.0-36.5); MEAN CORPUSCULAR VOLUME 97.5 fl (80.0-96.0); PLATELET COUNT, AUTOMATED 206 10^3/uL (150-450); RED BLOOD COUNT 4.42 10^6/uL (4.30-6.10); WHITE BLOOD COUNT 7.7 10^3/uL (4.0-10.0)
[2022-04-27 11:10] LABS: ALBUMIN 3.3 GM/DL (3.2-5.2); ALT/SGPT 21 U/L (12-78); BILIRUBIN,TOTAL 0.9 MG/DL (0.2-1.0); BLOOD UREA NITROGEN 10 MG/DL (7-18); CALCIUM LEVEL 8.5 MG/DL (8.8-10.2); CARBON DIOXIDE LEVEL 23 MEQ/L (21-32); CHLORIDE LEVEL 103 MEQ/L (98-107); CREATININE FOR GFR 1.02 MG/DL (0.70-1.30); GLOMERULAR FILTRATION RATE > 60.0 (>35); GLUCOSE, FASTING 209 MG/DL (70-100); POTASSIUM SERUM 3.6 MEQ/L (3.5-5.1); SODIUM LEVEL 137 MEQ/L (136-145); TOTAL PROTEIN 7.1 GM/DL (6.4-8.2); VITAMIN B12 LEVEL 427 PG/ML (247-911)
== END ==
LOC: SKLAB4 14:12
PROVIDERS: ATTEND Internal Medicine
DX: E55.9 Vitamin D deficiency, unspecified (principal); E11.9 Type 2 diabetes mellitus without complications

== ENCOUNTER → 2022-06-09 | Outpatient (CLI) | payer MEDICARE, OTHER | LOC: M RAD 10:43 | PROVIDERS: ATTEND Internal Medicine | DX: R20.2 Paresthesia of skin (principal); M50.30 Other cervical disc degeneration, unspecified cervical region ==

== ENCOUNTER → 2022-06-09 | Outpatient (REF) | payer MEDICARE, OTHER ==
[~2022-06-09] MED LIST changes: +ACET-683 PO; +AMLO2.5T3 PO; +BISA10SU4 PR; +CALM1OIN TP; +FLEEENE12 PR; +MOM30SS PO; +NYST10006 TOP; +SENN-80 PO; +TOBRSUS41 OS; +[UNRECOGNIZED DRUG - CODE] OU
== END ==
LOC: CANPREREF → SKLAB4 07:00
PROVIDERS: ATTEND Internal Medicine
DX: Z53.8 Procedure and treatment not carried out for other reasons (principal)

== ENCOUNTER → 2022-06-14 | Outpatient (REF) | payer MEDICARE, OTHER ==
[~2022-06-14] MED LIST changes: -ACET-683 PO; -AMLO2.5T3 PO; -BISA10SU4 PR; -CALM1OIN TP; -FLEEENE12 PR; -MOM30SS PO; -NYST10006 TOP; -SENN-80 PO; -TOBRSUS41 OS; -[UNRECOGNIZED DRUG - CODE] OU
[2022-06-14 16:05] LABS: HEMATOCRIT 41.5 % (42.0-52.0); HEMOGLOBIN 14.1 g/dl (13.5-17.5); MEAN CORPUSCULAR HEMOGLOBIN 33.2 pg (27.0-33.0); MEAN CORPUSCULAR VOLUME 97.6 fl (80.0-96.0); PLATELET COUNT, AUTOMATED 154 10^3/uL (150-450); RED BLOOD COUNT 4.25 10^6/uL (4.30-6.10); WHITE BLOOD COUNT 6.1 10^3/uL (4.0-10.0)
[2022-06-14 16:48] LABS: ALBUMIN 2.9 GM/DL (3.2-5.2); ALT/SGPT 29 U/L (12-78); BILIRUBIN,TOTAL 0.8 MG/DL (0.2-1.0); BLOOD UREA NITROGEN 11 MG/DL (7-18); CALCIUM LEVEL 8.5 MG/DL (8.8-10.2); CARBON DIOXIDE LEVEL 29 MEQ/L (21-32); CHLORIDE LEVEL 102 MEQ/L (98-107); CREATININE FOR GFR 0.98 MG/DL (0.70-1.30); GLOMERULAR FILTRATION RATE > 60.0 (>35); GLUCOSE, FASTING 117 MG/DL (70-100); POTASSIUM SERUM 4.1 MEQ/L (3.5-5.1); SODIUM LEVEL 138 MEQ/L (136-145); TOTAL PROTEIN 6.5 GM/DL (6.4-8.2)
== END ==
LOC: SKLAB2 15:39
PROVIDERS: ATTEND Internal Medicine
DX: U07.1 COVID-19 (principal); Z79.899 Other long term (current) drug therapy

== ENCOUNTER → 2022-06-15 | Outpatient (REF) | payer MEDICARE, OTHER ==
[2022-06-15 10:18] LABS: HEMATOCRIT 44.7 % (42.0-52.0); HEMOGLOBIN 15.1 g/dl (13.5-17.5); MEAN CORPUSCULAR HEMOGLOBIN 33.3 pg (27.0-33.0); MEAN CORPUSCULAR HGB CONC 33.8 g/dl (32.0-36.5); MEAN CORPUSCULAR VOLUME 98.5 fl (80.0-96.0); PLATELET COUNT, AUTOMATED 155 10^3/uL (150-450); RED BLOOD COUNT 4.54 10^6/uL (4.30-6.10); WHITE BLOOD COUNT 6.2 10^3/uL (4.0-10.0)
[2022-06-15 11:18] LABS: ALT/SGPT 38 U/L (12-78); BILIRUBIN,TOTAL 0.8 MG/DL (0.2-1.0); BLOOD UREA NITROGEN 14 MG/DL (7-18); CALCIUM LEVEL 8.6 MG/DL (8.8-10.2); CARBON DIOXIDE LEVEL 27 MEQ/L (21-32); CHLORIDE LEVEL 101 MEQ/L (98-107); CREATININE FOR GFR 0.99 MG/DL (0.70-1.30); GLOMERULAR FILTRATION RATE > 60.0 (>35); GLUCOSE, FASTING 146 MG/DL (70-100); POTASSIUM SERUM 3.5 MEQ/L (3.5-5.1); SODIUM LEVEL 137 MEQ/L (136-145); TOTAL PROTEIN 6.9 GM/DL (6.4-8.2)
== END ==
LOC: SKLAB4 06-13 15:20
PROVIDERS: ATTEND Nurse Practitioner Family
DX: U07.1 COVID-19 (principal); Z79.899 Other long term (current) drug therapy

== ENCOUNTER → 2022-06-16 | Outpatient (REF) | payer MEDICARE, OTHER | LOC: SKLAB4 11:19 | PROVIDERS: ATTEND Nurse Practitioner Family | DX: U07.1 COVID-19 (principal); Z53.9 Procedure and treatment not carried out, unspecified reason ==